=== PATIENT | male | born 1980 | race Two or more races ===

== ENCOUNTER 2019-07-12 16:41 | Inpatient (IN) | payer MEDICAID ==
[~2019-07-12] VITALS: Ht 182.9 cm; Wt 95.0 kg
[~2019-07-12 16:41] MED LIST: ALBU8HFA PO; IBUP-1986 PO; METF500T PO; [UNRECOGNIZED DRUG - CODE] PO
[2019-07-12] MEDS ORDERED: ipratropium/albuterol 3ml nebule NEB ONE (17:00)
[2019-07-12] MEDS ORDERED: methylPREDNISolone sod succ 125mg/2ml vial IV ONE (17:00)
[2019-07-12 17:33] LABS: BASOPHILS # (AUTO) 0.1 X10'3 (0-0.2); BASOPHILS % (AUTO) 0.6 % (0-1); EOSINOPHILS # (AUTO) 0.2 X10'3 (0-0.9); EOSINOPHILS % (AUTO) 2.6 % (0-6); HEMATOCRIT 38.6 % (42.0-52.0); HEMOGLOBIN 12.6 g/dl (14.0-17.9); LYMPHOCYTES # (AUTO) 1.6 X10'3 (1.1-4.8); MEAN CORPUSCULAR HGB CONC 32.7 g/dL (33.0-36.5); MEAN CORPUSCULAR VOLUME 76.3 FL (78-98); MEAN PLATELET VOLUME 7.5 FL (7.4-10.4); MONOCYTES # (AUTO) 0.5 X10'3 (0-0.9); MONOCYTES % (AUTO) 5.8 % (2-12); NEUTROPHILS # (AUTO) 6.6 X10'3 (1.8-7.7); PLATELET COUNT 435 X10'3 (140-440); RED BLOOD COUNT 5.06 X10'6 (4.70-6.10); RED CELL DISTRIBUTION WIDTH 14.7 % (11.5-14.5); WHITE BLOOD COUNT 9.1 X10'3 (4.5-11.0)
[2019-07-12 17:37] LABS: ALANINE AMINOTRANSFERASE 6 U/L (12-78); ALBUMIN 0.9 G/DL (3.4-5.0); ALBUMIN/GLOBULIN RATIO 0.2 (1.1-1.5); ALKALINE PHOSPHATASE 119 IU/L (46-116); ANION GAP 5 (8-16); ASPARTATE AMINO TRANSFERASE 12 U/L (10-37); BILIRUBIN,TOTAL 0.2 MG/DL (0.1-1.0); BLOOD UREA NITROGEN 12 MG/DL (7-18); BUN/CREATININE RATIO 12.8 (5.4-32.0); CALCIUM 8.4 MG/DL (8.5-10.1); CHLORIDE 105 MMOL/L (99-107); CREATININE 0.94 MG/DL (0.60-1.10); GLUCOSE 190 MG/DL (70-104); POTASSIUM 3.8 MMOL/L (3.5-5.1); SODIUM 140 MMOL/L (135-145); TOTAL CARBON DIOXIDE 30.3 MMOL/L (24-32); TOTAL PROTEIN 6.4 G/DL (6.4-8.2); eGFR 89 ML/MIN
[2019-07-12 17:40] LABS: PARTIAL THROMBOPLASTIN TIME 32 SECONDS (22-32)
[2019-07-12] MEDS ORDERED: morphine 2 MG/ML inj. syringe IV ONE (17:50)
[2019-07-12] MEDS ORDERED: nitroGLYCERIN 0.4mg/hour patch TD ONE (17:50)
[2019-07-12] MEDS ORDERED: aspirin 81mg tab.chew PO ONE ×2 (17:50→20:00)
[2019-07-12] MEDS ORDERED: furosemide 10 MG/1 ML 10ml inj IV ONE ×2 (17:55→19:00)
[2019-07-12] MEDS ORDERED: enoxaparin 100mg/ml syringe SUBCUT ONE (18:15)
[2019-07-12] MEDS ORDERED: INSU100V30 SQ (19:16)
[2019-07-12] MEDS ORDERED: magnesium 2GM in 50ml NS 50 ML IV PRN (19:35)
[2019-07-12] MEDS ORDERED: potassium Cl 20 mEq SR tablet PO PRN ×2 (19:35)
[2019-07-12] MEDS ORDERED: acetaminophen 325mg tablet PO PRN (19:35)
[2019-07-12] MEDS ORDERED: ondansetron/PF 4mg/2ml inj IV PRN (19:35)
[2019-07-12] MEDS ORDERED: magnesium 4gm in 100ml NS 100 ML IV PRN (19:35)
[2019-07-12] MEDS ORDERED: potassium CL 10mEq/100ml bag 100 ML IV PRN ×2 (19:35)
[2019-07-12] MEDS ORDERED: magnesium hydroxide 30ml (MOM) UD suspension PO PRN (19:35)
[2019-07-12] MEDS ORDERED: mag hydrox/Alum hydrox/simeth 30ml oral suspension PO PRN (19:35)
[2019-07-12] MEDS ORDERED: magnesium Cl slow-release 64mg tablet PO PRN (19:35)
[2019-07-12] MEDS ORDERED: dextrose ORAL solution 15 GM/59 ML bottle PO PRN ×2 (20:00)
[2019-07-12] MEDS ORDERED: MESSAGE TO PHARMACY PO ONE (20:00)
[2019-07-12] MEDS ORDERED: glucagon, human recombinant 1mg kit SUBCUT PRN (20:00)
[2019-07-12] MEDS: furosemide 40mg/4ml inj IV SCH (20:00)
[2019-07-12] MEDS ORDERED: nitroGLYCERIN 0.4mg SUBLingual tab SL PRN (20:00)
[2019-07-12] MEDS: K and/or MAG REPLACEMENT MC SCH (20:00)
[2019-07-12] MEDS ORDERED: dextrose 50%-water 50ml dispensing syringe IV PRN ×2 (20:00)
[2019-07-12 20:28] LABS: HEMOGLOBIN A1C 10.1 % (4.5-6.2)
[2019-07-12] MEDS: metoprolol tartrate 12.5mg (1/2 tablet) PO SCH (21:12)
[2019-07-12 21:25] VITALS: BP 139/88
--- NOTE | 2019-07-12 21:25 | NUR ---
pt arrived to the PCU unit from the ER via gurney, pt ambulated from the gurney to bed with stand by assist, pt complains of 6/10 lower extremity pain at the moment, pt does not seem to be in any respiratory distress, pt on RA, anasarca present, girlfriend at bedside with pt, will continue to monitor pt
[2019-07-12] MEDS: insulin glargine (Lantus) pen - multi-dose SQ SCH (22:38)
[2019-07-12 23:00] VITALS: BP 145/86
[2019-07-12] MEDS: HYDROcodone/acetaminophen 5mg/325mg tablet PO PRN (23:46)
[2019-07-13 03:00] VITALS: BP 143/80
[2019-07-13] MEDS: insulin Lispro (HumaLOG) vial - multi-dose SQ SCH ×4 (03:21→19:12)
--- NOTE | 2019-07-13 06:24 | NUR ---
Problems reprioritized. Patient report given, questions answered & plan of care reviewed with Luisa Mar and Hugo MAR.
--- NOTE | 2019-07-13 06:32 | NUR ---
Patient in room PCU 3024. I have received report from Veronica MACKAY and had the opportunity to ask questions and assume patient care, patient stable at transfer of care.
[2019-07-13 07:00] VITALS: BP 140/79
[2019-07-13 07:56] LABS: BASOPHILS % (AUTO) 0.1 % (0-1); EOSINOPHILS % (AUTO) 0 % (0-6); HEMATOCRIT 37.3 % (42.0-52.0); HEMOGLOBIN 12.2 g/dl (14.0-17.9); LYMPHOCYTES # (AUTO) 0.6 X10'3 (1.1-4.8); LYMPHOCYTES % (AUTO) 7.6 % (21-51); MEAN CORPUSCULAR HEMOGLOBIN 24.7 PG (27.0-31.0); MEAN CORPUSCULAR HGB CONC 32.6 g/dL (33.0-36.5); MEAN CORPUSCULAR VOLUME 75.8 FL (78-98); MEAN PLATELET VOLUME 8.2 FL (7.4-10.4); MONOCYTES # (AUTO) 0.1 X10'3 (0-0.9); NEUTROPHILS # (AUTO) 7.5 X10'3 (1.8-7.7); NEUTROPHILS % (AUTO) 91.3 % (42-75); PLATELET COUNT 453 X10'3 (140-440); RED BLOOD COUNT 4.93 X10'6 (4.70-6.10); RED CELL DISTRIBUTION WIDTH 14.3 % (11.5-14.5); WHITE BLOOD COUNT 8.2 X10'3 (4.5-11.0)
[2019-07-13] MEDS: K and/or MAG REPLACEMENT MC SCH ×2 (08:00→20:00)
[2019-07-13 08:20] LABS: ALBUMIN 0.7 G/DL (3.4-5.0); ALBUMIN/GLOBULIN RATIO 0.1 (1.1-1.5); ALKALINE PHOSPHATASE 114 IU/L (46-116); ANION GAP 4 (8-16); ASPARTATE AMINO TRANSFERASE 15 U/L (10-37); BILIRUBIN,TOTAL 0.2 MG/DL (0.1-1.0); BLOOD UREA NITROGEN 17 MG/DL (7-18); BUN/CREATININE RATIO 16.5 (5.4-32.0); CALCIUM 8.2 MG/DL (8.5-10.1); CHLORIDE 103 MMOL/L (99-107); CREATININE 1.03 MG/DL (0.60-1.10); GLUCOSE 373 MG/DL (70-104); POTASSIUM 3.8 MMOL/L (3.5-5.1); SODIUM 137 MMOL/L (135-145); TOTAL CARBON DIOXIDE 30.5 MMOL/L (24-32); eGFR 80 ML/MIN
[2019-07-13 08:25] LABS: MAGNESIUM 2.1 MG/DL (1.5-2.4); PHOSPHORUS 3.8 MG/DL (2.3-4.5)
[2019-07-13 08:27] LABS: ALANINE AMINOTRANSFERASE < 6 U/L (12-78)
[2019-07-13] MEDS: aspirin 81mg tab.chew PO SCH (09:21)
[2019-07-13] MEDS: metoprolol tartrate 12.5mg (1/2 tablet) PO SCH ×2 (09:22→19:08)
[2019-07-13] MEDS: atorvastatin 10mg tablet PO SCH (09:23)
[2019-07-13] MEDS: enoxaparin 40mg/0.4ml syringe SQ SCH (09:24)
[2019-07-13] MEDS: furosemide 40mg/4ml inj IV SCH ×2 (09:24→19:09)
[2019-07-13] MEDS ORDERED: FLU VACC QS2019-20 36MOS UP/PF 60 MCG/0.5 ML SYRINGE IMVAC ONE (10:00)
[2019-07-13 11:00] VITALS: BP 131/76
--- NOTE | 2019-07-13 12:13 | NUR ---
Patient in room PCU 3024. I have received report from THOMPSON Martin and had the opportunity to ask questions and assume patient care.
[2019-07-13 15:00] VITALS: BP 129/77
--- NOTE | 2019-07-13 16:16 | NUR ---
Pt with A1c 10.1 seen at bedside with SO present. Pt reports insulin dependent T2DM and states he takes long and short acting insulin per rx using a sliding scale for his short acting insulin. Pt states he checks his BG levels four times a day with resulting numbers generally 150-200 mg/dL however later reports it occasionally gets to around 250 mg/dL. Pt states his rx for test strips isn't enough for him. Pt provided with written and verbal DM education with referral to outpatient CDE course. Pt verbalized understanding and was able to provide teach back. RD encouraged pt to attend outpatient CDE course as per CM notes pt currently with no PCP. Pt expresses desire to obtain PCP; CM and SW following. RD contact information provided and pt encouraged to reach out if he has any questions regarding DM management or meal preferences. Pt agrees to double protein TID for satiety as pt reports still being hungry following 100% PO intake of meals, d/w dietary. Pt denies food allergies, difficulty chewing/swallowing, or constipation/diarrhea. Pt reports LBM 3/4. Will continue to follow. Addendum: 07/13/19 at [address] Amended: Links added.
[2019-07-13 18:00] VITALS: BP 124/73
--- NOTE | 2019-07-13 18:40 | NUR ---
Problems reprioritized. Patient report given, questions answered & plan of care reviewed with Anna RN, patient stable at transfer of care.
--- NOTE | 2019-07-13 18:47 | NUR ---
Problems reprioritized. Patient report given, questions answered & plan of care reviewed with THOMPSON Castillo. All patient needs met at this time.
[2019-07-13] MEDS: HYDROcodone/acetaminophen 5mg/325mg tablet PO PRN ×2 (19:09→23:18)
[2019-07-13] MEDS: insulin glargine (Lantus) pen - multi-dose SQ SCH (21:29)
[2019-07-13 22:00] VITALS: BP 136/73
[2019-07-14 02:00] VITALS: BP 125/74
[2019-07-14 02:55] LABS: URINE AMPHETAMINE SCREEN POSITIVE (Neg); URINE BARBITUATE SCREEN NEGATIVE (Neg); URINE BENZODIAZEPINES SCREEN NEGATIVE (Neg); URINE CANNABINOID SCREEN POSITIVE (Neg); URINE COCAINE SCREEN NEGATIVE (Neg); URINE METHADONE SCREEN NEGATIVE (Neg); URINE OPIATE SCREEN POSITIVE (Neg); URINE PHENCYCLIDINE SCREEN NEGATIVE (Neg)
[2019-07-14 02:59] LABS: CLARITY,URINE CLEAR (Clear); COLOR,URINE YELLOW (Yellow); GLUCOSE, URINE NEGATIVE (Neg); KETONES,URINE NEGATIVE (Neg); LEUKOCYTE ESTERASE ,URINE NEGATIVE (Neg); NITRITES, URINE NEGATIVE (Neg); OCCULT BLOOD,URINE SMALL (Neg); PH,URINE 7.5 (4.8-8.0); PROTEIN,URINE >=300 mg/dl (Neg); UROBILINOGEN,URINE 0.2 E.U/dL (0.2-1.0)
[2019-07-14 03:12] LABS: UA COLLECTION TYPE CLN CATCH MIDSTREAM
[2019-07-14 03:14] LABS: RBC,URINE 0-2 /HPF (0-2); WBC,URINE NONE SEEN /HPF (0-4)
[2019-07-14 03:15] LABS: BACTERIA,URINE NONE SEEN /HPF (Neg); MUCUS STRANDS FEW /LPF (Neg); SQUAMOUS EPITHELIAL CELL,UR NONE SEEN /LPF (FEW)
[2019-07-14 06:00] VITALS: BP 139/84
--- NOTE | 2019-07-14 06:23 | NUR ---
Problems reprioritized. Patient report given, questions answered & plan of care reviewed with THOMPSON Taveras.
[2019-07-14 07:02] LABS: BASOPHILS # (AUTO) 0.1 X10'3 (0-0.2); BASOPHILS % (AUTO) 0.6 % (0-1); EOSINOPHILS # (AUTO) 0.2 X10'3 (0-0.9); EOSINOPHILS % (AUTO) 2.2 % (0-6); HEMATOCRIT 34.9 % (42.0-52.0); HEMOGLOBIN 11.6 g/dl (14.0-17.9); LYMPHOCYTES # (AUTO) 3.1 X10'3 (1.1-4.8); LYMPHOCYTES % (AUTO) 32.8 % (21-51); MEAN CORPUSCULAR HEMOGLOBIN 25.4 PG (27.0-31.0); MEAN CORPUSCULAR HGB CONC 33.3 g/dL (33.0-36.5); MEAN CORPUSCULAR VOLUME 76.3 FL (78-98); MEAN PLATELET VOLUME 7.6 FL (7.4-10.4); MONOCYTES # (AUTO) 0.5 X10'3 (0-0.9); NEUTROPHILS # (AUTO) 5.6 X10'3 (1.8-7.7); NEUTROPHILS % (AUTO) 59.4 % (42-75); PLATELET COUNT 501 X10'3 (140-440); RED BLOOD COUNT 4.57 X10'6 (4.70-6.10); RED CELL DISTRIBUTION WIDTH 14.6 % (11.5-14.5); WHITE BLOOD COUNT 9.4 X10'3 (4.5-11.0)
[2019-07-14 07:21] LABS: ALANINE AMINOTRANSFERASE 8 U/L (12-78); ALBUMIN 0.9 G/DL (3.4-5.0); ALBUMIN/GLOBULIN RATIO 0.2 (1.1-1.5); ALKALINE PHOSPHATASE 100 IU/L (46-116); ANION GAP 3 (8-16); ASPARTATE AMINO TRANSFERASE 17 U/L (10-37); BILIRUBIN,TOTAL 0.1 MG/DL (0.1-1.0); BLOOD UREA NITROGEN 24 MG/DL (7-18); BUN/CREATININE RATIO 25.3 (5.4-32.0); CALCIUM 7.8 MG/DL (8.5-10.1); CHLORIDE 107 MMOL/L (99-107); CREATININE 0.95 MG/DL (0.60-1.10); GLUCOSE 149 MG/DL (70-104); MAGNESIUM 1.9 MG/DL (1.5-2.4); PHOSPHORUS 3.7 MG/DL (2.3-4.5); POTASSIUM 3.5 MMOL/L (3.5-5.1); SODIUM 141 MMOL/L (135-145); TOTAL CARBON DIOXIDE 30.6 MMOL/L (24-32); TOTAL PROTEIN 5.7 G/DL (6.4-8.2); eGFR 88 ML/MIN
[2019-07-14] MEDS: aspirin 81mg tab.chew PO SCH (07:49)
[2019-07-14] MEDS: atorvastatin 10mg tablet PO SCH (07:49)
[2019-07-14] MEDS: furosemide 40mg/4ml inj IV SCH ×2 (07:49→20:37)
[2019-07-14] MEDS: metoprolol tartrate 12.5mg (1/2 tablet) PO SCH ×2 (07:50→20:44)
[2019-07-14] MEDS: enoxaparin 40mg/0.4ml syringe SQ SCH (07:51)
[2019-07-14] MEDS: HYDROcodone/acetaminophen 5mg/325mg tablet PO PRN ×2 (07:52→20:46)
[2019-07-14] MEDS: K and/or MAG REPLACEMENT MC SCH ×2 (08:00→20:00)
[2019-07-14] MEDS: insulin Lispro (HumaLOG) vial - multi-dose SQ SCH (09:05)
[2019-07-14 11:00] VITALS: BP 138/83
[2019-07-14 11:46] LABS: CREATININE 0.96 MG/DL (0.60-1.10)
[2019-07-14] MEDS ORDERED: nitroGLYCERIN 0.4mg SUBLingual tab SL PRN (13:10)
[2019-07-14] MEDS ORDERED: regadenoson 0.4mg/5ml syringe IV PRN (13:10)
[2019-07-14] MEDS ORDERED: metoprolol tartrate 1mg/ml inj IV PRN (13:10)
[2019-07-14] MEDS ORDERED: aminophylline 250mg/10ml inj. IV PRN (13:10)
--- NOTE | 2019-07-14 13:23 | NUR ---
called down to nuclear med in regards to patient's scheduled stress test, stress test will be done 3 am, npo after midnight and no caffeine.
[2019-07-14 15:00] VITALS: BP 126/82
--- NOTE | 2019-07-14 18:32 | NUR ---
Problems reprioritized. Patient report given, questions answered & plan of care reviewed with Roxanna MACKAY.
[2019-07-14 19:00] VITALS: BP 156/93
[2019-07-14] MEDS: insulin glargine (Lantus) pen - multi-dose SQ SCH (20:44)
[2019-07-14 23:00] VITALS: BP 147/65
[2019-07-15] VITALS (9 sets, daily range): BP systolic 123–150; BP diastolic 75–96
--- NOTE | 2019-07-15 06:06 | NUR ---
Problems reprioritized. Patient report given, questions answered & plan of care reviewed with Darcy MACKAY.
[2019-07-15 06:44] LABS: BASOPHILS # (AUTO) 0.1 X10'3 (0-0.2); BASOPHILS % (AUTO) 0.7 % (0-1); EOSINOPHILS # (AUTO) 0.4 X10'3 (0-0.9); EOSINOPHILS % (AUTO) 4.3 % (0-6); HEMATOCRIT 35.3 % (42.0-52.0); HEMOGLOBIN 11.9 g/dl (14.0-17.9); LYMPHOCYTES # (AUTO) 2.8 X10'3 (1.1-4.8); MEAN CORPUSCULAR HEMOGLOBIN 25.8 PG (27.0-31.0); MEAN CORPUSCULAR HGB CONC 33.8 g/dL (33.0-36.5); MEAN CORPUSCULAR VOLUME 76.4 FL (78-98); MEAN PLATELET VOLUME 7.5 FL (7.4-10.4); MONOCYTES # (AUTO) 0.5 X10'3 (0-0.9); MONOCYTES % (AUTO) 5.4 % (2-12); NEUTROPHILS # (AUTO) 4.7 X10'3 (1.8-7.7); NEUTROPHILS % (AUTO) 56.6 % (42-75); PLATELET COUNT 535 X10'3 (140-440); RED BLOOD COUNT 4.62 X10'6 (4.70-6.10); RED CELL DISTRIBUTION WIDTH 14.5 % (11.5-14.5); WHITE BLOOD COUNT 8.4 X10'3 (4.5-11.0)
--- NOTE | 2019-07-15 06:58 | NUR ---
Patient in room PCU 3024. I have received report from Roxanna MACKAY and had the opportunity to ask questions and assume patient care.
[2019-07-15 07:06] LABS: ALANINE AMINOTRANSFERASE 10 U/L (12-78); ALBUMIN 0.9 G/DL (3.4-5.0); ALBUMIN/GLOBULIN RATIO 0.2 (1.1-1.5); ALKALINE PHOSPHATASE 104 IU/L (46-116); ANION GAP 3 (8-16); ASPARTATE AMINO TRANSFERASE 16 U/L (10-37); BILIRUBIN,TOTAL 0.1 MG/DL (0.1-1.0); BLOOD UREA NITROGEN 20 MG/DL (7-18); BUN/CREATININE RATIO 21.3 (5.4-32.0); CALCIUM 8.1 MG/DL (8.5-10.1); CHLORIDE 106 MMOL/L (99-107); CREATININE 0.94 MG/DL (0.60-1.10); GLUCOSE 155 MG/DL (70-104); MAGNESIUM 1.9 MG/DL (1.5-2.4); POTASSIUM 3.8 MMOL/L (3.5-5.1); SODIUM 142 MMOL/L (135-145); TOTAL CARBON DIOXIDE 32.8 MMOL/L (24-32); TOTAL PROTEIN 5.9 G/DL (6.4-8.2); eGFR 89 ML/MIN
--- NOTE | 2019-07-15 07:53 | NUR ---
PAGER ID: [phone] MESSAGE: [id number] Sarah Tse Pt. had some chocolate last night. Rigo from [facility] wants to know if you would still like to proceed with Stress test. Felisha [phone]
[2019-07-15] MEDS: metoprolol tartrate 12.5mg (1/2 tablet) PO SCH (08:00)
[2019-07-15] MEDS: enoxaparin 40mg/0.4ml syringe SQ SCH (08:54)
[2019-07-15] MEDS: atorvastatin 10mg tablet PO SCH (08:54)
[2019-07-15] MEDS: aspirin 81mg tab.chew PO SCH (08:55)
[2019-07-15] MEDS: furosemide 40mg/4ml inj IV SCH (08:55)
--- NOTE | 2019-07-15 12:28 | NUR ---
PAGER ID: [phone] MESSAGE: [id number] Alex Tse Lexiscan results in, Negative for infarct or Lexiscan induced ischemia. Normal LVEF, can patient eat now? thank marcin Aguilar replies and states pt can eat and once 24hr urine collection is completed patient can discharge.
[2019-07-15] MEDS ORDERED: LISI2.5T2 PO (12:33)
--- NOTE | 2019-07-15 13:25 | NUR ---
Called in new prescriptions to pharmacy of preference. Spoke with Martina, pharmacist. Confirmed that they have received faxed paperwork re: glucometer test strips and kwikpen needles.
[2019-07-15] MEDS: insulin Lispro (HumaLOG) vial - multi-dose SQ SCH (13:46)
[2019-07-15 14:08] LABS: UREA NITROGEN 24HR,URINE 22.3 GM/24HR (7-20)
[2019-07-17 11:10] LABS: A/G RATIO 0.4 (0.7-1.7); ALBUMIN 1.4 g/dL (2.9-4.4); GAMMA GLOBULIN 0.4 g/dL (0.4-1.8); GLOBULIN, TOTAL 3.5 g/dL (2.2-3.9); M-SPIKE Not Observed g/dL (Not Observed); PROTEIN, TOTAL, SERUM 4.9 g/dL (6.0-8.5)
[2019-07-18 10:46] LABS: ALBUMIN, UR 48.6 % (.); ALPHA-1-GLOBULIN,UR 17.9 % (.); ALPHA-2-GLOBULIN,UR 9.3 % (.); BETA GLOBULIN, UR 17.4 % (.); GAMMA GLOBULIN,UR 6.8 % (.); PROTEIN,TOTAL,URINE 292.4 mg/dL (Not Estab.)
== END 2019-07-15 14:13 | disposition home or self-care (01) | DRG 203 ==
LOC: ER 16:42 → ED HOLD 19:31 → UNDOADMIN 19:31 → ED HOLD 20:13 → PCU 3S 21:25
PROVIDERS: ADMIT Family Medicine; ATTEND Internal Medicine
PROC: 4A02XM4 Measurement of Cardiac Total Activity, External Approach (ICD-10-PCS; principal; 2019-07-15)
PROC: 3E033HZ Introduction of Radioactive Substance into Peripheral Vein, Percutaneous Approach (ICD-10-PCS; 2019-07-15)
DX: R07.9 Chest pain, unspecified (principal); E03.9 Hypothyroidism, unspecified; E10.9 Type 1 diabetes mellitus without complications; F12.90 Cannabis use, unspecified, uncomplicated; J45.909 Unspecified asthma, uncomplicated; Z79.4 Long term (current) use of insulin; Z87.891 Personal history of nicotine dependence; Z90.49 Acquired absence of other specified parts of digestive tract; R60.1 Generalized edema
CPT/HCPCS: 36415; 71045; 78452; 80053; 80305; 81001; 82043; 82575; 82948; 83036; 83735; 83880; 84100; 84155; 84156; 84165; 84166; 84439; 84443; 84480; 84484; 84560; 85025; 85610; 85730; 86335; 87081; 93005; 93017; 93306; 93970; 94640; 94760; 96372; 96374; 96375; 99285; A9500; G0378; J1650; J1815; J1940; J2270; J2785; J2930; Q2037

== ENCOUNTER 2020-02-09 07:53 | Inpatient (IN) | payer MEDICAID ==
[~2020-02-09] VITALS: Ht 182.9 cm; Wt 97.5 kg
[~2020-02-09 07:53] MED LIST changes: -ALBU8HFA PO; -IBUP-1986 PO; +INSU100V30 SQ; +LISI2.5T2 PO; -METF500T PO; -[UNRECOGNIZED DRUG - CODE] PO
[2020-02-09 10:04] LABS: BASOPHILS # (AUTO) 0.1 X10'3 (0-0.2); BASOPHILS % (AUTO) 0.8 % (0-1); EOSINOPHILS # (AUTO) 0.2 X10'3 (0-0.9); HEMATOCRIT 37.8 % (42.0-52.0); HEMOGLOBIN 12.3 g/dl (14.0-17.9); LYMPHOCYTES # (AUTO) 1.3 X10'3 (1.1-4.8); LYMPHOCYTES % (AUTO) 7.8 % (21-51); MEAN CORPUSCULAR HEMOGLOBIN 25.7 PG (27.0-31.0); MEAN CORPUSCULAR HGB CONC 32.5 g/dL (33.0-36.5); MEAN CORPUSCULAR VOLUME 79.3 FL (78-98); MONOCYTES # (AUTO) 1.4 X10'3 (0-0.9); NEUTROPHILS % (AUTO) 82.4 % (42-75); PLATELET COUNT 461 X10'3 (140-440); RED BLOOD COUNT 4.77 X10'6 (4.70-6.10); RED CELL DISTRIBUTION WIDTH 16.1 % (11.5-14.5)
[2020-02-09 10:17] LABS: ALANINE AMINOTRANSFERASE 9 U/L (12-78); ALBUMIN 0.7 G/DL (3.4-5.0); ALBUMIN/GLOBULIN RATIO 0.1 (1.1-1.5); ALKALINE PHOSPHATASE 118 IU/L (46-116); ANION GAP 7 (8-16); ASPARTATE AMINO TRANSFERASE 14 U/L (10-37); BILIRUBIN,TOTAL 0.2 MG/DL (0.1-1.0); BLOOD UREA NITROGEN 18 MG/DL (7-18); BUN/CREATININE RATIO 7.9 (5.4-32.0); CALCIUM 8.5 MG/DL (8.5-10.1); CHLORIDE 103 MMOL/L (99-107); CREATININE 2.28 MG/DL (0.60-1.10); GLUCOSE 242 MG/DL (70-104); LIPASE 192 U/L (73-393); POTASSIUM 3.2 MMOL/L (3.5-5.1); SODIUM 134 MMOL/L (135-145); TOTAL CARBON DIOXIDE 23.6 MMOL/L (24-32); TOTAL PROTEIN 6.3 G/DL (6.4-8.2); eGFR 32 ML/MIN
[2020-02-09 10:25] LABS: ETHANOL < 0.010 GM/DL (0.0-0.010)
[2020-02-09 10:35] LABS: CLARITY,URINE SLIGHTLY CLOUDY (Clear); COLOR,URINE YELLOW (Yellow); GLUCOSE, URINE >=1000 mg/dl (Neg); KETONES,URINE NEGATIVE (Neg); LEUKOCYTE ESTERASE ,URINE NEGATIVE (Neg); NITRITES, URINE NEGATIVE (Neg); OCCULT BLOOD,URINE MODERATE (Neg); PROTEIN,URINE >=300 mg/dl (Neg); UROBILINOGEN,URINE 0.2 E.U/dL (0.2-1.0)
[2020-02-09 10:36] LABS: UA COLLECTION TYPE CLN CATCH MIDSTREAM
[2020-02-09 10:41] LABS: MUCUS STRANDS FEW /LPF (Neg)
[2020-02-09 10:42] LABS: SQUAMOUS EPITHELIAL CELL,UR FEW /LPF (FEW)
[2020-02-09 10:47] LABS: BACTERIA,URINE FEW /HPF (Neg)
[2020-02-09 10:51] LABS: AMMONIA < 10 UMOL/L (11-32)
[2020-02-09 10:56] LABS: URINE AMPHETAMINE SCREEN NEGATIVE (Neg); URINE BARBITUATE SCREEN NEGATIVE (Neg); URINE BENZODIAZEPINES SCREEN NEGATIVE (Neg); URINE CANNABINOID SCREEN POSITIVE (Neg); URINE COCAINE SCREEN NEGATIVE (Neg); URINE METHADONE SCREEN NEGATIVE (Neg); URINE OPIATE SCREEN NEGATIVE (Neg); URINE PHENCYCLIDINE SCREEN NEGATIVE (Neg)
[2020-02-09 11:03] LABS: WBC,URINE 0-4 /HPF (0-4)
[2020-02-09 11:05] LABS: TRANSITIONAL EPI CELLS,URINE MODERATE /HPF
[2020-02-09] MEDS ORDERED: potassium Cl 20 mEq SR tablet PO STA (11:05)
[2020-02-09 11:14] LABS: LACTIC SEPSIS 0.3 MMOL/L (0.4-2.0)
[2020-02-09] MEDS ORDERED: magnesium Cl slow-release 64mg tablet PO PRN (12:05)
[2020-02-09] MEDS ORDERED: morphine 2 MG/ML inj. syringe IV PRN ×2 (12:05)
[2020-02-09] MEDS ORDERED: glucagon, human recombinant 1mg kit SUBCUT PRN (12:05)
[2020-02-09] MEDS ORDERED: HYDROcodone/acetaminophen 5mg/325mg tablet PO PRN (12:05)
[2020-02-09] MEDS ORDERED: acetaminophen 325mg tablet PO PRN (12:05)
[2020-02-09] MEDS ORDERED: potassium Cl 20 mEq SR tablet PO PRN (12:05)
[2020-02-09] MEDS ORDERED: dextrose 50%-water 50ml dispensing syringe IV PRN ×2 (12:05)
[2020-02-09] MEDS ORDERED: magnesium 2GM in 50ml NS 50 ML IV PRN (12:05)
[2020-02-09] MEDS ORDERED: MESSAGE TO PHARMACY PO ONE (12:05)
[2020-02-09] MEDS ORDERED: potassium CL 10mEq/100ml bag 100 ML IV PRN ×2 (12:05)
[2020-02-09] MEDS ORDERED: ondansetron/PF 4mg/2ml inj IV PRN (12:05)
[2020-02-09] MEDS ORDERED: dextrose ORAL solution 15 GM/59 ML bottle PO PRN ×2 (12:05)
[2020-02-09] MEDS ORDERED: magnesium 4gm in 100ml NS 100 ML IV PRN (12:05)
[2020-02-09] MEDS ORDERED: NO HOME MEDS (12:47)
[2020-02-09] MEDS: normal saline 1000ml 1,000 ML IV SCH ×2 (13:23→18:45)
[2020-02-09] MEDS: HYDROcodone/acetaminophen 10/325mg tab PO PRN ×2 (13:29→19:52)
--- NOTE | 2020-02-09 14:11 | NUR ---
Recieved report from Anneliese MACKAY in ER. Pt. to be admitted to room 8454J
--- NOTE | 2020-02-09 15:19 | NUR ---
Pt. in room. Oriented to room and call light/phone made available. Fluids per order started and VS taken. Tele monitor 54 placed on pt. Pt. c/o dry mouth. Oral swabs and Listerine provided. Pt. aware he is NPO.
[2020-02-09 15:30] VITALS: BP 141/95
--- NOTE | 2020-02-09 15:53 | NUR ---
PAGER ID: [phone] MESSAGE: Alen Mikael Tse [id number] very upset. He is NPO and wants a diet. Can I give him a diet? Leonila [phone]
[2020-02-09 15:54] VITALS: BP 118/80
--- NOTE | 2020-02-09 15:59 | NUR ---
Paged yisel nurse. Resource RN covering for this RN while on Lunch break for 30 min.
[2020-02-09 18:00] VITALS: BP 155/96
--- NOTE | 2020-02-09 18:15 | NUR ---
Patient in room PCU 3013. I have received report from Leonila MACKAY and had the opportunity to ask questions and assume patient care.
--- NOTE | 2020-02-09 18:15 | NUR ---
Gave report to Karla surgical attendant float.
--- NOTE | 2020-02-09 18:15 | NUR ---
Patient in room PCU 3013. I have received report from Leonila MACKAY and had the opportunity to ask questions and assume patient care.
[2020-02-09] MEDS: pantoprazole 40 MG vial IV SCH (19:34)
[2020-02-09] MEDS: metroNIDAZOLE-Flagyl 500mg/NS 100 ML IV SCH (19:35)
[2020-02-09] MEDS: heparin, porcine 5000 units/ml vial SQ SCH (19:35)
[2020-02-09] MEDS: K and/or MAG REPLACEMENT MC SCH (20:00)
[2020-02-09] MEDS: insulin glargine (Lantus) pen - multi-dose SQ SCH (21:00)
[2020-02-09] MEDS ORDERED: temazepam 15mg capsule PO PRN (21:00)
[2020-02-09] MEDS: ciprofloxacin lact 400MG/200ML 200 ML IV SCH (21:34)
[2020-02-09 22:00] VITALS: BP 152/89
[2020-02-10 02:00] VITALS: BP 141/89
[2020-02-10] MEDS: HYDROcodone/acetaminophen 10/325mg tab PO PRN ×4 (02:36→22:05)
[2020-02-10] MEDS: normal saline 1000ml 1,000 ML IV SCH ×3 (04:28→13:17)
[2020-02-10 05:53] LABS: BASOPHILS # (AUTO) 0.1 X10'3 (0-0.2); BASOPHILS % (AUTO) 0.6 % (0-1); EOSINOPHILS # (AUTO) 0.4 X10'3 (0-0.9); EOSINOPHILS % (AUTO) 3.3 % (0-6); HEMATOCRIT 33.8 % (42.0-52.0); LYMPHOCYTES # (AUTO) 1.4 X10'3 (1.1-4.8); LYMPHOCYTES % (AUTO) 11.1 % (21-51); MEAN CORPUSCULAR HEMOGLOBIN 25.7 PG (27.0-31.0); MEAN CORPUSCULAR HGB CONC 32.6 g/dL (33.0-36.5); MEAN CORPUSCULAR VOLUME 78.8 FL (78-98); MEAN PLATELET VOLUME 7.8 FL (7.4-10.4); MONOCYTES # (AUTO) 0.9 X10'3 (0-0.9); MONOCYTES % (AUTO) 6.8 % (2-12); NEUTROPHILS # (AUTO) 10.1 X10'3 (1.8-7.7); NEUTROPHILS % (AUTO) 78.2 % (42-75); PLATELET COUNT 398 X10'3 (140-440); RED BLOOD COUNT 4.29 X10'6 (4.70-6.10); RED CELL DISTRIBUTION WIDTH 15.7 % (11.5-14.5); WHITE BLOOD COUNT 12.9 X10'3 (4.5-11.0)
[2020-02-10 06:00] VITALS: BP 148/92
[2020-02-10 06:07] LABS: ALANINE AMINOTRANSFERASE 8 U/L (12-78); ALKALINE PHOSPHATASE 98 IU/L (46-116); ANION GAP 6 (8-16); ASPARTATE AMINO TRANSFERASE 14 U/L (10-37); BILIRUBIN,TOTAL 0.3 MG/DL (0.1-1.0); BLOOD UREA NITROGEN 20 MG/DL (7-18); BUN/CREATININE RATIO 8.3 (5.4-32.0); CALCIUM 8.3 MG/DL (8.5-10.1); CHLORIDE 107 MMOL/L (99-107); CREATININE 2.42 MG/DL (0.60-1.10); GLUCOSE 144 MG/DL (70-104); MAGNESIUM 1.9 MG/DL (1.5-2.4); POTASSIUM 3.7 MMOL/L (3.5-5.1); SODIUM 137 MMOL/L (135-145); TOTAL CARBON DIOXIDE 23.7 MMOL/L (24-32); TOTAL PROTEIN 5.4 G/DL (6.4-8.2); eGFR 30 ML/MIN
--- NOTE | 2020-02-10 06:23 | NUR ---
Problems reprioritized. Patient report given, questions answered & plan of care reviewed with Karyn.
[2020-02-10 06:30] LABS: ALBUMIN < 0.6 G/DL (3.4-5.0); ALBUMIN/GLOBULIN RATIO 0.1 (1.1-1.5)
--- NOTE | 2020-02-10 06:44 | NUR ---
Patient in room PCU 3013A. I have received report from THOMPSON YANES and had the opportunity to ask questions and assume patient care.
[2020-02-10] MEDS: pantoprazole 40 MG vial IV SCH ×2 (07:26→22:05)
[2020-02-10] MEDS: metroNIDAZOLE-Flagyl 500mg/NS 100 ML IV SCH ×2 (07:27→22:09)
[2020-02-10] MEDS: nicotine 14mg patch - 24hr TD SCH ×2 (07:27→15:40)
[2020-02-10] MEDS: heparin, porcine 5000 units/ml vial SQ SCH ×2 (07:27→22:23)
[2020-02-10] MEDS: K and/or MAG REPLACEMENT MC SCH ×2 (07:29→20:00)
[2020-02-10] MEDS: ciprofloxacin lact 400MG/200ML 200 ML IV SCH ×2 (09:03→23:58)
--- NOTE | 2020-02-10 10:23 | NUR ---
Pt with T2DM, current A1c is 8.3%. Pt presented with c/o 02/16 abdominal pain, currently with c/o 01/17 pain. Will defer DM education at this time until pt more stable. Per records pt with an A1c of 10.1% in July of this year and pt was seen by RD with patient's SO at bedside for written and verbal DM education 07/13/2019. Per RD note at that time, pt reports insulin dependent T2DM and expressed desire to obtain a PCP, though per H&P this admit pt with no PCP and continues with insulin rx. Will continue to follow. Addendum: 02/10/20 at [address] Amended: Links added.
[2020-02-10 11:00] VITALS: BP 147/94
[2020-02-10] MEDS ORDERED: nystatin 15 GM powder TP SCH (13:25)
[2020-02-10 15:00] VITALS: BP_SYST 161; BP_SYST 169; BP_DIAS 101; BP_DIAS 110
--- NOTE | 2020-02-10 15:24 | NUR ---
PATIENT HAS BEEN HAVING HIGH BLOOD PRESSURES, CURRENT 169/101. PAGED AWAITING CALL BACK
[2020-02-10 18:00] VITALS: BP 159/88
--- NOTE | 2020-02-10 19:45 | NUR ---
Patient in room U 3013. I have received report from Walter MACKAY and had the opportunity to ask questions and assume patient care. Addendum: 02/11/20 at 0015 by Eulalia Morrison RN Amended: Links added.
[2020-02-10] MEDS: insulin glargine (Lantus) pen - multi-dose SQ SCH (21:00)
[2020-02-10 22:00] VITALS: BP 140/82
[2020-02-10] MEDS: atenolol 25mg tablet PO SCH (22:19)
[2020-02-11] MEDS: normal saline 1000ml 1,000 ML IV SCH ×3 (00:18→20:18)
[2020-02-11 04:21] LABS: BASOPHILS # (AUTO) 0.2 X10'3 (0-0.2); BASOPHILS % (AUTO) 1.7 % (0-1); EOSINOPHILS # (AUTO) 0.4 X10'3 (0-0.9); EOSINOPHILS % (AUTO) 2.8 % (0-6); HEMATOCRIT 35.5 % (42.0-52.0); HEMOGLOBIN 11.4 g/dl (14.0-17.9); LYMPHOCYTES # (AUTO) 1.5 X10'3 (1.1-4.8); LYMPHOCYTES % (AUTO) 11.1 % (21-51); MEAN CORPUSCULAR HEMOGLOBIN 25.5 PG (27.0-31.0); MEAN CORPUSCULAR HGB CONC 32.1 g/dL (33.0-36.5); MEAN CORPUSCULAR VOLUME 79.4 FL (78-98); MEAN PLATELET VOLUME 8.2 FL (7.4-10.4); MONOCYTES # (AUTO) 0.9 X10'3 (0-0.9); MONOCYTES % (AUTO) 7.1 % (2-12); NEUTROPHILS # (AUTO) 10.1 X10'3 (1.8-7.7); NEUTROPHILS % (AUTO) 77.3 % (42-75); PLATELET COUNT 483 X10'3 (140-440); RED BLOOD COUNT 4.47 X10'6 (4.70-6.10); RED CELL DISTRIBUTION WIDTH 16.1 % (11.5-14.5); WHITE BLOOD COUNT 13.1 X10'3 (4.5-11.0)
[2020-02-11] MEDS: HYDROcodone/acetaminophen 10/325mg tab PO PRN ×3 (05:16→19:56)
[2020-02-11 05:29] LABS: ALANINE AMINOTRANSFERASE 6 U/L (12-78); ALKALINE PHOSPHATASE 96 IU/L (46-116); ANION GAP 9 (8-16); ASPARTATE AMINO TRANSFERASE 11 U/L (10-37); BILIRUBIN,TOTAL 0.2 MG/DL (0.1-1.0); BLOOD UREA NITROGEN 20 MG/DL (7-18); BUN/CREATININE RATIO 8.5 (5.4-32.0); CALCIUM 8.5 MG/DL (8.5-10.1); CHLORIDE 103 MMOL/L (99-107); CREATININE 2.34 MG/DL (0.60-1.10); GLUCOSE 160 MG/DL (70-104); MAGNESIUM 1.8 MG/DL (1.5-2.4); POTASSIUM 3.2 MMOL/L (3.5-5.1); SODIUM 134 MMOL/L (135-145); TOTAL PROTEIN 5.4 G/DL (6.4-8.2); eGFR 31 ML/MIN
[2020-02-11 05:33] LABS: ALBUMIN < 0.6 G/DL (3.4-5.0); ALBUMIN/GLOBULIN RATIO 0.1 (1.1-1.5)
--- NOTE | 2020-02-11 06:00 | NUR ---
Problems reprioritized. Patient report given, questions answered & plan of care reviewed with True MACKAY. Addendum: 02/11/20 at 0707 by Eulalia Morrison RN Amended: Links added.
[2020-02-11 07:15] VITALS: BP 137/92
[2020-02-11] MEDS ORDERED: methylnaltrexone br 12mg/0.6ml inj***SubQ only SQ SCH (08:00)
[2020-02-11] MEDS: nicotine 14mg patch - 24hr TD SCH ×2 (08:00)
[2020-02-11] MEDS: pantoprazole 40 MG vial IV SCH ×2 (08:03→19:46)
[2020-02-11] MEDS: heparin, porcine 5000 units/ml vial SQ SCH ×2 (08:04→19:45)
[2020-02-11] MEDS: K and/or MAG REPLACEMENT MC SCH ×2 (08:05→20:00)
[2020-02-11] MEDS: atenolol 25mg tablet PO SCH ×2 (08:05→19:55)
[2020-02-11] MEDS: potassium Cl 20 mEq SR tablet PO PRN ×3 (08:05→21:07)
[2020-02-11] MEDS: metroNIDAZOLE-Flagyl 500mg/NS 100 ML IV SCH ×2 (08:06→19:41)
[2020-02-11] MEDS: ciprofloxacin lact 400MG/200ML 200 ML IV SCH ×2 (09:48→21:08)
[2020-02-11 11:00] VITALS: BP 132/83
--- NOTE | 2020-02-11 12:28 | NUR ---
PAGER ID: [phone] MESSAGE: True [facility] [phone] Re: [phone] Jessica Tse patient stated you were going to advance his diet but I do not see the order. Would you like to advance his diet?
[2020-02-11 15:45] VITALS: BP 122/77
[2020-02-11 18:00] VITALS: BP 149/87
--- NOTE | 2020-02-11 18:00 | NUR ---
Patient in room PCU 3013. I have received report from True MACKAY and had the opportunity to ask questions and assume patient care.
--- NOTE | 2020-02-11 18:28 | NUR ---
Problems reprioritized. Patient report given, questions answered & plan of care reviewed with LUIS MACKAY.
[2020-02-11] MEDS: insulin glargine (Lantus) pen - multi-dose SQ SCH (21:00)
[2020-02-11] MEDS ORDERED: diatr meglu/diatrizoate 30ml oral sol.-(3 dose) bottle PO SCH (21:00)
[2020-02-11] MEDS: diatr meglu/diatrizoate 30ml oral sol.-(3 dose) bottle PO SCH (21:25)
[2020-02-11 22:17] VITALS: BP 124/72
[2020-02-12] MEDS: HYDROcodone/acetaminophen 10/325mg tab PO PRN ×4 (01:51→21:01)
[2020-02-12 02:00] VITALS: BP 144/92
[2020-02-12] MEDS: normal saline 1000ml 1,000 ML IV SCH ×2 (04:29→16:18)
[2020-02-12 05:25] LABS: BASOPHILS # (AUTO) 0.1 X10'3 (0-0.2); BASOPHILS % (AUTO) 0.5 % (0-1); EOSINOPHILS # (AUTO) 0.3 X10'3 (0-0.9); EOSINOPHILS % (AUTO) 2.8 % (0-6); LYMPHOCYTES # (AUTO) 1.2 X10'3 (1.1-4.8); LYMPHOCYTES % (AUTO) 11.2 % (21-51); MEAN CORPUSCULAR HEMOGLOBIN 25.5 PG (27.0-31.0); MEAN CORPUSCULAR HGB CONC 32.2 g/dL (33.0-36.5); MEAN CORPUSCULAR VOLUME 79.1 FL (78-98); MEAN PLATELET VOLUME 7.9 FL (7.4-10.4); MONOCYTES # (AUTO) 0.9 X10'3 (0-0.9); MONOCYTES % (AUTO) 8.5 % (2-12); NEUTROPHILS # (AUTO) 8.2 X10'3 (1.8-7.7); PLATELET COUNT 512 X10'3 (140-440); RED BLOOD COUNT 4.31 X10'6 (4.70-6.10); RED CELL DISTRIBUTION WIDTH 15.5 % (11.5-14.5); WHITE BLOOD COUNT 10.6 X10'3 (4.5-11.0)
[2020-02-12 06:01] LABS: ALANINE AMINOTRANSFERASE 6 U/L (12-78); ALKALINE PHOSPHATASE 96 IU/L (46-116); ANION GAP 9 (8-16); ASPARTATE AMINO TRANSFERASE 10 U/L (10-37); BILIRUBIN,TOTAL 0.2 MG/DL (0.1-1.0); BLOOD UREA NITROGEN 18 MG/DL (7-18); BUN/CREATININE RATIO 7.5 (5.4-32.0); CHLORIDE 102 MMOL/L (99-107); GLUCOSE 127 MG/DL (70-104); MAGNESIUM 1.8 MG/DL (1.5-2.4); POTASSIUM 3.2 MMOL/L (3.5-5.1); SODIUM 133 MMOL/L (135-145); TOTAL CARBON DIOXIDE 22.1 MMOL/L (24-32); TOTAL PROTEIN 5.4 G/DL (6.4-8.2); eGFR 30 ML/MIN
[2020-02-12 06:02] LABS: ALBUMIN < 0.6 G/DL (3.4-5.0); ALBUMIN/GLOBULIN RATIO 0.1 (1.1-1.5)
--- NOTE | 2020-02-12 06:36 | NUR ---
Problems reprioritized. Patient report given, questions answered & plan of care reviewed with Moira MACKAY.
--- NOTE | 2020-02-12 06:42 | NUR ---
Patient in room PCU 3013. I have received report from Radha MACKAY and had the opportunity to ask questions and assume patient care. Patient resting with eyes closed on right side.
[2020-02-12 06:59] VITALS: BP 139/84
[2020-02-12] MEDS: heparin, porcine 5000 units/ml vial SQ SCH ×2 (07:14→20:35)
[2020-02-12] MEDS: potassium Cl 20 mEq SR tablet PO PRN ×3 (07:27→21:01)
[2020-02-12] MEDS: diatr meglu/diatrizoate 30ml oral sol.-(3 dose) bottle PO SCH ×2 (07:27→11:13)
[2020-02-12] MEDS: atenolol 25mg tablet PO SCH ×2 (07:28→20:41)
[2020-02-12] MEDS: pantoprazole 40 MG vial IV SCH ×2 (07:28→20:35)
[2020-02-12] MEDS: ciprofloxacin lact 400MG/200ML 200 ML IV SCH ×2 (07:29→20:35)
[2020-02-12] MEDS: nicotine 14mg patch - 24hr TD SCH (07:38)
[2020-02-12] MEDS: K and/or MAG REPLACEMENT MC SCH ×3 (08:00→20:00)
[2020-02-12] MEDS: metroNIDAZOLE-Flagyl 500mg/NS 100 ML IV SCH ×2 (09:24→21:48)
[2020-02-12 12:00] VITALS: BP 106/74
[2020-02-12] MEDS ORDERED: magnesium Cl slow-release 64mg tablet PO PRN (13:00)
[2020-02-12] MEDS ORDERED: potassium CL 10mEq/100ml bag 100 ML IV PRN (13:00)
[2020-02-12] MEDS ORDERED: magnesium 4gm in 100ml NS 100 ML IV PRN (13:00)
[2020-02-12] MEDS ORDERED: potassium Cl 20 mEq SR tablet PO PRN (13:00)
--- NOTE | 2020-02-12 14:37 | NUR ---
DM consult, A1c is 8.3%. Per records pt with an A1c of 10.1% in July of this year and pt was seen by GARRET with patient's SO at bedside for written and verbal DM education 07/13/2019. Seen pt at bedside today and provided written DM education handout with brief review, pt had no questions. Addendum: 02/12/20 at [address] Amended: Links added.
[2020-02-12 15:00] VITALS: BP 96/66
--- NOTE | 2020-02-12 16:12 | NUR ---
PAGER ID: [phone] MESSAGE: MoiraAngelito [phone] Re: Dedrick [id number] please call patient would like to know if he can eat yet
--- NOTE | 2020-02-12 16:45 | NUR ---
PAGER ID: [phone] MESSAGE: Aretha [phone] Re: [id number] Dedrick please call re: diet orders.
[2020-02-12 18:00] VITALS: BP 143/82
--- NOTE | 2020-02-12 18:33 | NUR ---
Patient in room PCU 3013. I have received report from Moira MACKAY and had the opportunity to ask questions and assume patient care.
--- NOTE | 2020-02-12 18:38 | NUR ---
Problems reprioritized. Patient report given, questions answered & plan of care reviewed with Carine MACKAY.
[2020-02-12] MEDS: lactobacillus rhamnosus 10,000 MMU CELLS/CAPSULE PO SCH (20:35)
[2020-02-12] MEDS: insulin glargine (Lantus) pen - multi-dose SQ SCH (21:00)
[2020-02-12 22:00] VITALS: BP 135/80
[2020-02-13 02:00] VITALS: BP 138/78
[2020-02-13] MEDS: HYDROcodone/acetaminophen 10/325mg tab PO PRN ×5 (02:04→19:47)
[2020-02-13] MEDS: normal saline 1000ml 1,000 ML IV SCH ×4 (02:18→22:18)
--- NOTE | 2020-02-13 06:17 | NUR ---
Problems reprioritized. Patient report given, questions answered & plan of care reviewed with Roxanna MACKAY.
--- NOTE | 2020-02-13 06:29 | NUR ---
Problems reprioritized. Patient report given, questions answered & plan of care reviewed with THOMPSON Hawk.
[2020-02-13 06:33] LABS: BASOPHILS # (AUTO) 0.1 X10'3 (0-0.2); BASOPHILS % (AUTO) 0.9 % (0-1); EOSINOPHILS # (AUTO) 0.5 X10'3 (0-0.9); EOSINOPHILS % (AUTO) 4.4 % (0-6); HEMATOCRIT 32.2 % (42.0-52.0); HEMOGLOBIN 10.7 g/dl (14.0-17.9); LYMPHOCYTES # (AUTO) 1.3 X10'3 (1.1-4.8); LYMPHOCYTES % (AUTO) 12.2 % (21-51); MEAN CORPUSCULAR HEMOGLOBIN 26.5 PG (27.0-31.0); MEAN CORPUSCULAR HGB CONC 33.3 g/dL (33.0-36.5); MEAN CORPUSCULAR VOLUME 79.5 FL (78-98); MEAN PLATELET VOLUME 7.9 FL (7.4-10.4); MONOCYTES % (AUTO) 10.1 % (2-12); NEUTROPHILS # (AUTO) 7.5 X10'3 (1.8-7.7); NEUTROPHILS % (AUTO) 72.4 % (42-75); PLATELET COUNT 545 X10'3 (140-440); RED BLOOD COUNT 4.05 X10'6 (4.70-6.10); RED CELL DISTRIBUTION WIDTH 15.1 % (11.5-14.5); WHITE BLOOD COUNT 10.3 X10'3 (4.5-11.0)
[2020-02-13 06:59] LABS: ALANINE AMINOTRANSFERASE 7 U/L (12-78); ALKALINE PHOSPHATASE 89 IU/L (46-116); ANION GAP 10 (8-16); ASPARTATE AMINO TRANSFERASE 13 U/L (10-37); BILIRUBIN,TOTAL 0.1 MG/DL (0.1-1.0); BLOOD UREA NITROGEN 18 MG/DL (7-18); BUN/CREATININE RATIO 7.5 (5.4-32.0); CALCIUM 8.2 MG/DL (8.5-10.1); CHLORIDE 104 MMOL/L (99-107); CREATININE 2.41 MG/DL (0.60-1.10); GLUCOSE 125 MG/DL (70-104); POTASSIUM 3.8 MMOL/L (3.5-5.1); SODIUM 133 MMOL/L (135-145); TOTAL CARBON DIOXIDE 19.5 MMOL/L (24-32); TOTAL PROTEIN 5.5 G/DL (6.4-8.2); eGFR 30 ML/MIN
[2020-02-13 07:00] VITALS: BP 148/86
[2020-02-13 07:26] LABS: ALBUMIN < 0.6 G/DL (3.4-5.0); ALBUMIN/GLOBULIN RATIO 0.1 (1.1-1.5)
[2020-02-13] MEDS: pantoprazole 40 MG vial IV SCH ×2 (07:53→19:30)
[2020-02-13] MEDS: heparin, porcine 5000 units/ml vial SQ SCH ×2 (07:55→19:30)
[2020-02-13] MEDS: atenolol 25mg tablet PO SCH ×2 (07:56→19:31)
[2020-02-13] MEDS: metroNIDAZOLE-Flagyl 500mg/NS 100 ML IV SCH ×2 (07:56→21:12)
[2020-02-13] MEDS: lactobacillus rhamnosus 10,000 MMU CELLS/CAPSULE PO SCH ×2 (07:56→19:31)
[2020-02-13] MEDS: ciprofloxacin lact 400MG/200ML 200 ML IV SCH ×2 (08:00→19:29)
[2020-02-13] MEDS: nicotine 14mg patch - 24hr TD SCH (08:00)
[2020-02-13] MEDS: K and/or MAG REPLACEMENT MC SCH ×4 (08:00→20:00)
[2020-02-13 11:00] VITALS: BP 145/85
[2020-02-13 15:00] VITALS: BP 141/82
[2020-02-13 18:00] VITALS: BP 143/87
--- NOTE | 2020-02-13 18:34 | NUR ---
Problems reprioritized. Patient report given, questions answered & plan of care reviewed with Shima MACKAY.
--- NOTE | 2020-02-13 18:37 | NUR ---
Patient in room PCU 3010. I have received report from THOMPSON Mcknight and had the opportunity to ask questions and assume patient care
[2020-02-13] MEDS: insulin Lispro (HumaLOG) vial - multi-dose SQ SCH (19:26)
[2020-02-13] MEDS: insulin glargine (Lantus) pen - multi-dose SQ SCH (21:22)
[2020-02-13 22:00] VITALS: BP 140/74
--- NOTE | 2020-02-13 22:53 | NUR ---
Problems reprioritized. Patient report given, questions answered & plan of care reviewed with THOMPSON Henson.
--- NOTE | 2020-02-13 23:00 | NUR ---
Patient in room PCU 3013. I have received report from Shima MACKAY and had the opportunity to ask questions and assume patient care.
--- NOTE | 2020-02-13 23:56 | NUR ---
I agree with the charting and assessments done by Shima MACKAY.
[2020-02-14 02:00] VITALS: BP 123/56
[2020-02-14] MEDS: HYDROcodone/acetaminophen 10/325mg tab PO PRN ×3 (02:20→13:33)
[2020-02-14 06:00] VITALS: BP 139/83
--- NOTE | 2020-02-14 06:06 | NUR ---
Problems reprioritized. Patient report given, questions answered & plan of care reviewed with Karla MACKAY.
--- NOTE | 2020-02-14 06:10 | NUR ---
Patient in room PCU 3013. I have received report from THOMPSON Perez and had the opportunity to ask questions and assume patient care.
[2020-02-14 06:35] LABS: BASOPHILS # (AUTO) 0.1 X10'3 (0-0.2); EOSINOPHILS # (AUTO) 0.5 X10'3 (0-0.9); MEAN PLATELET VOLUME 7.9 FL (7.4-10.4); MONOCYTES # (AUTO) 0.9 X10'3 (0-0.9)
[2020-02-14 06:38] LABS: ALANINE AMINOTRANSFERASE 8 U/L (12-78); ALKALINE PHOSPHATASE 97 IU/L (46-116); ANION GAP 12 (8-16); ASPARTATE AMINO TRANSFERASE 12 U/L (10-37); BILIRUBIN,TOTAL 0.1 MG/DL (0.1-1.0); BLOOD UREA NITROGEN 16 MG/DL (7-18); BUN/CREATININE RATIO 7.1 (5.4-32.0); CALCIUM 8.3 MG/DL (8.5-10.1); CHLORIDE 102 MMOL/L (99-107); CREATININE 2.24 MG/DL (0.60-1.10); GLUCOSE 109 MG/DL (70-104); POTASSIUM 3.1 MMOL/L (3.5-5.1); SODIUM 134 MMOL/L (135-145); TOTAL CARBON DIOXIDE 20.3 MMOL/L (24-32); TOTAL PROTEIN 6.1 G/DL (6.4-8.2); eGFR 33 ML/MIN
[2020-02-14 06:39] LABS: EOSINOPHILS % (AUTO) 5.1 % (0-6); HEMATOCRIT 36.9 % (42.0-52.0); HEMOGLOBIN 11.9 g/dl (14.0-17.9); LYMPHOCYTES # (AUTO) 1.7 X10'3 (1.1-4.8); LYMPHOCYTES % (AUTO) 15.9 % (21-51); MEAN CORPUSCULAR HEMOGLOBIN 25.4 PG (27.0-31.0); MEAN CORPUSCULAR HGB CONC 32.1 g/dL (33.0-36.5); MONOCYTES % (AUTO) 8.5 % (2-12); NEUTROPHILS # (AUTO) 7.3 X10'3 (1.8-7.7); NEUTROPHILS % (AUTO) 69.5 % (42-75); PLATELET COUNT 644 X10'3 (140-440); RED BLOOD COUNT 4.67 X10'6 (4.70-6.10); RED CELL DISTRIBUTION WIDTH 15.9 % (11.5-14.5); WHITE BLOOD COUNT 10.5 X10'3 (4.5-11.0)
[2020-02-14 06:43] LABS: ALBUMIN < 0.6 G/DL (3.4-5.0)
[2020-02-14 06:46] LABS: ALBUMIN/GLOBULIN RATIO 0.1 (1.1-1.5)
[2020-02-14] MEDS: ciprofloxacin lact 400MG/200ML 200 ML IV SCH ×2 (07:15→19:34)
[2020-02-14] MEDS: pantoprazole 40 MG vial IV SCH (07:16)
[2020-02-14] MEDS: lactobacillus rhamnosus 10,000 MMU CELLS/CAPSULE PO SCH ×2 (07:17→19:34)
[2020-02-14] MEDS: atenolol 25mg tablet PO SCH ×2 (07:18→19:34)
[2020-02-14] MEDS: heparin, porcine 5000 units/ml vial SQ SCH ×2 (07:20→19:39)
[2020-02-14] MEDS: nicotine 14mg patch - 24hr TD SCH (08:00)
[2020-02-14] MEDS: normal saline 1000ml 1,000 ML IV SCH ×2 (08:18→21:24)
[2020-02-14] MEDS: K and/or MAG REPLACEMENT MC SCH ×4 (09:30→20:00)
[2020-02-14] MEDS: insulin Lispro (HumaLOG) vial - multi-dose SQ SCH ×2 (09:53→19:37)
--- NOTE | 2020-02-14 09:59 | NUR ---
PO intake 100% of carb controlled diet. Great appetite. Recommend: 1. continue carb controlled diet 2. weight per rx Addendum: 02/14/20 at [address] Amended: Links added.
--- NOTE | 2020-02-14 10:15 | NUR ---
Problems reprioritized. Patient report given, questions answered & plan of care reviewed with THOMPSON aHm.
[2020-02-14 11:00] VITALS: BP_SYST 108; BP_SYST 115; BP_DIAS 62; BP_DIAS 79
[2020-02-14] MEDS: potassium Cl 20 mEq SR tablet PO PRN ×2 (13:26→17:44)
[2020-02-14] MEDS: metroNIDAZOLE-Flagyl 500mg/NS 100 ML IV SCH ×2 (13:26→21:24)
--- NOTE | 2020-02-14 14:40 | NUR ---
Patient in room PCU 3013. I have received report from THOMPSON Fuchs and had the opportunity to ask questions and assume patient care. Pt resting comfortably.
[2020-02-14 15:00] VITALS: BP 125/74
[2020-02-14] MEDS: acetaminophen 325mg tablet PO PRN (17:46)
[2020-02-14 18:00] VITALS: BP 146/89
--- NOTE | 2020-02-14 18:18 | NUR ---
Problems reprioritized. Patient report given, questions answered & plan of care reviewed with THOMPSON Martin. Pt sitting up, eating dinner. All pt needs met at this time.
[2020-02-14 18:46] LABS: % IRON SATURATION 33 % (11-46); IRON 17 UG/DL (53-167); TOTAL IRON BINDING CAPACITY 51 UG/DL (259-388)
[2020-02-14] MEDS: insulin glargine (Lantus) pen - multi-dose SQ SCH (21:28)
[2020-02-15] MEDS: potassium Cl 20 mEq SR tablet PO PRN (00:54)
[2020-02-15 05:19] LABS: MAGNESIUM 1.9 MG/DL (1.5-2.4)
--- NOTE | 2020-02-15 06:14 | NUR ---
Patient in room PCU 3013. I have received report from THOMPSON Martin and had the opportunity to ask questions and assume patient care. Pt sleeping comfortably at change of shift.
--- NOTE | 2020-02-15 06:20 | NUR ---
Problems reprioritized. Patient report given, questions answered & plan of care reviewed with Luisa MACKAY.
[2020-02-15 07:00] VITALS: BP 154/95
[2020-02-15 07:01] LABS: ALANINE AMINOTRANSFERASE 9 U/L (12-78); ALBUMIN < 0.6 G/DL (3.4-5.0); ALBUMIN/GLOBULIN RATIO 0.1 (1.1-1.5); ALKALINE PHOSPHATASE 83 IU/L (46-116); ANION GAP 13 (8-16); ASPARTATE AMINO TRANSFERASE 10 U/L (10-37); BILIRUBIN,TOTAL 0.1 MG/DL (0.1-1.0); BLOOD UREA NITROGEN 16 MG/DL (7-18); BUN/CREATININE RATIO 7.4 (5.4-32.0); CALCIUM 8.3 MG/DL (8.5-10.1); CHLORIDE 107 MMOL/L (99-107); CREATININE 2.17 MG/DL (0.60-1.10); GLUCOSE 130 MG/DL (70-104); POTASSIUM 3.6 MMOL/L (3.5-5.1); SODIUM 135 MMOL/L (135-145); TOTAL CARBON DIOXIDE 15.5 MMOL/L (24-32); TOTAL PROTEIN 5.5 G/DL (6.4-8.2); eGFR 34 ML/MIN
[2020-02-15] MEDS ORDERED: pantoprazole 40mg Tablet.DR PO SCH (07:30)
[2020-02-15] MEDS: K and/or MAG REPLACEMENT MC SCH ×2 (08:00→18:51)
[2020-02-15] MEDS: nicotine 14mg patch - 24hr TD SCH (08:00)
[2020-02-15] MEDS: normal saline 1000ml 1,000 ML IV SCH ×2 (09:06→15:11)
[2020-02-15] MEDS: lactobacillus rhamnosus 10,000 MMU CELLS/CAPSULE PO SCH ×2 (09:09→19:34)
[2020-02-15] MEDS: metroNIDAZOLE-Flagyl 500mg/NS 100 ML IV SCH ×2 (09:09→20:56)
[2020-02-15] MEDS: ciprofloxacin lact 400MG/200ML 200 ML IV SCH ×2 (09:10→19:22)
[2020-02-15] MEDS: atenolol 25mg tablet PO SCH ×2 (09:11→19:34)
[2020-02-15] MEDS: heparin, porcine 5000 units/ml vial SQ SCH ×2 (09:12→19:35)
[2020-02-15] MEDS: insulin Lispro (HumaLOG) vial - multi-dose SQ SCH ×3 (09:20→19:46)
[2020-02-15 15:00] VITALS: BP 126/69
[2020-02-15 17:38] LABS: OCCULT BLOOD STOOL NEGATIVE (Neg)
--- NOTE | 2020-02-15 17:50 | NUR ---
Paged Dr Eaton regarding pt's pain PAGER ID: [phone] MESSAGE: Mikael Ham [id number] Pt complaining of abdominal pain, Tylenol is not working for him. Thanks Luisa Gonzalez [phone]
--- NOTE | 2020-02-15 17:57 | NUR ---
Dr Eaton called me back and said she understands the shift is about to change and I should inform the NOC nurse regarding the patient's pain and the NOC nurse can address this to the NOC doctor.
[2020-02-15 18:15] VITALS: BP 131/71
--- NOTE | 2020-02-15 18:29 | NUR ---
Patient in room PCU 3013. I have received report from Luisa Bustos RN and had the opportunity to ask questions and assume patient care.
--- NOTE | 2020-02-15 18:39 | NUR ---
Problems reprioritized. Patient report given, questions answered & plan of care reviewed with THOMPSON Bentley. Pt sitting up eating dinner. All pt needs met at this time.
[2020-02-15] MEDS: pantoprazole 40mg Tablet.DR PO SCH (19:35)
[2020-02-15] MEDS: acetaminophen 325mg tablet PO PRN (19:47)
--- NOTE | 2020-02-15 21:29 | NUR ---
Problems reprioritized. Patient report given, questions answered & plan of care reviewed with Shima Thomas RN.
[2020-02-15] MEDS: insulin glargine (Lantus) pen - multi-dose SQ SCH (21:34)
--- NOTE | 2020-02-15 21:36 | NUR ---
Paged Dr. Aguilar. Tylenol 650mg has been given to patient. Abdominal pain remains 01/17. Pt would like alternative for pain.
--- NOTE | 2020-02-15 22:00 | NUR ---
received report from THOMPSON Bentley
[2020-02-15] MEDS ORDERED: ketorolac tromethamine 15mg/ml inj. IM ONE (22:05)
[2020-02-16] MEDS: normal saline 1000ml 1,000 ML IV SCH ×3 (00:18→16:42)
[2020-02-16 02:00] VITALS: BP 147/90
[2020-02-16 05:51] LABS: ANION GAP 8 (8-16); BLOOD UREA NITROGEN 18 MG/DL (7-18); CALCIUM 8.4 MG/DL (8.5-10.1); CHLORIDE 109 MMOL/L (99-107); CREATININE 2.58 MG/DL (0.60-1.10); GLUCOSE 136 MG/DL (70-104); MAGNESIUM 1.8 MG/DL (1.5-2.4); POTASSIUM 3.5 MMOL/L (3.5-5.1); SODIUM 138 MMOL/L (135-145); TOTAL CARBON DIOXIDE 21.3 MMOL/L (24-32); eGFR 28 ML/MIN
[2020-02-16 06:00] VITALS: BP 153/77
[2020-02-16 06:10] LABS: ALBUMIN < 0.6 G/DL (3.4-5.0)
--- NOTE | 2020-02-16 06:29 | NUR ---
Problems reprioritized. Patient report given, questions answered & plan of care reviewed with THOMPSON Tucker.
[2020-02-16] MEDS: K and/or MAG REPLACEMENT MC SCH ×2 (06:47→19:18)
[2020-02-16] MEDS: metroNIDAZOLE-Flagyl 500mg/NS 100 ML IV SCH (07:46)
[2020-02-16] MEDS: lactobacillus rhamnosus 10,000 MMU CELLS/CAPSULE PO SCH ×2 (07:47→19:04)
[2020-02-16] MEDS: pantoprazole 40mg Tablet.DR PO SCH ×2 (07:47→19:04)
[2020-02-16] MEDS: atenolol 25mg tablet PO SCH ×2 (07:47→19:05)
[2020-02-16] MEDS: heparin, porcine 5000 units/ml vial SQ SCH ×2 (07:48→19:07)
[2020-02-16] MEDS: nicotine 14mg patch - 24hr TD SCH (08:00)
[2020-02-16] MEDS: ciprofloxacin lact 400MG/200ML 200 ML IV SCH (09:56)
[2020-02-16] MEDS: HYDROcodone/acetaminophen 5mg/325mg tablet PO PRN ×4 (10:05→23:25)
[2020-02-16 11:00] VITALS: BP 149/89
[2020-02-16] MEDS: metoclopramide 5 mg/ml inj IV SCH ×3 (12:12→21:19)
[2020-02-16] MEDS: insulin Lispro (HumaLOG) vial - multi-dose SQ SCH ×2 (13:24→19:11)
[2020-02-16 15:00] VITALS: BP 145/90
[2020-02-16] MEDS ORDERED: albumin (human) 25% 100ml IV 100 ML IV SCH (15:25)
[2020-02-16] MEDS: furosemide 20 MG/2 ML vial IV SCH ×2 (16:35→19:17)
--- NOTE | 2020-02-16 17:33 | NUR ---
PAGED US RE: ERIC CHRISTENSEN. KIDNEY US. [facility] [id number] CHRIS [phone]
[2020-02-16 18:00] VITALS: BP 147/83
[2020-02-16 18:03] LABS: CLARITY,URINE SLIGHTLY CLOUDY (Clear); COLOR,URINE YELLOW (Yellow); GLUCOSE, URINE 250 mg/dl (Neg); KETONES,URINE NEGATIVE (Neg); LEUKOCYTE ESTERASE ,URINE NEGATIVE (Neg); NITRITES, URINE NEGATIVE (Neg); OCCULT BLOOD,URINE MODERATE (Neg); PH,URINE 6.5 (4.8-8.0); PROTEIN,URINE >=300 mg/dl (Neg); UROBILINOGEN,URINE 0.2 E.U/dL (0.2-1.0)
[2020-02-16 18:23] LABS: TOTAL PROTEIN,URINE RANDOM 679.6 MG/DL
--- NOTE | 2020-02-16 18:39 | NUR ---
Problems reprioritized. Patient report given, questions answered & plan of care reviewed with aissatou holguin.
[2020-02-16 19:16] LABS: UA COLLECTION TYPE NON-SPECIFIED
[2020-02-16 19:17] LABS: BACTERIA,URINE NONE SEEN /HPF (Neg); SQUAMOUS EPITHELIAL CELL,UR FEW /LPF (FEW); WBC,URINE NONE SEEN /HPF (0-4)
[2020-02-16 19:18] LABS: UA EOSINOPHILS NO EOS /HPF
[2020-02-16] MEDS: insulin glargine (Lantus) pen - multi-dose SQ SCH (21:25)
[2020-02-16 22:17] VITALS: BP 125/75
[2020-02-17 02:00] VITALS: BP 147/83
[2020-02-17] MEDS: HYDROcodone/acetaminophen 5mg/325mg tablet PO PRN ×3 (03:34→12:17)
[2020-02-17] MEDS: normal saline 1000ml 1,000 ML IV SCH (03:36)
--- NOTE | 2020-02-17 06:34 | NUR ---
Reported off to Leonila MACKAY. Patient is awake and alert on room air. Call light and items of frequent use within reach.
[2020-02-17 07:11] VITALS: BP 136/84
[2020-02-17] MEDS: metoclopramide 5 mg/ml inj IV SCH ×2 (07:27→12:00)
[2020-02-17] MEDS: furosemide 20 MG/2 ML vial IV SCH (07:27)
[2020-02-17] MEDS: lactobacillus rhamnosus 10,000 MMU CELLS/CAPSULE PO SCH (07:28)
[2020-02-17] MEDS: pantoprazole 40mg Tablet.DR PO SCH (07:28)
[2020-02-17] MEDS: heparin, porcine 5000 units/ml vial SQ SCH (07:28)
[2020-02-17] MEDS: nicotine 14mg patch - 24hr TD SCH (07:29)
[2020-02-17] MEDS: K and/or MAG REPLACEMENT MC SCH (07:29)
[2020-02-17] MEDS: atenolol 25mg tablet PO SCH (07:29)
[2020-02-17 09:15] LABS: ANION GAP 8 (8-16); BLOOD UREA NITROGEN 19 MG/DL (7-18); BUN/CREATININE RATIO 8.1 (5.4-32.0); CALCIUM 8.1 MG/DL (8.5-10.1); CHLORIDE 106 MMOL/L (99-107); CREATININE 2.36 MG/DL (0.60-1.10); GLUCOSE 139 MG/DL (70-104); POTASSIUM 3.3 MMOL/L (3.5-5.1); SODIUM 136 MMOL/L (135-145); TOTAL CARBON DIOXIDE 21.7 MMOL/L (24-32); eGFR 31 ML/MIN
[2020-02-17 09:24] LABS: ALBUMIN < 0.6 G/DL (3.4-5.0)
[2020-02-17] MEDS: insulin Lispro (HumaLOG) vial - multi-dose SQ SCH (09:43)
[2020-02-17 11:00] VITALS: BP 148/79
[2020-02-17 11:33] LABS: RHEUM FACTOR QUAL REFLEX TITER NEGATIVE (Neg)
[2020-02-17] MEDS ORDERED: potassium Cl 20 mEq SR tablet PO STA (11:45)
[2020-02-17] MEDS ORDERED: LISI-604 PO (11:45)
[2020-02-17] MEDS ORDERED: FURO-150 PO (11:45)
[2020-02-17 12:05] LABS: HIV ANTIBODY 1&2 RAPID NON-REACTIVE (Neg)
--- NOTE | 2020-02-17 12:21 | NUR ---
Nutrition consult re: "low albumin". Pt continues with 75-100% PO intake on CHO controlled diet though more frequently with 100% PO intake meeting estimated nutrient needs. Pt roughly totaled 91 g protein consumption over the last three meals. Low albumin likely not r/t PO intake. Sunglass Clip Attacher has been consulted. Noted pt with active discharge orders. Will continue to follow. Addendum: 02/17/20 at [address] Amended: Links added.
[2020-02-17] MEDS ORDERED: HYDR-4383 PO (13:39)
--- NOTE | 2020-02-17 13:50 | NUR ---
Spoke to MD Valles regarding discharge Lasix order, current potassium lab, and possibility of discharging pt. on potassium prescription. states not at this time. Pt. does have renal issues as well.
--- NOTE | 2020-02-17 14:43 | NUR ---
PAGER ID: [phone] MESSAGE: Mikael Tse [id number] Pt. states he has no diabetic management at home. needs sliding scale insulin or oral hypoglycemic ordered before discharge. Pt. unsure what he takes at home. Leonila [phone]
--- NOTE | 2020-02-17 14:58 | NUR ---
Pt. states he has not had a PCP however he has been giving himself an insulin "one that starts with a L". Pt. seems to be very passive about his healthcare stating, "Well I thought you would find my doctor for me." Resources have been provided to pt. from , and a referral to [facility] has been made. Pt. stated, "Well, that's going to take a long time. " Extensive education given to pt. regarding why it is important for him to have a PCP with this critical lifelong disease. Written education on diabetes and H1AC test provided to pt. and reviewed with pt. Pt. unsure how much insulin he was taking at home. Discussed this via telephone with MD Valles. would like the pt. to take some initiative in his healthcare but will prescribe him 6 unit of lantus at night and refer him to his PCP. This was discussed with pt. and he is aware that he must f/u with a PCP within one week to further manage his hyperglycemia. Educated on the risks of not following through on this.
[2020-02-17] MEDS ORDERED: LANTUS SQ (15:15)
--- NOTE | 2020-02-17 15:22 | NUR ---
Contacted Lanette regarding new Lantus order. Pt. will need supplies to administer insulin. She is going to see if she can get these today. If not will need to contact MD Valles to see if we can administer Lantus today and the supplies would be ready by tomorrow.
--- NOTE | 2020-02-17 15:37 | NUR ---
Lanette with CM called back. States she ordered glucometer, strips syringes, etc. from pharmacy, but wasn't sure if pharmacy would have it approved and available by armin. Pt. also needs to be re-educated on how to use a syringe and give himself a dose. Spoke to [place] telephone. States it is OK to give this evenings dose of 6 units of lantus now, but to extensively remind pt. not to take another dose this evening.
[2020-02-17] MEDS ORDERED: insulin glargine (Lantus) pen - multi-dose SQ ONE (15:40)
--- NOTE | 2020-02-17 17:00 | NUR ---
DISCHARGE NOTE Pt. given extensive education on lantus administration and gave good verbal feedback. He states he "will finish up" the insulin pen he has at home already. Advised to follow doctor's orders and to check expiration date on pen before using. This primary RN was concerned that the pt. throws his needles in trash. Educated on the need to use a sharps container. Pt. verbalized several times that he is aware not to take a dose of insulin/lantus at home tonight r/t getting a dose here in the hospital. He is aware that the rest of his insulin supplies will be at the pharmacy waiting for him either tomorrow or Wednesday. He agrees to f/u at [facility] and with MD Pascal. The rest of the discharge paperwork was reviewed with pt with good feedback. Pt's IV DC'd, pressure bandage applied, no s/sx bleeding noted at site. Tele DC'd and returned. Pt. left with all of his belongings. Escorted downstairs by stff member to private ride to go home.
--- NOTE | 2020-02-17 17:00 | NUR ---
Pt. also advised on discharge to check his BG at home tonight and in the morning and to eat a late night snack. Pt. does state he has a glucometer at home.
== END 2020-02-17 16:55 | disposition home or self-care (01) | DRG 462 ==
LOC: ER 07:54 → ED HOLD 12:01 → PCU 3S 14:47
PROVIDERS: ADMIT Internal Medicine; ATTEND Internal Medicine
DX: N05.9 Unspecified nephritic syndrome with unspecified morphologic changes (principal); D64.9 Anemia, unspecified; K80.20 Calculus of gallbladder without cholecystitis without obstruction; E03.8 Other specified hypothyroidism; I12.9 Hypertensive chronic kidney disease with stage 1 through stage 4 chronic kidney disease, or unspecified chronic kidney disease; E10.22 Type 1 diabetes mellitus with diabetic chronic kidney disease; E87.6 Hypokalemia; N18.30 Chronic kidney disease, stage 3 unspecified; R60.1 Generalized edema; Z90.49 Acquired absence of other specified parts of digestive tract
CPT/HCPCS: 36415; 74176; 76775; 80048; 80053; 80305; 80320; 81001; 82140; 82272; 82570; 82948; 83036; 83540; 83550; 83605; 83690; 83735; 83880; 84156; 84300; 85025; 86038; 86160; 86430; 86703; 86803; 87040; 87081; 87207; 87340; 93005; 96374; 96375; 97116; 97161; 97530; 99285; C9113; G0378; J0744; J1644; J1815; J1885; J1940; J2212; J2270; J2405; J2765; J3490; J7030; Q9963

== ENCOUNTER 2020-12-07 18:44 | Inpatient (IN) | payer MEDICAID ==
[~2020-12-07] VITALS: Ht 185.4 cm; Wt 103.7 kg
[~2020-12-07 18:44] MED LIST changes: +FURO-150 PO; +HYDR-4383 PO; -INSU100V30 SQ; +LISI-790 PO; -LISI2.5T2 PO
[2020-12-07 20:54] LABS: RED CELL DISTRIBUTION WIDTH 18.8 % (11.5-14.5)
[2020-12-07 20:56] LABS: HEMATOCRIT 30.5 % (42.0-52.0); HEMOGLOBIN 9.5 g/dl (14.0-17.9); MEAN CORPUSCULAR HEMOGLOBIN 25.5 PG (27.0-31.0); MEAN CORPUSCULAR HGB CONC 31.1 g/dL (33.0-36.5); MEAN CORPUSCULAR VOLUME 81.8 FL (78-98); MEAN PLATELET VOLUME 7.9 FL (7.4-10.4); PLATELET COUNT 562 X10'3 (140-440); RED BLOOD COUNT 3.74 X10'6 (4.70-6.10)
[2020-12-07 21:11] LABS: ALANINE AMINOTRANSFERASE 8 U/L (12-78); ALKALINE PHOSPHATASE 65 IU/L (46-116); ANION GAP 11 (8-16); ASPARTATE AMINO TRANSFERASE 14 U/L (10-37); BILIRUBIN,TOTAL 0.1 MG/DL (0.1-1.0); BLOOD UREA NITROGEN 50 MG/DL (7-18); BUN/CREATININE RATIO 7.4 (5.4-32.0); CALCIUM 7.4 MG/DL (8.5-10.1); CHLORIDE 111 MMOL/L (99-107); CREATININE 6.74 MG/DL (0.60-1.10); GLUCOSE 171 MG/DL (70-104); MAGNESIUM 1.4 MG/DL (1.5-2.4); POTASSIUM 4.1 MMOL/L (3.5-5.1); SODIUM 140 MMOL/L (135-145); TOTAL CARBON DIOXIDE 17.8 MMOL/L (24-32); TOTAL PROTEIN 4.9 G/DL (6.4-8.2); eGFR 9 ML/MIN
[2020-12-07 21:12] LABS: ANISOCYTOSIS 2+; PLATELET ESTIMATE INCREASED; SMUDGE CELLS FEW; TOTAL CELLS COUNTED 100
[2020-12-07 21:28] LABS: ALBUMIN < 0.6 G/DL (3.4-5.0); ALBUMIN/GLOBULIN RATIO 0.1 (1.1-1.5)
[2020-12-07 21:32] LABS: CLARITY,URINE CLEAR (Clear); COLOR,URINE YELLOW (Yellow); GLUCOSE, URINE >=1000 mg/dl (Neg); KETONES,URINE 15 mg/dl (Neg); LEUKOCYTE ESTERASE ,URINE NEGATIVE (Neg); NITRITES, URINE NEGATIVE (Neg); OCCULT BLOOD,URINE LARGE (Neg); PROTEIN,URINE >=300 mg/dl (Neg); UROBILINOGEN,URINE 0.2 E.U/dL (0.2-1.0)
[2020-12-07 21:38] LABS: UA COLLECTION TYPE CLN CATCH MIDSTREAM
[2020-12-07 21:39] LABS: BACTERIA,URINE FEW /HPF (Neg); COARSE GRANULAR CAST 0-3 /LPF (NEGATIVE); SQUAMOUS EPITHELIAL CELL,UR FEW /LPF (FEW)
[2020-12-07 21:40] LABS: CELLULAR CAST 0-4 /LPF (NEGATIVE); HYALINE CASTS 0-3 /LPF (NEGATIVE)
[2020-12-07] MEDS ORDERED: acetaminophen 650mg rectal suppository RC PRN (21:50)
[2020-12-07] MEDS ORDERED: HYDROmorphone inj. 0.5 MG/0.5 ML DISP.SYRIN IV PRN (21:50)
[2020-12-07] MEDS ORDERED: acetaminophen 325mg tablet PO PRN ×2 (21:50)
[2020-12-07] MEDS ORDERED: furosemide inj 100 MG in normal saline 100ml IV soln 90 ML IV SCH (21:50)
[2020-12-07] MEDS ORDERED: magnesium hydroxide 30ml (MOM) UD suspension PO PRN (21:50)
[2020-12-07] MEDS ORDERED: morphine 2 MG/ML inj. syringe IV PRN (21:50)
[2020-12-07] MEDS ORDERED: mag hydrox/Alum hydrox/simeth 30ml oral suspension PO PRN (21:50)
[2020-12-07] MEDS ORDERED: diphenhydrAMINE 25mg capsule PO PRN (21:50)
[2020-12-07] MEDS ORDERED: bisacodyl 10mg suppository rectal RC PRN (21:50)
[2020-12-07] MEDS ORDERED: HYDROcodone/acetaminophen 5mg/325mg tablet PO PRN (21:50)
[2020-12-07 22:40] LABS: CREATINE KINASE 575 U/L (39-308); LIPASE 145 U/L (73-393); PHOSPHORUS 6.5 MG/DL (2.3-4.5); PREALBUMIN 13.2 MG/DL (19-36)
[2020-12-07 23:19] LABS: HEMOGLOBIN A1C 7.1 % (4.5-6.2)
[2020-12-07] MEDS: azithromycin/NS 500mg/250ml 250 ML IV SCH (23:40)
[2020-12-07] MEDS ORDERED: CefTRIAXone/D5W-Rocephin 1gm 50 ML IV SCH (23:40)
[2020-12-07] MEDS ORDERED: azithromycin 250mg tablet PO ONE (23:45)
[2020-12-07] MEDS ORDERED: CefTRIAXone 1000mg IM Kit (w/lidocaine diluent) IM ONE (23:45)
[2020-12-08] MEDS: morphine 2 MG/ML inj. syringe IV PRN ×2 (00:02→04:10)
[2020-12-08] MEDS: diphenhydrAMINE 50 mg/ml inj IV PRN (00:02)
[2020-12-08] MEDS: ondansetron/PF 4mg/2ml inj IV PRN (00:03)
[2020-12-08] MEDS: heparin, porcine 5000 units/ml vial SQ SCH ×2 (00:05→09:19)
[2020-12-08] MEDS: temazepam 15mg capsule PO PRN (00:19)
[2020-12-08] MEDS ORDERED: LIDOcaine 2% 10ml TOPICAL JELLY (Urojet) MM ONE (00:20)
[2020-12-08] MEDS: furosemide 1,000 MG in NS 250ml IV soln IV SCH ×2 (00:44→19:40)
[2020-12-08] MEDS ORDERED: METO5TAB98 PO (00:51)
[2020-12-08] MEDS ORDERED: FURO40TA4 PO (00:51)
--- NOTE | 2020-12-08 03:31 | NUR ---
doubled lasix gtt per protocol since patient urine output was only 100ml. gtt running at 60mg/hr per protocol. patient resting comfortably.
--- NOTE | 2020-12-08 03:38 | NUR ---
Pt O2 at 88% on room air while sleeping. 2L O2 administered via NC. O2 at 95%.
--- NOTE | 2020-12-08 04:35 | NUR ---
PATIENT IS SEVERE PAIN, OKAY BY MD TO USE IV DRUGS FIRST THEN PO.
[2020-12-08] MEDS: morphine 4 MG/ML inj SYRINge IV PRN (05:25)
[2020-12-08] MEDS ORDERED: PERFLUTREN PROTEIN-A MICROSPHR (Optison) 0.22 MG/ML 3ML VIAL IV ONE (08:00)
[2020-12-08] MEDS: nitroGLYCERIN 0.4mg/hour patch TD SCH (08:00)
[2020-12-08] MEDS: HYDROmorphone 1 mg/ml syringe IV PRN ×3 (09:08→22:10)
[2020-12-08] MEDS: docusate sod 100mg capsule PO SCH ×2 (09:18→19:09)
[2020-12-08] MEDS: pantoprazole 40mg Tablet.DR PO SCH (09:18)
[2020-12-08 09:51] LABS: BASOPHILS # (AUTO) 0.2 X10'3 (0-0.2); EOSINOPHILS # (AUTO) 1.2 X10'3 (0-0.9); HEMOGLOBIN 10.1 g/dl (14.0-17.9); NEUTROPHILS # (AUTO) 6.7 X10'3 (1.8-7.7); WHITE BLOOD COUNT 12.3 X10'3 (4.5-11.0)
[2020-12-08 09:54] LABS: EOSINOPHILS % (AUTO) 9.5 % (0-6); HEMATOCRIT 33.1 % (42.0-52.0); LYMPHOCYTES # (AUTO) 3.3 X10'3 (1.1-4.8); MEAN CORPUSCULAR HEMOGLOBIN 25.8 PG (27.0-31.0); MEAN CORPUSCULAR HGB CONC 30.5 g/dL (33.0-36.5); MEAN CORPUSCULAR VOLUME 84.8 FL (78-98); MEAN PLATELET VOLUME 7.8 FL (7.4-10.4); MONOCYTES # (AUTO) 0.9 X10'3 (0-0.9); NEUTROPHILS % (AUTO) 54.5 % (42-75); PLATELET COUNT 641 X10'3 (140-440); RED BLOOD COUNT 3.91 X10'6 (4.70-6.10); RED CELL DISTRIBUTION WIDTH 19.2 % (11.5-14.5)
[2020-12-08 10:09] LABS: ALANINE AMINOTRANSFERASE 8 U/L (12-78); ALKALINE PHOSPHATASE 61 IU/L (46-116); ANION GAP 13 (8-16); ASPARTATE AMINO TRANSFERASE 16 U/L (10-37); BILIRUBIN,TOTAL 0.1 MG/DL (0.1-1.0); BLOOD UREA NITROGEN 47 MG/DL (7-18); CALCIUM 7.5 MG/DL (8.5-10.1); CHLORIDE 111 MMOL/L (99-107); CREATININE 6.75 MG/DL (0.60-1.10); GLUCOSE 118 MG/DL (70-104); POTASSIUM 4.2 MMOL/L (3.5-5.1); SODIUM 142 MMOL/L (135-145); TOTAL CARBON DIOXIDE 18.4 MMOL/L (24-32); TOTAL PROTEIN 5.5 G/DL (6.4-8.2); eGFR 9 ML/MIN
[2020-12-08] MEDS: azithromycin/NS 500mg/250ml 250 ML IV SCH (10:17)
[2020-12-08 10:18] LABS: ANISOCYTOSIS 2+; HDL CHOLESTEROL 39 MG/DL (35-60); MICROCYTOSIS 1+; PLATELET ESTIMATE INCREASED; POIKILOCYTOSIS FEW; TARGET CELLS FEW; TRIGLYCERIDES 428 MG/DL (20-135); TROPONIN I < 0.04 NG/ML (0.0-0.05)
[2020-12-08 10:33] LABS: ALBUMIN < 0.6 G/DL (3.4-5.0); ALBUMIN/GLOBULIN RATIO 0.1 (1.1-1.5); CHOL/HDL RATIO 17.6 (0.00-4.99); CHOLESTEROL 688 MG/DL (0-200); LDL CHOLESTEROL 465 MG/DL (50-100)
--- NOTE | 2020-12-08 11:07 | NUR ---
Patient in room ED 12. I have received report from Aneta RN and had the opportunity to ask questions and assume patient care.
[2020-12-08] MEDS ORDERED: glucagon, human recombinant 1mg kit SUBCUT PRN (11:25)
[2020-12-08] MEDS ORDERED: dextrose 50%-water 50ml dispensing syringe IV PRN ×2 (11:25)
[2020-12-08] MEDS ORDERED: MESSAGE TO PHARMACY PO ONE (11:25)
[2020-12-08] MEDS ORDERED: dextrose ORAL solution 15 GM/59 ML bottle PO PRN ×2 (11:25)
[2020-12-08 12:45] VITALS: BP 151/98
[2020-12-08] MEDS: HYDROcodone/acetaminophen 10/325mg tab PO PRN ×2 (12:49→19:09)
[2020-12-08] MEDS: cephalexin 500mg capsule PO SCH ×2 (14:25→19:09)
[2020-12-08] MEDS ORDERED: albumin (human) 25% 100 ML IV solution IV ONE (14:45)
[2020-12-08] MEDS ORDERED: heparin 10,000 units/1 ML INJ IV PRN (14:50)
[2020-12-08] MEDS ORDERED: heparin 10,000 units/1 ML INJ IV ONE (14:50)
[2020-12-08] MEDS ORDERED: albumin (human) 25% 100 ML IV solution IV SCH ×2 (14:55→14:57)
[2020-12-08 15:00] VITALS: BP 140/71
--- NOTE | 2020-12-08 15:03 | NUR ---
paged Dr. Castro PAGER ID: [phone] MESSAGE: [facility] [phone] Mikael Tse. 24 hour urine order placed and started. please clarify your nursing misc order stating <4 HOUR URINE COLLECTION, FOR UREA, CRETININE, AND, PROTEIN.> Angela MACKAY [phone]
[2020-12-08 15:43] LABS: PARTIAL THROMBOPLASTIN TIME 34 SECONDS (22-32)
[2020-12-08] MEDS: heparin 25,000 UNIT/250ml bag 250 ML IV SCH (16:09)
[2020-12-08 18:00] VITALS: BP 147/72
--- NOTE | 2020-12-08 18:28 | NUR ---
Problems reprioritized. Patient report given, questions answered & plan of care reviewed with Malou RN at bedside.
--- NOTE | 2020-12-08 18:28 | NUR ---
Patient in room PCU 3010. I have received report from THOMPSON Miller and had the opportunity to ask questions and assume patient care.
[2020-12-08] MEDS: lactobacillus rhamnosus 10,000 MMU CELLS/CAPSULE PO SCH (19:09)
[2020-12-08] MEDS: insulin glargine (Lantus) pen - multi-dose SQ SCH (20:52)
[2020-12-08 22:00] VITALS: BP 151/84
[2020-12-08] MEDS: albumin (human) 25% 100 ML IV solution IV SCH (23:20)
--- NOTE | 2020-12-09 00:13 | NUR ---
MD garg notifed of PTT >139 MESSAGE: Re: tele 3010B Mikael Tse 40 M admit 12/08 ARF and anasarca fyi PTT >139 heparin gtt stopped per protocol for 2 hrs then will be restarted at 0200 and PTT will be rechecked. Thank you Malou RN ext [phone]
[2020-12-09] MEDS: HYDROcodone/acetaminophen 10/325mg tab PO PRN ×2 (00:57→05:36)
[2020-12-09] MEDS: cephalexin 500mg capsule PO SCH ×4 (01:00→20:45)
[2020-12-09 02:00] VITALS: BP 151/97
[2020-12-09] MEDS: heparin 25,000 UNIT/250ml bag 250 ML IV SCH ×2 (03:20→10:00)
[2020-12-09] MEDS: HYDROmorphone 1 mg/ml syringe IV PRN ×3 (04:29→20:45)
[2020-12-09 04:32] LABS: BASOPHILS # (AUTO) 0.1 X10'3 (0-0.2); BASOPHILS % (AUTO) 1.2 % (0-1); EOSINOPHILS # (AUTO) 0.9 X10'3 (0-0.9); EOSINOPHILS % (AUTO) 8.2 % (0-6); HEMATOCRIT 25.7 % (42.0-52.0); HEMOGLOBIN 8.2 g/dl (14.0-17.9); LYMPHOCYTES # (AUTO) 2.1 X10'3 (1.1-4.8); LYMPHOCYTES % (AUTO) 19.7 % (21-51); MEAN CORPUSCULAR HEMOGLOBIN 26.6 PG (27.0-31.0); MEAN CORPUSCULAR HGB CONC 31.8 g/dL (33.0-36.5); MEAN CORPUSCULAR VOLUME 83.7 FL (78-98); MEAN PLATELET VOLUME 7.8 FL (7.4-10.4); MONOCYTES # (AUTO) 0.9 X10'3 (0-0.9); MONOCYTES % (AUTO) 8.3 % (2-12); NEUTROPHILS # (AUTO) 6.8 X10'3 (1.8-7.7); NEUTROPHILS % (AUTO) 62.6 % (42-75); PLATELET COUNT 540 X10'3 (140-440); RED BLOOD COUNT 3.07 X10'6 (4.70-6.10); WHITE BLOOD COUNT 10.9 X10'3 (4.5-11.0)
[2020-12-09] MEDS: ondansetron 4mg rapidly disintigrating tab PO PRN (05:35)
[2020-12-09 05:48] LABS: ALBUMIN 1.4 G/DL (3.4-5.0); ALBUMIN/GLOBULIN RATIO 0.4 (1.1-1.5); ALKALINE PHOSPHATASE 41 IU/L (46-116); ANION GAP 12 (8-16); ASPARTATE AMINO TRANSFERASE 11 U/L (10-37); BILIRUBIN,TOTAL 0.1 MG/DL (0.1-1.0); BLOOD UREA NITROGEN 48 MG/DL (7-18); CALCIUM 7.2 MG/DL (8.5-10.1); CHLORIDE 111 MMOL/L (99-107); CREATININE 6.82 MG/DL (0.60-1.10); GLUCOSE 108 MG/DL (70-104); POTASSIUM 4.1 MMOL/L (3.5-5.1); SODIUM 142 MMOL/L (135-145); TOTAL CARBON DIOXIDE 18.6 MMOL/L (24-32); TOTAL PROTEIN 4.9 G/DL (6.4-8.2); eGFR 9 ML/MIN
[2020-12-09 05:53] LABS: ALANINE AMINOTRANSFERASE < 6 U/L (12-78)
[2020-12-09 06:00] VITALS: BP 176/91
--- NOTE | 2020-12-09 06:20 | NUR ---
Problems reprioritized. Patient report given, questions answered & plan of care reviewed with THOMPSON Ervin.
[2020-12-09] MEDS: docusate sod 100mg capsule PO SCH ×2 (08:00→20:45)
[2020-12-09] MEDS: levoTHYROXINE 75mcg tablet PO SCH (09:33)
[2020-12-09] MEDS: lactobacillus rhamnosus 10,000 MMU CELLS/CAPSULE PO SCH ×2 (09:33→20:44)
[2020-12-09] MEDS: pantoprazole 40mg Tablet.DR PO SCH (09:33)
[2020-12-09] MEDS: nitroGLYCERIN 0.4mg/hour patch TD SCH (09:34)
[2020-12-09] MEDS: albumin (human) 25% 100 ML IV solution IV SCH ×2 (09:35→15:15)
[2020-12-09] MEDS: azithromycin/NS 500mg/250ml 250 ML IV SCH (09:38)
[2020-12-09] MEDS: morphine 4 MG/ML inj SYRINge IV PRN (09:56)
[2020-12-09 11:00] VITALS: BP 142/86
--- NOTE | 2020-12-09 11:43 | NUR ---
Diabetes Consult: Pt admitted w/ shannon and currently on 1500ml fluid restriction. Pt states that he has received information about managing diabetes in the past, current AIC 7.1. Provided pt w/ verbal and written diabetes education w/ RD contact info attached, pt receptive of information. Will continue to monitor. Addendum: 12/09/20 at [address] Amended: Links added.
[2020-12-09] MEDS: ondansetron/PF 4mg/2ml inj IV PRN ×2 (11:50→23:01)
[2020-12-09 15:00] VITALS: BP 155/81
[2020-12-09 17:18] LABS: UREA NITROGEN 24HR,URINE 6.9 GM/24HR (7-20)
[2020-12-09 18:00] VITALS: BP 156/98
--- NOTE | 2020-12-09 18:20 | NUR ---
REPORT RECIEVED. I HAVE ASSUMED CARE OF THE PATIENT.
--- NOTE | 2020-12-09 20:10 | NUR ---
DVT PTT CRITICAL RESULT 137. HEP GTT BEING HELD PER PROTOCOL.
[2020-12-09] MEDS: lisinopril 10 MG tablet PO SCH (20:44)
[2020-12-09] MEDS: insulin glargine (Lantus) pen - multi-dose SQ SCH (21:00)
[2020-12-09 22:00] VITALS: BP 162/87
[2020-12-10] MEDS: diphenhydrAMINE 50 mg/ml inj IV PRN (00:21)
[2020-12-10] MEDS: albumin (human) 25% 100 ML IV solution IV SCH ×3 (00:25→16:30)
[2020-12-10] MEDS: cephalexin 500mg capsule PO SCH ×2 (02:00→09:06)
[2020-12-10 03:00] VITALS: BP 148/91
[2020-12-10 06:00] VITALS: BP 163/92
--- NOTE | 2020-12-10 06:05 | NUR ---
Patient in room PCU 3010. I have received report from THOMPSON Lieberman and had the opportunity to ask questions and assume patient care.
[2020-12-10 06:07] LABS: BASOPHILS # (AUTO) 0.1 X10'3 (0-0.2); BASOPHILS % (AUTO) 0.8 % (0-1); EOSINOPHILS # (AUTO) 0.3 X10'3 (0-0.9); EOSINOPHILS % (AUTO) 2.5 % (0-6); HEMATOCRIT 23.6 % (42.0-52.0); HEMOGLOBIN 7.5 g/dl (14.0-17.9); LYMPHOCYTES # (AUTO) 1.1 X10'3 (1.1-4.8); LYMPHOCYTES % (AUTO) 10.1 % (21-51); MEAN CORPUSCULAR HEMOGLOBIN 26.4 PG (27.0-31.0); MEAN CORPUSCULAR HGB CONC 31.8 g/dL (33.0-36.5); MEAN CORPUSCULAR VOLUME 82.9 FL (78-98); MEAN PLATELET VOLUME 7.9 FL (7.4-10.4); MONOCYTES # (AUTO) 0.7 X10'3 (0-0.9); NEUTROPHILS # (AUTO) 9.1 X10'3 (1.8-7.7); NEUTROPHILS % (AUTO) 80.6 % (42-75); PLATELET COUNT 499 X10'3 (140-440); RED BLOOD COUNT 2.84 X10'6 (4.70-6.10); RED CELL DISTRIBUTION WIDTH 18.6 % (11.5-14.5); WHITE BLOOD COUNT 11.3 X10'3 (4.5-11.0)
[2020-12-10 06:26] LABS: ALANINE AMINOTRANSFERASE 7 U/L (12-78); ALBUMIN 1.6 G/DL (3.4-5.0); ALBUMIN/GLOBULIN RATIO 0.5 (1.1-1.5); ALKALINE PHOSPHATASE 41 IU/L (46-116); ANION GAP 15 (8-16); ASPARTATE AMINO TRANSFERASE 10 U/L (10-37); BILIRUBIN,TOTAL 0.3 MG/DL (0.1-1.0); BLOOD UREA NITROGEN 47 MG/DL (7-18); BUN/CREATININE RATIO 6.8 (5.4-32.0); CALCIUM 7.5 MG/DL (8.5-10.1); CHLORIDE 111 MMOL/L (99-107); CREATININE 6.92 MG/DL (0.60-1.10); GLUCOSE 131 MG/DL (70-104); POTASSIUM 3.8 MMOL/L (3.5-5.1); SODIUM 143 MMOL/L (135-145); TOTAL CARBON DIOXIDE 17.5 MMOL/L (24-32); TOTAL PROTEIN 4.9 G/DL (6.4-8.2); eGFR 9 ML/MIN
[2020-12-10] MEDS: levoTHYROXINE 75mcg tablet PO SCH (07:00)
[2020-12-10] MEDS: nitroGLYCERIN 0.4mg/hour patch TD SCH (08:00)
[2020-12-10 08:07] LABS: ANISOCYTOSIS 2+; PLATELET ESTIMATE INCREASED
[2020-12-10 08:09] LABS: HYPOCHROMASIA 1+
[2020-12-10] MEDS: azithromycin/NS 500mg/250ml 250 ML IV SCH (09:04)
[2020-12-10] MEDS: pantoprazole 40mg Tablet.DR PO SCH (09:05)
[2020-12-10] MEDS: docusate sod 100mg capsule PO SCH ×2 (09:06→19:09)
[2020-12-10] MEDS: lisinopril 10 MG tablet PO SCH ×2 (09:06→19:09)
[2020-12-10] MEDS: lactobacillus rhamnosus 10,000 MMU CELLS/CAPSULE PO SCH ×2 (09:06→19:09)
[2020-12-10] MEDS: heparin 25,000 UNIT/250ml bag 250 ML IV SCH ×2 (09:10→16:50)
[2020-12-10] MEDS ORDERED: losartan 50mg tablet PO SCH (09:50)
[2020-12-10 11:00] VITALS: BP 107/69
[2020-12-10] MEDS: furosemide 1,000 MG in NS 250ml IV soln IV SCH (12:03)
[2020-12-10 15:00] VITALS: BP 137/79
[2020-12-10 18:00] VITALS: BP 186/98
--- NOTE | 2020-12-10 18:00 | NUR ---
Patient in room PCU 3010. I have received report from Aziza MACKAY and had the opportunity to ask questions and assume patient care.
--- NOTE | 2020-12-10 18:05 | NUR ---
Problems reprioritized. Patient report given, questions answered & plan of care reviewed with THOMPSON Miller.
--- NOTE | 2020-12-10 18:55 | NUR ---
Passed on to caustic cresylate shift superintendent RN that Dilaudid and compazine injections did not show as administered on the patient's EMAR, despite being scanned, verified and given to patient. Administration of medications was verified with rights of medication administration at 1100.
[2020-12-10] MEDS: HYDROcodone/acetaminophen 10/325mg tab PO PRN (19:07)
[2020-12-10] MEDS: insulin glargine (Lantus) pen - multi-dose SQ SCH (21:00)
[2020-12-10] MEDS: proCHLORperazine 10 MG/2 ml inj IV PRN (21:52)
[2020-12-10] MEDS: HYDROmorphone 1 mg/ml syringe IV PRN (21:53)
[2020-12-10 22:00] VITALS: BP 143/79
[2020-12-11] VITALS (7 sets, daily range): BP systolic 144–215; BP diastolic 83–106
[2020-12-11] MEDS: proCHLORperazine 10 MG/2 ml inj IV PRN ×3 (03:36→17:44)
[2020-12-11] MEDS: HYDROmorphone 1 mg/ml syringe IV PRN ×3 (03:37→17:43)
[2020-12-11 03:45] LABS: ALBUMIN/GLOBULIN RATIO 0.6 (1.1-1.5); ALKALINE PHOSPHATASE 42 IU/L (46-116); ANION GAP 14 (8-16); ASPARTATE AMINO TRANSFERASE 6 U/L (10-37); BILIRUBIN,TOTAL 0.3 MG/DL (0.1-1.0); BLOOD UREA NITROGEN 44 MG/DL (7-18); BUN/CREATININE RATIO 6.3 (5.4-32.0); CALCIUM 7.4 MG/DL (8.5-10.1); CHLORIDE 112 MMOL/L (99-107); CREATININE 6.93 MG/DL (0.60-1.10); GLUCOSE 127 MG/DL (70-104); POTASSIUM 3.6 MMOL/L (3.5-5.1); SODIUM 144 MMOL/L (135-145); TOTAL CARBON DIOXIDE 18.2 MMOL/L (24-32); TOTAL PROTEIN 5.2 G/DL (6.4-8.2); eGFR 9 ML/MIN
[2020-12-11 03:47] LABS: ALANINE AMINOTRANSFERASE < 6 U/L (12-78)
[2020-12-11 03:52] LABS: BASOPHILS # (AUTO) 0.1 X10'3 (0-0.2); EOSINOPHILS # (AUTO) 0.5 X10'3 (0-0.9); LYMPHOCYTES # (AUTO) 1.9 X10'3 (1.1-4.8); LYMPHOCYTES % (AUTO) 16.9 % (21-51); MEAN CORPUSCULAR HEMOGLOBIN 26.6 PG (27.0-31.0); MEAN CORPUSCULAR HGB CONC 32.5 g/dL (33.0-36.5); MEAN CORPUSCULAR VOLUME 81.8 FL (78-98); MEAN PLATELET VOLUME 7.8 FL (7.4-10.4); MONOCYTES % (AUTO) 9.2 % (2-12); NEUTROPHILS # (AUTO) 7.8 X10'3 (1.8-7.7); NEUTROPHILS % (AUTO) 68.9 % (42-75); PLATELET COUNT 451 X10'3 (140-440); RED BLOOD COUNT 2.63 X10'6 (4.70-6.10); RED CELL DISTRIBUTION WIDTH 18.5 % (11.5-14.5); WHITE BLOOD COUNT 11.3 X10'3 (4.5-11.0)
[2020-12-11 04:09] LABS: HEMATOCRIT 21.5 % (42.0-52.0)
--- NOTE | 2020-12-11 04:13 | NUR ---
PAGER ID: [phone] MESSAGE: [phone] Mikael Tse: Critical Hemoglobin 7.0 and Hematocrit 21.5. Would you like to order anything? Angela MACKAY [phone]
[2020-12-11] MEDS: heparin 25,000 UNIT/250ml bag 250 ML IV SCH (05:20)
--- NOTE | 2020-12-11 06:06 | NUR ---
Problems reprioritized. Patient report given, questions answered & plan of care reviewed with Aziza MACKAY.
--- NOTE | 2020-12-11 06:10 | NUR ---
Patient in room PCU 3010. I have received report from THOMPSON Miller and had the opportunity to ask questions and assume patient care.
[2020-12-11] MEDS: nitroGLYCERIN 0.4mg/hour patch TD SCH (08:00)
[2020-12-11] MEDS: lactobacillus rhamnosus 10,000 MMU CELLS/CAPSULE PO SCH ×2 (09:08→19:31)
[2020-12-11] MEDS: docusate sod 100mg capsule PO SCH ×2 (09:08→19:31)
[2020-12-11] MEDS: albumin (human) 25% 100 ML IV solution IV SCH ×2 (09:08)
[2020-12-11] MEDS: lisinopril 10 MG tablet PO SCH (09:09)
[2020-12-11] MEDS: pantoprazole 40mg Tablet.DR PO SCH (09:11)
[2020-12-11] MEDS: levoTHYROXINE 75mcg tablet PO SCH (09:11)
[2020-12-11 09:57] LABS: HEMATOCRIT 26.9 % (42.0-52.0); HEMOGLOBIN 8.3 g/dl (14.0-17.9); MEAN CORPUSCULAR HEMOGLOBIN 25.9 PG (27.0-31.0); MEAN CORPUSCULAR HGB CONC 31.1 g/dL (33.0-36.5); MEAN CORPUSCULAR VOLUME 83.5 FL (78-98); PLATELET COUNT 515 X10'3 (140-440); RED BLOOD COUNT 3.22 X10'6 (4.70-6.10); RED CELL DISTRIBUTION WIDTH 18.8 % (11.5-14.5); WHITE BLOOD COUNT 11.4 X10'3 (4.5-11.0)
--- NOTE | 2020-12-11 10:09 | NUR ---
Paged Dr. Chairez PAGER ID: [phone] MESSAGE: ITZ Tse 3010A; BP 179/112 while sitting at bedside, treated for pain, received AM meds. Aziza MACKAY [phone]
[2020-12-11] MEDS: HYDROcodone/acetaminophen 10/325mg tab PO PRN (12:42)
[2020-12-11] MEDS: amLODIPine 5mg tablet PO SCH (12:43)
--- NOTE | 2020-12-11 15:30 | NUR ---
Paged Dr. Rodriguez PAGER ID: [phone] MESSAGE: ITZ Tse 3010A; BP 215/104 after amlodipine. Aziza MACKAY [phone]
[2020-12-11] MEDS ORDERED: hydrALAZINE 20mg/ml inj. IV PRN (16:35)
[2020-12-11] MEDS: metoprolol tartrate 25mg tablet PO SCH (17:51)
--- NOTE | 2020-12-11 18:30 | NUR ---
Problems reprioritized. Patient report given, questions answered & plan of care reviewed with THOMPSON Chowdary.
[2020-12-11] MEDS: furosemide 1,000 MG in NS 250ml IV soln IV SCH (18:33)
[2020-12-11] MEDS: lisinopril 20mg tablet PO SCH (19:34)
[2020-12-11] MEDS: insulin glargine (Lantus) pen - multi-dose SQ SCH (21:00)
[2020-12-12] MEDS: HYDROmorphone 1 mg/ml syringe IV PRN ×2 (00:48→07:44)
[2020-12-12] MEDS: proCHLORperazine 10 MG/2 ml inj IV PRN ×2 (00:51→07:43)
[2020-12-12 02:00] VITALS: BP 148/80
[2020-12-12 06:00] VITALS: BP 180/100
--- NOTE | 2020-12-12 06:42 | NUR ---
Problems reprioritized. Patient report given, questions answered & plan of care reviewed with THOMPSON Hawk.
--- NOTE | 2020-12-12 06:43 | NUR ---
Patient in room PCU 3010. I have received report from THOMPSON Chowdary and had the opportunity to ask questions and assume patient care.
[2020-12-12 07:11] LABS: BASOPHILS # (AUTO) 0.1 X10'3 (0-0.2); BASOPHILS % (AUTO) 1.2 % (0-1); EOSINOPHILS # (AUTO) 0.8 X10'3 (0-0.9); EOSINOPHILS % (AUTO) 6.3 % (0-6); HEMATOCRIT 27.8 % (42.0-52.0); HEMOGLOBIN 8.8 g/dl (14.0-17.9); LYMPHOCYTES % (AUTO) 16.3 % (21-51); MEAN CORPUSCULAR HEMOGLOBIN 25.9 PG (27.0-31.0); MEAN CORPUSCULAR HGB CONC 31.6 g/dL (33.0-36.5); MEAN CORPUSCULAR VOLUME 81.9 FL (78-98); MEAN PLATELET VOLUME 8.1 FL (7.4-10.4); MONOCYTES % (AUTO) 8.5 % (2-12); NEUTROPHILS # (AUTO) 8.3 X10'3 (1.8-7.7); NEUTROPHILS % (AUTO) 67.7 % (42-75); PLATELET COUNT 592 X10'3 (140-440); RED CELL DISTRIBUTION WIDTH 18.8 % (11.5-14.5); WHITE BLOOD COUNT 12.3 X10'3 (4.5-11.0)
[2020-12-12 07:19] LABS: ALANINE AMINOTRANSFERASE 6 U/L (12-78); ALBUMIN 1.1 G/DL (3.4-5.0); ALBUMIN/GLOBULIN RATIO 0.3 (1.1-1.5); ALKALINE PHOSPHATASE 59 IU/L (46-116); ANION GAP 13 (8-16); ASPARTATE AMINO TRANSFERASE 7 U/L (10-37); BILIRUBIN,TOTAL 0.2 MG/DL (0.1-1.0); BLOOD UREA NITROGEN 46 MG/DL (7-18); BUN/CREATININE RATIO 6.7 (5.4-32.0); CALCIUM 7.8 MG/DL (8.5-10.1); CHLORIDE 113 MMOL/L (99-107); CREATININE 6.87 MG/DL (0.60-1.10); GLUCOSE 138 MG/DL (70-104); POTASSIUM 3.4 MMOL/L (3.5-5.1); SODIUM 143 MMOL/L (135-145); TOTAL CARBON DIOXIDE 17.1 MMOL/L (24-32); TOTAL PROTEIN 4.9 G/DL (6.4-8.2); eGFR 9 ML/MIN
[2020-12-12] MEDS: pantoprazole 40mg Tablet.DR PO SCH (07:47)
[2020-12-12] MEDS: metoprolol tartrate 25mg tablet PO SCH ×2 (07:48→20:57)
[2020-12-12] MEDS: amLODIPine 5mg tablet PO SCH (07:48)
[2020-12-12] MEDS: levoTHYROXINE 75mcg tablet PO SCH (07:48)
[2020-12-12] MEDS: atorvastatin 20mg tablet PO SCH (07:49)
[2020-12-12] MEDS: lisinopril 20mg tablet PO SCH ×2 (07:49→20:58)
[2020-12-12] MEDS: lactobacillus rhamnosus 10,000 MMU CELLS/CAPSULE PO SCH ×2 (07:49→20:56)
[2020-12-12] MEDS: docusate sod 100mg capsule PO SCH ×2 (07:51→20:00)
[2020-12-12] MEDS: nitroGLYCERIN 0.4mg/hour patch TD SCH (07:52)
[2020-12-12] MEDS ORDERED: losartan 50mg tablet PO SCH (08:10)
[2020-12-12] MEDS: metolazone 2.5mg tablet PO SCH ×3 (10:23→20:58)
[2020-12-12] MEDS: apixaban 2.5mg tablet PO SCH ×2 (10:23→20:57)
[2020-12-12] MEDS: diltiazem CD 180mg cap (once-daily) PO SCH ×2 (10:23→20:58)
[2020-12-12 11:00] VITALS: BP 163/93
--- NOTE | 2020-12-12 12:01 | NUR ---
Pt refused 1200 Blood sugar check.
--- NOTE | 2020-12-12 12:06 | NUR ---
Initial, nutrition consult: Pt admitted w/ anasarca and ESRD per EMR. Pt w/ severe proteinuria per nephrology note, pt may start HD to remove extra fluid. Pt eating mostly 50-100% of meals meeting needs. Pt did not want to participate in interview, provided pt w/ written education about heart healthy nutrition w/ RD contact info, pt declined verbal education. Discussed w/ RN about placing pt on Heart healthy diet if MD agreeable. LBM 12/08 receiving routine colace. Will continue to monitor for increased energy and protein needs if starting dialysis. Rec: 1. Continue Renal diet as tolerated, recommend adding Heart Healthy diet 2. Bowel care per rx 3. Weekly scaled wts. Wts per rx if pt starts HD Addendum: 12/12/20 at [address] Amended: Links added.
[2020-12-12] MEDS: HYDROcodone/acetaminophen 10/325mg tab PO PRN ×3 (13:17→21:36)
--- NOTE | 2020-12-12 14:03 | NUR ---
Prior conversation with pt - he verbally agreed to Renal scan after lunch and refused this AM. Education re: scan - he verbalized understanding. Pt is now refusing the scan again d/t pain. Everytime I enter the room the patient is sleeping and mumbles his words unless I wake him up.
[2020-12-12 15:00] VITALS: BP 135/80
[2020-12-12] MEDS ORDERED: potassium Cl 40MEQ/1/2NS 520ml 520 ML IV PRN (15:55)
[2020-12-12] MEDS ORDERED: magnesium 2GM in 50ml NS 50 ML IV PRN (15:55)
[2020-12-12] MEDS ORDERED: magnesium 4gm in 100ml NS 100 ML IV PRN (15:55)
[2020-12-12] MEDS ORDERED: potassium Cl 20 mEq SR tablet PO PRN (15:55)
[2020-12-12] MEDS ORDERED: magnesium Cl slow-release 64mg tablet PO PRN (15:55)
[2020-12-12 16:21] LABS: ANISOCYTOSIS 2+; HYPOCHROMASIA 1+; PLATELET ESTIMATE INCREASED; POLYCHROMASIA 1+; ROULEAUX 1+; TARGET CELLS FEW
[2020-12-12 18:00] VITALS: BP 124/72
--- NOTE | 2020-12-12 18:30 | NUR ---
Patient in room PCU 3010. I have received report from Carine MACKAY and had the opportunity to ask questions and assume patient care.
--- NOTE | 2020-12-12 18:32 | NUR ---
Problems reprioritized. Patient report given, questions answered & plan of care reviewed with THOMPSON Vigil.
[2020-12-12] MEDS: K and/or MAG REPLACEMENT MC SCH (20:00)
[2020-12-12] MEDS: bumetanide 1mg tablet PO SCH (20:56)
[2020-12-12] MEDS: insulin glargine (Lantus) pen - multi-dose SQ SCH (21:00)
[2020-12-12] MEDS ORDERED: potassium chloride 10mEq ER tablet PO ONE (21:15)
[2020-12-12 22:00] VITALS: BP 143/80
[2020-12-13] MEDS ORDERED: potassium chloride 10mEq ER tablet PO ONE (01:50)
[2020-12-13] MEDS: HYDROcodone/acetaminophen 10/325mg tab PO PRN ×3 (01:55→20:04)
[2020-12-13 02:00] VITALS: BP 126/77
[2020-12-13 05:50] LABS: BASOPHILS # (AUTO) 0.1 X10'3 (0-0.2); BASOPHILS % (AUTO) 1.2 % (0-1); MEAN CORPUSCULAR HEMOGLOBIN 26.4 PG (27.0-31.0)
[2020-12-13 05:53] LABS: EOSINOPHILS # (AUTO) 0.9 X10'3 (0-0.9); EOSINOPHILS % (AUTO) 7.9 % (0-6); HEMATOCRIT 27.8 % (42.0-52.0); HEMOGLOBIN 8.9 g/dl (14.0-17.9); LYMPHOCYTES % (AUTO) 16.4 % (21-51); MEAN CORPUSCULAR HGB CONC 32.2 g/dL (33.0-36.5); MEAN CORPUSCULAR VOLUME 82.1 FL (78-98); MEAN PLATELET VOLUME 7.9 FL (7.4-10.4); MONOCYTES % (AUTO) 8.7 % (2-12); NEUTROPHILS # (AUTO) 7.9 X10'3 (1.8-7.7); NEUTROPHILS % (AUTO) 65.8 % (42-75); PLATELET COUNT 625 X10'3 (140-440); RED BLOOD COUNT 3.39 X10'6 (4.70-6.10); RED CELL DISTRIBUTION WIDTH 18.5 % (11.5-14.5); WHITE BLOOD COUNT 11.9 X10'3 (4.5-11.0)
[2020-12-13 06:00] VITALS: BP 144/82
--- NOTE | 2020-12-13 06:00 | NUR ---
Patient in room PCU 3010. I have received report from THOMPSON Vigil and had the opportunity to ask questions and assume patient care.
[2020-12-13 06:08] LABS: MAGNESIUM 1.8 MG/DL (1.5-2.4); POTASSIUM 3.5 MMOL/L (3.5-5.1)
--- NOTE | 2020-12-13 06:32 | NUR ---
Problems reprioritized. Patient report given, questions answered & plan of care reviewed with Shanthi MACKAY and Lisa MACKAY.
[2020-12-13 07:14] LABS: ANISOCYTOSIS 2+; MICROCYTOSIS 1+; PLATELET ESTIMATE INCREASED; TOTAL CELLS COUNTED 100
[2020-12-13 07:15] LABS: ROULEAUX 1+
[2020-12-13] MEDS: K and/or MAG REPLACEMENT MC SCH ×2 (08:00→20:00)
[2020-12-13 08:14] LABS: ALBUMIN 0.8 G/DL (3.4-5.0); ALBUMIN/GLOBULIN RATIO 0.2 (1.1-1.5); ALKALINE PHOSPHATASE 60 IU/L (46-116); ANION GAP 14 (8-16); ASPARTATE AMINO TRANSFERASE 8 U/L (10-37); BILIRUBIN,TOTAL 0.2 MG/DL (0.1-1.0); BLOOD UREA NITROGEN 47 MG/DL (7-18); BUN/CREATININE RATIO 6.5 (5.4-32.0); CALCIUM 7.7 MG/DL (8.5-10.1); CHLORIDE 113 MMOL/L (99-107); CREATININE 7.22 MG/DL (0.60-1.10); GLUCOSE 140 MG/DL (70-104); SODIUM 143 MMOL/L (135-145); TOTAL CARBON DIOXIDE 15.6 MMOL/L (24-32); TOTAL PROTEIN 4.9 G/DL (6.4-8.2); eGFR 8 ML/MIN
[2020-12-13 08:33] LABS: ALANINE AMINOTRANSFERASE < 6 U/L (12-78)
[2020-12-13] MEDS: bumetanide 1mg tablet PO SCH ×2 (08:55→20:04)
[2020-12-13] MEDS: lisinopril 20mg tablet PO SCH ×2 (09:00→20:05)
[2020-12-13] MEDS: levoTHYROXINE 75mcg tablet PO SCH (09:01)
[2020-12-13] MEDS: docusate sod 100mg capsule PO SCH ×2 (09:01→20:24)
[2020-12-13] MEDS: metolazone 2.5mg tablet PO SCH ×3 (09:01→20:24)
[2020-12-13] MEDS: atorvastatin 20mg tablet PO SCH (09:02)
[2020-12-13] MEDS: diltiazem CD 180mg cap (once-daily) PO SCH ×2 (09:02→20:04)
[2020-12-13] MEDS: apixaban 2.5mg tablet PO SCH (09:02)
[2020-12-13] MEDS: pantoprazole 40mg Tablet.DR PO SCH (09:02)
[2020-12-13] MEDS: metoprolol tartrate 25mg tablet PO SCH ×2 (09:03→20:05)
[2020-12-13] MEDS: nitroGLYCERIN 0.4mg/hour patch TD SCH (09:03)
[2020-12-13] MEDS: lactobacillus rhamnosus 10,000 MMU CELLS/CAPSULE PO SCH ×2 (09:03→20:03)
[2020-12-13] MEDS: albumin (human) 25% 100 ML IV solution IV SCH ×3 (09:04→20:26)
[2020-12-13 11:00] VITALS: BP 144/82
[2020-12-13 15:00] VITALS: BP 143/79
[2020-12-13 18:00] VITALS: BP 168/79
--- NOTE | 2020-12-13 18:40 | NUR ---
Patient in room U 3008. I have received report from Lisa MACKAY and had the opportunity to ask questions and assume patient care. Addendum: 12/13/20 at 2047 by Eulalia Morrison RN Amended: Links added.
--- NOTE | 2020-12-13 18:59 | NUR ---
Problems reprioritized. Patient report given Eulalia,RN questions answered & plan of care reviewed with .
[2020-12-13] MEDS: apixaban 5mg tablet PO SCH (20:24)
[2020-12-13] MEDS: insulin glargine (Lantus) pen - multi-dose SQ SCH (21:00)
--- NOTE | 2020-12-13 21:35 | NUR ---
Pt. laying in bed c/o pain generalized; charge nurse gave pt some pain meds. Pt. with generalized edema noted. Pt. able to move upper extremities freely but limitation noted with lower extremities due to extensive edema. Rt great toe with a drg CDI at this time. No hypoglycemic events at this time. Call light within reach. Addendum: 12/14/20 at 0721 by Eulalia Morrison RN Amended: Links added.
[2020-12-13 22:00] VITALS: BP 156/84
[2020-12-14] MEDS: HYDROcodone/acetaminophen 10/325mg tab PO PRN ×5 (01:01→22:17)
[2020-12-14 02:00] VITALS: BP 151/72
--- NOTE | 2020-12-14 06:00 | NUR ---
Problems reprioritized. Patient report given, questions answered & plan of care reviewed with Clari MACKAY. Addendum: 12/14/20 at 0625 by Eulalia Morrison RN Amended: Links added.
--- NOTE | 2020-12-14 06:30 | NUR ---
Patient in room PCU 3010. I have received report from Eulalia MACKAY and had the opportunity to ask questions and assume patient care.
[2020-12-14 07:20] VITALS: BP 138/79
[2020-12-14] MEDS: metoprolol tartrate 25mg tablet PO SCH ×2 (07:30→20:25)
[2020-12-14] MEDS: lactobacillus rhamnosus 10,000 MMU CELLS/CAPSULE PO SCH ×2 (07:31→20:22)
[2020-12-14] MEDS: atorvastatin 20mg tablet PO SCH (07:31)
[2020-12-14] MEDS: docusate sod 100mg capsule PO SCH ×2 (07:31→20:22)
[2020-12-14] MEDS: metolazone 2.5mg tablet PO SCH ×3 (07:31→22:29)
[2020-12-14] MEDS: pantoprazole 40mg Tablet.DR PO SCH (07:31)
[2020-12-14] MEDS: diltiazem CD 180mg cap (once-daily) PO SCH ×2 (07:32→20:22)
[2020-12-14] MEDS: levoTHYROXINE 75mcg tablet PO SCH (07:32)
[2020-12-14] MEDS: lisinopril 20mg tablet PO SCH ×2 (07:32→20:25)
[2020-12-14] MEDS: apixaban 5mg tablet PO SCH ×2 (07:32→20:24)
[2020-12-14] MEDS: bumetanide 1mg tablet PO SCH ×2 (07:33→20:24)
[2020-12-14] MEDS: nitroGLYCERIN 0.4mg/hour patch TD SCH (07:34)
[2020-12-14] MEDS: albumin (human) 25% 100 ML IV solution IV SCH ×3 (07:35→22:20)
[2020-12-14] MEDS: ondansetron 4mg rapidly disintigrating tab PO PRN ×2 (07:41→14:28)
[2020-12-14] MEDS: K and/or MAG REPLACEMENT MC SCH ×2 (08:00→20:22)
[2020-12-14 08:21] LABS: BASOPHILS # (AUTO) 0.1 X10'3 (0-0.2); EOSINOPHILS # (AUTO) 0.8 X10'3 (0-0.9); EOSINOPHILS % (AUTO) 6.5 % (0-6); HEMATOCRIT 25.3 % (42.0-52.0); HEMOGLOBIN 8.1 g/dl (14.0-17.9); LYMPHOCYTES # (AUTO) 1.5 X10'3 (1.1-4.8); LYMPHOCYTES % (AUTO) 12.7 % (21-51); MEAN CORPUSCULAR HEMOGLOBIN 25.9 PG (27.0-31.0); MEAN PLATELET VOLUME 8.1 FL (7.4-10.4); MONOCYTES # (AUTO) 1.1 X10'3 (0-0.9); MONOCYTES % (AUTO) 9.1 % (2-12); NEUTROPHILS # (AUTO) 8.3 X10'3 (1.8-7.7); NEUTROPHILS % (AUTO) 70.7 % (42-75); PLATELET COUNT 594 X10'3 (140-440); RED BLOOD COUNT 3.12 X10'6 (4.70-6.10); RED CELL DISTRIBUTION WIDTH 18.6 % (11.5-14.5); WHITE BLOOD COUNT 11.8 X10'3 (4.5-11.0)
[2020-12-14 08:29] LABS: ALANINE AMINOTRANSFERASE 6 U/L (12-78); ALBUMIN 1.2 G/DL (3.4-5.0); ALBUMIN/GLOBULIN RATIO 0.3 (1.1-1.5); ALKALINE PHOSPHATASE 54 IU/L (46-116); ANION GAP 13 (8-16); ASPARTATE AMINO TRANSFERASE 8 U/L (10-37); BILIRUBIN,TOTAL 0.2 MG/DL (0.1-1.0); BLOOD UREA NITROGEN 51 MG/DL (7-18); BUN/CREATININE RATIO 6.7 (5.4-32.0); CALCIUM 7.6 MG/DL (8.5-10.1); CHLORIDE 113 MMOL/L (99-107); CREATININE 7.62 MG/DL (0.60-1.10); GLUCOSE 151 MG/DL (70-104); MAGNESIUM 1.8 MG/DL (1.5-2.4); POTASSIUM 3.4 MMOL/L (3.5-5.1); SODIUM 144 MMOL/L (135-145); TOTAL CARBON DIOXIDE 17.6 MMOL/L (24-32); eGFR 8 ML/MIN
[2020-12-14 09:32] LABS: ANISOCYTOSIS 2+; MICROCYTOSIS 1+; PLATELET ESTIMATE INCREASED; POIKILOCYTOSIS FEW
[2020-12-14] MEDS: potassium Cl 20 mEq SR tablet PO PRN ×3 (09:55→20:22)
[2020-12-14 11:00] VITALS: BP 128/82
[2020-12-14] MEDS: losartan 50mg tablet PO SCH ×2 (13:28→20:23)
[2020-12-14 14:26] VITALS: BP 140/74
[2020-12-14] MEDS: magnesium hydroxide 30ml (MOM) UD suspension PO PRN (16:15)
[2020-12-14 18:00] VITALS: BP 158/84
--- NOTE | 2020-12-14 18:19 | NUR ---
Problems reprioritized. Patient report given, questions answered & plan of care reviewed with Karley MACKAY.
--- NOTE | 2020-12-14 18:20 | NUR ---
Patient in room PCU 3010. I have received report from Clari MACKAY and had the opportunity to ask questions and assume patient care.
[2020-12-14 22:00] VITALS: BP 139/82
[2020-12-14] MEDS: insulin glargine (Lantus) pen - multi-dose SQ SCH (22:11)
[2020-12-15 02:45] VITALS: BP 144/76
[2020-12-15] MEDS: HYDROcodone/acetaminophen 10/325mg tab PO PRN ×4 (03:06→21:58)
--- NOTE | 2020-12-15 06:15 | NUR ---
Problems reprioritized. Patient report given, questions answered & plan of care reviewed with Mindi MACKAY.
[2020-12-15] MEDS: ondansetron 4mg rapidly disintigrating tab PO PRN (06:37)
[2020-12-15 07:00] VITALS: BP 146/83
[2020-12-15] MEDS: K and/or MAG REPLACEMENT MC SCH ×2 (08:00→20:00)
[2020-12-15 08:20] LABS: BASOPHILS # (AUTO) 0.1 X10'3 (0-0.2); BASOPHILS % (AUTO) 0.7 % (0-1); EOSINOPHILS # (AUTO) 0.6 X10'3 (0-0.9); EOSINOPHILS % (AUTO) 4.2 % (0-6); HEMATOCRIT 27.2 % (42.0-52.0); HEMOGLOBIN 8.5 g/dl (14.0-17.9); LYMPHOCYTES # (AUTO) 1.2 X10'3 (1.1-4.8); MEAN CORPUSCULAR HEMOGLOBIN 25.8 PG (27.0-31.0); MEAN CORPUSCULAR HGB CONC 31.2 g/dL (33.0-36.5); MEAN CORPUSCULAR VOLUME 82.5 FL (78-98); MEAN PLATELET VOLUME 8.3 FL (7.4-10.4); MONOCYTES # (AUTO) 1.1 X10'3 (0-0.9); MONOCYTES % (AUTO) 8.4 % (2-12); NEUTROPHILS # (AUTO) 10.2 X10'3 (1.8-7.7); NEUTROPHILS % (AUTO) 77.7 % (42-75); PLATELET COUNT 657 X10'3 (140-440); WHITE BLOOD COUNT 13.2 X10'3 (4.5-11.0)
[2020-12-15 08:22] LABS: ALANINE AMINOTRANSFERASE 8 U/L (12-78); ALBUMIN 1.7 G/DL (3.4-5.0); ALBUMIN/GLOBULIN RATIO 0.4 (1.1-1.5); ALKALINE PHOSPHATASE 59 IU/L (46-116); ANION GAP 14 (8-16); ASPARTATE AMINO TRANSFERASE 12 U/L (10-37); BILIRUBIN,TOTAL 0.2 MG/DL (0.1-1.0); BLOOD UREA NITROGEN 49 MG/DL (7-18); BUN/CREATININE RATIO 6.5 (5.4-32.0); CALCIUM 7.9 MG/DL (8.5-10.1); CHLORIDE 111 MMOL/L (99-107); CREATININE 7.59 MG/DL (0.60-1.10); GLUCOSE 161 MG/DL (70-104); POTASSIUM 3.7 MMOL/L (3.5-5.1); SODIUM 143 MMOL/L (135-145); TOTAL CARBON DIOXIDE 18.5 MMOL/L (24-32); TOTAL PROTEIN 5.6 G/DL (6.4-8.2); eGFR 8 ML/MIN
[2020-12-15] MEDS: pantoprazole 40mg Tablet.DR PO SCH (08:36)
[2020-12-15] MEDS: levoTHYROXINE 75mcg tablet PO SCH (08:36)
[2020-12-15] MEDS: albumin (human) 25% 100 ML IV solution IV SCH ×3 (08:37→21:28)
[2020-12-15] MEDS: diltiazem CD 180mg cap (once-daily) PO SCH ×2 (08:38→21:03)
[2020-12-15] MEDS: docusate sod 100mg capsule PO SCH ×2 (08:38→21:02)
[2020-12-15] MEDS: bumetanide 1mg tablet PO SCH ×2 (08:38→21:07)
[2020-12-15] MEDS: lactobacillus rhamnosus 10,000 MMU CELLS/CAPSULE PO SCH ×2 (08:39→21:02)
[2020-12-15] MEDS: atorvastatin 20mg tablet PO SCH (08:39)
[2020-12-15] MEDS: losartan 50mg tablet PO SCH ×2 (08:39→21:03)
[2020-12-15] MEDS: apixaban 5mg tablet PO SCH ×2 (08:39→21:04)
[2020-12-15] MEDS: metoprolol tartrate 25mg tablet PO SCH ×2 (08:40→21:04)
[2020-12-15] MEDS: lisinopril 20mg tablet PO SCH ×2 (08:40→21:03)
[2020-12-15] MEDS: metolazone 2.5mg tablet PO SCH ×3 (08:40→21:04)
[2020-12-15] MEDS: nitroGLYCERIN 0.4mg/hour patch TD SCH (08:41)
[2020-12-15 09:39] LABS: ANISOCYTOSIS 2+; HYPOCHROMASIA 1+; PLATELET ESTIMATE INCREASED
[2020-12-15] MEDS: proCHLORperazine 10 MG/2 ml inj IV PRN (10:56)
[2020-12-15 11:00] VITALS: BP 185/90
[2020-12-15] MEDS ORDERED: hydrALAZINE 20mg/ml inj. IV PRN (11:15)
[2020-12-15 15:00] VITALS: BP 166/80
--- NOTE | 2020-12-15 18:43 | NUR ---
Problems reprioritized. Patient report given, questions answered & plan of care reviewed with Pat RN.
[2020-12-15 19:30] VITALS: BP 156/78
--- NOTE | 2020-12-15 19:30 | NUR ---
pt states he deals with this chronic pain at home without pain meds Addendum: 12/16/20 at 0116 by Roberta Gan RN Amended: Links added.
--- NOTE | 2020-12-15 19:30 | NUR ---
pt reports his swelling is decreasing since admit Addendum: 12/16/20 at 0116 by Roberta Gan RN Amended: Links added.
[2020-12-15] MEDS: insulin glargine (Lantus) pen - multi-dose SQ SCH (21:00)
[2020-12-15] MEDS: temazepam 15mg capsule PO PRN (21:57)
[2020-12-15 23:30] VITALS: BP 114/72
[2020-12-16] MEDS: temazepam 15mg capsule PO PRN (00:55)
[2020-12-16] MEDS: ondansetron 4mg rapidly disintigrating tab PO PRN (02:53)
[2020-12-16] MEDS: HYDROcodone/acetaminophen 10/325mg tab PO PRN ×4 (02:53→19:20)
[2020-12-16 03:00] VITALS: BP 136/74
--- NOTE | 2020-12-16 06:00 | NUR ---
Patient in room PCU 3010. I have received report from TERRI RN and had the opportunity to ask questions and assume patient care.
[2020-12-16 07:36] LABS: BASOPHILS # (AUTO) 0.1 X10'3 (0-0.2); EOSINOPHILS # (AUTO) 0.7 X10'3 (0-0.9); LYMPHOCYTES # (AUTO) 1.7 X10'3 (1.1-4.8); PLATELET COUNT 604 X10'3 (140-440)
[2020-12-16 07:38] LABS: BASOPHILS % (AUTO) 1.4 % (0-1); HEMATOCRIT 25.8 % (42.0-52.0); LYMPHOCYTES % (AUTO) 17.1 % (21-51); MEAN CORPUSCULAR HEMOGLOBIN 26.1 PG (27.0-31.0); MEAN CORPUSCULAR HGB CONC 31.1 g/dL (33.0-36.5); MEAN CORPUSCULAR VOLUME 83.8 FL (78-98); MEAN PLATELET VOLUME 7.8 FL (7.4-10.4); MONOCYTES % (AUTO) 9.9 % (2-12); NEUTROPHILS # (AUTO) 6.5 X10'3 (1.8-7.7); NEUTROPHILS % (AUTO) 64.6 % (42-75); RED BLOOD COUNT 3.08 X10'6 (4.70-6.10); RED CELL DISTRIBUTION WIDTH 19.1 % (11.5-14.5)
[2020-12-16 07:55] LABS: ALANINE AMINOTRANSFERASE 8 U/L (12-78); ALBUMIN 1.8 G/DL (3.4-5.0); ALBUMIN/GLOBULIN RATIO 0.5 (1.1-1.5); ALKALINE PHOSPHATASE 57 IU/L (46-116); ANION GAP 12 (8-16); ASPARTATE AMINO TRANSFERASE 8 U/L (10-37); BILIRUBIN,TOTAL 0.2 MG/DL (0.1-1.0); BLOOD UREA NITROGEN 49 MG/DL (7-18); BUN/CREATININE RATIO 6.5 (5.4-32.0); CALCIUM 7.9 MG/DL (8.5-10.1); CHLORIDE 111 MMOL/L (99-107); CREATININE 7.55 MG/DL (0.60-1.10); GLUCOSE 117 MG/DL (70-104); POTASSIUM 3.7 MMOL/L (3.5-5.1); SODIUM 142 MMOL/L (135-145); TOTAL PROTEIN 5.4 G/DL (6.4-8.2); eGFR 8 ML/MIN
[2020-12-16 08:00] VITALS: BP 144/80
[2020-12-16] MEDS: K and/or MAG REPLACEMENT MC SCH ×2 (08:00→20:00)
[2020-12-16 08:32] LABS: ANISOCYTOSIS 2+; PLATELET ESTIMATE INCREASED
[2020-12-16 08:33] LABS: MICROCYTOSIS 1+
[2020-12-16] MEDS ORDERED: normal saline 1000ml 100 ML IV PRN (08:35)
[2020-12-16] MEDS ORDERED: celeCOXIB 100mg capsule PO SCH (08:35)
[2020-12-16] MEDS ORDERED: heparin 1,000 units/ml 10ml inj HE ONE (08:40)
[2020-12-16] MEDS: lisinopril 20mg tablet PO SCH ×2 (08:43→19:18)
[2020-12-16] MEDS: bumetanide 1mg tablet PO SCH ×2 (08:44→19:17)
[2020-12-16] MEDS: metoprolol tartrate 25mg tablet PO SCH ×2 (08:44→21:47)
[2020-12-16] MEDS: diltiazem CD 180mg cap (once-daily) PO SCH ×2 (08:44→19:17)
[2020-12-16] MEDS: lactobacillus rhamnosus 10,000 MMU CELLS/CAPSULE PO SCH ×2 (08:44→19:18)
[2020-12-16] MEDS: metolazone 2.5mg tablet PO SCH ×3 (08:44→21:26)
[2020-12-16] MEDS: levoTHYROXINE 75mcg tablet PO SCH (08:44)
[2020-12-16] MEDS: atorvastatin 20mg tablet PO SCH (08:44)
[2020-12-16] MEDS: nitroGLYCERIN 0.4mg/hour patch TD SCH (08:44)
[2020-12-16] MEDS: pantoprazole 40mg Tablet.DR PO SCH (08:45)
[2020-12-16] MEDS: docusate sod 100mg capsule PO SCH ×2 (08:45→19:18)
[2020-12-16] MEDS: losartan 50mg tablet PO SCH ×2 (08:45→19:19)
[2020-12-16] MEDS: albumin (human) 25% 100 ML IV solution IV SCH ×3 (08:47→21:31)
[2020-12-16] MEDS: celeCOXIB 100mg capsule PO SCH ×2 (08:47→19:20)
[2020-12-16 12:35] VITALS: BP 141/79
[2020-12-16] MEDS: ondansetron/PF 4mg/2ml inj IV PRN (13:49)
[2020-12-16 16:00] VITALS: BP 142/58
[2020-12-16 18:00] VITALS: BP 182/85
--- NOTE | 2020-12-16 18:30 | NUR ---
Patient in room PCU 3010. I have received report from JOSEPH RN and had the opportunity to ask questions and assume patient care.
[2020-12-16] MEDS: insulin glargine (Lantus) pen - multi-dose SQ SCH (21:00)
[2020-12-16 22:00] VITALS: BP 158/82
[2020-12-17] VITALS (20 sets, daily range): BP systolic 111–176; BP diastolic 60–102
--- NOTE | 2020-12-17 06:10 | NUR ---
Patient in room PCU 3010. I have received report from Kaley Roche RN and had the opportunity to ask questions and assume patient care.
--- NOTE | 2020-12-17 06:17 | NUR ---
Problems reprioritized. Patient report given, questions answered & plan of care reviewed with LORI MACKAY.
--- NOTE | 2020-12-17 06:43 | NUR ---
Patient in room PCU 3010. I have received report from Kaley Roche RN and had the opportunity to ask questions and assume patient care. Patient resting in bed c/o mild nausea in no acute distress.
[2020-12-17] MEDS: diltiazem CD 180mg cap (once-daily) PO SCH ×2 (06:55→19:56)
[2020-12-17 07:16] LABS: HEMOGLOBIN 8.1 g/dl (14.0-17.9); MEAN PLATELET VOLUME 7.8 FL (7.4-10.4)
[2020-12-17 07:17] LABS: BASOPHILS # (AUTO) 0.2 X10'3 (0-0.2); BASOPHILS % (AUTO) 1.6 % (0-1); EOSINOPHILS # (AUTO) 0.8 X10'3 (0-0.9); EOSINOPHILS % (AUTO) 7.8 % (0-6); HEMATOCRIT 25.3 % (42.0-52.0); LYMPHOCYTES # (AUTO) 1.4 X10'3 (1.1-4.8); LYMPHOCYTES % (AUTO) 13.7 % (21-51); MEAN CORPUSCULAR HGB CONC 31.9 g/dL (33.0-36.5); MEAN CORPUSCULAR VOLUME 81.7 FL (78-98); MONOCYTES % (AUTO) 10.4 % (2-12); NEUTROPHILS # (AUTO) 6.6 X10'3 (1.8-7.7); NEUTROPHILS % (AUTO) 66.5 % (42-75); PLATELET COUNT 652 X10'3 (140-440); RED CELL DISTRIBUTION WIDTH 18.9 % (11.5-14.5); WHITE BLOOD COUNT 9.9 X10'3 (4.5-11.0)
[2020-12-17 07:30] LABS: ALANINE AMINOTRANSFERASE 11 U/L (12-78); ALBUMIN 1.7 G/DL (3.4-5.0); ALBUMIN/GLOBULIN RATIO 0.5 (1.1-1.5); ALKALINE PHOSPHATASE 62 IU/L (46-116); ANION GAP 14 (8-16); ASPARTATE AMINO TRANSFERASE 12 U/L (10-37); BILIRUBIN,TOTAL 0.2 MG/DL (0.1-1.0); BLOOD UREA NITROGEN 50 MG/DL (7-18); BUN/CREATININE RATIO 6.4 (5.4-32.0); CALCIUM 7.9 MG/DL (8.5-10.1); CHLORIDE 112 MMOL/L (99-107); CREATININE 7.81 MG/DL (0.60-1.10); GLUCOSE 124 MG/DL (70-104); POTASSIUM 3.8 MMOL/L (3.5-5.1); SODIUM 144 MMOL/L (135-145); TOTAL CARBON DIOXIDE 17.7 MMOL/L (24-32); TOTAL PROTEIN 5.4 G/DL (6.4-8.2); eGFR 8 ML/MIN
[2020-12-17 07:54] LABS: ANISOCYTOSIS 2+; PLATELET ESTIMATE INCREASED
[2020-12-17 07:55] LABS: MICROCYTOSIS 1+
[2020-12-17 07:56] LABS: LARGE PLATELETS FEW; POLYCHROMASIA FEW
[2020-12-17] MEDS: albumin (human) 25% 100 ML IV solution IV SCH ×3 (07:58→20:30)
[2020-12-17] MEDS: metolazone 2.5mg tablet PO SCH ×3 (07:59→20:19)
[2020-12-17] MEDS: atorvastatin 20mg tablet PO SCH (07:59)
[2020-12-17] MEDS: K and/or MAG REPLACEMENT MC SCH ×2 (08:00→19:56)
[2020-12-17] MEDS: lisinopril 20mg tablet PO SCH ×2 (08:02→19:55)
[2020-12-17] MEDS: levoTHYROXINE 75mcg tablet PO SCH (08:03)
[2020-12-17] MEDS: nitroGLYCERIN 0.4mg/hour patch TD SCH (08:03)
[2020-12-17] MEDS: bumetanide 1mg tablet PO SCH ×2 (08:04→19:56)
[2020-12-17] MEDS: lactobacillus rhamnosus 10,000 MMU CELLS/CAPSULE PO SCH ×2 (08:06→19:55)
[2020-12-17] MEDS: metoprolol tartrate 25mg tablet PO SCH ×2 (08:07→19:56)
[2020-12-17] MEDS: losartan 50mg tablet PO SCH ×2 (08:08→19:56)
[2020-12-17] MEDS: pantoprazole 40mg Tablet.DR PO SCH (08:09)
[2020-12-17] MEDS: docusate sod 100mg capsule PO SCH ×2 (08:09→19:56)
[2020-12-17] MEDS: ondansetron/PF 4mg/2ml inj IV PRN (08:19)
[2020-12-17] MEDS: celeCOXIB 100mg capsule PO SCH ×2 (08:27→19:56)
[2020-12-17] MEDS: HYDROcodone/acetaminophen 10/325mg tab PO PRN ×3 (08:27→22:17)
[2020-12-17] MEDS ORDERED: normal saline 1000ml 100 ML IV PRN (09:00)
[2020-12-17] MEDS ORDERED: heparin 1,000 units/ml 10ml inj HE ONE ×2 (09:00)
[2020-12-17] MEDS ORDERED: LIDOcaine 1%/PF 5ML 10 MG/ML VIAL ONE (09:07)
[2020-12-17] MEDS ORDERED: heparin 1,000unit/ml 10ml vial 10 ML ONE (09:07)
[2020-12-17] MEDS ORDERED: fentaNYL/PF 50MCG/1 ML 2ML syringe ONE (09:08)
[2020-12-17] MEDS ORDERED: midazolam 1 mg/ML 2ml injection ONE (09:08)
[2020-12-17] MEDS ORDERED: ondansetron/PF 4mg/2ml inj ONE (09:28)
--- NOTE | 2020-12-17 11:47 | NUR ---
At bedside Dr. Jhaveri gave me orders to put patient on a dialysis diet , and to get spot UA creatinine and protein today.
[2020-12-17 12:52] LABS: CLARITY,URINE CLOUDY (Clear); COLOR,URINE YELLOW (Yellow); GLUCOSE, URINE >=1000 mg/dl (Neg); KETONES,URINE 15 mg/dl (Neg); LEUKOCYTE ESTERASE ,URINE NEGATIVE (Neg); NITRITES, URINE NEGATIVE (Neg); OCCULT BLOOD,URINE MODERATE (Neg); PROTEIN,URINE >=300 mg/dl (Neg); UROBILINOGEN,URINE 0.2 E.U/dL (0.2-1.0)
[2020-12-17 13:00] LABS: UA COLLECTION TYPE FOLEY CATH
[2020-12-17 13:06] LABS: CELLULAR CAST >30 /LPF (NEGATIVE)
[2020-12-17 13:07] LABS: SQUAMOUS EPITHELIAL CELL,UR NONE SEEN /LPF (FEW)
[2020-12-17 13:11] LABS: BACTERIA,URINE NONE SEEN /HPF (Neg); WBC,URINE 0-4 /HPF (0-4)
[2020-12-17 14:09] LABS: UA EOSINOPHILS MOD EOS /HPF
--- NOTE | 2020-12-17 14:23 | NUR ---
Reassessment: Pt s/p TDC for HD advanced to renal diet per MD. RD d/w RN regarding carb controlled diet addition given DM hx if MD agreeable. Pt PO mostly 75-100% prior carb controlled/heart healthy meals w/ occasional 50% at dinners. Given PO hx and additional protein needs on HD double meats added WL; dietary notified. LBM 12/15. Will continue to monitor for PO trends and protein needs on HD. Rec: 1. Continue Renal diet as tolerated, recommend adding carb controlled diet w/ DM hx; consider heart healthy diet given elevated lipid panel on admit 2. double meats WL for satiety 3. Bowel care per rx 4. wts w/ HD Addendum: 12/17/20 at [address] Amended: Links added.
--- NOTE | 2020-12-17 18:25 | NUR ---
Patient in room PCU 3010. I have received report from THOMPSON Boss and THOMPSON Obregon and had the opportunity to ask questions and assume patient care.
--- NOTE | 2020-12-17 19:19 | NUR ---
Problems reprioritized. Patient report given, questions answered & plan of care reviewed with Leigh MACKAY.
--- NOTE | 2020-12-17 20:08 | NUR ---
PAGER ID: [phone] MESSAGE: [phone] THOMPSON Abraham for Mikael Tse in 3010A. Patient's Oliver DCed earlier. Not able to pee since then. Bladder scan showed 490 cc in bladder. Order for Oliver? Thanks
[2020-12-17] MEDS: insulin glargine (Lantus) pen - multi-dose SQ SCH (20:41)
[2020-12-18 02:00] VITALS: BP 193/87
[2020-12-18 02:30] VITALS: BP 157/88
[2020-12-18 06:00] VITALS: BP 178/85
--- NOTE | 2020-12-18 06:26 | NUR ---
Problems reprioritized. Patient report given, questions answered & plan of care reviewed with THOMPSON Bates.
[2020-12-18 06:33] LABS: BASOPHILS # (AUTO) 0.1 X10'3 (0-0.2); BASOPHILS % (AUTO) 1.1 % (0-1); EOSINOPHILS # (AUTO) 0.1 X10'3 (0-0.9); EOSINOPHILS % (AUTO) 0.8 % (0-6); HEMATOCRIT 23.9 % (42.0-52.0); HEMOGLOBIN 7.6 g/dl (14.0-17.9); LYMPHOCYTES # (AUTO) 0.4 X10'3 (1.1-4.8); LYMPHOCYTES % (AUTO) 4.8 % (21-51); MEAN CORPUSCULAR HEMOGLOBIN 25.9 PG (27.0-31.0); MEAN CORPUSCULAR HGB CONC 31.8 g/dL (33.0-36.5); MEAN CORPUSCULAR VOLUME 81.4 FL (78-98); MEAN PLATELET VOLUME 7.7 FL (7.4-10.4); MONOCYTES # (AUTO) 0.7 X10'3 (0-0.9); MONOCYTES % (AUTO) 7.6 % (2-12); NEUTROPHILS # (AUTO) 7.5 X10'3 (1.8-7.7); NEUTROPHILS % (AUTO) 85.7 % (42-75); PLATELET COUNT 535 X10'3 (140-440); RED BLOOD COUNT 2.93 X10'6 (4.70-6.10); RED CELL DISTRIBUTION WIDTH 18.6 % (11.5-14.5); WHITE BLOOD COUNT 8.8 X10'3 (4.5-11.0)
[2020-12-18 06:52] LABS: ALANINE AMINOTRANSFERASE 9 U/L (12-78); ALBUMIN/GLOBULIN RATIO 0.6 (1.1-1.5); ALKALINE PHOSPHATASE 71 IU/L (46-116); ANION GAP 9 (8-16); ASPARTATE AMINO TRANSFERASE 11 U/L (10-37); BILIRUBIN,TOTAL 0.3 MG/DL (0.1-1.0); BLOOD UREA NITROGEN 32 MG/DL (7-18); BUN/CREATININE RATIO 5.4 (5.4-32.0); CALCIUM 7.7 MG/DL (8.5-10.1); CHLORIDE 109 MMOL/L (99-107); CREATININE 5.88 MG/DL (0.60-1.10); GLUCOSE 164 MG/DL (70-104); POTASSIUM 3.4 MMOL/L (3.5-5.1); SODIUM 141 MMOL/L (135-145); TOTAL CARBON DIOXIDE 22.8 MMOL/L (24-32); TOTAL PROTEIN 5.5 G/DL (6.4-8.2); eGFR 11 ML/MIN
[2020-12-18] MEDS: pantoprazole 40mg Tablet.DR PO SCH (07:38)
[2020-12-18] MEDS: levoTHYROXINE 75mcg tablet PO SCH (07:38)
[2020-12-18] MEDS: HYDROcodone/acetaminophen 10/325mg tab PO PRN ×3 (07:39→21:53)
[2020-12-18 07:41] LABS: ANISOCYTOSIS 2+; PLATELET ESTIMATE INCREASED
[2020-12-18] MEDS: K and/or MAG REPLACEMENT MC SCH ×2 (08:00→20:00)
[2020-12-18] MEDS ORDERED: heparin 1,000 units/ml 10ml inj HE ONE ×2 (08:40)
[2020-12-18] MEDS ORDERED: normal saline 1000ml 100 ML IV PRN (08:40)
[2020-12-18] MEDS: docusate sod 100mg capsule PO SCH ×2 (08:51→21:47)
[2020-12-18] MEDS: albumin (human) 25% 100 ML IV solution IV SCH (08:51)
[2020-12-18] MEDS: metoprolol tartrate 25mg tablet PO SCH ×2 (08:52→21:50)
[2020-12-18] MEDS: celeCOXIB 100mg capsule PO SCH ×2 (08:52→21:47)
[2020-12-18] MEDS: lactobacillus rhamnosus 10,000 MMU CELLS/CAPSULE PO SCH ×2 (08:52→21:49)
[2020-12-18] MEDS: bumetanide 1mg tablet PO SCH ×2 (08:53→21:46)
[2020-12-18] MEDS: losartan 50mg tablet PO SCH ×2 (08:53→21:48)
[2020-12-18] MEDS: diltiazem CD 180mg cap (once-daily) PO SCH ×2 (08:53→21:46)
[2020-12-18] MEDS: nitroGLYCERIN 0.4mg/hour patch TD SCH (08:54)
[2020-12-18] MEDS: lisinopril 20mg tablet PO SCH ×2 (08:55→21:51)
[2020-12-18] MEDS: atorvastatin 20mg tablet PO SCH (08:55)
[2020-12-18] MEDS ORDERED: albumin (human) 25% 100ml IV 100 ML IV ONE (10:00)
[2020-12-18 11:00] VITALS: BP 157/87
[2020-12-18] MEDS: metolazone 2.5mg tablet PO SCH ×3 (13:00→21:52)
[2020-12-18 15:00] VITALS: BP 159/80
[2020-12-18] MEDS: albumin (human) 25% 100ml IV 200 ML IV SCH ×2 (15:04→21:52)
[2020-12-18 19:15] VITALS: BP 126/70
[2020-12-18] MEDS: insulin glargine (Lantus) pen - multi-dose SQ SCH (21:00)
[2020-12-18] MEDS: apixaban 5mg tablet PO SCH (21:49)
[2020-12-18] MEDS: proCHLORperazine 10 MG/2 ml inj IV PRN (21:52)
[2020-12-19] VITALS (8 sets, daily range): BP systolic 123–156; BP diastolic 67–88
[2020-12-19] MEDS: HYDROcodone/acetaminophen 10/325mg tab PO PRN ×4 (04:14→21:29)
--- NOTE | 2020-12-19 06:27 | NUR ---
Problems reprioritized. Patient report given, questions answered & plan of care reviewed with Alan MACKAY.
[2020-12-19 06:35] LABS: BASOPHILS # (AUTO) 0.1 X10'3 (0-0.2); BASOPHILS % (AUTO) 1.3 % (0-1); EOSINOPHILS # (AUTO) 0.1 X10'3 (0-0.9); EOSINOPHILS % (AUTO) 1.1 % (0-6); HEMATOCRIT 22.9 % (42.0-52.0); HEMOGLOBIN 7.4 g/dl (14.0-17.9); LYMPHOCYTES # (AUTO) 0.8 X10'3 (1.1-4.8); LYMPHOCYTES % (AUTO) 12.4 % (21-51); MEAN CORPUSCULAR HEMOGLOBIN 26.1 PG (27.0-31.0); MEAN CORPUSCULAR HGB CONC 32.3 g/dL (33.0-36.5); MEAN CORPUSCULAR VOLUME 80.8 FL (78-98); MEAN PLATELET VOLUME 7.5 FL (7.4-10.4); MONOCYTES # (AUTO) 0.7 X10'3 (0-0.9); MONOCYTES % (AUTO) 10.6 % (2-12); NEUTROPHILS # (AUTO) 4.8 X10'3 (1.8-7.7); NEUTROPHILS % (AUTO) 74.6 % (42-75); PLATELET COUNT 469 X10'3 (140-440); RED BLOOD COUNT 2.84 X10'6 (4.70-6.10); RED CELL DISTRIBUTION WIDTH 18.7 % (11.5-14.5); WHITE BLOOD COUNT 6.5 X10'3 (4.5-11.0)
[2020-12-19 06:54] LABS: ALANINE AMINOTRANSFERASE 13 U/L (12-78); ALBUMIN 1.8 G/DL (3.4-5.0); ALBUMIN/GLOBULIN RATIO 0.5 (1.1-1.5); ALKALINE PHOSPHATASE 79 IU/L (46-116); ANION GAP 10 (8-16); ASPARTATE AMINO TRANSFERASE 18 U/L (10-37); BILIRUBIN,TOTAL 0.3 MG/DL (0.1-1.0); BLOOD UREA NITROGEN 24 MG/DL (7-18); BUN/CREATININE RATIO 4.7 (5.4-32.0); CALCIUM 7.4 MG/DL (8.5-10.1); CHLORIDE 107 MMOL/L (99-107); CREATININE 5.13 MG/DL (0.60-1.10); GLUCOSE 127 MG/DL (70-104); POTASSIUM 3.3 MMOL/L (3.5-5.1); SODIUM 142 MMOL/L (135-145); TOTAL CARBON DIOXIDE 25.2 MMOL/L (24-32); TOTAL PROTEIN 5.3 G/DL (6.4-8.2); eGFR 13 ML/MIN
[2020-12-19] MEDS: levoTHYROXINE 75mcg tablet PO SCH (07:00)
[2020-12-19] MEDS: pantoprazole 40mg Tablet.DR PO SCH (07:30)
[2020-12-19] MEDS ORDERED: heparin 1,000 units/ml 10ml inj IV ONE (07:40)
[2020-12-19] MEDS ORDERED: heparin 1,000unit/ml 10ml vial 10 ML IV ONE (07:40)
[2020-12-19] MEDS ORDERED: EPOETIN ALFA-EPBX 20,000 UNIT/ML 1 ML MDV IV ONE (07:40)
[2020-12-19] MEDS ORDERED: heparin 1,000 units/ml 10ml inj HE ONE ×2 (07:45)
[2020-12-19] MEDS: docusate sod 100mg capsule PO SCH ×2 (08:00→20:24)
[2020-12-19] MEDS: celeCOXIB 100mg capsule PO SCH (08:00)
[2020-12-19] MEDS: metolazone 2.5mg tablet PO SCH ×3 (08:00→20:35)
[2020-12-19] MEDS: lactobacillus rhamnosus 10,000 MMU CELLS/CAPSULE PO SCH ×2 (08:00→20:24)
[2020-12-19] MEDS: apixaban 5mg tablet PO SCH (08:00)
[2020-12-19] MEDS: metoprolol tartrate 25mg tablet PO SCH ×2 (08:00→20:25)
[2020-12-19] MEDS: diltiazem CD 180mg cap (once-daily) PO SCH ×2 (08:00→20:24)
[2020-12-19] MEDS: bumetanide 1mg tablet PO SCH ×2 (08:00→20:24)
[2020-12-19] MEDS: losartan 50mg tablet PO SCH ×2 (08:00→20:25)
[2020-12-19] MEDS: lisinopril 20mg tablet PO SCH ×2 (08:00→20:25)
[2020-12-19] MEDS: atorvastatin 20mg tablet PO SCH (08:00)
[2020-12-19] MEDS ORDERED: magnesium 4gm in 100ml NS 100 ML IV PRN (08:15)
[2020-12-19] MEDS ORDERED: potassium Cl 20 mEq SR tablet PO PRN ×2 (08:15)
[2020-12-19] MEDS ORDERED: magnesium Cl slow-release 64mg tablet PO PRN (08:15)
[2020-12-19] MEDS ORDERED: potassium Cl 40MEQ/1/2NS 520ml 520 ML IV PRN (08:15)
--- NOTE | 2020-12-19 09:30 | NUR ---
HD nurse advised hold bp lowering meds
--- NOTE | 2020-12-19 10:30 | NUR ---
REFUSE TO WORK [facility]. EDU PROVIDED, CLARIFIED HIS STATEMENTS OF " YEAH YEAH I KNOW ABOUT BLOOD CLOTTING AND STUFF" AND COVERED RISKS OF ACITIVITY INCLUDING PNEUMNIA, DVT, , AND SEVER LOSS OF STRENGTH AND ACTIVITY WELL SKIN INTEGRITY. PT SAYS " I JUST DON'T FEEL WELL. ILL DO IT TOMORROW. " ON CHALLENGING THIS, HE AGREED THAT IF HE FEELS THE SAME WAY TOMORROW HE WILL TAKE OUR ADVICE AND GET OOB AND WORK WITH PHYSICAL THERAPY
[2020-12-19] MEDS: albumin (human) 25% 100ml IV 200 ML IV SCH ×3 (10:35→20:24)
[2020-12-19 11:12] LABS: HBSAG SCREEN Negative (Negative)
--- NOTE | 2020-12-19 13:16 | NUR ---
8870- message to PICC Nurse lucretia severino assist with line placement.
[2020-12-19] MEDS: nitroGLYCERIN 0.4mg/hour patch TD SCH (17:17)
[2020-12-19] MEDS: K and/or MAG REPLACEMENT MC SCH (20:00)
[2020-12-19] MEDS: methylPREDNISolone sod succ 125mg/2ml vial IV SCH (20:24)
[2020-12-19] MEDS: insulin glargine (Lantus) pen - multi-dose SQ SCH (22:06)
[2020-12-20] MEDS: heparin, porcine 5000 units/ml vial SQ SCH ×3 (00:48→23:34)
[2020-12-20 02:00] VITALS: BP 150/86
[2020-12-20] MEDS: HYDROcodone/acetaminophen 10/325mg tab PO PRN ×4 (02:32→22:45)
[2020-12-20 06:00] VITALS: BP 164/80
--- NOTE | 2020-12-20 06:12 | NUR ---
Problems reprioritized. Patient report given, questions answered & plan of care reviewed with THOMPSON Phillips.
[2020-12-20 06:54] LABS: BASOPHILS % (AUTO) 0.4 % (0-1); EOSINOPHILS % (AUTO) 0 % (0-6); HEMATOCRIT 25.8 % (42.0-52.0); HEMOGLOBIN 8.2 g/dl (14.0-17.9); LYMPHOCYTES # (AUTO) 0.8 X10'3 (1.1-4.8); LYMPHOCYTES % (AUTO) 10.3 % (21-51); MEAN CORPUSCULAR HEMOGLOBIN 25.6 PG (27.0-31.0); MEAN CORPUSCULAR HGB CONC 31.7 g/dL (33.0-36.5); MEAN PLATELET VOLUME 7.7 FL (7.4-10.4); MONOCYTES # (AUTO) 0.2 X10'3 (0-0.9); MONOCYTES % (AUTO) 2.8 % (2-12); NEUTROPHILS # (AUTO) 6.8 X10'3 (1.8-7.7); NEUTROPHILS % (AUTO) 86.5 % (42-75); PLATELET COUNT 456 X10'3 (140-440); RED BLOOD COUNT 3.19 X10'6 (4.70-6.10); RED CELL DISTRIBUTION WIDTH 17.8 % (11.5-14.5); WHITE BLOOD COUNT 7.9 X10'3 (4.5-11.0)
[2020-12-20 07:03] LABS: ALANINE AMINOTRANSFERASE 16 U/L (12-78); ALBUMIN 1.7 G/DL (3.4-5.0); ALBUMIN/GLOBULIN RATIO 0.4 (1.1-1.5); ALKALINE PHOSPHATASE 121 IU/L (46-116); ANION GAP 5 (8-16); ASPARTATE AMINO TRANSFERASE 22 U/L (10-37); BILIRUBIN,TOTAL 0.2 MG/DL (0.1-1.0); BLOOD UREA NITROGEN 22 MG/DL (7-18); CALCIUM 7.5 MG/DL (8.5-10.1); CHLORIDE 105 MMOL/L (99-107); CREATININE 4.42 MG/DL (0.60-1.10); GLUCOSE 202 MG/DL (70-104); POTASSIUM 3.9 MMOL/L (3.5-5.1); SODIUM 137 MMOL/L (135-145); TOTAL CARBON DIOXIDE 26.7 MMOL/L (24-32); TOTAL PROTEIN 5.5 G/DL (6.4-8.2); eGFR 15 ML/MIN
[2020-12-20] MEDS: metoprolol tartrate 25mg tablet PO SCH ×2 (08:00→20:22)
[2020-12-20] MEDS: diltiazem CD 180mg cap (once-daily) PO SCH ×2 (08:00→20:22)
[2020-12-20] MEDS: losartan 50mg tablet PO SCH ×2 (08:00→20:22)
[2020-12-20] MEDS: lisinopril 20mg tablet PO SCH ×2 (08:00→20:22)
[2020-12-20] MEDS ORDERED: MISCELLANEOUS ORAL SOLID PO SCH (08:00)
[2020-12-20] MEDS: albumin (human) 25% 100ml IV 200 ML IV SCH ×3 (08:33→21:11)
[2020-12-20] MEDS: methylPREDNISolone sod succ 125mg/2ml vial IV SCH ×2 (08:36→20:18)
[2020-12-20] MEDS: lactobacillus rhamnosus 10,000 MMU CELLS/CAPSULE PO SCH ×2 (08:44→20:22)
[2020-12-20] MEDS: levoTHYROXINE 75mcg tablet PO SCH (08:44)
[2020-12-20] MEDS: bumetanide 1mg tablet PO SCH ×2 (08:44→20:19)
[2020-12-20] MEDS: docusate sod 100mg capsule PO SCH ×2 (08:44→20:22)
[2020-12-20] MEDS: metolazone 2.5mg tablet PO SCH ×3 (08:44→20:23)
[2020-12-20] MEDS ORDERED: heparin 1,000 units/ml 10ml inj IV ONE (09:00)
[2020-12-20] MEDS ORDERED: heparin 1,000unit/ml 10ml vial 10 ML IV ONE (09:00)
[2020-12-20] MEDS ORDERED: heparin 1,000 units/ml 10ml inj HE ONE ×2 (09:05)
[2020-12-20] MEDS: insulin Lispro (HumaLOG) vial - multi-dose SQ SCH ×4 (10:09→21:21)
[2020-12-20 11:00] VITALS: BP 162/91
--- NOTE | 2020-12-20 12:00 | NUR ---
0830- two calls to on HD engineering consultant nurse to determine time of HD .BP meds held for HD per Gabi MACKAY
--- NOTE | 2020-12-20 13:56 | NUR ---
HD RN advised wait until HD complete to hang 1300 albumin since sbp 140-160 on HD.
[2020-12-20 15:00] VITALS: BP 157/77
[2020-12-20] MEDS: nitroGLYCERIN 0.4mg/hour patch TD SCH (16:23)
--- NOTE | 2020-12-20 17:45 | NUR ---
tx pain and set up for meal. PT shared update for amb plan tomorrow using walker. spouse at bedside
[2020-12-20 18:00] VITALS: BP 156/77
[2020-12-20] MEDS: K and/or MAG REPLACEMENT MC SCH (20:00)
[2020-12-20] MEDS: ROSUVASTATIN CALCIUM 5 MG TABLET PO SCH (20:30)
[2020-12-20] MEDS: insulin glargine (Lantus) pen - multi-dose SQ SCH (21:20)
[2020-12-20 22:00] VITALS: BP 140/76
[2020-12-21 02:00] VITALS: BP 147/78
--- NOTE | 2020-12-21 06:08 | NUR ---
Problems reprioritized. Patient report given, questions answered & plan of care reviewed with THOMPSON Hickman.
[2020-12-21 06:48] LABS: BASOPHILS % (AUTO) 0.1 % (0-1); EOSINOPHILS % (AUTO) 0 % (0-6); HEMOGLOBIN 7.7 g/dl (14.0-17.9); LYMPHOCYTES % (AUTO) 8.6 % (21-51); MEAN CORPUSCULAR HEMOGLOBIN 25.6 PG (27.0-31.0); MEAN CORPUSCULAR VOLUME 82.5 FL (78-98); MEAN PLATELET VOLUME 7.8 FL (7.4-10.4); MONOCYTES # (AUTO) 0.6 X10'3 (0-0.9); MONOCYTES % (AUTO) 5.1 % (2-12); NEUTROPHILS # (AUTO) 9.9 X10'3 (1.8-7.7); NEUTROPHILS % (AUTO) 86.2 % (42-75); PLATELET COUNT 496 X10'3 (140-440); RED BLOOD COUNT 3.02 X10'6 (4.70-6.10); WHITE BLOOD COUNT 11.4 X10'3 (4.5-11.0)
[2020-12-21 07:00] VITALS: BP 161/94
[2020-12-21 07:20] LABS: ALANINE AMINOTRANSFERASE 14 U/L (12-78); ALBUMIN/GLOBULIN RATIO 0.6 (1.1-1.5); ALKALINE PHOSPHATASE 105 IU/L (46-116); ANION GAP 7 (8-16); ASPARTATE AMINO TRANSFERASE 13 U/L (10-37); BILIRUBIN,TOTAL 0.2 MG/DL (0.1-1.0); BLOOD UREA NITROGEN 32 MG/DL (7-18); BUN/CREATININE RATIO 7.7 (5.4-32.0); CALCIUM 7.6 MG/DL (8.5-10.1); CHLORIDE 104 MMOL/L (99-107); CREATININE 4.15 MG/DL (0.60-1.10); GLUCOSE 280 MG/DL (70-104); SODIUM 138 MMOL/L (135-145); TOTAL CARBON DIOXIDE 26.8 MMOL/L (24-32); TOTAL PROTEIN 5.5 G/DL (6.4-8.2); eGFR 16 ML/MIN
[2020-12-21] MEDS: levoTHYROXINE 100mcg tablet PO SCH (07:35)
[2020-12-21] MEDS: K and/or MAG REPLACEMENT MC SCH ×2 (08:00→20:00)
[2020-12-21] MEDS: lactobacillus rhamnosus 10,000 MMU CELLS/CAPSULE PO SCH ×2 (08:29→21:36)
[2020-12-21] MEDS: bumetanide 1mg tablet PO SCH ×2 (08:30→21:35)
[2020-12-21] MEDS: diltiazem CD 180mg cap (once-daily) PO SCH ×2 (08:32→21:35)
[2020-12-21] MEDS: cholecalciferol (vitamin D3) 1,000 unit (25mcg) tablet PO SCH (08:32)
[2020-12-21] MEDS: losartan 50mg tablet PO SCH ×2 (08:32→21:37)
[2020-12-21] MEDS: docusate sod 100mg capsule PO SCH ×2 (08:32→21:39)
[2020-12-21] MEDS: metoprolol tartrate 25mg tablet PO SCH ×2 (08:33→21:38)
[2020-12-21] MEDS: metolazone 2.5mg tablet PO SCH ×3 (08:33→21:36)
[2020-12-21] MEDS: lisinopril 20mg tablet PO SCH ×2 (08:33→21:39)
[2020-12-21] MEDS: methylPREDNISolone sod succ 125mg/2ml vial IV SCH (08:34)
[2020-12-21] MEDS: heparin, porcine 5000 units/ml vial SQ SCH ×2 (08:34→17:09)
[2020-12-21] MEDS: albumin (human) 25% 100ml IV 200 ML IV SCH ×3 (08:35→21:44)
[2020-12-21] MEDS: insulin Lispro (HumaLOG) vial - multi-dose SQ SCH ×3 (08:49→23:41)
[2020-12-21] MEDS: HYDROcodone/acetaminophen 10/325mg tab PO PRN ×3 (08:51→17:55)
[2020-12-21] MEDS ORDERED: heparin 1,000unit/ml 10ml vial 10 ML IV ONE (09:15)
[2020-12-21] MEDS ORDERED: heparin 1,000 units/ml 10ml inj HE ONE ×2 (09:20)
[2020-12-21 11:00] VITALS: BP 156/86
[2020-12-21 15:00] VITALS: BP 145/76
[2020-12-21] MEDS ORDERED: EPOETIN ALFA-EPBX 20,000 UNIT/ML 1 ML MDV SQ ONE (15:00)
--- NOTE | 2020-12-21 15:45 | NUR ---
paged pharmacy for epoetin "May i please have Epoetin dose -Thanks, -Marylou #[id number]"
[2020-12-21 18:00] VITALS: BP 162/93
--- NOTE | 2020-12-21 18:00 | NUR ---
Patient in room PCU 3010. I have received report from Marylou MACKAY and had the opportunity to ask questions and assume patient care. Addendum: 12/21/20 at 1850 by Eulalia Morrison RN Amended: Links added.
--- NOTE | 2020-12-21 18:44 | NUR ---
Problems reprioritized. Patient report given, questions answered & plan of care reviewed with Eulalia MACKAY.
[2020-12-21] MEDS: ROSUVASTATIN CALCIUM 5 MG TABLET PO SCH (21:00)
[2020-12-21 22:00] VITALS: BP 178/89
[2020-12-21] MEDS: insulin glargine (Lantus) pen - multi-dose SQ SCH (23:50)
[2020-12-22] MEDS: HYDROcodone/acetaminophen 10/325mg tab PO PRN ×4 (01:24→21:08)
[2020-12-22] MEDS: heparin, porcine 5000 units/ml vial SQ SCH ×4 (01:25→23:13)
[2020-12-22] MEDS: nitroGLYCERIN 0.4mg/hour patch TD SCH ×2 (01:37→22:37)
[2020-12-22 02:00] VITALS: BP 168/80
--- NOTE | 2020-12-22 05:00 | NUR ---
Pt. slept well with no hypoglycemic events. C/o pain x 1 medicated as ordered; effective. provided florentin care. Pt. is nuric this shift. Pt. is requesting for a bed bath or a shower. Request shared with day shift nurse Roxanna MACKAY. Addendum: 12/22/20 at 0744 by Eulalia Morrison RN Amended: Links added.
--- NOTE | 2020-12-22 06:58 | NUR ---
Patient in room PCU 3010. I have received report from Roxanna MACKAY and had the opportunity to ask questions and assume patient care.
[2020-12-22 06:59] VITALS: BP 149/74
[2020-12-22] MEDS: lactobacillus rhamnosus 10,000 MMU CELLS/CAPSULE PO SCH ×2 (07:24→21:09)
[2020-12-22] MEDS: cholecalciferol (vitamin D3) 1,000 unit (25mcg) tablet PO SCH (07:24)
[2020-12-22] MEDS: docusate sod 100mg capsule PO SCH ×2 (07:24→20:20)
[2020-12-22] MEDS: metoprolol tartrate 25mg tablet PO SCH ×2 (07:25→20:20)
[2020-12-22] MEDS: levoTHYROXINE 100mcg tablet PO SCH (07:25)
[2020-12-22] MEDS: diltiazem CD 180mg cap (once-daily) PO SCH ×2 (07:25→20:19)
[2020-12-22] MEDS: predniSONE 20 mg tablet PO SCH (07:25)
[2020-12-22] MEDS: bumetanide 1mg tablet PO SCH ×2 (07:26→20:18)
[2020-12-22] MEDS: albumin (human) 25% 100ml IV 200 ML IV SCH ×2 (07:27→20:17)
[2020-12-22] MEDS: losartan 50mg tablet PO SCH ×2 (07:28→20:18)
[2020-12-22] MEDS: metolazone 2.5mg tablet PO SCH ×3 (08:00→21:08)
[2020-12-22] MEDS: K and/or MAG REPLACEMENT MC SCH ×2 (08:00→20:00)
[2020-12-22] MEDS: lisinopril 20mg tablet PO SCH ×2 (08:00→20:21)
[2020-12-22] MEDS: insulin Lispro (HumaLOG) vial - multi-dose SQ SCH ×3 (09:16→21:30)
[2020-12-22 09:21] LABS: BASOPHILS % (AUTO) 0.2 % (0-1); EOSINOPHILS % (AUTO) 0 % (0-6); HEMATOCRIT 25.8 % (42.0-52.0); HEMOGLOBIN 7.9 g/dl (14.0-17.9); LYMPHOCYTES # (AUTO) 1.7 X10'3 (1.1-4.8); LYMPHOCYTES % (AUTO) 10.7 % (21-51); MEAN CORPUSCULAR HEMOGLOBIN 25.2 PG (27.0-31.0); MEAN CORPUSCULAR HGB CONC 30.5 g/dL (33.0-36.5); MEAN CORPUSCULAR VOLUME 82.6 FL (78-98); MONOCYTES # (AUTO) 1.6 X10'3 (0-0.9); MONOCYTES % (AUTO) 10.6 % (2-12); NEUTROPHILS # (AUTO) 12.1 X10'3 (1.8-7.7); NEUTROPHILS % (AUTO) 78.5 % (42-75); PLATELET COUNT 581 X10'3 (140-440); RED BLOOD COUNT 3.12 X10'6 (4.70-6.10); RED CELL DISTRIBUTION WIDTH 18.2 % (11.5-14.5); WHITE BLOOD COUNT 15.4 X10'3 (4.5-11.0)
[2020-12-22 09:28] LABS: ALANINE AMINOTRANSFERASE 14 U/L (12-78); ALBUMIN 2.3 G/DL (3.4-5.0); ALBUMIN/GLOBULIN RATIO 0.7 (1.1-1.5); ALKALINE PHOSPHATASE 93 IU/L (46-116); ASPARTATE AMINO TRANSFERASE 11 U/L (10-37); BILIRUBIN,TOTAL 0.1 MG/DL (0.1-1.0); BLOOD UREA NITROGEN 32 MG/DL (7-18); BUN/CREATININE RATIO 8.9 (5.4-32.0); CALCIUM 7.7 MG/DL (8.5-10.1); CHLORIDE 104 MMOL/L (99-107); GLUCOSE 304 MG/DL (70-104); POTASSIUM 3.2 MMOL/L (3.5-5.1); TOTAL CARBON DIOXIDE 27.1 MMOL/L (24-32); TOTAL PROTEIN 5.8 G/DL (6.4-8.2); eGFR 19 ML/MIN
[2020-12-22 09:29] LABS: ANION GAP 9 (8-16); SODIUM 140 MMOL/L (135-145)
[2020-12-22] MEDS ORDERED: potassium Cl 20 mEq SR tablet PO STA ×3 (09:51→15:50)
--- NOTE | 2020-12-22 10:21 | NUR ---
Per Dr. Zazueta only replacing 20meq of potassium and then re-checking labs. Lab re-draw ordered.
[2020-12-22 11:29] VITALS: BP 147/84
--- NOTE | 2020-12-22 13:06 | NUR ---
Patient has received 600mls of fluid for my shift today and has already drank it all, educated on importance of fluid restriction. Will give 150 to reach his limit for this shift.
--- NOTE | 2020-12-22 13:40 | NUR ---
Nitro patch reassessment is on the JUL for 1336, documented that patient has a nitro patch on his right shoulder. He does not have a nitro patch on either shoulders and stated that he didn't think the nurse last night put one on.
--- NOTE | 2020-12-22 15:05 | NUR ---
PAGER ID: [phone] MESSAGE: [phone] Tse, potassium is still 3.3, do you want me to give another 20? shaheen [phone]
[2020-12-22 16:11] VITALS: BP 149/79
--- NOTE | 2020-12-22 17:14 | NUR ---
Per Dr. Zazueta he wanted one more dose of 20meq of potassium and to recheck tomorrow.
[2020-12-22 18:00] VITALS: BP 169/86
--- NOTE | 2020-12-22 18:00 | NUR ---
Patient in room PCU 3010. I have received report from Glendy MACKAY and had the opportunity to ask questions and assume patient care.
--- NOTE | 2020-12-22 18:42 | NUR ---
Problems reprioritized. Patient report given, questions answered & plan of care reviewed with Nalini MACKAY.
[2020-12-22] MEDS: magnesium hydroxide 30ml (MOM) UD suspension PO PRN (21:07)
[2020-12-22] MEDS: ROSUVASTATIN CALCIUM 5 MG TABLET PO SCH (21:09)
[2020-12-22] MEDS: insulin glargine (Lantus) pen - multi-dose SQ SCH (21:29)
[2020-12-22 22:00] VITALS: BP 156/72
--- NOTE | 2020-12-22 22:30 | NUR ---
Nitro patch found Located on the right shoulder/chest area above the TDC. New Nitro patch placed on right chest by TDC. Will pass on to day shift.
[2020-12-22] MEDS: temazepam 15mg capsule PO PRN (23:12)
--- NOTE | 2020-12-23 | NUR ---
Patient in room PCU 3010. I have received report from Denia MACKAY and had the opportunity to ask questions and assume patient care. Addendum: 12/24/20 at 0459 by Angela Ahuja RN floyd green, Sherrie 12/23/20
[2020-12-23] MEDS: HYDROcodone/acetaminophen 10/325mg tab PO PRN ×5 (01:58→20:37)
[2020-12-23 02:00] VITALS: BP 175/101
--- NOTE | 2020-12-23 06:16 | NUR ---
Patient in room PCU 3010. I have received report from THOMPSON Gayle and had the opportunity to ask questions and assume patient care.
--- NOTE | 2020-12-23 06:28 | NUR ---
Problems reprioritized. Patient report given, questions answered & plan of care reviewed with Aiyana MACKAY.
[2020-12-23 07:00] VITALS: BP 138/79
[2020-12-23 07:27] LABS: BASOPHILS % (AUTO) 0 % (0-1); EOSINOPHILS % (AUTO) 0.1 % (0-6); HEMATOCRIT 25.3 % (42.0-52.0); HEMOGLOBIN 7.7 g/dl (14.0-17.9); LYMPHOCYTES # (AUTO) 2.3 X10'3 (1.1-4.8); MEAN CORPUSCULAR HGB CONC 30.6 g/dL (33.0-36.5); MEAN CORPUSCULAR VOLUME 81.6 FL (78-98); MEAN PLATELET VOLUME 7.9 FL (7.4-10.4); MONOCYTES # (AUTO) 1.8 X10'3 (0-0.9); MONOCYTES % (AUTO) 10.7 % (2-12); NEUTROPHILS # (AUTO) 12.4 X10'3 (1.8-7.7); NEUTROPHILS % (AUTO) 75.2 % (42-75); PLATELET COUNT 572 X10'3 (140-440); RED BLOOD COUNT 3.09 X10'6 (4.70-6.10); RED CELL DISTRIBUTION WIDTH 17.9 % (11.5-14.5); WHITE BLOOD COUNT 16.5 X10'3 (4.5-11.0)
[2020-12-23] MEDS: predniSONE 20 mg tablet PO SCH (07:38)
[2020-12-23] MEDS: diltiazem CD 180mg cap (once-daily) PO SCH ×2 (07:38→20:35)
[2020-12-23] MEDS: lactobacillus rhamnosus 10,000 MMU CELLS/CAPSULE PO SCH ×2 (07:39→20:35)
[2020-12-23] MEDS: docusate sod 100mg capsule PO SCH ×2 (07:39→20:00)
[2020-12-23] MEDS: losartan 50mg tablet PO SCH ×2 (07:39→20:36)
[2020-12-23] MEDS: levoTHYROXINE 100mcg tablet PO SCH (07:40)
[2020-12-23] MEDS: metoprolol tartrate 25mg tablet PO SCH ×2 (07:40→20:36)
[2020-12-23] MEDS: cholecalciferol (vitamin D3) 1,000 unit (25mcg) tablet PO SCH (07:40)
[2020-12-23] MEDS: bumetanide 1mg tablet PO SCH ×2 (07:41→20:36)
[2020-12-23] MEDS: metolazone 2.5mg tablet PO SCH ×3 (07:42→20:35)
[2020-12-23] MEDS: lisinopril 20mg tablet PO SCH ×2 (07:42→20:35)
[2020-12-23 07:44] LABS: ALANINE AMINOTRANSFERASE 8 U/L (12-78); ALBUMIN 2.1 G/DL (3.4-5.0); ALBUMIN/GLOBULIN RATIO 0.7 (1.1-1.5); ALKALINE PHOSPHATASE 82 IU/L (46-116); ANION GAP 9 (8-16); ASPARTATE AMINO TRANSFERASE 10 U/L (10-37); BILIRUBIN,TOTAL 0.2 MG/DL (0.1-1.0); BLOOD UREA NITROGEN 44 MG/DL (7-18); BUN/CREATININE RATIO 9.2 (5.4-32.0); CALCIUM 7.4 MG/DL (8.5-10.1); CHLORIDE 106 MMOL/L (99-107); CREATININE 4.76 MG/DL (0.60-1.10); GLUCOSE 216 MG/DL (70-104); SODIUM 140 MMOL/L (135-145); TOTAL CARBON DIOXIDE 25.2 MMOL/L (24-32); TOTAL PROTEIN 5.1 G/DL (6.4-8.2); eGFR 14 ML/MIN
[2020-12-23] MEDS: heparin, porcine 5000 units/ml vial SQ SCH ×3 (07:45→23:05)
[2020-12-23] MEDS: K and/or MAG REPLACEMENT MC SCH ×2 (08:00→20:00)
--- NOTE | 2020-12-23 08:05 | NUR ---
Paged Dr. Zazueta regarding critical result of K 3.0 PAGER ID: [phone] MESSAGE: [phone]. Mikael Tse. Critical result of K 3.0. Thank you. Denia MACKAY x [phone] Addendum: 12/23/20 at 1129 by Denia Agarwal RN Dr. Zazueta called back right after sending the critical page and let me know that the patient's potassium would be fixed with dialysis that he would be getting today.
[2020-12-23] MEDS: insulin Lispro (HumaLOG) vial - multi-dose SQ SCH ×4 (09:21→21:44)
[2020-12-23 09:43] LABS: TOTAL CELLS COUNTED 100
[2020-12-23 09:44] LABS: ANISOCYTOSIS 1+; LARGE PLATELETS FEW; PLATELET ESTIMATE INCREASED
[2020-12-23] MEDS ORDERED: heparin 1,000unit/ml 10ml vial 10 ML IV ONE (10:05)
[2020-12-23] MEDS ORDERED: heparin 1,000 units/ml 10ml inj HE ONE ×2 (10:05)
[2020-12-23] MEDS ORDERED: EPOETIN ALFA-EPBX 20,000 UNIT/ML 1 ML MDV IV ONE (10:10)
[2020-12-23 11:00] VITALS: BP 156/81
[2020-12-23] MEDS: albumin (human) 25% 100ml IV 200 ML IV SCH ×2 (11:11→20:29)
--- NOTE | 2020-12-23 14:03 | NUR ---
Reassessment: Pt continues to consume 100% of meals on CCHO Renal diet w/ double meats WL which meets 91% of est energy needs and 85% of est protein needs. Last dialysis 12/20 w/ 4.5L out, pt to receive dialysis again today. No N/V/D reported, LBM 12/19. Will continue to monitor for PO trends and protein needs on HD. Rec: 1. Continue CCHO/Renal diet as tolerated; consider heart healthy diet given elevated lipid panel on admit 2. double meats WL for satiety 3. Bowel care per rx 4. wts w/ HD Addendum: 12/23/20 at [address] Amended: Links added.
[2020-12-23 15:00] VITALS: BP 146/79
--- NOTE | 2020-12-23 16:47 | NUR ---
Dialysis got off 4.5L today.
--- NOTE | 2020-12-23 17:28 | NUR ---
Afternoon blood sugar was covered instead of both the blood sugar and carbs. Patient wasn't having lunch during dialysis, so just his blood sugar was covered.
[2020-12-23 18:00] VITALS: BP 157/85
--- NOTE | 2020-12-23 18:00 | NUR ---
Patient in room PCU 3010. I have received report from Denia MACKAY and had the opportunity to ask questions and assume patient care.
--- NOTE | 2020-12-23 18:15 | NUR ---
Problems reprioritized. Patient report given, questions answered & plan of care reviewed with THOMPSON Miller. Patient stable at transfer of care.
[2020-12-23] MEDS: nitroGLYCERIN 0.4mg/hour patch TD SCH (20:35)
[2020-12-23] MEDS: ROSUVASTATIN CALCIUM 5 MG TABLET PO SCH (20:36)
[2020-12-23] MEDS: insulin glargine (Lantus) pen - multi-dose SQ SCH (21:42)
[2020-12-23 22:00] VITALS: BP 157/78
[2020-12-23] MEDS: temazepam 15mg capsule PO PRN (23:05)
[2020-12-24] MEDS: HYDROcodone/acetaminophen 10/325mg tab PO PRN ×5 (00:51→22:48)
[2020-12-24 06:00] VITALS: BP 160/89
--- NOTE | 2020-12-24 06:45 | NUR ---
Patient in room PCU 3010. I have received report from oscar holguin and had the opportunity to ask questions and assume patient care.
--- NOTE | 2020-12-24 06:48 | NUR ---
Problems reprioritized. Patient report given, questions answered & plan of care reviewed with Jana MACKAY.
[2020-12-24 07:47] LABS: BASOPHILS # (AUTO) 0.1 X10'3 (0-0.2); BASOPHILS % (AUTO) 0.3 % (0-1); EOSINOPHILS % (AUTO) 0.3 % (0-6); HEMATOCRIT 28.2 % (42.0-52.0); HEMOGLOBIN 8.7 g/dl (14.0-17.9); LYMPHOCYTES # (AUTO) 1.8 X10'3 (1.1-4.8); LYMPHOCYTES % (AUTO) 10.5 % (21-51); MEAN CORPUSCULAR HEMOGLOBIN 25.4 PG (27.0-31.0); MEAN CORPUSCULAR HGB CONC 30.8 g/dL (33.0-36.5); MEAN CORPUSCULAR VOLUME 82.4 FL (78-98); MEAN PLATELET VOLUME 8.3 FL (7.4-10.4); MONOCYTES # (AUTO) 1.2 X10'3 (0-0.9); MONOCYTES % (AUTO) 7.1 % (2-12); NEUTROPHILS # (AUTO) 13.9 X10'3 (1.8-7.7); NEUTROPHILS % (AUTO) 81.8 % (42-75); PLATELET COUNT 607 X10'3 (140-440); RED BLOOD COUNT 3.42 X10'6 (4.70-6.10); RED CELL DISTRIBUTION WIDTH 18.4 % (11.5-14.5); WHITE BLOOD COUNT 16.9 X10'3 (4.5-11.0)
[2020-12-24] MEDS ORDERED: albumin (human) 25% 100ml IV 100 ML IV PRN (08:00)
[2020-12-24] MEDS ORDERED: heparin 1,000 units/ml 10ml inj HE ONE ×2 (08:00)
[2020-12-24] MEDS ORDERED: heparin 1,000unit/ml 10ml vial 10 ML IV ONE (08:00)
[2020-12-24] MEDS ORDERED: EPOETIN ALFA-EPBX 20,000 UNIT/ML 1 ML MDV IV ONE (08:00)
[2020-12-24] MEDS ORDERED: heparin 1,000 units/ml 10ml inj IV ONE (08:00)
[2020-12-24 08:03] LABS: ALANINE AMINOTRANSFERASE 13 U/L (12-78); ALBUMIN 1.9 G/DL (3.4-5.0); ALBUMIN/GLOBULIN RATIO 0.6 (1.1-1.5); ALKALINE PHOSPHATASE 84 IU/L (46-116); ANION GAP 8 (8-16); ASPARTATE AMINO TRANSFERASE 11 U/L (10-37); BILIRUBIN,TOTAL 0.2 MG/DL (0.1-1.0); BLOOD UREA NITROGEN 31 MG/DL (7-18); BUN/CREATININE RATIO 8.1 (5.4-32.0); CALCIUM 7.3 MG/DL (8.5-10.1); CHLORIDE 105 MMOL/L (99-107); CREATININE 3.82 MG/DL (0.60-1.10); GLUCOSE 181 MG/DL (70-104); SODIUM 140 MMOL/L (135-145); TOTAL CARBON DIOXIDE 26.7 MMOL/L (24-32); TOTAL PROTEIN 5.1 G/DL (6.4-8.2); eGFR 18 ML/MIN
[2020-12-24] MEDS: diltiazem CD 180mg cap (once-daily) PO SCH ×2 (08:12→22:53)
[2020-12-24] MEDS: losartan 50mg tablet PO SCH ×2 (08:12→22:52)
[2020-12-24] MEDS: levoTHYROXINE 100mcg tablet PO SCH (08:13)
[2020-12-24] MEDS: bumetanide 1mg tablet PO SCH ×2 (08:13→22:52)
[2020-12-24] MEDS: predniSONE 20 mg tablet PO SCH (08:14)
[2020-12-24] MEDS: cholecalciferol (vitamin D3) 1,000 unit (25mcg) tablet PO SCH (08:14)
[2020-12-24] MEDS: lisinopril 20mg tablet PO SCH ×2 (08:14→22:50)
[2020-12-24] MEDS: metolazone 2.5mg tablet PO SCH ×3 (08:14→22:53)
[2020-12-24] MEDS: lactobacillus rhamnosus 10,000 MMU CELLS/CAPSULE PO SCH ×2 (08:14→22:48)
[2020-12-24] MEDS: docusate sodium 100mg/10ml UD cup PO SCH ×2 (08:15→22:53)
[2020-12-24] MEDS: metoprolol tartrate 25mg tablet PO SCH ×2 (08:15→22:49)
[2020-12-24] MEDS: heparin, porcine 5000 units/ml vial SQ SCH ×2 (08:15→16:25)
[2020-12-24] MEDS: insulin Lispro (HumaLOG) vial - multi-dose SQ SCH ×4 (08:18→23:56)
[2020-12-24] MEDS: albumin (human) 25% 100ml IV 200 ML IV SCH ×2 (08:27→20:00)
[2020-12-24 08:37] LABS: TOTAL CELLS COUNTED 100
[2020-12-24 08:38] LABS: ANISOCYTOSIS 2+; HYPOCHROMASIA 1+; PLATELET ESTIMATE INCREASED
[2020-12-24 08:39] LABS: LARGE PLATELETS FEW; POLYCHROMASIA FEW; SCHISTOCYTES FEW
[2020-12-24] MEDS ORDERED: magnesium Cl slow-release 64mg tablet PO PRN (08:45)
[2020-12-24] MEDS ORDERED: potassium Cl 20 mEq SR tablet PO PRN ×2 (08:45)
[2020-12-24] MEDS ORDERED: magnesium 4gm in 100ml NS 100 ML IV PRN (08:45)
[2020-12-24] MEDS ORDERED: potassium Cl 40MEQ/1/2NS 520ml 520 ML IV PRN (08:45)
[2020-12-24] MEDS: K and/or MAG REPLACEMENT MC SCH ×3 (09:20→20:00)
[2020-12-24 09:30] LABS: MAGNESIUM 1.9 MG/DL (1.5-2.4)
[2020-12-24 11:00] VITALS: BP 167/84
[2020-12-24 13:15] LABS: HEP B CORE AB, TOT Negative (Negative)
[2020-12-24 13:15] LABS: IMMUNOGLOBULIN A, QN, SERUM 191 mg/dL (90-386); IMMUNOGLOBULIN G, QN, SERUM 189 mg/dL (603-1613); IMMUNOGLOBULIN M, QN, SERUM 104 mg/dL (20-172)
[2020-12-24 15:00] VITALS: BP 168/80
[2020-12-24 19:00] VITALS: BP 168/80
[2020-12-24] MEDS: insulin glargine (Lantus) pen - multi-dose SQ SCH (21:00)
[2020-12-24] MEDS: nitroGLYCERIN 0.4mg/hour patch TD SCH (21:00)
[2020-12-24] MEDS: ROSUVASTATIN CALCIUM 5 MG TABLET PO SCH (21:00)
[2020-12-25 01:00] VITALS: BP 167/90
[2020-12-25 06:00] VITALS: BP 163/87
--- NOTE | 2020-12-25 06:12 | NUR ---
Patient in room PCU 3010. I have received report from THOMPSON Maldonado and had the opportunity to ask questions and assume patient care.
[2020-12-25] MEDS: levoTHYROXINE 100mcg tablet PO SCH (07:16)
[2020-12-25] MEDS: HYDROcodone/acetaminophen 10/325mg tab PO PRN ×2 (07:16→14:53)
[2020-12-25 07:40] LABS: EOSINOPHILS % (AUTO) 0.2 % (0-6); MEAN PLATELET VOLUME 7.9 FL (7.4-10.4); MONOCYTES # (AUTO) 1.1 X10'3 (0-0.9); WHITE BLOOD COUNT 19.3 X10'3 (4.5-11.0)
[2020-12-25 07:43] LABS: BASOPHILS % (AUTO) 0.1 % (0-1); HEMATOCRIT 30.2 % (42.0-52.0); HEMOGLOBIN 9.2 g/dl (14.0-17.9); LYMPHOCYTES # (AUTO) 1.7 X10'3 (1.1-4.8); LYMPHOCYTES % (AUTO) 8.7 % (21-51); MEAN CORPUSCULAR HEMOGLOBIN 25.2 PG (27.0-31.0); MEAN CORPUSCULAR HGB CONC 30.5 g/dL (33.0-36.5); MEAN CORPUSCULAR VOLUME 82.5 FL (78-98); MONOCYTES % (AUTO) 5.8 % (2-12); NEUTROPHILS # (AUTO) 16.5 X10'3 (1.8-7.7); NEUTROPHILS % (AUTO) 85.2 % (42-75); PLATELET COUNT 621 X10'3 (140-440); RED BLOOD COUNT 3.66 X10'6 (4.70-6.10); RED CELL DISTRIBUTION WIDTH 18.2 % (11.5-14.5)
[2020-12-25] MEDS: K and/or MAG REPLACEMENT MC SCH ×4 (08:00→20:00)
[2020-12-25 08:13] LABS: ALANINE AMINOTRANSFERASE 17 U/L (12-78); ALBUMIN 2.2 G/DL (3.4-5.0); ALBUMIN/GLOBULIN RATIO 0.7 (1.1-1.5); ALKALINE PHOSPHATASE 86 IU/L (46-116); ANION GAP 11 (8-16); ASPARTATE AMINO TRANSFERASE 10 U/L (10-37); BILIRUBIN,TOTAL 0.3 MG/DL (0.1-1.0); BLOOD UREA NITROGEN 30 MG/DL (7-18); BUN/CREATININE RATIO 7.4 (5.4-32.0); CALCIUM 7.6 MG/DL (8.5-10.1); CHLORIDE 106 MMOL/L (99-107); CREATININE 4.07 MG/DL (0.60-1.10); GLUCOSE 144 MG/DL (70-104); MAGNESIUM 1.8 MG/DL (1.5-2.4); POTASSIUM 3.3 MMOL/L (3.5-5.1); SODIUM 142 MMOL/L (135-145); TOTAL CARBON DIOXIDE 24.7 MMOL/L (24-32); TOTAL PROTEIN 5.3 G/DL (6.4-8.2); eGFR 16 ML/MIN
[2020-12-25] MEDS: metolazone 2.5mg tablet PO SCH ×3 (08:40→21:08)
[2020-12-25] MEDS: bumetanide 1mg tablet PO SCH ×2 (08:41→19:27)
[2020-12-25] MEDS: lisinopril 20mg tablet PO SCH ×2 (08:44→19:27)
[2020-12-25] MEDS: heparin, porcine 5000 units/ml vial SQ SCH ×3 (08:44→17:44)
[2020-12-25] MEDS: losartan 50mg tablet PO SCH ×2 (08:45→19:27)
[2020-12-25] MEDS: docusate sodium 100mg/10ml UD cup PO SCH ×2 (08:45→19:27)
[2020-12-25] MEDS: lactobacillus rhamnosus 10,000 MMU CELLS/CAPSULE PO SCH ×2 (08:45→19:27)
[2020-12-25] MEDS: cholecalciferol (vitamin D3) 1,000 unit (25mcg) tablet PO SCH (08:45)
[2020-12-25] MEDS: predniSONE 20 mg tablet PO SCH (08:46)
[2020-12-25] MEDS: metoprolol tartrate 25mg tablet PO SCH ×2 (08:47→19:28)
[2020-12-25] MEDS: insulin Lispro (HumaLOG) vial - multi-dose SQ SCH ×3 (08:50→19:33)
[2020-12-25] MEDS: diltiazem CD 180mg cap (once-daily) PO SCH ×2 (08:53→19:27)
[2020-12-25] MEDS: albumin (human) 25% 100ml IV 200 ML IV SCH ×2 (08:54→19:26)
[2020-12-25] MEDS: hydrALAZINE 25 MG tablet PO SCH ×2 (09:10→17:43)
[2020-12-25 09:12] LABS: NUCLEATED RED BLOOD CELLS 4 /100WBC (0-0); PLATELET ESTIMATE INCREASED; TOTAL CELLS COUNTED 100
[2020-12-25 09:13] LABS: ANISOCYTOSIS 2+; POLYCHROMASIA 1+
[2020-12-25 09:14] LABS: LARGE PLATELETS FEW; SCHISTOCYTES FEW
[2020-12-25] MEDS ORDERED: heparin 1,000unit/ml 10ml vial 10 ML IV ONE (09:55)
[2020-12-25] MEDS ORDERED: heparin 1,000 units/ml 10ml inj HE ONE ×2 (09:55)
[2020-12-25] MEDS ORDERED: albumin (human) 25% 100ml IV 100 ML IV PRN (09:55)
[2020-12-25 11:00] VITALS: BP 165/88
[2020-12-25 15:00] VITALS: BP 165/83
[2020-12-25 18:00] VITALS: BP 151/74
--- NOTE | 2020-12-25 18:23 | NUR ---
Patient in room PCU 3010. I have received report from THOMPSON Bates and had the opportunity to ask questions and assume patient care.
[2020-12-25] MEDS: nitroGLYCERIN 0.4mg/hour patch TD SCH (21:00)
[2020-12-25] MEDS: ROSUVASTATIN CALCIUM 5 MG TABLET PO SCH (21:08)
[2020-12-25] MEDS: diatr meglu/diatrizoate 30ml oral sol.-(3 dose) bottle PO SCH (21:09)
[2020-12-25] MEDS: insulin glargine (Lantus) pen - multi-dose SQ SCH (21:26)
[2020-12-25 22:00] VITALS: BP 131/65
[2020-12-26] MEDS: hydrALAZINE 25 MG tablet PO SCH ×3 (00:56→15:26)
[2020-12-26] MEDS: heparin, porcine 5000 units/ml vial SQ SCH ×3 (00:56→15:23)
[2020-12-26 06:00] VITALS: BP 159/85
--- NOTE | 2020-12-26 06:21 | NUR ---
Problems reprioritized. Patient report given, questions answered & plan of care reviewed with THOMPSON Bates.
[2020-12-26 07:27] LABS: BASOPHILS % (AUTO) 0.1 % (0-1); EOSINOPHILS # (AUTO) 0.1 X10'3 (0-0.9); EOSINOPHILS % (AUTO) 0.6 % (0-6); HEMOGLOBIN 8.4 g/dl (14.0-17.9); LYMPHOCYTES # (AUTO) 1.4 X10'3 (1.1-4.8); LYMPHOCYTES % (AUTO) 10.6 % (21-51); MEAN CORPUSCULAR HEMOGLOBIN 25.7 PG (27.0-31.0); MEAN CORPUSCULAR HGB CONC 31.1 g/dL (33.0-36.5); MEAN CORPUSCULAR VOLUME 82.6 FL (78-98); MEAN PLATELET VOLUME 7.7 FL (7.4-10.4); MONOCYTES # (AUTO) 1.3 X10'3 (0-0.9); MONOCYTES % (AUTO) 9.6 % (2-12); NEUTROPHILS # (AUTO) 10.4 X10'3 (1.8-7.7); NEUTROPHILS % (AUTO) 79.1 % (42-75); PLATELET COUNT 530 X10'3 (140-440); RED BLOOD COUNT 3.27 X10'6 (4.70-6.10); RED CELL DISTRIBUTION WIDTH 18.8 % (11.5-14.5); WHITE BLOOD COUNT 13.2 X10'3 (4.5-11.0)
[2020-12-26] MEDS: diatr meglu/diatrizoate 30ml oral sol.-(3 dose) bottle PO SCH ×2 (07:39→10:07)
[2020-12-26] MEDS: albumin (human) 25% 100ml IV 200 ML IV SCH ×2 (07:41→19:43)
[2020-12-26] MEDS: lactobacillus rhamnosus 10,000 MMU CELLS/CAPSULE PO SCH ×2 (07:42→19:44)
[2020-12-26] MEDS: metolazone 2.5mg tablet PO SCH ×3 (07:42→21:28)
[2020-12-26] MEDS: bumetanide 1mg tablet PO SCH ×2 (07:42→19:45)
[2020-12-26] MEDS: diltiazem CD 180mg cap (once-daily) PO SCH ×2 (07:42→19:44)
[2020-12-26 07:44] LABS: ALANINE AMINOTRANSFERASE 14 U/L (12-78); ALBUMIN/GLOBULIN RATIO 0.7 (1.1-1.5); ALKALINE PHOSPHATASE 74 IU/L (46-116); ANION GAP 11 (8-16); ASPARTATE AMINO TRANSFERASE 11 U/L (10-37); BILIRUBIN,TOTAL 0.2 MG/DL (0.1-1.0); BLOOD UREA NITROGEN 31 MG/DL (7-18); BUN/CREATININE RATIO 6.7 (5.4-32.0); CALCIUM 7.3 MG/DL (8.5-10.1); CHLORIDE 107 MMOL/L (99-107); CREATININE 4.65 MG/DL (0.60-1.10); GLUCOSE 167 MG/DL (70-104); POTASSIUM 3.7 MMOL/L (3.5-5.1); SODIUM 143 MMOL/L (135-145); TOTAL CARBON DIOXIDE 25.3 MMOL/L (24-32); TOTAL PROTEIN 4.9 G/DL (6.4-8.2); eGFR 14 ML/MIN
[2020-12-26] MEDS: losartan 50mg tablet PO SCH ×2 (07:44→19:44)
[2020-12-26] MEDS: predniSONE 20 mg tablet PO SCH (07:45)
[2020-12-26] MEDS: cholecalciferol (vitamin D3) 1,000 unit (25mcg) tablet PO SCH (07:45)
[2020-12-26] MEDS: levoTHYROXINE 100mcg tablet PO SCH (07:46)
[2020-12-26] MEDS: docusate sodium 100mg/10ml UD cup PO SCH ×2 (07:46→19:43)
[2020-12-26] MEDS: metoprolol tartrate 25mg tablet PO SCH ×2 (07:46→19:45)
[2020-12-26] MEDS: lisinopril 20mg tablet PO SCH ×2 (07:46→19:43)
[2020-12-26] MEDS: HYDROcodone/acetaminophen 10/325mg tab PO PRN ×3 (07:47→19:46)
[2020-12-26] MEDS ORDERED: EPOETIN ALFA-EPBX 20,000 UNIT/ML 1 ML MDV IV ONE (07:50)
[2020-12-26] MEDS ORDERED: albumin (human) 25% 100ml IV 100 ML IV PRN (07:50)
[2020-12-26] MEDS ORDERED: heparin 1,000 units/ml 10ml inj HE ONE ×2 (07:55)
[2020-12-26] MEDS: K and/or MAG REPLACEMENT MC SCH ×4 (08:00→19:29)
[2020-12-26] MEDS: insulin Lispro (HumaLOG) vial - multi-dose SQ SCH ×3 (09:13→18:50)
[2020-12-26 10:20] LABS: ANISOCYTOSIS 2+; PLATELET ESTIMATE INCREASED
[2020-12-26 10:22] LABS: POLYCHROMASIA FEW
[2020-12-26 11:00] VITALS: BP 165/92
[2020-12-26 15:00] VITALS: BP 140/78
[2020-12-26 18:00] VITALS: BP 138/81
--- NOTE | 2020-12-26 18:58 | NUR ---
Patient in room PCU 3010. I have received report from Jana MACKAY and had the opportunity to ask questions and assume patient care.
--- NOTE | 2020-12-26 19:08 | NUR ---
Patient in room PCU 3010. I have received report from ESTRELLITA MACKAY and had the opportunity to ask questions and assume patient care.
[2020-12-26] MEDS: nitroGLYCERIN 0.4mg/hour patch TD SCH (21:00)
[2020-12-26] MEDS: ROSUVASTATIN CALCIUM 5 MG TABLET PO SCH (21:29)
[2020-12-26] MEDS: insulin glargine (Lantus) pen - multi-dose SQ SCH (21:33)
[2020-12-26 22:00] VITALS: BP 161/76
[2020-12-27] MEDS: hydrALAZINE 25 MG tablet PO SCH ×3 (00:03→16:48)
[2020-12-27] MEDS: heparin, porcine 5000 units/ml vial SQ SCH ×3 (00:04→16:51)
[2020-12-27] MEDS: HYDROcodone/acetaminophen 10/325mg tab PO PRN ×6 (00:05→21:53)
[2020-12-27 02:00] VITALS: BP 159/87
[2020-12-27 06:00] VITALS: BP 159/79
--- NOTE | 2020-12-27 06:21 | NUR ---
Problems reprioritized. Patient report given, questions answered & plan of care reviewed with Tessa MACKAY.
--- NOTE | 2020-12-27 06:36 | NUR ---
Patient in room PCU 3010. I have received report from THOMPSON Emanuel and han DU RN and had the opportunity to ask questions and assume patient care.
[2020-12-27] MEDS: docusate sodium 100mg/10ml UD cup PO SCH ×2 (07:29→19:44)
[2020-12-27] MEDS: bumetanide 1mg tablet PO SCH ×2 (07:29→19:42)
[2020-12-27] MEDS: lactobacillus rhamnosus 10,000 MMU CELLS/CAPSULE PO SCH ×2 (07:29→19:42)
[2020-12-27] MEDS: metolazone 2.5mg tablet PO SCH ×3 (07:29→19:44)
[2020-12-27] MEDS: diltiazem CD 180mg cap (once-daily) PO SCH ×2 (07:30→19:42)
[2020-12-27] MEDS: predniSONE 20 mg tablet PO SCH (07:30)
[2020-12-27] MEDS: losartan 50mg tablet PO SCH ×2 (07:30→19:43)
[2020-12-27] MEDS: metoprolol tartrate 25mg tablet PO SCH ×2 (07:30→19:47)
[2020-12-27] MEDS: lisinopril 20mg tablet PO SCH ×2 (07:30→19:46)
[2020-12-27] MEDS: levoTHYROXINE 100mcg tablet PO SCH (07:31)
[2020-12-27] MEDS: cholecalciferol (vitamin D3) 1,000 unit (25mcg) tablet PO SCH (07:31)
[2020-12-27] MEDS: albumin (human) 25% 100ml IV 200 ML IV SCH ×2 (07:33→19:48)
[2020-12-27 07:46] LABS: BASOPHILS % (AUTO) 0.1 % (0-1); EOSINOPHILS # (AUTO) 0.1 X10'3 (0-0.9); EOSINOPHILS % (AUTO) 0.8 % (0-6); HEMATOCRIT 27.8 % (42.0-52.0); HEMOGLOBIN 8.7 g/dl (14.0-17.9); LYMPHOCYTES # (AUTO) 2.7 X10'3 (1.1-4.8); LYMPHOCYTES % (AUTO) 18.8 % (21-51); MEAN CORPUSCULAR HEMOGLOBIN 25.2 PG (27.0-31.0); MEAN CORPUSCULAR HGB CONC 31.1 g/dL (33.0-36.5); MEAN CORPUSCULAR VOLUME 80.9 FL (78-98); MEAN PLATELET VOLUME 7.9 FL (7.4-10.4); MONOCYTES # (AUTO) 1.9 X10'3 (0-0.9); MONOCYTES % (AUTO) 12.9 % (2-12); NEUTROPHILS # (AUTO) 9.8 X10'3 (1.8-7.7); NEUTROPHILS % (AUTO) 67.4 % (42-75); PLATELET COUNT 523 X10'3 (140-440); RED BLOOD COUNT 3.44 X10'6 (4.70-6.10); RED CELL DISTRIBUTION WIDTH 18.8 % (11.5-14.5); WHITE BLOOD COUNT 14.6 X10'3 (4.5-11.0)
[2020-12-27] MEDS: K and/or MAG REPLACEMENT MC SCH ×4 (08:00→20:31)
[2020-12-27 08:17] LABS: ALANINE AMINOTRANSFERASE 15 U/L (12-78); ALBUMIN 2.3 G/DL (3.4-5.0); ALBUMIN/GLOBULIN RATIO 0.8 (1.1-1.5); ALKALINE PHOSPHATASE 72 IU/L (46-116); ANION GAP 12 (8-16); ASPARTATE AMINO TRANSFERASE 10 U/L (10-37); BILIRUBIN,TOTAL 0.3 MG/DL (0.1-1.0); BLOOD UREA NITROGEN 35 MG/DL (7-18); BUN/CREATININE RATIO 7.4 (5.4-32.0); CALCIUM 7.4 MG/DL (8.5-10.1); CHLORIDE 104 MMOL/L (99-107); CREATININE 4.75 MG/DL (0.60-1.10); GLUCOSE 146 MG/DL (70-104); POTASSIUM 3.8 MMOL/L (3.5-5.1); SODIUM 141 MMOL/L (135-145); TOTAL CARBON DIOXIDE 25.1 MMOL/L (24-32); TOTAL PROTEIN 5.2 G/DL (6.4-8.2); eGFR 14 ML/MIN
[2020-12-27] MEDS: insulin Lispro (HumaLOG) vial - multi-dose SQ SCH ×3 (09:01→20:18)
[2020-12-27 09:02] LABS: ANISOCYTOSIS 2+; HYPOCHROMASIA 1+; NUCLEATED RED BLOOD CELLS 1 /100WBC (0-0); PLATELET ESTIMATE INCREASED; POLYCHROMASIA 1+; TOTAL CELLS COUNTED 100
[2020-12-27] MEDS ORDERED: heparin 1,000 units/ml 10ml inj HE ONE ×2 (10:05)
[2020-12-27] MEDS ORDERED: albumin (human) 25% 100ml IV 100 ML IV PRN (10:05)
[2020-12-27] MEDS ORDERED: heparin 1,000unit/ml 10ml vial 10 ML IV ONE (10:05)
[2020-12-27 11:00] VITALS: BP 159/82
[2020-12-27 15:00] VITALS: BP 141/71
--- NOTE | 2020-12-27 18:11 | NUR ---
Patient in room PCU 3010. I have received report from Tessa MACKAY and had the opportunity to ask questions and assume patient care.
--- NOTE | 2020-12-27 18:22 | NUR ---
Problems reprioritized. Patient report given, questions answered & plan of care reviewed with THOMPSON Alcantar.
[2020-12-27 19:36] VITALS: BP 125/71
[2020-12-27] MEDS: ROSUVASTATIN CALCIUM 5 MG TABLET PO SCH (19:47)
[2020-12-27] MEDS: insulin glargine (Lantus) pen - multi-dose SQ SCH (20:43)
[2020-12-27] MEDS: nitroGLYCERIN 0.4mg/hour patch TD SCH (21:00)
[2020-12-27 22:00] VITALS: BP 146/94
[2020-12-28] MEDS: hydrALAZINE 25 MG tablet PO SCH ×3 (00:25→16:35)
[2020-12-28] MEDS: heparin, porcine 5000 units/ml vial SQ SCH ×3 (00:26→16:37)
--- NOTE | 2020-12-28 01:01 | NUR ---
Patient in room PCU 3010. I have received report from KARENA MACKAY and had the opportunity to ask questions and assume patient care.
[2020-12-28 02:00] VITALS: BP 147/68
[2020-12-28] MEDS: HYDROcodone/acetaminophen 10/325mg tab PO PRN ×4 (03:09→18:44)
[2020-12-28 06:00] VITALS: BP 155/87
--- NOTE | 2020-12-28 06:54 | NUR ---
Problems reprioritized. Patient report given, questions answered & plan of care reviewed with KAREN MACKAY.
[2020-12-28 07:21] LABS: POTASSIUM 3.7 MMOL/L (3.5-5.1)
[2020-12-28] MEDS: K and/or MAG REPLACEMENT MC SCH ×4 (08:00→18:56)
[2020-12-28] MEDS: docusate sodium 100mg/10ml UD cup PO SCH (08:00)
[2020-12-28] MEDS: lactobacillus rhamnosus 10,000 MMU CELLS/CAPSULE PO SCH ×2 (08:09→18:45)
[2020-12-28] MEDS: levoTHYROXINE 100mcg tablet PO SCH (08:09)
[2020-12-28] MEDS: bumetanide 1mg tablet PO SCH ×2 (08:10→18:49)
[2020-12-28] MEDS: losartan 50mg tablet PO SCH ×2 (08:10→18:51)
[2020-12-28] MEDS: lisinopril 20mg tablet PO SCH ×2 (08:10→18:50)
[2020-12-28] MEDS: predniSONE 20 mg tablet PO SCH (08:11)
[2020-12-28] MEDS: metoprolol tartrate 25mg tablet PO SCH ×2 (08:12→18:49)
[2020-12-28] MEDS: diltiazem CD 180mg cap (once-daily) PO SCH ×2 (08:12→18:55)
[2020-12-28] MEDS: cholecalciferol (vitamin D3) 1,000 unit (25mcg) tablet PO SCH (08:12)
[2020-12-28] MEDS: albumin (human) 25% 100ml IV 200 ML IV SCH (08:20)
[2020-12-28] MEDS ORDERED: albumin (human) 25% 100ml IV 100 ML IV PRN (09:05)
[2020-12-28] MEDS ORDERED: EPOETIN ALFA-EPBX 20,000 UNIT/ML 1 ML MDV IV ONE (09:05)
[2020-12-28] MEDS ORDERED: heparin 1,000 units/ml 10ml inj HE ONE ×2 (09:10)
[2020-12-28] MEDS: insulin Lispro (HumaLOG) vial - multi-dose SQ SCH ×3 (09:24→19:08)
[2020-12-28] MEDS: metolazone 2.5mg tablet PO SCH ×3 (10:20→21:31)
[2020-12-28 11:00] VITALS: BP 158/84
[2020-12-28 11:09] LABS: HEMOGLOBIN 7.8 g/dl (14.0-17.9); MEAN CORPUSCULAR HEMOGLOBIN 25.3 PG (27.0-31.0); MEAN CORPUSCULAR HGB CONC 31.2 g/dL (33.0-36.5); MEAN CORPUSCULAR VOLUME 81.1 FL (78-98); MEAN PLATELET VOLUME 7.6 FL (7.4-10.4); PLATELET COUNT 518 X10'3 (140-440); RED BLOOD COUNT 3.08 X10'6 (4.70-6.10); RED CELL DISTRIBUTION WIDTH 18.5 % (11.5-14.5); WHITE BLOOD COUNT 12.2 X10'3 (4.5-11.0)
[2020-12-28 15:00] VITALS: BP 137/69
[2020-12-28 18:00] VITALS: BP 136/61
--- NOTE | 2020-12-28 18:21 | NUR ---
Problems reprioritized. Patient report given, questions answered & plan of care reviewed with Katharine MACKAY.
--- NOTE | 2020-12-28 18:27 | NUR ---
Patient in room PCU 3010. I have received report from KAREN MACKAY and had the opportunity to ask questions and assume patient care.
[2020-12-28] MEDS: nitroGLYCERIN 0.4mg/hour patch TD SCH (21:00)
[2020-12-28] MEDS: docusate sod 100mg capsule PO SCH (21:31)
[2020-12-28] MEDS: ROSUVASTATIN CALCIUM 5 MG TABLET PO SCH (21:32)
[2020-12-28] MEDS: insulin glargine (Lantus) pen - multi-dose SQ SCH (21:49)
[2020-12-28 22:00] VITALS: BP 139/65
[2020-12-29] MEDS: hydrALAZINE 25 MG tablet PO SCH ×4 (00:27→23:41)
[2020-12-29] MEDS: heparin, porcine 5000 units/ml vial SQ SCH ×4 (00:27→23:44)
--- NOTE | 2020-12-29 01:31 | NUR ---
AGREE WITH PREVIOUS ASSESSMENT BY THOMPSON THURSTON
[2020-12-29 03:00] VITALS: BP 139/70
--- NOTE | 2020-12-29 06:24 | NUR ---
Patient in room PCU 3010. I have received report from THOMPSON Pinto and had the opportunity to ask questions and assume patient care.
[2020-12-29 07:00] VITALS: BP 134/85
[2020-12-29] MEDS: K and/or MAG REPLACEMENT MC SCH ×4 (08:00→20:00)
[2020-12-29] MEDS: HYDROcodone/acetaminophen 10/325mg tab PO PRN ×3 (08:11→21:21)
[2020-12-29] MEDS: metolazone 2.5mg tablet PO SCH ×3 (09:02→21:17)
[2020-12-29] MEDS: bumetanide 1mg tablet PO SCH ×2 (09:02→21:19)
[2020-12-29] MEDS: cholecalciferol (vitamin D3) 1,000 unit (25mcg) tablet PO SCH (09:04)
[2020-12-29] MEDS: docusate sod 100mg capsule PO SCH ×2 (09:04→21:19)
[2020-12-29] MEDS: lisinopril 20mg tablet PO SCH ×2 (09:05→20:00)
[2020-12-29] MEDS: losartan 50mg tablet PO SCH ×2 (09:05→21:18)
[2020-12-29] MEDS: metoprolol tartrate 25mg tablet PO SCH ×2 (09:05→21:22)
[2020-12-29] MEDS: lactobacillus rhamnosus 10,000 MMU CELLS/CAPSULE PO SCH ×2 (09:06→21:19)
[2020-12-29] MEDS: predniSONE 20 mg tablet PO SCH (09:06)
[2020-12-29] MEDS: diltiazem CD 180mg cap (once-daily) PO SCH ×2 (09:06→21:20)
[2020-12-29] MEDS: albumin (human) 25% 100ml IV 200 ML IV SCH (09:08)
[2020-12-29] MEDS: levoTHYROXINE 100mcg tablet PO SCH (09:15)
[2020-12-29] MEDS: insulin Lispro (HumaLOG) vial - multi-dose SQ SCH ×3 (10:29→21:15)
--- NOTE | 2020-12-29 10:29 | NUR ---
Reassessment: Pt continues to consume 100% of meals on CCHO Renal diet w/ double meats WL which meets 91% of est energy needs and 85% of est protein needs. Last dialysis 12/28. No N/V/D reported, LBM 12/26. Edema noted to be improving. Will continue to monitor for PO trends and protein needs on HD. Rec: 1. Continue CCHO/Renal diet as tolerated; consider heart healthy diet given elevated lipid panel on admit 2. double meats WL for satiety 3. Bowel care per rx 4. wts w/ HD Addendum: 12/29/20 at [address] Amended: Links added.
[2020-12-29 11:00] VITALS: BP 145/89
[2020-12-29 15:00] VITALS: BP 142/86
--- NOTE | 2020-12-29 17:55 | NUR ---
[place] Medication Administration: For this medication-pass time frame, all medication were reviewed, dispensed, administered and documented per hospital policy by THOMPSON Vallejo.
--- NOTE | 2020-12-29 17:55 | NUR ---
[place] documentation: I have reviewed and agree with all interventions, assessments performed and documented by THOMPSON Vallejo.
--- NOTE | 2020-12-29 18:17 | NUR ---
Problems reprioritized. Patient report given, questions answered & plan of care reviewed with THOMPSON Maldonado. All pt needs met at this time.
[2020-12-29 19:00] VITALS: BP 161/84
[2020-12-29] MEDS: ROSUVASTATIN CALCIUM 5 MG TABLET PO SCH (21:00)
[2020-12-29] MEDS: nitroGLYCERIN 0.4mg/hour patch TD SCH (21:00)
[2020-12-29] MEDS: insulin glargine (Lantus) pen - multi-dose SQ SCH (21:00)
[2020-12-29 23:00] VITALS: BP 162/92
[2020-12-30 03:00] VITALS: BP 175/85
--- NOTE | 2020-12-30 06:08 | NUR ---
Patient in room PCU 3010. I have received report from Erica MACKAY and had the opportunity to ask questions and assume patient care. Patient sleeping in bed in no acute distress.
[2020-12-30 07:00] VITALS: BP 150/81
[2020-12-30 07:38] LABS: ALANINE AMINOTRANSFERASE 17 U/L (12-78); ALBUMIN 2.2 G/DL (3.4-5.0); ALBUMIN/GLOBULIN RATIO 0.7 (1.1-1.5); ALKALINE PHOSPHATASE 82 IU/L (46-116); ANION GAP 14 (8-16); ASPARTATE AMINO TRANSFERASE 9 U/L (10-37); BILIRUBIN,TOTAL 0.3 MG/DL (0.1-1.0); BLOOD UREA NITROGEN 82 MG/DL (7-18); BUN/CREATININE RATIO 11.6 (5.4-32.0); CHLORIDE 104 MMOL/L (99-107); CREATININE 7.08 MG/DL (0.60-1.10); GLUCOSE 168 MG/DL (70-104); POTASSIUM 4.2 MMOL/L (3.5-5.1); SODIUM 141 MMOL/L (135-145); TOTAL CARBON DIOXIDE 22.7 MMOL/L (24-32); TOTAL PROTEIN 5.5 G/DL (6.4-8.2); eGFR 9 ML/MIN
[2020-12-30 07:39] LABS: EOSINOPHILS # (AUTO) 0.1 X10'3 (0-0.9); EOSINOPHILS % (AUTO) 0.3 % (0-6); HEMOGLOBIN 10.5 g/dl (14.0-17.9); MEAN CORPUSCULAR HEMOGLOBIN 25.2 PG (27.0-31.0); MEAN PLATELET VOLUME 8.3 FL (7.4-10.4); MONOCYTES # (AUTO) 1.9 X10'3 (0-0.9)
[2020-12-30 07:40] LABS: BASOPHILS # (AUTO) 0.2 X10'3 (0-0.2); BASOPHILS % (AUTO) 1.2 % (0-1); HEMATOCRIT 34.4 % (42.0-52.0); LYMPHOCYTES # (AUTO) 2.2 X10'3 (1.1-4.8); LYMPHOCYTES % (AUTO) 12.9 % (21-51); MEAN CORPUSCULAR HGB CONC 30.6 g/dL (33.0-36.5); MEAN CORPUSCULAR VOLUME 82.3 FL (78-98); MONOCYTES % (AUTO) 11.1 % (2-12); NEUTROPHILS % (AUTO) 74.5 % (42-75); PLATELET COUNT 650 X10'3 (140-440); RED BLOOD COUNT 4.19 X10'6 (4.70-6.10); RED CELL DISTRIBUTION WIDTH 19.3 % (11.5-14.5); WHITE BLOOD COUNT 17.4 X10'3 (4.5-11.0)
[2020-12-30] MEDS: levoTHYROXINE 100mcg tablet PO SCH (07:52)
[2020-12-30] MEDS: albumin (human) 25% 100ml IV 200 ML IV SCH (07:53)
[2020-12-30] MEDS: hydrALAZINE 25 MG tablet PO SCH ×2 (07:54→16:40)
[2020-12-30] MEDS: bumetanide 1mg tablet PO SCH (07:54)
[2020-12-30] MEDS: docusate sod 100mg capsule PO SCH (07:54)
[2020-12-30] MEDS: losartan 50mg tablet PO SCH (07:54)
[2020-12-30] MEDS: diltiazem CD 180mg cap (once-daily) PO SCH (07:54)
[2020-12-30] MEDS: predniSONE 20 mg tablet PO SCH (07:55)
[2020-12-30] MEDS: cholecalciferol (vitamin D3) 1,000 unit (25mcg) tablet PO SCH (07:55)
[2020-12-30] MEDS: metolazone 2.5mg tablet PO SCH ×2 (07:55→12:30)
[2020-12-30] MEDS: lactobacillus rhamnosus 10,000 MMU CELLS/CAPSULE PO SCH (07:55)
[2020-12-30] MEDS: metoprolol tartrate 25mg tablet PO SCH (07:55)
[2020-12-30] MEDS: heparin, porcine 5000 units/ml vial SQ SCH ×2 (07:56→16:40)
[2020-12-30] MEDS: lisinopril 20mg tablet PO SCH (07:56)
[2020-12-30] MEDS: HYDROcodone/acetaminophen 10/325mg tab PO PRN ×3 (07:57→16:40)
[2020-12-30] MEDS: K and/or MAG REPLACEMENT MC SCH ×2 (08:00)
[2020-12-30] MEDS: insulin Lispro (HumaLOG) vial - multi-dose SQ SCH (08:04)
[2020-12-30] MEDS ORDERED: heparin 1,000unit/ml 10ml vial 10 ML IV ONE (10:20)
[2020-12-30] MEDS ORDERED: EPOETIN ALFA-EPBX 20,000 UNIT/ML 1 ML MDV IV ONE (10:20)
[2020-12-30] MEDS ORDERED: albumin (Human) 5% 250ml 250 ML IV PRN (10:20)
[2020-12-30] MEDS ORDERED: heparin 1,000 units/ml 10ml inj IV ONE (10:20)
[2020-12-30] MEDS ORDERED: heparin 1,000 units/ml 10ml inj HE ONE ×2 (10:25)
[2020-12-30 11:00] VITALS: BP 151/73
[2020-12-30] MEDS ORDERED: PRED20TA PO (14:45)
[2020-12-30] MEDS ORDERED: ROSU5TAB PO (14:45)
[2020-12-30] MEDS ORDERED: LOP25T PO (14:45)
[2020-12-30] MEDS ORDERED: LEVO100T9 PO (14:45)
[2020-12-30] MEDS ORDERED: HYDR-4069 PO (14:45)
[2020-12-30] MEDS ORDERED: DILT180C66 PO (14:45)
[2020-12-30] MEDS ORDERED: BUME1TAB8 PO (14:45)
[2020-12-30] MEDS ORDERED: LISI20TA28 PO (14:45)
[2020-12-30] MEDS ORDERED: ZAR2.5T PO (14:45)
[2020-12-30] MEDS ORDERED: GLIP5TAB26 PO (14:45)
[2020-12-30 15:00] VITALS: BP 186/90
[2020-12-30 16:40] VITALS: BP_SYST 182
--- NOTE | 2020-12-30 16:59 | NUR ---
huber lui called into [facility] in [facility]
--- NOTE | 2020-12-30 18:14 | NUR ---
Patient is being dc to home and is here to pick him up. PIV was removed with cannula intact. Belonging were sent with patient . DC instructions and warning s/s were reviewed with patient and he verbalized understanding. DC instructions were sent with patient. RX were called into [facility]. Patient alert, oriented and appropriate at time of DC
== END 2020-12-30 18:10 | disposition home or self-care (01) | DRG 469 ==
LOC: ER 18:44 → ED HOLD 21:48 → PCU 3S 12-08 11:40
PROVIDERS: ADMIT Family Medicine; ATTEND Family Medicine
PROC: CT131ZZ Planar Nuclear Medicine Imaging of Kidneys, Ureters and Bladder using Technetium 99m (Tc-99m) (ICD-10-PCS; 2020-12-13)
PROC: 0JH63XZ Insertion of Tunneled Vascular Access Device into Chest Subcutaneous Tissue and Fascia, Percutaneous Approach (ICD-10-PCS; principal; 2020-12-17)
PROC: 02HV33Z Insertion of Infusion Device into Superior Vena Cava, Percutaneous Approach (ICD-10-PCS; 2020-12-17)
PROC: B548ZZA Ultrasonography of Superior Vena Cava, Guidance (ICD-10-PCS; 2020-12-17)
PROC: B5181ZA Fluoroscopy of Superior Vena Cava using Low Osmolar Contrast, Guidance (ICD-10-PCS; 2020-12-17)
PROC: 5A1D70Z Performance of Urinary Filtration, Intermittent, Less than 6 Hours Per Day (ICD-10-PCS; 2020-12-17)
PROC: 5A1D70Z Performance of Urinary Filtration, Intermittent, Less than 6 Hours Per Day (ICD-10-PCS; 2020-12-18)
PROC: 5A1D70Z Performance of Urinary Filtration, Intermittent, Less than 6 Hours Per Day (ICD-10-PCS; 2020-12-19)
PROC: 5A1D70Z Performance of Urinary Filtration, Intermittent, Less than 6 Hours Per Day (ICD-10-PCS; 2020-12-20)
PROC: 5A1D70Z Performance of Urinary Filtration, Intermittent, Less than 6 Hours Per Day (ICD-10-PCS; 2020-12-21)
PROC: 5A1D70Z Performance of Urinary Filtration, Intermittent, Less than 6 Hours Per Day (ICD-10-PCS; 2020-12-23)
PROC: 5A1D70Z Performance of Urinary Filtration, Intermittent, Less than 6 Hours Per Day (ICD-10-PCS; 2020-12-24)
PROC: 5A1D70Z Performance of Urinary Filtration, Intermittent, Less than 6 Hours Per Day (ICD-10-PCS; 2020-12-25)
PROC: 5A1D70Z Performance of Urinary Filtration, Intermittent, Less than 6 Hours Per Day (ICD-10-PCS; 2020-12-26)
PROC: 5A1D70Z Performance of Urinary Filtration, Intermittent, Less than 6 Hours Per Day (ICD-10-PCS; 2020-12-27)
PROC: 5A1D70Z Performance of Urinary Filtration, Intermittent, Less than 6 Hours Per Day (ICD-10-PCS; 2020-12-28)
PROC: 5A1D70Z Performance of Urinary Filtration, Intermittent, Less than 6 Hours Per Day (ICD-10-PCS; 2020-12-30)
DX: N17.9 Acute kidney failure, unspecified (principal); I50.23 Acute on chronic systolic (congestive) heart failure; E87.2 Acidosis; J18.9 Pneumonia, unspecified organism; D63.8 Anemia in other chronic diseases classified elsewhere; E88.09 Other disorders of plasma-protein metabolism, not elsewhere classified; N04.9 Nephrotic syndrome with unspecified morphologic changes; R34 Anuria and oliguria; E11.22 Type 2 diabetes mellitus with diabetic chronic kidney disease; N18.6 End stage renal disease; L03.115 Cellulitis of right lower limb; I13.2 Hypertensive heart and chronic kidney disease with heart failure and with stage 5 chronic kidney disease, or end stage renal disease; E03.9 Hypothyroidism, unspecified; E04.1 Nontoxic single thyroid nodule; E11.65 Type 2 diabetes mellitus with hyperglycemia; E87.6 Hypokalemia; E78.5 Hyperlipidemia, unspecified; F12.90 Cannabis use, unspecified, uncomplicated; J45.909 Unspecified asthma, uncomplicated; J98.11 Atelectasis; K76.0 Fatty (change of) liver, not elsewhere classified; Z79.84 Long term (current) use of oral hypoglycemic drugs; Z79.899 Other long term (current) drug therapy; Z90.49 Acquired absence of other specified parts of digestive tract; Z99.2 Dependence on renal dialysis
CPT/HCPCS: 36415; 36558; 71045; 71250; 74018; 74176; 76770; 76937; 77001; 78707; 80053; 80061; 81001; 82550; 82570; 82784; 82948; 83036; 83690; 83735; 83880; 83935; 84100; 84132; 84133; 84134; 84156; 84300; 84439; 84443; 84484; 84560; 85007; 85008; 85025; 85027; 85730; 86334; 86335; 86704; 86706; 87081; 87088; 87207; 87340; 93005; 93306; 97110; 97112; 97116; 97161; 97530; 99152; 99153; 99285; A9270; A9562; C1750; C1769; C1894; G0257; G0378; J0360; J0456; J0696; J0780; J1170; J1200; J1644; J1815; J1940; J2150; J2250; J2270; J2405; J2930; J3010; J7512; J8597; P9047; Q4081; Q9963

== ENCOUNTER 2022-02-26 17:52 | Inpatient (IN) | payer MEDICARE, MEDICAID ==
[~2022-02-26] VITALS: Ht 182.9 cm; Wt 100.9 kg
[~2022-02-26 17:52] MED LIST changes: +APIX5TAB3 PO; +APIX5TAB5 PO; +DILT-36 PO; -FURO-150 PO; -HYDR-4383 PO; +HYDR100T27 PO; +LEVO100T9 PO; -LISI-790 PO; +LISI20TA28 PO; +LISI40TA13 PO; +LOSA25TA96 PO; +METO100T14 PO; +METO5TAB98 PO; +ROSU10TA28 PO; +ROSU5TAB PO; +SEVE800T7 PO; +SEVE800T8 PO; +SODI10PO PO
[2022-02-26] MEDS ORDERED: furosemide 40mg/4ml inj IV ONE (18:00)
[2022-02-26] MEDS ORDERED: LORazepam 2 mg/ml vial IV ONE (18:00)
--- NOTE | 2022-02-26 18:06 | NUR ---
RT AT BEDSIDE.
[2022-02-26] MEDS ORDERED: CefTRIAXone 2gm/D5W 50ml BAG 50 ML IV ONE (18:15)
[2022-02-26] MEDS ORDERED: methylPREDNISolone sod succ 125mg/2ml vial IV ONE (18:15)
[2022-02-26] MEDS ORDERED: ipratropium/albuterol 3ml nebule NEB ONE (18:15)
[2022-02-26] MEDS ORDERED: azithromycin/NS 500mg/250ml 250 ML IV ONE (18:15)
--- NOTE | 2022-02-26 18:15 | NUR ---
NOTIFIED AND CLARIFIED WITH LEXUS SUAZO REGARDING THE LASIX ORDER , LAB IS NOT DRAWN YET ,PT IS DIALYSIS PT NAD DOES NOT PRODUCE URINE ,IS OKAY TO ADMIN LASIX ? PER LEXUS SUAZO OKAY TO GIVE LASIX.WILL FOLLOW THE ORDERS.
--- NOTE | 2022-02-26 18:32 | NUR ---
ABG critical results reported to Jovanni Thomas PA at bedside Po2 not reading on results, PA aware. PT sp02 >93% on NRB mask at this time, reported off to RT Andrew.
[2022-02-26 18:52] LABS: BASOPHILS # (AUTO) 0.1 X10'3 (0-0.2); BASOPHILS % (AUTO) 0.8 % (0-1); EOSINOPHILS # (AUTO) 0.1 X10'3 (0-0.9); EOSINOPHILS % (AUTO) 1.4 % (0-6); HEMATOCRIT 24.8 % (42.0-52.0); HEMOGLOBIN 8.1 g/dl (14.0-17.9); LYMPHOCYTES # (AUTO) 0.9 X10'3 (1.1-4.8); LYMPHOCYTES % (AUTO) 8.8 % (21-51); MEAN CORPUSCULAR HEMOGLOBIN 29.1 PG (27.0-31.0); MEAN CORPUSCULAR HGB CONC 32.9 g/dL (33.0-36.5); MEAN CORPUSCULAR VOLUME 88.5 FL (78-98); MEAN PLATELET VOLUME 7.7 FL (7.4-10.4); MONOCYTES # (AUTO) 0.7 X10'3 (0-0.9); MONOCYTES % (AUTO) 6.8 % (2-12); NEUTROPHILS # (AUTO) 8.5 X10'3 (1.8-7.7); NEUTROPHILS % (AUTO) 82.2 % (42-75); PLATELET COUNT 413 X10'3 (140-440); RED CELL DISTRIBUTION WIDTH 15.2 % (11.5-14.5); WHITE BLOOD COUNT 10.3 X10'3 (4.5-11.0)
[2022-02-26 19:17] LABS: ALANINE AMINOTRANSFERASE 19 U/L (12-78); ALBUMIN 2.7 G/DL (3.4-5.0); ALBUMIN/GLOBULIN RATIO 0.5 (1.1-1.5); ALKALINE PHOSPHATASE 121 IU/L (46-116); ANION GAP 11 (8-16); ASPARTATE AMINO TRANSFERASE 16 U/L (10-37); BILIRUBIN,TOTAL 0.6 MG/DL (0.1-1.0); BLOOD UREA NITROGEN 13 MG/DL (7-18); BUN/CREATININE RATIO 2.6 (5.4-32.0); CALCIUM 9.5 MG/DL (8.5-10.1); CHLORIDE 96 MMOL/L (99-107); CREATININE 4.92 MG/DL (0.60-1.10); GLUCOSE 165 MG/DL (70-104); POTASSIUM 3.5 MMOL/L (3.5-5.1); SODIUM 138 MMOL/L (135-145); TOTAL CARBON DIOXIDE 30.6 MMOL/L (24-32); TOTAL PROTEIN 8.1 G/DL (6.4-8.2); eGFR 13 ML/MIN
--- NOTE | 2022-02-26 19:30 | NUR ---
PATIENT WAVING FOR HELP FROM ROOM ON RIGHT SIDE, RESPIRATIONS DEEP, PATIENT PALE WITH SPO2 88% ON NASAL CANULA, SPO2 DROPPED TO 81% AND NON REBREATHER WAS PLACED, PATIENT EYES ROLLING TO BACK OF HEAD, MD CALLED TO BEDSIDE. PATIENT HOB RAISED TO 90 DEGREES ON 15L, SPO2 UP TO 98% ON 15L NON REBREATHER, DR HARRIS AND LEXUS PIPER AT BEDSIDE.
--- NOTE | 2022-02-26 19:40 | NUR ---
RT AT BEDSIDE TO ASSESS PATIENT.
[2022-02-26] MEDS ORDERED: iohexol 350MG/ML 100ml bottle IV ONE (19:48)
[2022-02-26 19:51] LABS: ABG BASE EXCESS 9.1 mmol/L (-2.0-2.0); ABG HCO3 30.8 mmol/L (22.0-26.0); ABG OXYGEN SATURATION 97.7 % (94-97); ABG PCO2 (T) 31.2 mmHg (35.0-48.0); ABG PO2 (T) 99.3 mmHg (75.0-100.0); ALLEN'S TEST POSITIVE; FCOHb 0.3 % (0.0-3.9); FMetHb 0.3 % (0.0-1.5); FO2Hb 97.1 % (94-97); TOTAL HEMOGLOBIN 9.4 G/dl (14.0-17.9)
[2022-02-26] MEDS ORDERED: temazepam 15mg capsule PO PRN (21:00)
[2022-02-26] MEDS ORDERED: potassium CL 10mEq/100ml bag 100 ML IV PRN (21:55)
[2022-02-26] MEDS ORDERED: dextrose 50%-water 50ml dispensing syringe IV PRN ×2 (21:55)
[2022-02-26] MEDS ORDERED: acetaminophen 325mg tablet PO PRN (21:55)
[2022-02-26] MEDS ORDERED: POTASSIUM BICARB 20meq eff tab 20 MEQ TABLET.EFF PO PRN ×2 (21:55)
[2022-02-26] MEDS ORDERED: glucagon, human recombinant 1mg kit SUBCUT PRN (21:55)
[2022-02-26] MEDS ORDERED: DEXTROSE 15 GM of carb/4 tabs (each vial/BOTTLE has 4 tablets) PO PRN ×2 (21:55)
[2022-02-26] MEDS ORDERED: magnesium Cl slow-release 64mg tablet PO PRN (21:55)
[2022-02-26] MEDS ORDERED: MESSAGE TO PHARMACY PO ONE (21:55)
[2022-02-26] MEDS ORDERED: magnesium 4gm in 100ml NS 100 ML IV PRN (21:55)
[2022-02-26] MEDS ORDERED: magnesium 2GM in 50ml NS 50 ML IV PRN (21:55)
[2022-02-26] MEDS: ondansetron/PF 4mg/2ml inj IV PRN (22:43)
[2022-02-27] MEDS ORDERED: heparin, porcine 5000 units/ml vial SQ SCH
[2022-02-27] MEDS ORDERED: MACI10TA2 PO (01:03)
[2022-02-27] MEDS ORDERED: MIDO10TA PO (01:03)
[2022-02-27] MEDS ORDERED: LANTUS SQ (01:03)
[2022-02-27] MEDS ORDERED: GABA-530 PO (01:03)
[2022-02-27] MEDS ORDERED: FERR210T PO (01:03)
[2022-02-27] MEDS ORDERED: NOVLG SQ (01:03)
[2022-02-27] MEDS ORDERED: SILD20TA2 PO ×3 (01:03)
[2022-02-27] MEDS ORDERED: gabapentin 300mg capsule PO ONE (01:05)
[2022-02-27] MEDS ORDERED: SODIUM ZIRCONIUM CYCLOSILICATE 10 GM POWD.PACK PO PRN (01:20)
[2022-02-27] MEDS: albuterol 2.5 MG/3 ML nebule NEB SCH ×9 (02:01→23:08)
[2022-02-27] MEDS: furosemide 20 MG/2 ML vial IV SCH ×2 (07:25→21:10)
[2022-02-27] MEDS: lisinopril 20mg tablet PO SCH ×2 (07:26→21:19)
[2022-02-27] MEDS: midodrine 5mg tablet PO SCH ×3 (07:26→21:16)
[2022-02-27] MEDS: azithromycin/NS 500mg/250ml 250 ML IV SCH (07:27)
[2022-02-27] MEDS: metoprolol tartrate 50mg tablet PO SCH ×2 (07:27→21:18)
[2022-02-27] MEDS: apixaban 5mg tablet PO SCH ×2 (07:27→21:19)
[2022-02-27] MEDS: CefTRIAXone 2gm/D5W 50ml BAG 50 ML IV SCH (07:27)
[2022-02-27] MEDS: K and/or MAG REPLACEMENT MC SCH (07:34)
[2022-02-27] MEDS: FERRIC CITRATE 210 MG PO SCH ×2 (08:00→12:33)
[2022-02-27] MEDS: sevelamer carbonate 800mg tablet PO SCH ×2 (08:00→12:32)
[2022-02-27] MEDS: sildenafil citrate 20mg tablet PO SCH ×2 (08:00→12:31)
[2022-02-27 08:30] LABS: BASOPHILS % (AUTO) 0.3 % (0-1); EOSINOPHILS % (AUTO) 0 % (0-6); HEMATOCRIT 27.1 % (42.0-52.0); HEMOGLOBIN 9.1 g/dl (14.0-17.9); LYMPHOCYTES # (AUTO) 0.5 X10'3 (1.1-4.8); MEAN CORPUSCULAR HEMOGLOBIN 29.5 PG (27.0-31.0); MEAN CORPUSCULAR HGB CONC 33.5 g/dL (33.0-36.5); MEAN PLATELET VOLUME 7.4 FL (7.4-10.4); MONOCYTES # (AUTO) 0.1 X10'3 (0-0.9); NEUTROPHILS # (AUTO) 9.9 X10'3 (1.8-7.7); NEUTROPHILS % (AUTO) 93.7 % (42-75); PLATELET COUNT 465 X10'3 (140-440); RED BLOOD COUNT 3.08 X10'6 (4.70-6.10); RED CELL DISTRIBUTION WIDTH 15.6 % (11.5-14.5); WHITE BLOOD COUNT 10.6 X10'3 (4.5-11.0)
[2022-02-27 08:49] LABS: ALANINE AMINOTRANSFERASE 17 U/L (12-78); ALBUMIN 2.9 G/DL (3.4-5.0); ALBUMIN/GLOBULIN RATIO 0.5 (1.1-1.5); ALKALINE PHOSPHATASE 135 IU/L (46-116); ANION GAP 14 (8-16); ASPARTATE AMINO TRANSFERASE 13 U/L (10-37); BILIRUBIN,TOTAL 0.4 MG/DL (0.1-1.0); BLOOD UREA NITROGEN 23 MG/DL (7-18); BUN/CREATININE RATIO 3.4 (5.4-32.0); CALCIUM 9.7 MG/DL (8.5-10.1); CHLORIDE 91 MMOL/L (99-107); CREATININE 6.73 MG/DL (0.60-1.10); GLUCOSE 383 MG/DL (70-104); POTASSIUM 4.5 MMOL/L (3.5-5.1); SODIUM 133 MMOL/L (135-145); TOTAL CARBON DIOXIDE 28.3 MMOL/L (24-32); TOTAL PROTEIN 8.8 G/DL (6.4-8.2); eGFR 9 ML/MIN
[2022-02-27] MEDS: insulin Lispro (HumaLOG) vial - multi-dose SQ SCH ×3 (09:59→20:55)
[2022-02-27] MEDS: HYDROcodone/acetaminophen 10/325mg tab PO PRN (12:32)
[2022-02-27] MEDS: ondansetron/PF 4mg/2ml inj IV PRN ×2 (15:35→21:14)
[2022-02-27] MEDS ORDERED: metoclopramide 5 mg/ml inj IV PRN (19:00)
[2022-02-27] MEDS: gabapentin 100mg capsule PO SCH (21:16)
[2022-02-27] MEDS: atorvastatin 20mg tablet PO SCH (21:17)
[2022-02-28] MEDS: albuterol 2.5 MG/3 ML nebule NEB SCH ×6 (03:13→23:32)
[2022-02-28] MEDS: ondansetron/PF 4mg/2ml inj IV PRN (04:20)
[2022-02-28 06:00] VITALS: BP 119/76
[2022-02-28 07:34] LABS: BASOPHILS # (AUTO) 0.1 X10'3 (0-0.2); BASOPHILS % (AUTO) 0.4 % (0-1); EOSINOPHILS % (AUTO) 0.4 % (0-6); HEMATOCRIT 24.4 % (42.0-52.0); HEMOGLOBIN 7.7 g/dl (14.0-17.9); LYMPHOCYTES # (AUTO) 1.3 X10'3 (1.1-4.8); LYMPHOCYTES % (AUTO) 10.7 % (21-51); MEAN CORPUSCULAR HGB CONC 31.5 g/dL (33.0-36.5); MEAN PLATELET VOLUME 7.9 FL (7.4-10.4); MONOCYTES # (AUTO) 0.7 X10'3 (0-0.9); MONOCYTES % (AUTO) 5.8 % (2-12); NEUTROPHILS # (AUTO) 10.1 X10'3 (1.8-7.7); NEUTROPHILS % (AUTO) 82.7 % (42-75); PLATELET COUNT 560 X10'3 (140-440); RED BLOOD COUNT 2.74 X10'6 (4.70-6.10); RED CELL DISTRIBUTION WIDTH 15.7 % (11.5-14.5); WHITE BLOOD COUNT 12.2 X10'3 (4.5-11.0)
[2022-02-28 07:46] LABS: ALANINE AMINOTRANSFERASE 19 U/L (12-78); ALBUMIN/GLOBULIN RATIO 0.6 (1.1-1.5); ALKALINE PHOSPHATASE 130 IU/L (46-116); ANION GAP 12 (8-16); ASPARTATE AMINO TRANSFERASE 15 U/L (10-37); BILIRUBIN,TOTAL 0.3 MG/DL (0.1-1.0); BLOOD UREA NITROGEN 44 MG/DL (7-18); BUN/CREATININE RATIO 5.1 (5.4-32.0); CALCIUM 9.5 MG/DL (8.5-10.1); CHLORIDE 92 MMOL/L (99-107); CREATININE 8.63 MG/DL (0.60-1.10); GLUCOSE 198 MG/DL (70-104); POTASSIUM 4.6 MMOL/L (3.5-5.1); SODIUM 135 MMOL/L (135-145); TOTAL CARBON DIOXIDE 30.6 MMOL/L (24-32); TOTAL PROTEIN 8.2 G/DL (6.4-8.2); eGFR 7 ML/MIN
[2022-02-28] MEDS: FERRIC CITRATE 210 MG PO SCH ×3 (08:00→21:00)
[2022-02-28] MEDS: K and/or MAG REPLACEMENT MC SCH ×2 (08:00→20:00)
[2022-02-28] MEDS ORDERED: EPOETIN ALFA-EPBX 20,000 UNIT/ML 1 ML MDV IV ONE (08:20)
[2022-02-28] MEDS ORDERED: albumin (human) 25% 100ml IV 100 ML IV PRN (08:20)
[2022-02-28] MEDS ORDERED: heparin 1,000 units/ml 10ml inj HE ONE ×2 (08:25)
[2022-02-28] MEDS: CefTRIAXone 2gm/D5W 50ml BAG 50 ML IV SCH (08:26)
[2022-02-28] MEDS: furosemide 20 MG/2 ML vial IV SCH ×2 (08:27→20:00)
[2022-02-28] MEDS: metoprolol tartrate 50mg tablet PO SCH ×2 (08:28→20:20)
[2022-02-28] MEDS: apixaban 5mg tablet PO SCH ×2 (08:28→20:15)
[2022-02-28] MEDS: midodrine 5mg tablet PO SCH ×3 (08:28→21:00)
[2022-02-28] MEDS: lisinopril 20mg tablet PO SCH ×2 (08:28→20:19)
[2022-02-28] MEDS: azithromycin/NS 500mg/250ml 250 ML IV SCH (08:28)
[2022-02-28] MEDS: sevelamer carbonate 800mg tablet PO SCH ×3 (08:38→21:00)
[2022-02-28] MEDS: sildenafil citrate 20mg tablet PO SCH ×3 (08:40→20:15)
[2022-02-28] MEDS ORDERED: heparin 1,000 units/ml 10ml inj IV ONE (09:35)
[2022-02-28] MEDS ORDERED: heparin 1,000unit/ml 10ml vial 10 ML IV ONE (09:35)
[2022-02-28] MEDS: insulin Lispro (HumaLOG) vial - multi-dose SQ SCH ×2 (09:55→20:13)
[2022-02-28 14:45] LABS: BASOPHILS # (AUTO) 0.1 X10'3 (0-0.2); BASOPHILS % (AUTO) 0.7 % (0-1); EOSINOPHILS # (AUTO) 0.2 X10'3 (0-0.9); EOSINOPHILS % (AUTO) 1.5 % (0-6); HEMATOCRIT 26.3 % (42.0-52.0); HEMOGLOBIN 8.7 g/dl (14.0-17.9); LYMPHOCYTES # (AUTO) 1.4 X10'3 (1.1-4.8); MEAN CORPUSCULAR HEMOGLOBIN 29.1 PG (27.0-31.0); MEAN CORPUSCULAR HGB CONC 33.2 g/dL (33.0-36.5); MEAN CORPUSCULAR VOLUME 87.8 FL (78-98); MEAN PLATELET VOLUME 7.4 FL (7.4-10.4); MONOCYTES # (AUTO) 0.8 X10'3 (0-0.9); MONOCYTES % (AUTO) 6.4 % (2-12); NEUTROPHILS # (AUTO) 9.4 X10'3 (1.8-7.7); NEUTROPHILS % (AUTO) 79.4 % (42-75); PLATELET COUNT 556 X10'3 (140-440); RED CELL DISTRIBUTION WIDTH 15.6 % (11.5-14.5); WHITE BLOOD COUNT 11.8 X10'3 (4.5-11.0)
[2022-02-28 18:00] VITALS: BP 115/70
--- NOTE | 2022-02-28 18:30 | NUR ---
Patient in room PCU 3023B. I have received report from Loren MACKAY and had the opportunity to ask questions and assume patient care.
[2022-02-28] MEDS: HYDROcodone/acetaminophen 10/325mg tab PO PRN (20:14)
[2022-02-28] MEDS: gabapentin 100mg capsule PO SCH (20:15)
[2022-02-28] MEDS: atorvastatin 20mg tablet PO SCH (20:15)
[2022-02-28] MEDS: insulin glargine (Lantus) pen - multi-dose SQ SCH (20:21)
--- NOTE | 2022-02-28 21:00 | NUR ---
Pt refused 2100 BG test. Risks vsv benifits explained. Pt states understanding. Will continue to monitor.
[2022-02-28 22:00] VITALS: BP 119/64
[2022-03-01 02:00] VITALS: BP 120/60
--- NOTE | 2022-03-01 04:48 | NUR ---
Pt declined having PIV placed. Risks vs benefits explained. Pt states understanding.
[2022-03-01 06:00] VITALS: BP 155/73
[2022-03-01 06:34] LABS: BASOPHILS # (AUTO) 0.1 X10'3 (0-0.2); BASOPHILS % (AUTO) 0.8 % (0-1); EOSINOPHILS # (AUTO) 0.3 X10'3 (0-0.9); EOSINOPHILS % (AUTO) 3.3 % (0-6); HEMATOCRIT 29.9 % (42.0-52.0); LYMPHOCYTES # (AUTO) 1.6 X10'3 (1.1-4.8); LYMPHOCYTES % (AUTO) 16.1 % (21-51); MEAN CORPUSCULAR HEMOGLOBIN 29.5 PG (27.0-31.0); MEAN CORPUSCULAR HGB CONC 33.3 g/dL (33.0-36.5); MEAN CORPUSCULAR VOLUME 88.5 FL (78-98); MEAN PLATELET VOLUME 7.5 FL (7.4-10.4); MONOCYTES # (AUTO) 0.7 X10'3 (0-0.9); MONOCYTES % (AUTO) 6.5 % (2-12); NEUTROPHILS # (AUTO) 7.5 X10'3 (1.8-7.7); NEUTROPHILS % (AUTO) 73.3 % (42-75); PLATELET COUNT 600 X10'3 (140-440); RED BLOOD COUNT 3.38 X10'6 (4.70-6.10); RED CELL DISTRIBUTION WIDTH 15.7 % (11.5-14.5); WHITE BLOOD COUNT 10.2 X10'3 (4.5-11.0)
--- NOTE | 2022-03-01 06:39 | NUR ---
Problems reprioritized. Patient report given, questions answered & plan of care reviewed with Suzy MACKAY.
[2022-03-01 07:12] LABS: ALANINE AMINOTRANSFERASE 19 U/L (12-78); ALBUMIN/GLOBULIN RATIO 0.6 (1.1-1.5); ALKALINE PHOSPHATASE 147 IU/L (46-116); ANION GAP 10 (8-16); ASPARTATE AMINO TRANSFERASE 15 U/L (10-37); BILIRUBIN,TOTAL 0.3 MG/DL (0.1-1.0); BLOOD UREA NITROGEN 31 MG/DL (7-18); CALCIUM 9.5 MG/DL (8.5-10.1); CHLORIDE 97 MMOL/L (99-107); CREATININE 6.22 MG/DL (0.60-1.10); GLUCOSE 140 MG/DL (70-104); POTASSIUM 4.8 MMOL/L (3.5-5.1); SODIUM 136 MMOL/L (135-145); TOTAL CARBON DIOXIDE 29.1 MMOL/L (24-32); TOTAL PROTEIN 8.4 G/DL (6.4-8.2); eGFR 10 ML/MIN
[2022-03-01 07:20] LABS: PLATELET ESTIMATE INCREASED; TOTAL CELLS COUNTED 100
[2022-03-01] MEDS: albuterol 2.5 MG/3 ML nebule NEB SCH ×5 (07:52→23:14)
[2022-03-01] MEDS: K and/or MAG REPLACEMENT MC SCH ×2 (08:00→19:35)
[2022-03-01] MEDS: furosemide 20 MG/2 ML vial IV SCH ×2 (08:00→19:34)
[2022-03-01] MEDS: FERRIC CITRATE 210 MG PO SCH ×3 (08:00→21:00)
--- NOTE | 2022-03-01 08:14 | NUR ---
PAGER ID: [phone] MESSAGE: [phone] Dedrick refusing noc & am to start piv [phone] Suzy
[2022-03-01] MEDS: apixaban 5mg tablet PO SCH ×2 (10:14→19:49)
[2022-03-01] MEDS: midodrine 5mg tablet PO SCH ×3 (10:15→22:30)
[2022-03-01] MEDS: metoprolol tartrate 50mg tablet PO SCH ×2 (10:15→19:49)
[2022-03-01] MEDS: sevelamer carbonate 800mg tablet PO SCH ×3 (10:15→21:00)
[2022-03-01] MEDS: sildenafil citrate 20mg tablet PO SCH ×3 (10:16→22:32)
[2022-03-01] MEDS: lisinopril 20mg tablet PO SCH ×2 (10:16→19:49)
[2022-03-01] MEDS: insulin Lispro (HumaLOG) vial - multi-dose SQ SCH ×3 (10:28→19:44)
[2022-03-01 11:50] VITALS: BP 122/64
[2022-03-01] MEDS: HYDROcodone/acetaminophen 10/325mg tab PO PRN (12:41)
--- NOTE | 2022-03-01 12:50 | NUR ---
ER nurse at bedside, patient continues to refuse anyone to start PIV unless they have US or veinfinder. Notify Dr Valles
--- NOTE | 2022-03-01 13:06 | NUR ---
PAGER ID: [phone] MESSAGE: [phone] Dedrick continues to refuse to allow anyone to start PIV. Unable to administer abx. Suzy [phone]
[2022-03-01 14:49] VITALS: BP 116/61
[2022-03-01] MEDS ORDERED: levoFLOXACIN 250mg tablet PO ONE (15:30)
[2022-03-01 18:00] VITALS: BP 134/69
--- NOTE | 2022-03-01 18:34 | NUR ---
Report to Travis MACKAY
[2022-03-01] MEDS ORDERED: gabapentin 300mg capsule PO SCH (21:00)
--- NOTE | 2022-03-01 21:00 | NUR ---
Pt requested gabapentin increased to 300mg-Dr Zazueta ok'd and gave new order. Dr Zazueta aware that pt refuses IV and is not getting the IV Lasix-said ok to not give as probably is not going to do much for pt anyways.
[2022-03-01] MEDS: atorvastatin 20mg tablet PO SCH (22:29)
[2022-03-01] MEDS: insulin glargine (Lantus) pen - multi-dose SQ SCH (22:49)
[2022-03-01] MEDS: ondansetron 4mg rapidly disintigrating tab PO PRN (23:23)
[2022-03-02] MEDS: albuterol 2.5 MG/3 ML nebule NEB SCH ×6 (04:00→23:54)
[2022-03-02 06:37] LABS: BASOPHILS # (AUTO) 0.1 X10'3 (0-0.2); BASOPHILS % (AUTO) 0.6 % (0-1); EOSINOPHILS # (AUTO) 0.4 X10'3 (0-0.9); EOSINOPHILS % (AUTO) 3.4 % (0-6); HEMATOCRIT 27.7 % (42.0-52.0); HEMOGLOBIN 9.2 g/dl (14.0-17.9); LYMPHOCYTES # (AUTO) 1.6 X10'3 (1.1-4.8); LYMPHOCYTES % (AUTO) 13.7 % (21-51); MEAN CORPUSCULAR HEMOGLOBIN 29.2 PG (27.0-31.0); MEAN CORPUSCULAR HGB CONC 33.3 g/dL (33.0-36.5); MEAN CORPUSCULAR VOLUME 87.5 FL (78-98); MEAN PLATELET VOLUME 7.3 FL (7.4-10.4); MONOCYTES # (AUTO) 0.9 X10'3 (0-0.9); MONOCYTES % (AUTO) 7.7 % (2-12); NEUTROPHILS # (AUTO) 8.5 X10'3 (1.8-7.7); NEUTROPHILS % (AUTO) 74.6 % (42-75); PLATELET COUNT 598 X10'3 (140-440); RED BLOOD COUNT 3.17 X10'6 (4.70-6.10); WHITE BLOOD COUNT 11.4 X10'3 (4.5-11.0)
[2022-03-02 07:00] VITALS: BP 127/67
[2022-03-02 07:09] LABS: ALANINE AMINOTRANSFERASE 19 U/L (12-78); ALBUMIN 2.6 G/DL (3.4-5.0); ALBUMIN/GLOBULIN RATIO 0.5 (1.1-1.5); ALKALINE PHOSPHATASE 131 IU/L (46-116); ANION GAP 12 (8-16); ASPARTATE AMINO TRANSFERASE 15 U/L (10-37); BILIRUBIN,TOTAL 0.3 MG/DL (0.1-1.0); BLOOD UREA NITROGEN 50 MG/DL (7-18); BUN/CREATININE RATIO 5.8 (5.4-32.0); CHLORIDE 95 MMOL/L (99-107); CREATININE 8.62 MG/DL (0.60-1.10); GLUCOSE 121 MG/DL (70-104); POTASSIUM 5.1 MMOL/L (3.5-5.1); SODIUM 133 MMOL/L (135-145); TOTAL CARBON DIOXIDE 25.6 MMOL/L (24-32); TOTAL PROTEIN 7.4 G/DL (6.4-8.2); eGFR 7 ML/MIN
[2022-03-02] MEDS: FERRIC CITRATE 210 MG PO SCH ×3 (08:00→21:00)
[2022-03-02] MEDS: furosemide 20 MG/2 ML vial IV SCH ×2 (08:00→08:58)
[2022-03-02] MEDS: K and/or MAG REPLACEMENT MC SCH ×2 (08:00→20:00)
[2022-03-02] MEDS: metoprolol tartrate 50mg tablet PO SCH ×2 (08:58→19:42)
[2022-03-02] MEDS: apixaban 5mg tablet PO SCH ×2 (08:58→19:41)
[2022-03-02] MEDS: lisinopril 20mg tablet PO SCH ×2 (08:59→19:42)
[2022-03-02] MEDS: midodrine 5mg tablet PO SCH ×3 (08:59→20:54)
[2022-03-02] MEDS: sildenafil citrate 20mg tablet PO SCH ×3 (08:59→20:54)
[2022-03-02] MEDS: sevelamer carbonate 800mg tablet PO SCH ×3 (08:59→20:53)
[2022-03-02] MEDS: HYDROcodone/acetaminophen 10/325mg tab PO PRN ×2 (09:00→16:36)
[2022-03-02] MEDS: insulin Lispro (HumaLOG) vial - multi-dose SQ SCH ×2 (09:03→13:57)
--- NOTE | 2022-03-02 09:17 | NUR ---
page to picc rn [id number] Dedrick . Needs PIV won't let anyone but PICC RN try with US . nothing on the left immature fistula present. hand or AC only kidney patient. [email or web address]
[2022-03-02 11:00] VITALS: BP 104/50
[2022-03-02] MEDS: furosemide 20MG tablet PO SCH (13:58)
[2022-03-02] MEDS: levoFLOXACIN 250mg tablet PO SCH (13:58)
[2022-03-02 15:00] VITALS: BP 108/60
[2022-03-02 18:00] VITALS: BP 143/74
--- NOTE | 2022-03-02 18:28 | NUR ---
Problems reprioritized. Patient report given, questions answered & plan of care reviewed with Dave VU.
--- NOTE | 2022-03-02 18:30 | NUR ---
Patient in room PCU 3023. I have received report from lt and had the opportunity to ask questions and assume patient care.
[2022-03-02] MEDS: insulin glargine (Lantus) pen - multi-dose SQ SCH (20:52)
[2022-03-02] MEDS: gabapentin 100mg capsule PO SCH (20:53)
[2022-03-02] MEDS: atorvastatin 20mg tablet PO SCH (20:53)
[2022-03-02] MEDS: ondansetron 4mg rapidly disintigrating tab PO PRN (21:34)
[2022-03-03 02:00] VITALS: BP 134/70
[2022-03-03] MEDS: albuterol 2.5 MG/3 ML nebule NEB SCH ×6 (03:09→23:40)
--- NOTE | 2022-03-03 06:06 | NUR ---
Problems reprioritized. Patient report given, questions answered & plan of care reviewed with
--- NOTE | 2022-03-03 06:34 | NUR ---
Patient in room PCU 3023. I have received report from Dave Sarmiento and had the opportunity to ask questions and assume patient care.
[2022-03-03 07:13] VITALS: BP 122/69
[2022-03-03 07:24] LABS: ALANINE AMINOTRANSFERASE 16 U/L (12-78); ALBUMIN 2.4 G/DL (3.4-5.0); ALBUMIN/GLOBULIN RATIO 0.5 (1.1-1.5); ALKALINE PHOSPHATASE 116 IU/L (46-116); ANION GAP 12 (8-16); ASPARTATE AMINO TRANSFERASE 11 U/L (10-37); BILIRUBIN,TOTAL 0.3 MG/DL (0.1-1.0); BLOOD UREA NITROGEN 70 MG/DL (7-18); BUN/CREATININE RATIO 6.6 (5.4-32.0); CALCIUM 9.2 MG/DL (8.5-10.1); CHLORIDE 94 MMOL/L (99-107); CREATININE 10.63 MG/DL (0.60-1.10); GLUCOSE 114 MG/DL (70-104); POTASSIUM 5.2 MMOL/L (3.5-5.1); SODIUM 134 MMOL/L (135-145); TOTAL CARBON DIOXIDE 27.7 MMOL/L (24-32); TOTAL PROTEIN 6.8 G/DL (6.4-8.2); eGFR 5 ML/MIN
[2022-03-03 07:29] LABS: BASOPHILS # (AUTO) 0.1 X10'3 (0-0.2); EOSINOPHILS # (AUTO) 0.3 X10'3 (0-0.9); EOSINOPHILS % (AUTO) 3.2 % (0-6); HEMATOCRIT 25.3 % (42.0-52.0); HEMOGLOBIN 8.3 g/dl (14.0-17.9); LYMPHOCYTES # (AUTO) 1.6 X10'3 (1.1-4.8); LYMPHOCYTES % (AUTO) 16.7 % (21-51); MEAN CORPUSCULAR HEMOGLOBIN 29.3 PG (27.0-31.0); MEAN CORPUSCULAR HGB CONC 32.7 g/dL (33.0-36.5); MEAN CORPUSCULAR VOLUME 89.4 FL (78-98); MEAN PLATELET VOLUME 7.9 FL (7.4-10.4); MONOCYTES # (AUTO) 0.9 X10'3 (0-0.9); MONOCYTES % (AUTO) 9.4 % (2-12); NEUTROPHILS # (AUTO) 6.6 X10'3 (1.8-7.7); NEUTROPHILS % (AUTO) 69.7 % (42-75); PLATELET COUNT 507 X10'3 (140-440); RED BLOOD COUNT 2.83 X10'6 (4.70-6.10); RED CELL DISTRIBUTION WIDTH 15.7 % (11.5-14.5); WHITE BLOOD COUNT 9.4 X10'3 (4.5-11.0)
--- NOTE | 2022-03-03 07:41 | NUR ---
Initial: Pt admitted w/ acute on chronic respiratory failure-secondary to acute exacerbation of chronic diastolic heart failure as well as severe pulmonary hypertension per EMR. Currently on Carb control diet w/ avg intake 50% of meals not meeting needs. Pt can benefit from Nepro BID to assist w/ meeting needs. Pt on HD, last treatment 02/28 w/ 4L out per documentation. LBM 02/26. Will continue to monitor. Recs: 1. Continue Carb control diet; liberalize to Regular if PO remains low 2. Nepro BIDBD; pending MD verification 3. Routine bowel care 4. Routine Phos check if MD agreeable as pt on HD 5. Scaled wts w/ HD Addendum: 03/03/22 at [address] Amended: Links added.
[2022-03-03] MEDS: K and/or MAG REPLACEMENT MC SCH ×2 (07:44→20:00)
[2022-03-03] MEDS ORDERED: albumin (human) 25% 100ml IV 100 ML IV PRN (08:00)
[2022-03-03] MEDS ORDERED: heparin 1,000unit/ml 10ml vial 10 ML IV ONE (08:00)
[2022-03-03] MEDS ORDERED: heparin 1,000 units/ml 10ml inj HE ONE ×2 (08:00)
[2022-03-03] MEDS: FERRIC CITRATE 210 MG PO SCH ×3 (08:00→20:42)
[2022-03-03] MEDS: sevelamer carbonate 800mg tablet PO SCH ×3 (08:00→20:22)
[2022-03-03] MEDS ORDERED: heparin 1,000 units/ml 10ml inj IV ONE (08:00)
[2022-03-03] MEDS ORDERED: EPOETIN ALFA-EPBX 20,000 UNIT/ML 1 ML MDV IV ONE (08:00)
[2022-03-03] MEDS: insulin Lispro (HumaLOG) vial - multi-dose SQ SCH ×2 (09:42→13:14)
[2022-03-03] MEDS: furosemide 20MG tablet PO SCH (09:52)
[2022-03-03] MEDS: metoprolol tartrate 50mg tablet PO SCH ×2 (09:52→20:06)
[2022-03-03] MEDS: apixaban 5mg tablet PO SCH ×2 (09:52→20:05)
[2022-03-03] MEDS: midodrine 5mg tablet PO SCH ×3 (09:53→20:22)
[2022-03-03] MEDS: lisinopril 20mg tablet PO SCH ×2 (09:53→20:05)
[2022-03-03] MEDS: sildenafil citrate 20mg tablet PO SCH ×3 (09:53→20:23)
[2022-03-03 10:00] VITALS: BP 119/69
[2022-03-03] MEDS ORDERED: ALBU2.5V7 NEB (10:04)
[2022-03-03] MEDS ORDERED: LEVO250T74 PO (10:04)
[2022-03-03 18:00] VITALS: BP 121/65
--- NOTE | 2022-03-03 18:01 | NUR ---
Pt having dialysis prior to being given the levaquin. Spoke with pharmacist, asiya to give levaquin after dialysis (expected stop time 18:30) but prior to 20:00. Next dose due at 11:00 03/04.
--- NOTE | 2022-03-03 18:12 | NUR ---
Problems reprioritized. Patient report given, questions answered & plan of care reviewed with Dave Reno
--- NOTE | 2022-03-03 18:30 | NUR ---
Patient in room PCU 3023. I have received report from foreign and had the opportunity to ask questions and assume patient care.
[2022-03-03] MEDS: levoFLOXACIN 250mg tablet PO SCH (20:04)
[2022-03-03] MEDS: gabapentin 100mg capsule PO SCH (20:22)
[2022-03-03] MEDS: atorvastatin 20mg tablet PO SCH (20:23)
[2022-03-03] MEDS: insulin glargine (Lantus) pen - multi-dose SQ SCH (20:34)
[2022-03-04] MEDS: albuterol 2.5 MG/3 ML nebule NEB SCH ×5 (03:30→20:00)
--- NOTE | 2022-03-04 06:25 | NUR ---
Problems reprioritized. Patient report given, questions answered & plan of care reviewed with
[2022-03-04] MEDS: K and/or MAG REPLACEMENT MC SCH ×2 (08:00→20:00)
[2022-03-04] MEDS: FERRIC CITRATE 210 MG PO SCH ×3 (08:00→21:00)
[2022-03-04 08:23] VITALS: BP 129/77
[2022-03-04] MEDS: apixaban 5mg tablet PO SCH ×2 (08:25→20:56)
[2022-03-04] MEDS: sevelamer carbonate 800mg tablet PO SCH ×3 (08:25→17:47)
[2022-03-04] MEDS: sildenafil citrate 20mg tablet PO SCH ×3 (08:26→20:56)
[2022-03-04] MEDS: midodrine 5mg tablet PO SCH ×3 (08:26→20:57)
[2022-03-04] MEDS: furosemide 20MG tablet PO SCH (08:26)
[2022-03-04] MEDS: lisinopril 20mg tablet PO SCH ×2 (08:27→20:57)
[2022-03-04] MEDS: metoprolol tartrate 50mg tablet PO SCH ×2 (08:28→20:57)
[2022-03-04] MEDS: insulin Lispro (HumaLOG) vial - multi-dose SQ SCH ×2 (08:36→14:24)
[2022-03-04 12:01] VITALS: BP 110/70
[2022-03-04] MEDS: levoFLOXACIN 250mg tablet PO SCH (12:09)
--- NOTE | 2022-03-04 12:22 | NUR ---
O2 Sat at rest on room air:__80_% If below 89%: Recovery O2 Sat at rest on __5_LPM:___%:_94__% via mask (mask/nasal cannula, etc..) Sitting up on 5 L via mask, O2 sat 91% Ambulating 5 steps on 5 L NC O2 sat down to 71% increased O2 to 8L NC, O2 sat increased to 88% No further documentation is necessary. If O2 Sat did not drop below 89% on room air,ambulate patient on room air. O2 Sat while ambulating on room air:___% Recovery O2 Sat while ambulating on ___5LPM:__71_% No further documentation is necessary. If patient does not drop below 89% while ambulating, he/she does not qualify for home O2.
--- NOTE | 2022-03-04 12:43 | NUR ---
PAGER ID: [phone] Dr Aguilar MESSAGE: [id number], Tse, O2 qualifier test in notes, pt requires more O2 than his baseline of 5 L. Kristel HANNA [phone]
--- NOTE | 2022-03-04 13:48 | NUR ---
PER DR. GUTIERREZ DO NOT DISCHARGE PATIENT DR MCCARTHY WILL BE CONSULTING
--- NOTE | 2022-03-04 14:20 | NUR ---
1300 dose of Renvela missed, will administer evening dose with dinner.
[2022-03-04 14:24] LABS: BASOPHILS # (AUTO) 0.1 X10'3 (0-0.2); BASOPHILS % (AUTO) 0.8 % (0-1); EOSINOPHILS # (AUTO) 0.2 X10'3 (0-0.9); EOSINOPHILS % (AUTO) 1.7 % (0-6); HEMATOCRIT 28.8 % (42.0-52.0); HEMOGLOBIN 9.3 g/dl (14.0-17.9); LYMPHOCYTES # (AUTO) 1.4 X10'3 (1.1-4.8); LYMPHOCYTES % (AUTO) 11.9 % (21-51); MEAN CORPUSCULAR HEMOGLOBIN 28.8 PG (27.0-31.0); MEAN CORPUSCULAR HGB CONC 32.3 g/dL (33.0-36.5); MEAN CORPUSCULAR VOLUME 89.1 FL (78-98); MEAN PLATELET VOLUME 7.1 FL (7.4-10.4); MONOCYTES # (AUTO) 0.9 X10'3 (0-0.9); MONOCYTES % (AUTO) 7.5 % (2-12); NEUTROPHILS # (AUTO) 9.2 X10'3 (1.8-7.7); NEUTROPHILS % (AUTO) 78.1 % (42-75); PLATELET COUNT 697 X10'3 (140-440); RED BLOOD COUNT 3.24 X10'6 (4.70-6.10); RED CELL DISTRIBUTION WIDTH 15.7 % (11.5-14.5); WHITE BLOOD COUNT 11.8 X10'3 (4.5-11.0)
[2022-03-04 14:34] LABS: ALBUMIN 2.8 G/DL (3.4-5.0); ANION GAP 8 (8-16); BLOOD UREA NITROGEN 43 MG/DL (7-18); BUN/CREATININE RATIO 5.5 (5.4-32.0); CALCIUM 9.3 MG/DL (8.5-10.1); CHLORIDE 96 MMOL/L (99-107); CREATININE 7.79 MG/DL (0.60-1.10); GLUCOSE 181 MG/DL (70-104); SODIUM 135 MMOL/L (135-145); TOTAL CARBON DIOXIDE 31.1 MMOL/L (24-32); eGFR 8 ML/MIN
[2022-03-04 14:47] LABS: PLATELET ESTIMATE INCREASED; TOTAL CELLS COUNTED 100
[2022-03-04 15:00] LABS: POLYCHROMASIA FEW
[2022-03-04 16:23] VITALS: BP 115/72
[2022-03-04] MEDS: HYDROcodone/acetaminophen 10/325mg tab PO PRN (17:48)
[2022-03-04 18:00] VITALS: BP 151/67
--- NOTE | 2022-03-04 18:30 | NUR ---
Patient in room PCU 3023. I have received report from cleo and had the opportunity to ask questions and assume patient care.
--- NOTE | 2022-03-04 20:30 | NUR ---
Agree with physical assessment done by Dave Zavala Lvn.
[2022-03-04] MEDS: atorvastatin 20mg tablet PO SCH (20:57)
[2022-03-04] MEDS: gabapentin 100mg capsule PO SCH (20:58)
[2022-03-04] MEDS: ondansetron 4mg rapidly disintigrating tab PO PRN (21:02)
[2022-03-04] MEDS: insulin glargine (Lantus) pen - multi-dose SQ SCH (21:08)
--- NOTE | 2022-03-05 00:40 | NUR ---
during med pass pt mentioned he had thrown up and wanted a zofran for nausea, zofran given, just now at 1235 pt stated he was hungry and feeling low, i verified with pt if he knows when he is low and why the sandwich, he stated just because his stomach was hungry from earlier, i then reasked if he knew when he was low or high he said yes, sandwich given
[2022-03-05 02:00] VITALS: BP 130/66
[2022-03-05 03:00] VITALS: BP 117/65
[2022-03-05 06:00] VITALS: BP 114/68
--- NOTE | 2022-03-05 06:28 | NUR ---
Problems reprioritized. Patient report given, questions answered & plan of care reviewed with
[2022-03-05] MEDS: K and/or MAG REPLACEMENT MC SCH ×2 (08:00→20:00)
[2022-03-05] MEDS: albuterol 2.5 MG/3 ML nebule NEB SCH ×4 (08:00→23:51)
[2022-03-05] MEDS: FERRIC CITRATE 210 MG PO SCH ×3 (08:00→21:00)
[2022-03-05] MEDS: sevelamer carbonate 800mg tablet PO SCH ×3 (08:00→21:00)
[2022-03-05] MEDS: insulin Lispro (HumaLOG) vial - multi-dose SQ SCH ×2 (09:10→19:52)
[2022-03-05] MEDS: furosemide 20MG tablet PO SCH (09:15)
[2022-03-05] MEDS: apixaban 5mg tablet PO SCH ×2 (09:15→19:55)
[2022-03-05] MEDS: HYDROcodone/acetaminophen 10/325mg tab PO PRN ×2 (09:15→16:10)
[2022-03-05] MEDS: metoprolol tartrate 50mg tablet PO SCH ×2 (09:16→19:56)
[2022-03-05] MEDS: midodrine 5mg tablet PO SCH ×3 (09:16→21:00)
[2022-03-05] MEDS: sildenafil citrate 20mg tablet PO SCH ×3 (09:17→22:24)
[2022-03-05] MEDS: lisinopril 20mg tablet PO SCH ×2 (09:17→19:57)
[2022-03-05] MEDS ORDERED: albumin (human) 25% 100ml IV 100 ML IV PRN (09:45)
[2022-03-05] MEDS ORDERED: heparin 1,000unit/ml 10ml vial 10 ML IV ONE (09:45)
[2022-03-05] MEDS ORDERED: EPOETIN ALFA-EPBX 20,000 UNIT/ML 1 ML MDV IV ONE (09:45)
[2022-03-05] MEDS ORDERED: heparin 1,000 units/ml 10ml inj HE ONE ×2 (09:50)
--- NOTE | 2022-03-05 11:13 | NUR ---
Breakfast dose of Renvela missed, did not arrive to give to pt with meal. Will administer lunch dose
[2022-03-05 11:25] VITALS: BP 121/76
--- NOTE | 2022-03-05 13:35 | NUR ---
Labs ordered will be drawn after HD is complete.
--- NOTE | 2022-03-05 15:38 | NUR ---
Multiple attempts to notify pt is refusing all Nebulizer treatments, MARIEL indicated, BS clear, no response from MD. Addendum: 03/05/22 at 1553 by Rosalia Irving RT Amended: Links added.
[2022-03-05 15:42] LABS: RHEUM FACTOR QUAL REFLEX TITER NEGATIVE (Neg)
[2022-03-05 16:02] VITALS: BP 93/51
--- NOTE | 2022-03-05 17:50 | NUR ---
Pt ate lunch late due to HD. Did not cover lunch glucose, pre dinner glucose is 267, but I do not recommend increasing level at this time, will continue to monitor
[2022-03-05 18:00] VITALS: BP 125/53
--- NOTE | 2022-03-05 18:20 | NUR ---
Patient in room PCU 3023. I have received report from Kristel MACKAY and had the opportunity to ask questions and assume patient care.
[2022-03-05] MEDS: ondansetron 4mg rapidly disintigrating tab PO PRN (20:04)
[2022-03-05] MEDS: insulin glargine (Lantus) pen - multi-dose SQ SCH (21:00)
[2022-03-05] MEDS: atorvastatin 20mg tablet PO SCH (22:28)
[2022-03-05] MEDS: gabapentin 100mg capsule PO SCH (22:28)
[2022-03-06] MEDS: albuterol 2.5 MG/3 ML nebule NEB SCH ×3 (03:22→12:00)
--- NOTE | 2022-03-06 04:20 | NUR ---
Agree with Kira HEALTH SERVICE COORDINATOR assessment except where I documented my findings.
[2022-03-06 06:00] VITALS: BP 122/71
--- NOTE | 2022-03-06 06:25 | NUR ---
Problems reprioritized. Patient report given, questions answered & plan of care reviewed with Kristel MACKAY.
[2022-03-06] MEDS: furosemide 20MG tablet PO SCH (07:33)
[2022-03-06] MEDS: sildenafil citrate 20mg tablet PO SCH ×3 (07:33→21:47)
[2022-03-06] MEDS: sevelamer carbonate 800mg tablet PO SCH ×3 (07:33→18:26)
[2022-03-06] MEDS: lisinopril 20mg tablet PO SCH ×2 (07:34→19:55)
[2022-03-06] MEDS: apixaban 5mg tablet PO SCH ×2 (07:34→19:54)
[2022-03-06] MEDS: metoprolol tartrate 50mg tablet PO SCH ×2 (07:35→19:53)
[2022-03-06] MEDS: midodrine 5mg tablet PO SCH ×3 (07:36→21:47)
[2022-03-06] MEDS: HYDROcodone/acetaminophen 10/325mg tab PO PRN (07:42)
[2022-03-06] MEDS: FERRIC CITRATE 210 MG PO SCH ×3 (08:00→21:00)
[2022-03-06] MEDS: K and/or MAG REPLACEMENT MC SCH ×2 (08:00→20:00)
[2022-03-06] MEDS: insulin Lispro (HumaLOG) vial - multi-dose SQ SCH ×2 (08:53→13:39)
[2022-03-06 11:19] LABS: ANTINUCLEAR ANTIBODIES Negative (Negative)
[2022-03-06 12:02] VITALS: BP 101/65
--- NOTE | 2022-03-06 14:55 | NUR ---
lunch dose of za held, pt had already eaten lunch when this RN was able to get med to bedside. Will administer dinner dose .
[2022-03-06 15:47] VITALS: BP 108/65
--- NOTE | 2022-03-06 16:44 | NUR ---
PAGER ID: [phone] Sent to Dr Aguilar MESSAGE: [id number], Tse, complains of heart burn, can he have a PRN to help ? TY Kristel [phone]
--- NOTE | 2022-03-06 17:38 | NUR ---
PAGER ID: [phone] Dr Aguilar MESSAGE: [id number] , Tse, noted protonix order, can he have order for 1st dose now, thank you? Kirstel [phone] Addendum: 03/06/22 at 1743 by Kristel Minor RN Received order for now dose of protonix. Will administer to patient as soon as verified by pharmacy.
[2022-03-06] MEDS: pantoprazole 40mg Tablet.DR PO SCH (17:59)
[2022-03-06 18:00] VITALS: BP 127/73
--- NOTE | 2022-03-06 18:30 | NUR ---
Patient in room PCU 3023. I have received report from Kristel MACKAY and had the opportunity to ask questions and assume patient care.
[2022-03-06] MEDS: atorvastatin 20mg tablet PO SCH (21:47)
[2022-03-06] MEDS: gabapentin 100mg capsule PO SCH (21:47)
[2022-03-06 22:00] VITALS: BP 133/88
[2022-03-06] MEDS: insulin glargine (Lantus) pen - multi-dose SQ SCH (22:22)
--- NOTE | 2022-03-06 23:00 | NUR ---
Pt declined to have me touch his feet to palpate the DP or PT pulses due to pain. Addendum: 03/07/22 at 0715 by Elizabeth Morales RN Amended: Links added.
--- NOTE | 2022-03-06 23:30 | NUR ---
Agree with Kira FASHION BUYER assessment except where I documented my findings.
[2022-03-07 06:00] VITALS: BP 132/76
--- NOTE | 2022-03-07 07:10 | NUR ---
Problems reprioritized. Patient report given, questions answered & plan of care reviewed with Khushboo MACKAY and Bobo Mckinley RN.
[2022-03-07] MEDS ORDERED: pantoprazole 40mg Tablet.DR PO SCH (07:30)
[2022-03-07] MEDS ORDERED: albumin (human) 25% 100ml IV 100 ML IV PRN (08:00)
[2022-03-07] MEDS ORDERED: EPOETIN ALFA-EPBX 20,000 UNIT/ML 1 ML MDV IV ONE (08:00)
[2022-03-07] MEDS: K and/or MAG REPLACEMENT MC SCH ×2 (08:00→20:00)
[2022-03-07] MEDS: FERRIC CITRATE 210 MG PO SCH ×3 (08:00→21:00)
[2022-03-07] MEDS: midodrine 5mg tablet PO SCH ×3 (08:21→21:42)
[2022-03-07] MEDS: sevelamer carbonate 800mg tablet PO SCH ×3 (08:21→21:41)
[2022-03-07] MEDS: HYDROcodone/acetaminophen 10/325mg tab PO PRN (08:23)
[2022-03-07] MEDS: apixaban 5mg tablet PO SCH ×2 (08:24→21:40)
[2022-03-07] MEDS: furosemide 20MG tablet PO SCH (08:24)
[2022-03-07] MEDS: pantoprazole 40mg Tablet.DR PO SCH (08:24)
[2022-03-07] MEDS: sildenafil citrate 20mg tablet PO SCH ×3 (08:25→21:42)
[2022-03-07] MEDS: metoprolol tartrate 50mg tablet PO SCH ×2 (08:26→21:40)
[2022-03-07] MEDS: lisinopril 20mg tablet PO SCH ×2 (08:26→21:41)
--- NOTE | 2022-03-07 08:37 | NUR ---
PT STRONGLY REQUESTED TO TAKE ALL MORNING MEDICATION WITH KNOWLEDGE OF SCHEDULED DIALYSIS.
[2022-03-07 09:41] LABS: ALBUMIN 3.2 G/DL (3.4-5.0); ANION GAP 13 (8-16); BLOOD UREA NITROGEN 54 MG/DL (7-18); BUN/CREATININE RATIO 5.3 (5.4-32.0); CALCIUM 10.4 MG/DL (8.5-10.1); CHLORIDE 94 MMOL/L (99-107); CREATININE 10.23 MG/DL (0.60-1.10); GLUCOSE 176 MG/DL (70-104); SODIUM 132 MMOL/L (135-145); TOTAL CARBON DIOXIDE 25.2 MMOL/L (24-32); eGFR 6 ML/MIN
[2022-03-07 09:43] LABS: POTASSIUM 6.1 MMOL/L (3.5-5.1)
[2022-03-07 09:44] LABS: BASOPHILS # (AUTO) 0.1 X10'3 (0-0.2); BASOPHILS % (AUTO) 0.7 % (0-1); EOSINOPHILS # (AUTO) 0.2 X10'3 (0-0.9); EOSINOPHILS % (AUTO) 1.8 % (0-6); HEMATOCRIT 29.9 % (42.0-52.0); HEMOGLOBIN 10.3 g/dl (14.0-17.9); LYMPHOCYTES # (AUTO) 1.8 X10'3 (1.1-4.8); LYMPHOCYTES % (AUTO) 15.7 % (21-51); MEAN CORPUSCULAR HEMOGLOBIN 29.9 PG (27.0-31.0); MEAN CORPUSCULAR HGB CONC 34.3 g/dL (33.0-36.5); MEAN CORPUSCULAR VOLUME 87.2 FL (78-98); MEAN PLATELET VOLUME 6.9 FL (7.4-10.4); NEUTROPHILS # (AUTO) 8.1 X10'3 (1.8-7.7); NEUTROPHILS % (AUTO) 72.8 % (42-75); PLATELET COUNT 621 X10'3 (140-440); RED BLOOD COUNT 3.43 X10'6 (4.70-6.10); RED CELL DISTRIBUTION WIDTH 16.3 % (11.5-14.5); WHITE BLOOD COUNT 11.1 X10'3 (4.5-11.0)
[2022-03-07] MEDS ORDERED: heparin 1,000 units/ml 10ml inj HE ONE ×2 (10:00)
[2022-03-07] MEDS: ondansetron/PF 4mg/2ml inj IV PRN (11:37)
[2022-03-07 13:30] VITALS: BP 98/64
--- NOTE | 2022-03-07 14:49 | NUR ---
F/u 03/07: Pt PO much improved past 4 days ~78% avg carb controlled meals partially meeting estimated needs. Nepro ONS pending physician verification in EMR; GARRET paged MD regarding ONS verification if agreeable to assist meeting needs. Noted occasional nausea w/ N/V today received zofran pending US of gallbladder to rule out cholecystitis/gallstones per EMR. LBM 03/05. Will monitor for further nutrition intervention needs. Recs: 1. Continue Carb control diet 2. Nepro BIDBD; pending MD verification 3. Routine bowel care 4. Routine Phos check if MD agreeable as pt on HD; Phos binder w/ meals on HD 5. Scaled wts w/ HD Addendum: 03/07/22 at [address] Amended: Links added.
[2022-03-07 18:00] VITALS: BP 110/63
--- NOTE | 2022-03-07 18:00 | NUR ---
Patient in room PCU 3023. I have received report from Khushboo MACKAY and had the opportunity to ask questions and assume patient care.
--- NOTE | 2022-03-07 18:27 | NUR ---
Problems reprioritized. Patient report given, questions answered & plan of care reviewed with ZEYAD RN.
[2022-03-07] MEDS: insulin glargine (Lantus) pen - multi-dose SQ SCH (21:00)
[2022-03-07] MEDS: gabapentin 100mg capsule PO SCH (21:41)
[2022-03-07] MEDS: atorvastatin 20mg tablet PO SCH (21:42)
[2022-03-07 22:00] VITALS: BP 110/63
--- NOTE | 2022-03-08 04:03 | NUR ---
PT REFUSED TO GET VITAL SIGNS CHECKED
--- NOTE | 2022-03-08 06:18 | NUR ---
Problems reprioritized. Patient report given, questions answered & plan of care reviewed with Chase MACKAY.
[2022-03-08 06:39] LABS: BASOPHILS # (AUTO) 0.1 X10'3 (0-0.2); LYMPHOCYTES # (AUTO) 1.6 X10'3 (1.1-4.8); RED CELL DISTRIBUTION WIDTH 16.4 % (11.5-14.5); WHITE BLOOD COUNT 8.9 X10'3 (4.5-11.0)
[2022-03-08 06:41] LABS: BASOPHILS % (AUTO) 0.8 % (0-1); EOSINOPHILS # (AUTO) 0.1 X10'3 (0-0.9); EOSINOPHILS % (AUTO) 1.6 % (0-6); HEMATOCRIT 30.1 % (42.0-52.0); HEMOGLOBIN 10.2 g/dl (14.0-17.9); LYMPHOCYTES % (AUTO) 17.5 % (21-51); MEAN CORPUSCULAR HEMOGLOBIN 29.3 PG (27.0-31.0); MEAN CORPUSCULAR HGB CONC 33.8 g/dL (33.0-36.5); MEAN CORPUSCULAR VOLUME 86.8 FL (78-98); MEAN PLATELET VOLUME 6.8 FL (7.4-10.4); MONOCYTES % (AUTO) 10.8 % (2-12); NEUTROPHILS # (AUTO) 6.2 X10'3 (1.8-7.7); NEUTROPHILS % (AUTO) 69.3 % (42-75); PLATELET COUNT 611 X10'3 (140-440); RED BLOOD COUNT 3.47 X10'6 (4.70-6.10)
[2022-03-08 07:22] VITALS: BP 106/66
[2022-03-08 07:25] LABS: ALBUMIN 2.9 G/DL (3.4-5.0); ANION GAP 11 (8-16); BLOOD UREA NITROGEN 34 MG/DL (7-18); BUN/CREATININE RATIO 4.4 (5.4-32.0); CALCIUM 9.5 MG/DL (8.5-10.1); CHLORIDE 96 MMOL/L (99-107); CREATININE 7.79 MG/DL (0.60-1.10); GLUCOSE 121 MG/DL (70-104); POTASSIUM 5.2 MMOL/L (3.5-5.1); SODIUM 134 MMOL/L (135-145); TOTAL CARBON DIOXIDE 26.6 MMOL/L (24-32); eGFR 8 ML/MIN
[2022-03-08] MEDS: furosemide 20MG tablet PO SCH (07:26)
[2022-03-08] MEDS: pantoprazole 40mg Tablet.DR PO SCH (07:26)
[2022-03-08] MEDS: apixaban 5mg tablet PO SCH ×2 (07:26→20:47)
[2022-03-08] MEDS: midodrine 5mg tablet PO SCH ×3 (07:26→20:46)
[2022-03-08] MEDS: sildenafil citrate 20mg tablet PO SCH ×3 (07:27→20:46)
[2022-03-08] MEDS: metoprolol tartrate 50mg tablet PO SCH ×2 (07:27→20:47)
[2022-03-08] MEDS: lisinopril 20mg tablet PO SCH ×2 (07:28→20:46)
[2022-03-08] MEDS: FERRIC CITRATE 210 MG PO SCH ×3 (07:29→20:40)
[2022-03-08] MEDS: K and/or MAG REPLACEMENT MC SCH ×2 (08:00→20:00)
[2022-03-08] MEDS: HYDROcodone/acetaminophen 10/325mg tab PO PRN ×2 (08:32→19:09)
[2022-03-08] MEDS: sevelamer carbonate 800mg tablet PO SCH ×3 (08:33→20:47)
--- NOTE | 2022-03-08 09:25 | NUR ---
Patient in room PCU 3023. I have received report from RASHI MACKAY and had the opportunity to ask questions and assume patient care.
--- NOTE | 2022-03-08 09:25 | NUR ---
PER PT, HE STATES HE WANTS TO ONLY TAKE 3 UNITS OF INSULIN DUE TO HIS BS BEING LOWER AND STATING HE CAN BE SENSITIVE AT TIMES. I WILL BE GIVING PT ONLY 3 UNITS OF INSULIN TO COVER FOR BREAKFAST AND BS OF 135.
[2022-03-08] MEDS: insulin Lispro (HumaLOG) vial - multi-dose SQ SCH ×3 (09:37→19:06)
[2022-03-08 10:00] VITALS: BP 113/54
--- NOTE | 2022-03-08 12:40 | NUR ---
CALLED PHARMACY ABOUT PT 1300 MED
[2022-03-08 14:00] VITALS: BP 106/87
[2022-03-08 18:00] VITALS: BP 128/68
--- NOTE | 2022-03-08 19:34 | NUR ---
Problems reprioritized. Patient report given, questions answered & plan of care reviewed with heather holguin.
[2022-03-08] MEDS: gabapentin 100mg capsule PO SCH (20:46)
[2022-03-08] MEDS: atorvastatin 20mg tablet PO SCH (20:46)
[2022-03-08] MEDS: insulin glargine (Lantus) pen - multi-dose SQ SCH (20:54)
[2022-03-08 22:00] VITALS: BP 113/69
[2022-03-09 02:00] VITALS: BP 126/77
[2022-03-09 06:00] VITALS: BP 123/77
[2022-03-09] MEDS: FERRIC CITRATE 210 MG PO SCH ×3 (08:00→20:45)
[2022-03-09] MEDS: K and/or MAG REPLACEMENT MC SCH ×2 (08:00→20:00)
[2022-03-09] MEDS: midodrine 5mg tablet PO SCH ×3 (08:19→20:51)
[2022-03-09] MEDS: apixaban 5mg tablet PO SCH ×2 (08:20→20:52)
[2022-03-09] MEDS: metoprolol tartrate 50mg tablet PO SCH ×2 (08:21→20:52)
[2022-03-09] MEDS: furosemide 20MG tablet PO SCH (08:22)
[2022-03-09] MEDS: pantoprazole 40mg Tablet.DR PO SCH (08:22)
[2022-03-09] MEDS: HYDROcodone/acetaminophen 10/325mg tab PO PRN ×2 (08:24→17:50)
[2022-03-09] MEDS: sevelamer carbonate 800mg tablet PO SCH ×3 (08:24→20:55)
[2022-03-09] MEDS: sildenafil citrate 20mg tablet PO SCH ×3 (08:29→20:52)
[2022-03-09] MEDS: lisinopril 20mg tablet PO SCH ×2 (08:49→20:51)
[2022-03-09 11:00] VITALS: BP 104/63
[2022-03-09] MEDS: insulin Lispro (HumaLOG) vial - multi-dose SQ SCH ×2 (13:37→18:59)
[2022-03-09 14:57] LABS: ATYPICAL PANCA <1:20 titer (Neg:<1:20); CYTOPLASMIC (C-ANCA) <1:20 titer (Neg:<1:20); PERINUCLEAR (P-ANCA) <1:20 titer (Neg:<1:20)
[2022-03-09 14:57] LABS: ANTINUCLEAR ANTIBODIES Negative (Negative)
[2022-03-09 15:00] VITALS: BP 117/75
[2022-03-09 18:00] VITALS: BP 109/64
[2022-03-09] MEDS: gabapentin 100mg capsule PO SCH (20:51)
[2022-03-09] MEDS: atorvastatin 20mg tablet PO SCH (20:51)
[2022-03-09] MEDS: insulin glargine (Lantus) pen - multi-dose SQ SCH (21:01)
[2022-03-09 22:00] VITALS: BP 138/71
[2022-03-10 02:00] VITALS: BP 135/66
[2022-03-10 06:00] VITALS: BP 147/74
[2022-03-10 06:39] LABS: BASOPHILS # (AUTO) 0.1 X10'3 (0-0.2); BASOPHILS % (AUTO) 0.5 % (0-1); EOSINOPHILS # (AUTO) 0.1 X10'3 (0-0.9); EOSINOPHILS % (AUTO) 1.2 % (0-6); HEMATOCRIT 31.3 % (42.0-52.0); HEMOGLOBIN 10.3 g/dl (14.0-17.9); LYMPHOCYTES # (AUTO) 1.8 X10'3 (1.1-4.8); LYMPHOCYTES % (AUTO) 15.6 % (21-51); MEAN CORPUSCULAR HEMOGLOBIN 29.1 PG (27.0-31.0); MEAN CORPUSCULAR HGB CONC 32.9 g/dL (33.0-36.5); MEAN CORPUSCULAR VOLUME 88.5 FL (78-98); MEAN PLATELET VOLUME 6.8 FL (7.4-10.4); MONOCYTES % (AUTO) 8.3 % (2-12); NEUTROPHILS # (AUTO) 8.7 X10'3 (1.8-7.7); NEUTROPHILS % (AUTO) 74.4 % (42-75); PLATELET COUNT 520 X10'3 (140-440); RED BLOOD COUNT 3.53 X10'6 (4.70-6.10); RED CELL DISTRIBUTION WIDTH 17.2 % (11.5-14.5); WHITE BLOOD COUNT 11.7 X10'3 (4.5-11.0)
[2022-03-10 06:52] LABS: ALBUMIN 3.2 G/DL (3.4-5.0); ANION GAP 11 (8-16); BLOOD UREA NITROGEN 67 MG/DL (7-18); BUN/CREATININE RATIO 4.9 (5.4-32.0); CHLORIDE 94 MMOL/L (99-107); CREATININE 13.63 MG/DL (0.60-1.10); GLUCOSE 102 MG/DL (70-104); POTASSIUM 5.6 MMOL/L (3.5-5.1); SODIUM 133 MMOL/L (135-145); TOTAL CARBON DIOXIDE 28.2 MMOL/L (24-32); eGFR 4 ML/MIN
[2022-03-10] MEDS: pantoprazole 40mg Tablet.DR PO SCH (08:00)
[2022-03-10] MEDS: FERRIC CITRATE 210 MG PO SCH ×3 (08:00→21:00)
[2022-03-10] MEDS: sevelamer carbonate 800mg tablet PO SCH ×3 (08:00→21:00)
[2022-03-10] MEDS: K and/or MAG REPLACEMENT MC SCH ×2 (08:00→20:00)
[2022-03-10] MEDS: apixaban 5mg tablet PO SCH ×2 (08:01→19:33)
[2022-03-10] MEDS: furosemide 20MG tablet PO SCH (08:01)
[2022-03-10] MEDS: midodrine 5mg tablet PO SCH ×3 (08:01→20:50)
[2022-03-10] MEDS: metoprolol tartrate 50mg tablet PO SCH ×2 (08:01→19:34)
[2022-03-10] MEDS: sildenafil citrate 20mg tablet PO SCH ×3 (08:01→21:00)
[2022-03-10] MEDS: lisinopril 20mg tablet PO SCH ×2 (08:02→19:33)
[2022-03-10] MEDS: HYDROcodone/acetaminophen 10/325mg tab PO PRN ×2 (08:03→14:13)
[2022-03-10] MEDS: insulin Lispro (HumaLOG) vial - multi-dose SQ SCH ×2 (09:06→19:39)
--- NOTE | 2022-03-10 10:00 | NUR ---
pt own medication pt advised that he is not bringing in the "home" medications: ferric citrate & macitentan. Advised Dr Hoang
[2022-03-10 11:00] VITALS: BP 114/75
[2022-03-10] MEDS ORDERED: EPOETIN ALFA-EPBX 20,000 UNIT/ML 1 ML MDV IV ONE (11:40)
[2022-03-10] MEDS ORDERED: heparin 1,000unit/ml 10ml vial 10 ML IV ONE (11:40)
[2022-03-10] MEDS ORDERED: heparin 1,000 units/ml 10ml inj IV ONE (11:40)
[2022-03-10] MEDS ORDERED: heparin 1,000 units/ml 10ml inj HE ONE ×2 (11:45)
[2022-03-10] MEDS: ondansetron/PF 4mg/2ml inj IV PRN (12:27)
--- NOTE | 2022-03-10 12:38 | NUR ---
Per HD nurse, hold revatio d/t HD in progress
--- NOTE | 2022-03-10 14:30 | NUR ---
Pt is still eating since he started late. He wanted to make sure he ate when his norco was available to administer.
[2022-03-10 15:00] VITALS: BP 127/71
--- NOTE | 2022-03-10 17:53 | NUR ---
Medical interventions rev'd. Pt has been pleasant throughout shift. He is able to make his needs known. Pt C/O of bilateral leg/ankle/feet pain which has been relieved with norco administration x 2. HD performed at bedside, 4L off - pt tolerated well. New order rec'd for 1L fluid restriction per 24 hours. Pt continues to be anuric. Call light within reach. Will continue to monitor until report given to NOC shift and NOC shift assumes care.
[2022-03-10 18:00] VITALS: BP 101/60
--- NOTE | 2022-03-10 18:11 | NUR ---
Patient in room PCU 3023. I have received report from Carine and had the opportunity to ask questions and assume patient care. Pt resting and in no acute distress at handoff.
[2022-03-10] MEDS: gabapentin 100mg capsule PO SCH (20:50)
[2022-03-10] MEDS: atorvastatin 20mg tablet PO SCH (20:50)
[2022-03-10] MEDS: insulin glargine (Lantus) pen - multi-dose SQ SCH (20:58)
[2022-03-10 22:00] VITALS: BP 121/60
[2022-03-11 02:00] VITALS: BP 103/65
--- NOTE | 2022-03-11 06:48 | NUR ---
Problems reprioritized. Patient report given, questions answered & plan of care reviewed with Alex. Pt resting in bed at time of handoff.
[2022-03-11 07:00] VITALS: BP 88/54
[2022-03-11] MEDS: apixaban 5mg tablet PO SCH (07:43)
[2022-03-11] MEDS: midodrine 5mg tablet PO SCH ×3 (07:43→20:08)
[2022-03-11] MEDS: pantoprazole 40mg Tablet.DR PO SCH (07:43)
[2022-03-11] MEDS: furosemide 20MG tablet PO SCH (07:43)
[2022-03-11] MEDS: sildenafil citrate 20mg tablet PO SCH ×3 (07:43→20:08)
[2022-03-11] MEDS: K and/or MAG REPLACEMENT MC SCH ×2 (07:44→20:00)
[2022-03-11] MEDS: metoprolol tartrate 50mg tablet PO SCH ×2 (07:44→20:07)
[2022-03-11] MEDS: sevelamer carbonate 800mg tablet PO SCH ×3 (07:45→20:11)
[2022-03-11] MEDS: FERRIC CITRATE 210 MG PO SCH ×3 (07:45→20:06)
[2022-03-11] MEDS: lisinopril 20mg tablet PO SCH ×2 (07:45→20:07)
[2022-03-11 10:44] VITALS: BP 89/54
[2022-03-11] MEDS: insulin Lispro (HumaLOG) vial - multi-dose SQ SCH ×2 (11:29→18:59)
[2022-03-11 15:37] VITALS: BP 100/57
[2022-03-11 18:00] VITALS: BP 115/71
--- NOTE | 2022-03-11 18:20 | NUR ---
received report from brandon MACKAY
[2022-03-11] MEDS: gabapentin 100mg capsule PO SCH (20:08)
[2022-03-11] MEDS: atorvastatin 20mg tablet PO SCH (20:08)
[2022-03-11] MEDS: insulin glargine (Lantus) pen - multi-dose SQ SCH (21:11)
[2022-03-11 22:00] VITALS: BP 90/48
[2022-03-11] MEDS: HYDROcodone/acetaminophen 10/325mg tab PO PRN (23:15)
[2022-03-12] VITALS (16 sets, daily range): BP systolic 91–140; BP diastolic 20–90
[2022-03-12 06:12] LABS: BASOPHILS # (AUTO) 0.1 X10'3 (0-0.2); BASOPHILS % (AUTO) 1.1 % (0-1); EOSINOPHILS # (AUTO) 0.1 X10'3 (0-0.9); EOSINOPHILS % (AUTO) 0.7 % (0-6); HEMATOCRIT 29.4 % (42.0-52.0); HEMOGLOBIN 9.8 g/dl (14.0-17.9); LYMPHOCYTES # (AUTO) 2.1 X10'3 (1.1-4.8); LYMPHOCYTES % (AUTO) 19.3 % (21-51); MEAN CORPUSCULAR HEMOGLOBIN 29.5 PG (27.0-31.0); MEAN CORPUSCULAR HGB CONC 33.2 g/dL (33.0-36.5); MEAN CORPUSCULAR VOLUME 88.8 FL (78-98); MEAN PLATELET VOLUME 7.3 FL (7.4-10.4); MONOCYTES # (AUTO) 1.1 X10'3 (0-0.9); NEUTROPHILS # (AUTO) 7.5 X10'3 (1.8-7.7); NEUTROPHILS % (AUTO) 68.9 % (42-75); PLATELET COUNT 436 X10'3 (140-440); RED BLOOD COUNT 3.32 X10'6 (4.70-6.10); WHITE BLOOD COUNT 10.8 X10'3 (4.5-11.0)
--- NOTE | 2022-03-12 06:13 | NUR ---
gave report to Alex MACKAY
[2022-03-12 06:29] LABS: ALBUMIN 2.9 G/DL (3.4-5.0); ANION GAP 11 (8-16); BLOOD UREA NITROGEN 68 MG/DL (7-18); BUN/CREATININE RATIO 5.5 (5.4-32.0); CALCIUM 9.9 MG/DL (8.5-10.1); CHLORIDE 96 MMOL/L (99-107); CREATININE 12.43 MG/DL (0.60-1.10); GLUCOSE 109 MG/DL (70-104); MAGNESIUM 2.2 MG/DL (1.5-2.4); PHOSPHORUS 6.4 MG/DL (2.3-4.5); SODIUM 135 MMOL/L (135-145); TOTAL CARBON DIOXIDE 27.7 MMOL/L (24-32); eGFR 4 ML/MIN
--- NOTE | 2022-03-12 06:30 | NUR ---
Patient in room PCU 3023. I have received report from Anny MACKAY and had the opportunity to ask questions and assume patient care.
[2022-03-12 06:31] LABS: POTASSIUM 5.8 MMOL/L (3.5-5.1)
[2022-03-12] MEDS: sevelamer carbonate 800mg tablet PO SCH ×3 (08:00→21:00)
[2022-03-12] MEDS: midodrine 5mg tablet PO SCH ×3 (08:00→20:59)
[2022-03-12] MEDS ORDERED: EPOETIN ALFA-EPBX 20,000 UNIT/ML 1 ML MDV IV ONE (08:00)
[2022-03-12] MEDS: lisinopril 20mg tablet PO SCH ×2 (08:00→20:58)
[2022-03-12] MEDS: sildenafil citrate 20mg tablet PO SCH ×3 (08:00→21:00)
[2022-03-12] MEDS: metoprolol tartrate 50mg tablet PO SCH ×2 (08:00→20:57)
[2022-03-12] MEDS ORDERED: albumin (human) 25% 100ml IV 100 ML IV PRN (08:00)
[2022-03-12] MEDS: FERRIC CITRATE 210 MG PO SCH ×3 (08:00→21:00)
[2022-03-12] MEDS: K and/or MAG REPLACEMENT MC SCH ×2 (08:00→20:00)
--- NOTE | 2022-03-12 08:04 | NUR ---
Reassessment: Pt continues on Renal diet, 1L fluid restriction has also been added. Pt w/ similar PO intake, avg 75% of meals partially meeting needs. ONS remains unverified though pt can still benefit from them. Continues on HD, last treatment 03/10 w/ 4L out per documentation. LBM 03/10. Will continue to monitor. Recs: 1. Continue Carb control diet w/ 1L fluid restriction per MD 2. Nepro BIDBD; pending MD verification 3. Routine bowel care 4. Routine Phos check if MD agreeable as pt on HD; Phos binder w/ meals on HD 5. Scaled wts w/ HD Addendum: 03/12/22 at [address] Amended: Links added.
[2022-03-12] MEDS ORDERED: heparin 1,000 units/ml 10ml inj HE ONE ×2 (09:46)
--- NOTE | 2022-03-12 10:49 | NUR ---
Called IR and requested a time for lung Biopsy. IR states they will let me know when they have a time.
[2022-03-12] MEDS ORDERED: fentaNYL/PF 50MCG/1 ML 2ML syringe ONE (12:27)
[2022-03-12] MEDS ORDERED: LIDOcaine 1% (10mg/ml) 2ml vial ONE (12:27)
[2022-03-12] MEDS ORDERED: midazolam 1 mg/ML 2ml injection ONE (12:27)
[2022-03-12] MEDS: furosemide 20MG tablet PO SCH (14:26)
[2022-03-12] MEDS: HYDROcodone/acetaminophen 10/325mg tab PO PRN ×2 (14:26→20:51)
[2022-03-12] MEDS: pantoprazole 40mg Tablet.DR PO SCH (14:26)
--- NOTE | 2022-03-12 18:25 | NUR ---
Problems reprioritized. Patient report given Kira VU, questions answered & plan of care reviewed with .
--- NOTE | 2022-03-12 18:34 | NUR ---
Patient in room PCU 3023. I have received report from Alex MACKAY and had the opportunity to ask questions and assume patient care.
[2022-03-12] MEDS: gabapentin 100mg capsule PO SCH (20:52)
[2022-03-12] MEDS: atorvastatin 20mg tablet PO SCH (20:52)
[2022-03-12] MEDS: apixaban 5mg tablet PO SCH (20:59)
[2022-03-12] MEDS: insulin glargine (Lantus) pen - multi-dose SQ SCH (21:44)
[2022-03-13] MEDS: HYDROcodone/acetaminophen 10/325mg tab PO PRN ×3 (03:36→19:10)
[2022-03-13 06:00] VITALS: BP 108/69
--- NOTE | 2022-03-13 06:01 | NUR ---
Agree with RADIO DESPATCHER physical assessment of [facility] except I was unable to hear his bowel sounds and he resisted for me to place the stethoscope on his body only on his clothes. He also refused to let me touch his feet or legs to palpate the pulses due to pain.
--- NOTE | 2022-03-13 06:08 | NUR ---
Problems reprioritized. Patient report given, questions answered & plan of care reviewed with Erika MACKAY.
--- NOTE | 2022-03-13 06:29 | NUR ---
Patient in room PCU 3023. I have received report from Kira and had the opportunity to ask questions and assume patient care.
[2022-03-13 06:35] LABS: BASOPHILS # (AUTO) 0.1 X10'3 (0-0.2); BASOPHILS % (AUTO) 0.7 % (0-1); EOSINOPHILS # (AUTO) 0.1 X10'3 (0-0.9); EOSINOPHILS % (AUTO) 0.5 % (0-6); HEMOGLOBIN 11.1 g/dl (14.0-17.9); LYMPHOCYTES # (AUTO) 1.5 X10'3 (1.1-4.8); LYMPHOCYTES % (AUTO) 11.9 % (21-51); MEAN CORPUSCULAR HEMOGLOBIN 28.7 PG (27.0-31.0); MEAN CORPUSCULAR HGB CONC 32.6 g/dL (33.0-36.5); MEAN CORPUSCULAR VOLUME 87.9 FL (78-98); MEAN PLATELET VOLUME 7.5 FL (7.4-10.4); MONOCYTES # (AUTO) 0.9 X10'3 (0-0.9); MONOCYTES % (AUTO) 7.6 % (2-12); NEUTROPHILS # (AUTO) 9.9 X10'3 (1.8-7.7); NEUTROPHILS % (AUTO) 79.3 % (42-75); PLATELET COUNT 455 X10'3 (140-440); RED BLOOD COUNT 3.86 X10'6 (4.70-6.10); RED CELL DISTRIBUTION WIDTH 16.7 % (11.5-14.5); WHITE BLOOD COUNT 12.4 X10'3 (4.5-11.0)
[2022-03-13 06:38] LABS: ALBUMIN 3.4 G/DL (3.4-5.0); ANION GAP 8 (8-16); BLOOD UREA NITROGEN 43 MG/DL (7-18); BUN/CREATININE RATIO 4.9 (5.4-32.0); CALCIUM 10.1 MG/DL (8.5-10.1); CHLORIDE 94 MMOL/L (99-107); CREATININE 8.79 MG/DL (0.60-1.10); GLUCOSE 175 MG/DL (70-104); MAGNESIUM 2.3 MG/DL (1.5-2.4); PHOSPHORUS 4.6 MG/DL (2.3-4.5); POTASSIUM 5.3 MMOL/L (3.5-5.1); SODIUM 133 MMOL/L (135-145); TOTAL CARBON DIOXIDE 31.3 MMOL/L (24-32); eGFR 7 ML/MIN
[2022-03-13] MEDS: K and/or MAG REPLACEMENT MC SCH ×2 (07:36→20:00)
[2022-03-13] MEDS: pantoprazole 40mg Tablet.DR PO SCH (07:55)
[2022-03-13] MEDS: apixaban 5mg tablet PO SCH ×2 (07:55→19:11)
[2022-03-13] MEDS: furosemide 20MG tablet PO SCH (07:55)
[2022-03-13] MEDS: metoprolol tartrate 50mg tablet PO SCH ×2 (07:55→20:00)
[2022-03-13] MEDS: FERRIC CITRATE 210 MG PO SCH ×3 (07:56→21:00)
[2022-03-13] MEDS: sildenafil citrate 20mg tablet PO SCH ×3 (07:57→19:11)
[2022-03-13] MEDS: midodrine 5mg tablet PO SCH ×3 (07:57→19:15)
[2022-03-13] MEDS: sevelamer carbonate 800mg tablet PO SCH ×2 (07:57→13:00)
[2022-03-13] MEDS: lisinopril 20mg tablet PO SCH ×2 (07:58→20:00)
[2022-03-13] MEDS: insulin Lispro (HumaLOG) vial - multi-dose SQ SCH ×2 (08:29→13:32)
[2022-03-13 11:10] VITALS: BP 110/66
[2022-03-13] MEDS: ondansetron/PF 4mg/2ml inj IV PRN (12:09)
--- NOTE | 2022-03-13 14:16 | NUR ---
Problems reprioritized. Patient report given, questions answered & plan of care reviewed with Khushboo.
[2022-03-13 18:00] VITALS: BP 101/50
--- NOTE | 2022-03-13 18:39 | NUR ---
Problems reprioritized. Patient report given, questions answered & plan of care reviewed with gerardo holguin.
[2022-03-13 19:07] VITALS: BP 90/49
[2022-03-13] MEDS: atorvastatin 20mg tablet PO SCH (19:10)
[2022-03-13] MEDS: gabapentin 100mg capsule PO SCH (19:11)
[2022-03-13] MEDS: insulin glargine (Lantus) pen - multi-dose SQ SCH (21:35)
[2022-03-13 22:00] VITALS: BP 97/57
[2022-03-14 02:00] VITALS: BP 94/51
[2022-03-14 06:30] VITALS: BP 130/67
--- NOTE | 2022-03-14 06:39 | NUR ---
Patient in room PCU 3023. I have received report from Anny and had the opportunity to ask questions and assume patient care.
[2022-03-14 06:53] LABS: BASOPHILS # (AUTO) 0.1 X10'3 (0-0.2); BASOPHILS % (AUTO) 1.2 % (0-1); EOSINOPHILS # (AUTO) 0.1 X10'3 (0-0.9); EOSINOPHILS % (AUTO) 1.1 % (0-6); HEMATOCRIT 30.5 % (42.0-52.0); HEMOGLOBIN 10.2 g/dl (14.0-17.9); LYMPHOCYTES % (AUTO) 18.7 % (21-51); MEAN CORPUSCULAR HEMOGLOBIN 29.2 PG (27.0-31.0); MEAN CORPUSCULAR HGB CONC 33.3 g/dL (33.0-36.5); MEAN CORPUSCULAR VOLUME 87.7 FL (78-98); MEAN PLATELET VOLUME 7.5 FL (7.4-10.4); MONOCYTES # (AUTO) 0.8 X10'3 (0-0.9); MONOCYTES % (AUTO) 8.2 % (2-12); NEUTROPHILS # (AUTO) 7.4 X10'3 (1.8-7.7); NEUTROPHILS % (AUTO) 70.8 % (42-75); PLATELET COUNT 442 X10'3 (140-440); RED BLOOD COUNT 3.48 X10'6 (4.70-6.10); RED CELL DISTRIBUTION WIDTH 16.5 % (11.5-14.5); WHITE BLOOD COUNT 10.4 X10'3 (4.5-11.0)
[2022-03-14 06:58] LABS: ALBUMIN 3.2 G/DL (3.4-5.0); ANION GAP 12 (8-16); BLOOD UREA NITROGEN 55 MG/DL (7-18); CALCIUM 10.2 MG/DL (8.5-10.1); CHLORIDE 93 MMOL/L (99-107); CREATININE 11.07 MG/DL (0.60-1.10); GLUCOSE 108 MG/DL (70-104); MAGNESIUM 2.1 MG/DL (1.5-2.4); PHOSPHORUS 6.3 MG/DL (2.3-4.5); POTASSIUM 5.5 MMOL/L (3.5-5.1); SODIUM 133 MMOL/L (135-145); TOTAL CARBON DIOXIDE 28.5 MMOL/L (24-32); eGFR 5 ML/MIN
[2022-03-14] MEDS: K and/or MAG REPLACEMENT MC SCH ×2 (07:45→20:00)
[2022-03-14] MEDS: FERRIC CITRATE 210 MG PO SCH ×3 (07:45→21:00)
[2022-03-14] MEDS: pantoprazole 40mg Tablet.DR PO SCH (07:52)
[2022-03-14] MEDS: apixaban 5mg tablet PO SCH ×2 (07:52→19:59)
[2022-03-14] MEDS: metoprolol tartrate 50mg tablet PO SCH ×2 (07:54→21:24)
[2022-03-14] MEDS: midodrine 5mg tablet PO SCH ×3 (07:55→21:27)
[2022-03-14] MEDS: sevelamer carbonate 800mg tablet PO SCH ×3 (07:56→17:36)
[2022-03-14] MEDS: sildenafil citrate 20mg tablet PO SCH ×3 (07:56→21:26)
[2022-03-14] MEDS: lisinopril 20mg tablet PO SCH ×2 (07:56→20:00)
[2022-03-14] MEDS: furosemide 20MG tablet PO SCH (07:57)
[2022-03-14] MEDS ORDERED: EPOETIN ALFA-EPBX 20,000 UNIT/ML 1 ML MDV IV ONE (08:00)
[2022-03-14] MEDS ORDERED: albumin (human) 25% 100ml IV 100 ML IV PRN (08:00)
[2022-03-14] MEDS: insulin Lispro (HumaLOG) vial - multi-dose SQ SCH ×3 (08:39→19:55)
[2022-03-14] MEDS: HYDROcodone/acetaminophen 10/325mg tab PO PRN ×2 (08:41→17:36)
--- NOTE | 2022-03-14 08:43 | NUR ---
Student Medication Administration: For this medication-pass time frame, all medication were reviewed, dispensed, administered and documented per hospital policy by student. Insulin administration performed/given by student, transmitter engineer in charge provided co-signature and insulin was calculated/dosage reviewed by primary RN.
[2022-03-14 10:05] VITALS: BP 102/59
--- NOTE | 2022-03-14 10:36 | NUR ---
Student documentation: I have reviewed and agree with all interventions, assessments performed and documented by student.
[2022-03-14] MEDS ORDERED: heparin 1,000 units/ml 10ml inj IV ONE (11:15)
[2022-03-14] MEDS ORDERED: heparin 1,000unit/ml 10ml vial 10 ML IV ONE (11:15)
[2022-03-14] MEDS ORDERED: heparin 1,000 units/ml 10ml inj HE ONE ×2 (11:20)
[2022-03-14 14:26] VITALS: BP 90/50
--- NOTE | 2022-03-14 14:26 | NUR ---
Low BP due to dialysis. BP 90/50
[2022-03-14 18:00] VITALS: BP 88/47
--- NOTE | 2022-03-14 18:08 | NUR ---
Problems reprioritized. Patient report given, questions answered & plan of care reviewed with Kira.
--- NOTE | 2022-03-14 18:20 | NUR ---
Patient in room PCU 3023. I have received report from Erika MACKAY and had the opportunity to ask questions and assume patient care.
[2022-03-14] MEDS: ondansetron/PF 4mg/2ml inj IV PRN (19:56)
--- NOTE | 2022-03-14 20:54 | NUR ---
Page Sent PAGER ID: [phone] MESSAGE: [id number] - Mikael Tse: Pt BP is 88/63 and HR is 90. Should we still give pt 40mg of Lisinopril and 100 mg of Lopressor? Thank you Kira VU ext [phone]
[2022-03-14] MEDS: gabapentin 100mg capsule PO SCH (21:26)
[2022-03-14] MEDS: atorvastatin 20mg tablet PO SCH (21:27)
[2022-03-14] MEDS: insulin glargine (Lantus) pen - multi-dose SQ SCH (21:35)
[2022-03-14 22:00] VITALS: BP 102/33
[2022-03-15] MEDS: HYDROcodone/acetaminophen 10/325mg tab PO PRN ×3 (00:36→17:29)
--- NOTE | 2022-03-15 01:14 | NUR ---
Student documentation: I have reviewed and agree with all interventions, assessments performed and documented by Elder Bernal except where I documented my findings.
--- NOTE | 2022-03-15 01:18 | NUR ---
Student Medication Administration: For this medication-pass time frame, all medication were reviewed, dispensed, administered and documented per hospital policy by Elder Bernal.
[2022-03-15 06:00] VITALS: BP 117/71
--- NOTE | 2022-03-15 06:42 | NUR ---
Problems reprioritized. Patient report given, questions answered & plan of care reviewed with Suzy MACKAY.
[2022-03-15] MEDS: apixaban 5mg tablet PO SCH ×2 (07:55→20:23)
[2022-03-15] MEDS: furosemide 20MG tablet PO SCH (07:55)
[2022-03-15] MEDS: midodrine 5mg tablet PO SCH ×3 (07:55→20:23)
[2022-03-15] MEDS: pantoprazole 40mg Tablet.DR PO SCH (07:55)
[2022-03-15] MEDS: sildenafil citrate 20mg tablet PO SCH ×3 (07:56→20:25)
[2022-03-15] MEDS: sevelamer carbonate 800mg tablet PO SCH ×3 (07:56→17:13)
[2022-03-15] MEDS: metoprolol tartrate 50mg tablet PO SCH ×2 (07:57→20:00)
[2022-03-15] MEDS: lisinopril 20mg tablet PO SCH ×2 (07:57→20:00)
[2022-03-15] MEDS: K and/or MAG REPLACEMENT MC SCH ×2 (08:00→20:00)
[2022-03-15] MEDS: ferrous sulfate 325mg tablet PO SCH (08:44)
[2022-03-15] MEDS: insulin Lispro (HumaLOG) vial - multi-dose SQ SCH ×3 (08:48→18:55)
[2022-03-15 10:30] VITALS: BP 103/49
--- NOTE | 2022-03-15 11:20 | NUR ---
PAGER ID: [phone] MESSAGE: [id number] NOZA reordered. tech this am was rough. He requested someone else to draw. Just letting you know. Suzy [phone]
[2022-03-15 11:42] LABS: BASOPHILS # (AUTO) 0.1 X10'3 (0-0.2); BASOPHILS % (AUTO) 1.1 % (0-1); EOSINOPHILS # (AUTO) 0.2 X10'3 (0-0.9); EOSINOPHILS % (AUTO) 2.3 % (0-6); HEMATOCRIT 30.7 % (42.0-52.0); HEMOGLOBIN 10.1 g/dl (14.0-17.9); LYMPHOCYTES # (AUTO) 1.9 X10'3 (1.1-4.8); LYMPHOCYTES % (AUTO) 18.4 % (21-51); MEAN CORPUSCULAR HEMOGLOBIN 28.9 PG (27.0-31.0); MEAN CORPUSCULAR HGB CONC 32.9 g/dL (33.0-36.5); MEAN PLATELET VOLUME 7.6 FL (7.4-10.4); MONOCYTES # (AUTO) 1.1 X10'3 (0-0.9); MONOCYTES % (AUTO) 10.1 % (2-12); NEUTROPHILS # (AUTO) 7.1 X10'3 (1.8-7.7); NEUTROPHILS % (AUTO) 68.1 % (42-75); PLATELET COUNT 419 X10'3 (140-440); RED BLOOD COUNT 3.48 X10'6 (4.70-6.10); RED CELL DISTRIBUTION WIDTH 16.9 % (11.5-14.5); WHITE BLOOD COUNT 10.4 X10'3 (4.5-11.0)
[2022-03-15 11:46] LABS: ALBUMIN 3.2 G/DL (3.4-5.0); ANION GAP 7 (8-16); BLOOD UREA NITROGEN 39 MG/DL (7-18); BUN/CREATININE RATIO 4.4 (5.4-32.0); CHLORIDE 95 MMOL/L (99-107); CREATININE 8.94 MG/DL (0.60-1.10); GLUCOSE 136 MG/DL (70-104); MAGNESIUM 2.2 MG/DL (1.5-2.4); PHOSPHORUS 4.8 MG/DL (2.3-4.5); POTASSIUM 4.9 MMOL/L (3.5-5.1); SODIUM 131 MMOL/L (135-145); eGFR 7 ML/MIN
--- NOTE | 2022-03-15 15:10 | NUR ---
Dr Barrett notified patient insists she is going home today even if its AMA . Explained to patient Dr will not be dc her and not writing rx for antibiotics. She states she doesnt care, she will just get it from her Dr. Patient got herself dressed and packed belongings.
[2022-03-15 15:20] VITALS: BP 85/46
--- NOTE | 2022-03-15 17:20 | NUR ---
Report to Danette MACKAY
[2022-03-15 18:00] VITALS: BP 98/45
[2022-03-15] MEDS: atorvastatin 20mg tablet PO SCH (20:25)
[2022-03-15] MEDS: gabapentin 100mg capsule PO SCH (20:25)
[2022-03-15] MEDS: ondansetron/PF 4mg/2ml inj IV PRN (21:43)
[2022-03-15] MEDS: insulin glargine (Lantus) pen - multi-dose SQ SCH (21:47)
[2022-03-16 02:00] VITALS: BP 107/53
--- NOTE | 2022-03-16 06:18 | NUR ---
Problems reprioritized. Patient report given, questions answered & plan of care reviewed with THOMPSON Johnson.
[2022-03-16 07:00] VITALS: BP 90/50
[2022-03-16 07:34] LABS: BASOPHILS # (AUTO) 0.1 X10'3 (0-0.2); BASOPHILS % (AUTO) 1.2 % (0-1); EOSINOPHILS # (AUTO) 0.2 X10'3 (0-0.9); EOSINOPHILS % (AUTO) 2.4 % (0-6); HEMATOCRIT 31.8 % (42.0-52.0); HEMOGLOBIN 10.3 g/dl (14.0-17.9); MEAN CORPUSCULAR HEMOGLOBIN 28.3 PG (27.0-31.0); MEAN CORPUSCULAR HGB CONC 32.3 g/dL (33.0-36.5); MEAN CORPUSCULAR VOLUME 87.5 FL (78-98); MEAN PLATELET VOLUME 7.7 FL (7.4-10.4); MONOCYTES # (AUTO) 0.9 X10'3 (0-0.9); MONOCYTES % (AUTO) 8.7 % (2-12); NEUTROPHILS # (AUTO) 6.5 X10'3 (1.8-7.7); NEUTROPHILS % (AUTO) 66.7 % (42-75); PLATELET COUNT 456 X10'3 (140-440); RED BLOOD COUNT 3.64 X10'6 (4.70-6.10); RED CELL DISTRIBUTION WIDTH 17.4 % (11.5-14.5); WHITE BLOOD COUNT 9.8 X10'3 (4.5-11.0)
[2022-03-16] MEDS: HYDROcodone/acetaminophen 10/325mg tab PO PRN (07:38)
[2022-03-16] MEDS: midodrine 5mg tablet PO SCH ×3 (07:40→20:32)
[2022-03-16] MEDS: sildenafil citrate 20mg tablet PO SCH ×3 (07:40→20:34)
[2022-03-16] MEDS: sevelamer carbonate 800mg tablet PO SCH ×3 (07:40→17:10)
[2022-03-16] MEDS: ferrous sulfate 325mg tablet PO SCH (07:41)
[2022-03-16] MEDS: metoprolol tartrate 50mg tablet PO SCH ×2 (07:41→20:35)
[2022-03-16] MEDS: apixaban 5mg tablet PO SCH ×2 (07:41→20:33)
[2022-03-16] MEDS: furosemide 20MG tablet PO SCH (07:41)
[2022-03-16] MEDS: pantoprazole 40mg Tablet.DR PO SCH (07:41)
[2022-03-16] MEDS: lisinopril 20mg tablet PO SCH ×2 (07:42→20:33)
[2022-03-16] MEDS: K and/or MAG REPLACEMENT MC SCH ×2 (08:00→19:07)
[2022-03-16 08:06] LABS: ALBUMIN 3.3 G/DL (3.4-5.0); ANION GAP 12 (8-16); BLOOD UREA NITROGEN 52 MG/DL (7-18); BUN/CREATININE RATIO 4.7 (5.4-32.0); CALCIUM 10.5 MG/DL (8.5-10.1); CHLORIDE 93 MMOL/L (99-107); CREATININE 11.11 MG/DL (0.60-1.10); GLUCOSE 96 MG/DL (70-104); MAGNESIUM 2.2 MG/DL (1.5-2.4); POTASSIUM 5.4 MMOL/L (3.5-5.1); SODIUM 132 MMOL/L (135-145); eGFR 5 ML/MIN
[2022-03-16 11:00] VITALS: BP 94/48
[2022-03-16 15:00] VITALS: BP 103/51
[2022-03-16] MEDS: insulin Lispro (HumaLOG) vial - multi-dose SQ SCH (17:50)
[2022-03-16 18:00] VITALS: BP 114/68
[2022-03-16] MEDS: gabapentin 100mg capsule PO SCH (20:31)
[2022-03-16] MEDS: atorvastatin 20mg tablet PO SCH (20:31)
[2022-03-16 21:00] VITALS: BP 123/70
[2022-03-16] MEDS: insulin glargine (Lantus) pen - multi-dose SQ SCH (21:32)
[2022-03-17 02:00] VITALS: BP 121/64
[2022-03-17 06:57] LABS: BASOPHILS # (AUTO) 0.1 X10'3 (0-0.2); BASOPHILS % (AUTO) 1.1 % (0-1); EOSINOPHILS # (AUTO) 0.3 X10'3 (0-0.9); EOSINOPHILS % (AUTO) 2.5 % (0-6); HEMATOCRIT 32.7 % (42.0-52.0); HEMOGLOBIN 10.6 g/dl (14.0-17.9); LYMPHOCYTES # (AUTO) 1.5 X10'3 (1.1-4.8); LYMPHOCYTES % (AUTO) 14.2 % (21-51); MEAN CORPUSCULAR HEMOGLOBIN 28.6 PG (27.0-31.0); MEAN CORPUSCULAR HGB CONC 32.4 g/dL (33.0-36.5); MEAN CORPUSCULAR VOLUME 88.1 FL (78-98); MEAN PLATELET VOLUME 7.9 FL (7.4-10.4); MONOCYTES # (AUTO) 0.8 X10'3 (0-0.9); MONOCYTES % (AUTO) 7.3 % (2-12); NEUTROPHILS # (AUTO) 7.9 X10'3 (1.8-7.7); NEUTROPHILS % (AUTO) 74.9 % (42-75); PLATELET COUNT 471 X10'3 (140-440); RED BLOOD COUNT 3.71 X10'6 (4.70-6.10); WHITE BLOOD COUNT 10.5 X10'3 (4.5-11.0)
[2022-03-17 07:00] VITALS: BP 130/83
[2022-03-17 07:31] LABS: ALBUMIN 3.3 G/DL (3.4-5.0); ANION GAP 13 (8-16); BLOOD UREA NITROGEN 70 MG/DL (7-18); BUN/CREATININE RATIO 5.1 (5.4-32.0); CALCIUM 10.3 MG/DL (8.5-10.1); CHLORIDE 92 MMOL/L (99-107); CREATININE 13.64 MG/DL (0.60-1.10); GLUCOSE 158 MG/DL (70-104); MAGNESIUM 2.3 MG/DL (1.5-2.4); PHOSPHORUS 6.1 MG/DL (2.3-4.5); SODIUM 132 MMOL/L (135-145); TOTAL CARBON DIOXIDE 27.5 MMOL/L (24-32); eGFR 4 ML/MIN
[2022-03-17] MEDS: pantoprazole 40mg Tablet.DR PO SCH (07:48)
[2022-03-17] MEDS: midodrine 5mg tablet PO SCH ×4 (07:48→22:20)
[2022-03-17] MEDS: sevelamer carbonate 800mg tablet PO SCH ×3 (07:52→17:36)
[2022-03-17] MEDS: HYDROcodone/acetaminophen 10/325mg tab PO PRN ×2 (07:53→17:39)
[2022-03-17] MEDS: lisinopril 20mg tablet PO SCH ×2 (07:53→22:18)
[2022-03-17] MEDS: furosemide 20MG tablet PO SCH (07:54)
[2022-03-17] MEDS: sildenafil citrate 20mg tablet PO SCH ×3 (07:54→22:18)
[2022-03-17] MEDS: ferrous sulfate 325mg tablet PO SCH (07:54)
[2022-03-17] MEDS: metoprolol tartrate 50mg tablet PO SCH ×2 (07:55→22:17)
[2022-03-17] MEDS ORDERED: heparin 1,000 units/ml 10ml inj HE ONE ×2 (08:00→11:55)
[2022-03-17] MEDS: K and/or MAG REPLACEMENT MC SCH ×2 (08:00→19:09)
[2022-03-17] MEDS ORDERED: EPOETIN ALFA-EPBX 20,000 UNIT/ML 1 ML MDV IV ONE (08:00)
[2022-03-17] MEDS ORDERED: heparin 1,000 units/ml 10ml inj IV ONE (08:00)
--- NOTE | 2022-03-17 08:41 | NUR ---
Reassessment: Pt continues on Renal diet, no longer on fluid restriction. Pt w/ similar PO intake, avg 80% of meals partially meeting needs. ONS remains unverified though pt can still benefit from them. Continues on HD, last treatment 03/14 w/ 2L out per documentation. LBM 03/14. Will continue to monitor. Recs: 1. Continue Renal diet as tolerated 2. Nepro BIDBD; pending MD verification 3. Routine bowel care 4. Routine Phos check if MD agreeable as pt on HD; Phos binder w/ meals on HD 5. Scaled wts w/ HD Addendum: 03/17/22 at [address] Amended: Links added.
[2022-03-17] MEDS: apixaban 5mg tablet PO SCH ×2 (08:44→22:19)
[2022-03-17 10:55] VITALS: BP 145/75
[2022-03-17] MEDS ORDERED: heparin 1,000unit/ml 10ml vial 10 ML IV ONE (11:50)
[2022-03-17] MEDS: calcium acetate 667mg (PhosLO) capsule PO SCH ×2 (13:01→17:36)
[2022-03-17] MEDS: insulin Lispro (HumaLOG) vial - multi-dose SQ SCH ×2 (14:06→18:56)
[2022-03-17 15:00] VITALS: BP 110/64
[2022-03-17] MEDS: calcium carbonate 500mg chew tablet PO SCH (17:36)
[2022-03-17 18:00] VITALS: BP 97/61
[2022-03-17 22:00] VITALS: BP 112/60
[2022-03-17] MEDS: ondansetron/PF 4mg/2ml inj IV PRN (22:00)
[2022-03-17] MEDS: atorvastatin 20mg tablet PO SCH (22:19)
[2022-03-17] MEDS: insulin glargine (Lantus) pen - multi-dose SQ SCH (22:26)
[2022-03-18 02:00] VITALS: BP 125/61
[2022-03-18] MEDS ORDERED: calcium carbonate 500mg chew tablet PO PRN (02:20)
[2022-03-18 06:00] VITALS: BP 108/65
[2022-03-18 06:58] LABS: BASOPHILS # (AUTO) 0.1 X10'3 (0-0.2); BASOPHILS % (AUTO) 1.2 % (0-1); EOSINOPHILS # (AUTO) 0.2 X10'3 (0-0.9); EOSINOPHILS % (AUTO) 2.2 % (0-6); HEMATOCRIT 33.3 % (42.0-52.0); HEMOGLOBIN 11.1 g/dl (14.0-17.9); LYMPHOCYTES # (AUTO) 1.3 X10'3 (1.1-4.8); LYMPHOCYTES % (AUTO) 12.7 % (21-51); MEAN CORPUSCULAR HEMOGLOBIN 29.1 PG (27.0-31.0); MEAN CORPUSCULAR HGB CONC 33.2 g/dL (33.0-36.5); MEAN CORPUSCULAR VOLUME 87.5 FL (78-98); MEAN PLATELET VOLUME 7.8 FL (7.4-10.4); MONOCYTES # (AUTO) 0.7 X10'3 (0-0.9); MONOCYTES % (AUTO) 6.7 % (2-12); NEUTROPHILS # (AUTO) 7.9 X10'3 (1.8-7.7); NEUTROPHILS % (AUTO) 77.2 % (42-75); PLATELET COUNT 503 X10'3 (140-440); RED BLOOD COUNT 3.81 X10'6 (4.70-6.10); RED CELL DISTRIBUTION WIDTH 16.8 % (11.5-14.5); WHITE BLOOD COUNT 10.3 X10'3 (4.5-11.0)
[2022-03-18 07:07] LABS: ALBUMIN 3.2 G/DL (3.4-5.0); ANION GAP 8 (8-16); BLOOD UREA NITROGEN 36 MG/DL (7-18); BUN/CREATININE RATIO 3.9 (5.4-32.0); CALCIUM 10.5 MG/DL (8.5-10.1); CHLORIDE 95 MMOL/L (99-107); CREATININE 9.25 MG/DL (0.60-1.10); GLUCOSE 157 MG/DL (70-104); MAGNESIUM 2.2 MG/DL (1.5-2.4); PHOSPHORUS 4.5 MG/DL (2.3-4.5); POTASSIUM 5.6 MMOL/L (3.5-5.1); SODIUM 133 MMOL/L (135-145); TOTAL CARBON DIOXIDE 30.5 MMOL/L (24-32); eGFR 6 ML/MIN
[2022-03-18] MEDS: NUT.TX.IMP.RENAL FXN,LAC-REDUC (Nepro) 237 ML VANILLA PO SCH (07:30)
[2022-03-18] MEDS: pantoprazole 40mg Tablet.DR PO SCH (07:30)
[2022-03-18] MEDS: K and/or MAG REPLACEMENT MC SCH ×2 (08:00→20:00)
[2022-03-18] MEDS: metoprolol tartrate 50mg tablet PO SCH ×2 (08:14→21:01)
[2022-03-18] MEDS: calcium acetate 667mg (PhosLO) capsule PO SCH ×2 (08:15→13:00)
[2022-03-18] MEDS: calcium carbonate 500mg chew tablet PO SCH ×3 (08:15→18:11)
[2022-03-18] MEDS: apixaban 5mg tablet PO SCH ×2 (08:15→21:01)
[2022-03-18] MEDS: lisinopril 20mg tablet PO SCH ×2 (08:16→21:02)
[2022-03-18] MEDS: furosemide 20MG tablet PO SCH (08:17)
[2022-03-18] MEDS: ferrous sulfate 325mg tablet PO SCH (08:17)
[2022-03-18] MEDS: HYDROcodone/acetaminophen 10/325mg tab PO PRN ×2 (09:31→18:10)
[2022-03-18 10:00] VITALS: BP 125/61
[2022-03-18] MEDS: sildenafil citrate 20mg tablet PO SCH ×2 (12:30→23:41)
[2022-03-18] MEDS: sevelamer carbonate 800mg tablet PO SCH (14:55)
[2022-03-18 18:00] VITALS: BP 133/73
[2022-03-18] MEDS: insulin Lispro (HumaLOG) vial - multi-dose SQ SCH (19:51)
[2022-03-18] MEDS: gabapentin 100mg capsule PO SCH (20:59)
[2022-03-18] MEDS: atorvastatin 20mg tablet PO SCH (20:59)
[2022-03-18] MEDS: midodrine 5mg tablet PO SCH (21:00)
[2022-03-18 22:00] VITALS: BP 121/69
[2022-03-18] MEDS: insulin glargine (Lantus) pen - multi-dose SQ SCH (22:42)
[2022-03-19 02:00] VITALS: BP 111/70
[2022-03-19 06:00] VITALS: BP 116/84
--- NOTE | 2022-03-19 06:48 | NUR ---
Patient in room PCU 3023. I have received report from Elizabeth MACKAY and had the opportunity to ask questions and assume patient care.
[2022-03-19] MEDS: K and/or MAG REPLACEMENT MC SCH ×2 (08:00→20:00)
[2022-03-19] MEDS: sildenafil citrate 20mg tablet PO SCH ×4 (09:10→20:16)
[2022-03-19] MEDS: sevelamer carbonate 800mg tablet PO SCH ×2 (09:12→09:13)
[2022-03-19] MEDS: calcium acetate 667mg (PhosLO) capsule PO SCH (09:13)
--- NOTE | 2022-03-19 09:14 | NUR ---
On eMAR it appeared that some medication were not given yesterday 03/18/22. Please see eMAR regarding non-dmined meds for the date 03/18/22.
[2022-03-19] MEDS: apixaban 5mg tablet PO SCH ×2 (09:20→20:15)
[2022-03-19] MEDS: ferrous sulfate 325mg tablet PO SCH (09:21)
[2022-03-19] MEDS: furosemide 20MG tablet PO SCH (09:21)
[2022-03-19] MEDS: midodrine 5mg tablet PO SCH ×3 (09:22→20:15)
[2022-03-19] MEDS: pantoprazole 40mg Tablet.DR PO SCH (09:22)
[2022-03-19] MEDS: lisinopril 20mg tablet PO SCH ×2 (09:22→20:15)
[2022-03-19] MEDS: metoprolol tartrate 50mg tablet PO SCH ×2 (09:22→20:15)
[2022-03-19] MEDS: calcium carbonate 500mg chew tablet PO SCH ×3 (09:23→18:07)
--- NOTE | 2022-03-19 09:29 | NUR ---
Pt. 323B did not cover morning blood glucose due to pt. blood sugar being 73, therefore pt. not canidate for insulin at time. Will check blood sugar around noon.
[2022-03-19 10:00] VITALS: BP 137/79
[2022-03-19] MEDS ORDERED: heparin 1,000unit/ml 10ml vial 10 ML IV ONE (10:50)
[2022-03-19] MEDS ORDERED: heparin 1,000 units/ml 10ml inj HE ONE ×2 (10:50)
--- NOTE | 2022-03-19 11:46 | NUR ---
PAGER ID: [phone] MESSAGE: [phone] Latia Lowry. [id number] [facility] [employer] management would like an order for a Covid-19 swab. Please and thank you!
[2022-03-19 12:29] LABS: BASOPHILS # (AUTO) 0.1 X10'3 (0-0.2); BASOPHILS % (AUTO) 1.2 % (0-1); EOSINOPHILS # (AUTO) 0.3 X10'3 (0-0.9); EOSINOPHILS % (AUTO) 2.6 % (0-6); HEMATOCRIT 31.2 % (42.0-52.0); HEMOGLOBIN 10.1 g/dl (14.0-17.9); LYMPHOCYTES # (AUTO) 1.3 X10'3 (1.1-4.8); LYMPHOCYTES % (AUTO) 12.8 % (21-51); MEAN CORPUSCULAR HEMOGLOBIN 28.1 PG (27.0-31.0); MEAN CORPUSCULAR HGB CONC 32.4 g/dL (33.0-36.5); MEAN CORPUSCULAR VOLUME 86.7 FL (78-98); MEAN PLATELET VOLUME 7.7 FL (7.4-10.4); MONOCYTES # (AUTO) 0.7 X10'3 (0-0.9); MONOCYTES % (AUTO) 6.7 % (2-12); NEUTROPHILS # (AUTO) 7.7 X10'3 (1.8-7.7); NEUTROPHILS % (AUTO) 76.7 % (42-75); PLATELET COUNT 489 X10'3 (140-440); RED CELL DISTRIBUTION WIDTH 16.7 % (11.5-14.5)
[2022-03-19 12:34] LABS: ALBUMIN 3.1 G/DL (3.4-5.0); ANION GAP 8 (8-16); BLOOD UREA NITROGEN 54 MG/DL (7-18); BUN/CREATININE RATIO 4.5 (5.4-32.0); CALCIUM 10.2 MG/DL (8.5-10.1); CHLORIDE 93 MMOL/L (99-107); CREATININE 11.92 MG/DL (0.60-1.10); GLUCOSE 160 MG/DL (70-104); POTASSIUM 5.6 MMOL/L (3.5-5.1); SODIUM 130 MMOL/L (135-145); TOTAL CARBON DIOXIDE 28.6 MMOL/L (24-32); eGFR 5 ML/MIN
[2022-03-19] MEDS: ondansetron/PF 4mg/2ml inj IV PRN (12:37)
[2022-03-19 15:00] VITALS: BP_SYST 104; BP_SYST 120; BP_DIAS 73; BP_DIAS 78
--- NOTE | 2022-03-19 17:52 | NUR ---
Pt. did not recieve lunch tray due to dialysis.
[2022-03-19 18:00] VITALS: BP 115/83
--- NOTE | 2022-03-19 18:15 | NUR ---
Problems reprioritized. Patient report given, questions answered & plan of care reviewed with Elizabeth MACKAY..
[2022-03-19] MEDS: HYDROcodone/acetaminophen 10/325mg tab PO PRN (18:59)
[2022-03-19] MEDS: atorvastatin 20mg tablet PO SCH (20:16)
[2022-03-19] MEDS: insulin glargine (Lantus) pen - multi-dose SQ SCH (21:30)
[2022-03-19 22:00] VITALS: BP 93/54
[2022-03-20] MEDS: ondansetron/PF 4mg/2ml inj IV PRN (00:38)
[2022-03-20 02:00] VITALS: BP 98/51
[2022-03-20 07:00] VITALS: BP 88/40
--- NOTE | 2022-03-20 07:12 | NUR ---
Patient in room PCU 3023. I have received report from Elizabeth MACKAY and had the opportunity to ask questions and assume patient care. Patient resting in bed with eyes closed no s/s of distress noted at this time. Call light is in reach and bed is in lowest position.
[2022-03-20] MEDS: NUT.TX.IMP.RENAL FXN,LAC-REDUC (Nepro) 237 ML VANILLA PO SCH (07:30)
[2022-03-20] MEDS: furosemide 20MG tablet PO SCH (07:49)
[2022-03-20] MEDS: sevelamer carbonate 800mg tablet PO SCH ×4 (07:49→17:54)
[2022-03-20] MEDS: midodrine 5mg tablet PO SCH ×3 (07:50→21:33)
[2022-03-20] MEDS: calcium acetate 667mg (PhosLO) capsule PO SCH ×4 (07:50→17:54)
[2022-03-20] MEDS: pantoprazole 40mg Tablet.DR PO SCH (07:50)
[2022-03-20] MEDS: ferrous sulfate 325mg tablet PO SCH (07:50)
[2022-03-20] MEDS: apixaban 5mg tablet PO SCH ×2 (07:50→21:14)
[2022-03-20] MEDS: sildenafil citrate 20mg tablet PO SCH ×3 (07:50→21:33)
[2022-03-20] MEDS: calcium carbonate 500mg chew tablet PO SCH ×3 (07:50→17:54)
[2022-03-20] MEDS: HYDROcodone/acetaminophen 10/325mg tab PO PRN ×2 (07:58→17:54)
[2022-03-20] MEDS: metoprolol tartrate 50mg tablet PO SCH ×2 (08:00→20:00)
[2022-03-20] MEDS: K and/or MAG REPLACEMENT MC SCH ×2 (08:00→20:00)
[2022-03-20] MEDS: lisinopril 20mg tablet PO SCH ×2 (08:00→20:00)
[2022-03-20 12:32] VITALS: BP 69/37
--- NOTE | 2022-03-20 12:38 | NUR ---
PAGER ID: [phone] MESSAGE: [id number] Mikael Tse Pts BP 69/37. BP this morning was 88/40. Pt asymptomatic. Thank you Sariah VU.
[2022-03-20] MEDS: normal saline 500ml IV soln 500 ML IV SCH ×2 (12:54→13:20)
[2022-03-20] MEDS: insulin Lispro (HumaLOG) vial - multi-dose SQ SCH ×2 (13:21→19:49)
--- NOTE | 2022-03-20 14:23 | NUR ---
PAGER ID: [phone] MESSAGE: [id number] Mikael Tse Pts BP 74/42 after bolus and scheduled midodrine. Thank you Sariah VU
--- NOTE | 2022-03-20 14:26 | NUR ---
MD called and ordered Dopamine protocol.
[2022-03-20] MEDS ORDERED: DOPamine 400mg/D5W 250ml 250 ML IV SCH (14:46)
--- NOTE | 2022-03-20 14:47 | NUR ---
PICC nurse paged for new IV.
--- NOTE | 2022-03-20 14:50 | NUR ---
[facility] nurse requested nurse ask MD Jhaveri about where is acceptable to place PIV. Left message for to call back. [facility] nurse placed new PIV 20 G in RW. Addendum: 03/20/22 at 1742 by JAIDA VASQUEZ LVN 1600 called and talked to More MACKAY new orders in.
--- NOTE | 2022-03-20 15:51 | NUR ---
PAGER ID: [phone] MESSAGE: [id number] Mikael Tse IV went bad. New one placed. BP L calf 129/85, SYDNI 88/57, R calf 108/61. We haven't started Dopamine yet. Thank you Sariah VU.
[2022-03-20 17:15] VITALS: BP 99/54
[2022-03-20 18:00] VITALS: BP 86/37
--- NOTE | 2022-03-20 18:38 | NUR ---
Problems reprioritized. Patient report given to Donavon MACKAY, questions answered & plan of care reviewed with .
[2022-03-20] MEDS: atorvastatin 20mg tablet PO SCH (21:33)
[2022-03-20] MEDS: gabapentin 100mg capsule PO SCH (21:33)
[2022-03-20] MEDS: insulin glargine (Lantus) pen - multi-dose SQ SCH (21:41)
[2022-03-20 22:00] VITALS: BP 116/71
[2022-03-21 02:00] VITALS: BP 107/68
[2022-03-21 06:00] VITALS: BP 103/52
--- NOTE | 2022-03-21 06:28 | NUR ---
Patient in room PCU 3023. I have received report from Donavon and had the opportunity to ask questions and assume patient care.
--- NOTE | 2022-03-21 06:41 | NUR ---
Patient in room PCU 3023. I have received report from Donavon MACKAY and had the opportunity to ask questions and assume patient care.
[2022-03-21] MEDS: NUT.TX.IMP.RENAL FXN,LAC-REDUC (Nepro) 237 ML VANILLA PO SCH (07:30)
[2022-03-21] MEDS: ferrous sulfate 325mg tablet PO SCH (07:58)
[2022-03-21] MEDS: apixaban 5mg tablet PO SCH (07:58)
[2022-03-21] MEDS: pantoprazole 40mg Tablet.DR PO SCH (07:58)
[2022-03-21] MEDS: metoprolol tartrate 50mg tablet PO SCH (07:59)
[2022-03-21] MEDS: calcium acetate 667mg (PhosLO) capsule PO SCH ×2 (07:59→12:42)
[2022-03-21] MEDS: furosemide 20MG tablet PO SCH (07:59)
[2022-03-21 08:00] VITALS: BP 120/68
[2022-03-21] MEDS ORDERED: heparin 1,000 units/ml 10ml inj HE ONE ×2 (08:00)
[2022-03-21] MEDS ORDERED: heparin 1,000 units/ml 10ml inj IV ONE (08:00)
[2022-03-21] MEDS: sevelamer carbonate 800mg tablet PO SCH ×2 (08:00→12:41)
[2022-03-21] MEDS: K and/or MAG REPLACEMENT MC SCH (08:00)
[2022-03-21] MEDS: midodrine 5mg tablet PO SCH ×2 (08:00→12:42)
[2022-03-21] MEDS: lisinopril 20mg tablet PO SCH (08:00)
[2022-03-21] MEDS: sildenafil citrate 20mg tablet PO SCH ×2 (08:00→12:41)
[2022-03-21] MEDS: calcium carbonate 500mg chew tablet PO SCH ×2 (08:01→12:41)
[2022-03-21] MEDS: HYDROcodone/acetaminophen 10/325mg tab PO PRN (08:01)
[2022-03-21] MEDS ORDERED: heparin 1,000unit/ml 10ml vial 10 ML IV ONE (08:10)
[2022-03-21] MEDS: insulin Lispro (HumaLOG) vial - multi-dose SQ SCH ×2 (09:01→13:01)
[2022-03-21 16:34] VITALS: BP 116/66
[2022-03-21] MEDS: ondansetron/PF 4mg/2ml inj IV PRN (16:45)
--- NOTE | 2022-03-21 17:23 | NUR ---
Received message that [facility] would be arriving shortly to transport [place] to the airport via ambulance then for a flight to [facility]. Faxed DC orders to [facility] . Called transfer center , provided update. Provided number for [facility] . Assisted with getting pt ready for transport. Pt did leave with a right wrist PIV, upper right chest TDC. Pt was given zofran prior to DC. Pt is also on 9 L venturi mask. Pt is alert and oriented x 4 and happy to be able to transfer. All of pt's belongings were placed in pt care bag and sent with pt. Pt was transported by [facility] and E[facility] personnel. Pt left at 17:00. Called report to [facility], spoke with Reynaldo and provided her with pt's updated diagnosis/treatment/ current status.
== END 2022-03-21 17:20 | disposition short-term general hospital (02) | DRG 871 ==
LOC: ER 17:52 → ED HOLD 21:56 → MERGE 21:56 → PCU 3S 02-27 22:52
PROVIDERS: ADMIT Internal Medicine; ATTEND Internal Medicine
PROC: B32T1ZZ Computerized Tomography (CT Scan) of Left Pulmonary Artery using Low Osmolar Contrast (ICD-10-PCS; 2022-02-26)
PROC: B3201ZZ Computerized Tomography (CT Scan) of Thoracic Aorta using Low Osmolar Contrast (ICD-10-PCS; 2022-02-26)
PROC: B32S1ZZ Computerized Tomography (CT Scan) of Right Pulmonary Artery using Low Osmolar Contrast (ICD-10-PCS; 2022-02-26)
PROC: 5A1D70Z Performance of Urinary Filtration, Intermittent, Less than 6 Hours Per Day (ICD-10-PCS; 2022-02-28)
PROC: 5A1D70Z Performance of Urinary Filtration, Intermittent, Less than 6 Hours Per Day (ICD-10-PCS; 2022-03-03)
PROC: 5A1D70Z Performance of Urinary Filtration, Intermittent, Less than 6 Hours Per Day (ICD-10-PCS; 2022-03-07)
PROC: 5A1D70Z Performance of Urinary Filtration, Intermittent, Less than 6 Hours Per Day (ICD-10-PCS; 2022-03-10)
PROC: 0BBL3ZX Excision of Left Lung, Percutaneous Approach, Diagnostic (ICD-10-PCS; principal; 2022-03-12)
PROC: 0W9B30Z Drainage of Left Pleural Cavity with Drainage Device, Percutaneous Approach (ICD-10-PCS; 2022-03-12)
PROC: 5A1D70Z Performance of Urinary Filtration, Intermittent, Less than 6 Hours Per Day (ICD-10-PCS; 2022-03-12)
PROC: 5A1D70Z Performance of Urinary Filtration, Intermittent, Less than 6 Hours Per Day (ICD-10-PCS; 2022-03-14)
PROC: 5A1D70Z Performance of Urinary Filtration, Intermittent, Less than 6 Hours Per Day (ICD-10-PCS; 2022-03-17)
PROC: 5A1D70Z Performance of Urinary Filtration, Intermittent, Less than 6 Hours Per Day (ICD-10-PCS; 2022-03-19)
PROC: 5A1D70Z Performance of Urinary Filtration, Intermittent, Less than 6 Hours Per Day (ICD-10-PCS; 2022-03-21)
DX: A41.9 Sepsis, unspecified organism (principal); I50.33 Acute on chronic diastolic (congestive) heart failure; J96.21 Acute and chronic respiratory failure with hypoxia; N18.6 End stage renal disease; J18.9 Pneumonia, unspecified organism; I13.2 Hypertensive heart and chronic kidney disease with heart failure and with stage 5 chronic kidney disease, or end stage renal disease; J93.9 Pneumothorax, unspecified; T82.590A Other mechanical complication of surgically created arteriovenous fistula, initial encounter; N13.30 Unspecified hydronephrosis; D63.8 Anemia in other chronic diseases classified elsewhere; D75.839 Thrombocytosis, unspecified; E03.9 Hypothyroidism, unspecified; E66.01 Morbid (severe) obesity due to excess calories; J44.9 Chronic obstructive pulmonary disease, unspecified; E11.22 Type 2 diabetes mellitus with diabetic chronic kidney disease; R80.9 Proteinuria, unspecified; E11.40 Type 2 diabetes mellitus with diabetic neuropathy, unspecified; E78.5 Hyperlipidemia, unspecified; Z20.822 Contact with and (suspected) exposure to COVID-19; E87.5 Hyperkalemia; I27.20 Pulmonary hypertension, unspecified; I95.9 Hypotension, unspecified; Z79.01 Long term (current) use of anticoagulants; Y84.1 Kidney dialysis as the cause of abnormal reaction of the patient, or of later complication, without mention of misadventure at the time of the procedure; Z79.4 Long term (current) use of insulin; Z79.899 Other long term (current) drug therapy; Z86.61 Personal history of infections of the central nervous system; Z86.711 Personal history of pulmonary embolism; Z87.441 Personal history of nephrotic syndrome; Z87.891 Personal history of nicotine dependence; Z99.2 Dependence on renal dialysis; Z28.310 Unvaccinated for COVID-19; Z68.30 Body mass index [BMI] 30.0-30.9, adult; Z99.81 Dependence on supplemental oxygen; Y92.89 Other specified places as the place of occurrence of the external cause
CPT/HCPCS: 32408; 36415; 36600; 71045; 71275; 76700; 77012; 80048; 80053; 82803; 82948; 83605; 83735; 83880; 84100; 84145; 84484; 85007; 85018; 85025; 86038; 86256; 86430; 86480; 87040; 87070; 87081; 87811; 88305; 88312; 93005; 94640; 94760; 96365; 96367; 96375; 99152; 99153; 99291; A4349; A4421; A4615; A4620; A6212; A6258; A6402; A6449; C1729; C1769; G0257; G0378; J0456; J0696; J1644; J1815; J1940; J2060; J2250; J2405; J2930; J3010; J3490; J7030; J7040; J8597; Q4081; Q9967

== ENCOUNTER 2022-05-07 14:29 | Inpatient (IN) | payer MEDICARE, MEDICAID ==
[~2022-05-07] VITALS: Ht 182.9 cm; Wt 103.0 kg
[~2022-05-07 14:29] MED LIST changes: +ALBU2.5V7 NEB; +FERR210T PO; +GABA-530 PO; +LANTUS SQ; +LEVO250T74 PO; +MACI10TA2 PO; +MIDO10TA PO; +NOVLG SQ; +SILD20TA2 PO
--- NOTE | 2022-05-08 01:30 | NUR ---
Received report from EMS/[facility]/Natasha regarding direct patient admission from [facility] S/P transfer with recent Pulmonary Thromboendarterectomy. Patient arrived via ems from [facility] with s/p pulmonary thromboendarterecterectomy-midline incision, chest tube site on abdomen covered with dressing; Midline incision has healing , pink sternal site attop that has detail in wound pics in chart. 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 no draws left for arm, no bp's left arm. patient is diabetic 2, bilateral feet has severe diabetic neuropathy with scaling skin, erosion of toes bilaterally, wound pics taken. Patient has diffuse etienne to skin globally. No issues with skin breakdown on sacrum/coccyx. Patient recieved 8 mg zofran during transport, arrived on heparin gtt running at 22.5 ml/hr or 2250 units/hr. Patients blood glucose on arrival was 124, and 117 respectively. patient c/o pain, oxycontin 5 mg ordered, heparin gtt restarted at 1900 units per hr. PTT results pending. Katty MACKAY Addendum: 05/08/22 at 0543 by Katharine Luna RN First PTT result is 49, therapeutic-will reorder next PTT at 1000.
[2022-05-08] MEDS ORDERED: acetaminophen 325mg tablet PO PRN ×2 (01:40→03:50)
[2022-05-08] MEDS ORDERED: HYDROcodone/acetaminophen 10/325mg tab PO PRN (01:40)
[2022-05-08] MEDS ORDERED: magnesium hydroxide 30ml (MOM) UD suspension PO PRN (01:40)
[2022-05-08] MEDS ORDERED: mag hydrox/Alum hydrox/simeth 30ml oral suspension PO PRN (01:40)
[2022-05-08] MEDS ORDERED: dextrose 50%-water 50ml dispensing syringe IV PRN ×2 (01:45)
[2022-05-08] MEDS ORDERED: heparin 10,000 units/1 ML INJ IV PRN (01:45)
[2022-05-08] MEDS ORDERED: heparin 10,000 units/1 ML INJ IV ONE (01:45)
[2022-05-08] MEDS ORDERED: DEXTROSE 15 GM of carb/4 tabs (each vial/BOTTLE has 4 tablets) PO PRN ×2 (01:45)
[2022-05-08] MEDS ORDERED: glucagon, human recombinant 1mg kit SUBCUT PRN (01:45)
[2022-05-08] MEDS ORDERED: MESSAGE TO PHARMACY PO ONE (01:45)
[2022-05-08] MEDS ORDERED: insulin Lispro (HumaLOG) vial - multi-dose SQ SCH (01:45)
[2022-05-08] MEDS ORDERED: oxyCODONE IR 5mg (immed. release) tablet PO PRN ×3 (02:40→14:00)
[2022-05-08] MEDS ORDERED: CAPS60CR6 TP (02:53)
[2022-05-08] MEDS ORDERED: hydralazine PO (02:53)
[2022-05-08] MEDS ORDERED: WARF3TAB56 PO (02:53)
[2022-05-08] MEDS ORDERED: LANTUS SQ (02:53)
[2022-05-08] MEDS ORDERED: DOCU50CA13 PO (02:53)
[2022-05-08] MEDS ORDERED: ATOR20TA66 PO (02:53)
[2022-05-08] MEDS ORDERED: NOVLG SQ (02:53)
[2022-05-08] MEDS ORDERED: FOLI0.8T19 PO (02:53)
[2022-05-08] MEDS ORDERED: SEVE800T8 PO (03:16)
[2022-05-08] MEDS ORDERED: LISI10TA27 PO (03:16)
[2022-05-08] MEDS ORDERED: SENN-263 PO (03:16)
[2022-05-08] MEDS ORDERED: HYDRALAZINE 10 MG PO (03:16)
[2022-05-08] MEDS ORDERED: MELA3TAB39 PO (03:16)
[2022-05-08] MEDS ORDERED: VENL75TA90 PO (03:16)
[2022-05-08] MEDS ORDERED: FAMO-128 PO (03:20)
[2022-05-08] MEDS ORDERED: CALC500T11 PO (03:40)
[2022-05-08] MEDS ORDERED: OXYC-481 PO (03:40)
[2022-05-08] MEDS ORDERED: GUAI100L97 PO (03:40)
[2022-05-08] MEDS ORDERED: ACET-1013 PO (03:40)
[2022-05-08] MEDS ORDERED: LEVO100T9 PO (03:42)
[2022-05-08] MEDS ORDERED: venlafaxine XR 75mg capsule (Q24H) PO SCH (03:50)
[2022-05-08] MEDS ORDERED: guaiFENesin 200 MG/10 ML oral syrup UD cup PO PRN (03:50)
[2022-05-08] MEDS ORDERED: calcium carbonate 500mg chew tablet PO PRN (03:50)
[2022-05-08 06:00] VITALS: BP 147/80
--- NOTE | 2022-05-08 07:09 | NUR ---
Problems reprioritized. Patient report given, questions answered & plan of care reviewed with Carine MACKAY.
[2022-05-08] MEDS: CAPSAICIN 0.025% TP SCH ×2 (08:00→19:14)
[2022-05-08] MEDS ORDERED: DOCUSATE SODIUM 50 MG PO SCH (08:00)
[2022-05-08] MEDS: K and/or MAG REPLACEMENT MC SCH ×2 (08:00→19:14)
[2022-05-08] MEDS: levoTHYROXINE 100mcg tablet PO SCH (09:38)
[2022-05-08] MEDS: docusate sod 100mg capsule PO SCH ×2 (09:38→20:28)
[2022-05-08] MEDS: sildenafil citrate 20mg tablet PO SCH ×3 (09:38→20:29)
[2022-05-08] MEDS: sevelamer carbonate 800mg tablet PO SCH ×3 (09:39→17:50)
[2022-05-08] MEDS: famotidine 20mg tablet PO SCH (09:39)
[2022-05-08] MEDS: folic acid/vitamin B complex w/vitamin C 0.8mg tablet PO SCH (09:39)
[2022-05-08] MEDS: hyDRALAzine 10mg tablet PO SCH ×3 (09:40→23:30)
[2022-05-08] MEDS ORDERED: oxyCODONE IR 5mg (immed. release) tablet PO ONE (09:50)
[2022-05-08] MEDS: sennosides 8.6mg tablet PO SCH (10:07)
[2022-05-08 10:23] LABS: BASOPHILS # (AUTO) 0.1 X10'3 (0-0.2); EOSINOPHILS # (AUTO) 0.5 X10'3 (0-0.9); EOSINOPHILS % (AUTO) 5.1 % (0-6); HEMATOCRIT 23.8 % (42.0-52.0); HEMOGLOBIN 7.5 g/dl (14.0-17.9); LYMPHOCYTES # (AUTO) 1.8 X10'3 (1.1-4.8); LYMPHOCYTES % (AUTO) 17.2 % (21-51); MEAN CORPUSCULAR HEMOGLOBIN 27.3 PG (27.0-31.0); MEAN CORPUSCULAR HGB CONC 31.6 g/dL (33.0-36.5); MEAN CORPUSCULAR VOLUME 86.4 FL (78-98); MEAN PLATELET VOLUME 7.4 FL (7.4-10.4); MONOCYTES % (AUTO) 9.8 % (2-12); NEUTROPHILS # (AUTO) 7.1 X10'3 (1.8-7.7); NEUTROPHILS % (AUTO) 66.9 % (42-75); PLATELET COUNT 485 X10'3 (140-440); RED BLOOD COUNT 2.75 X10'6 (4.70-6.10); RED CELL DISTRIBUTION WIDTH 19.6 % (11.5-14.5); WHITE BLOOD COUNT 10.6 X10'3 (4.5-11.0)
[2022-05-08 10:30] VITALS: BP 138/80
[2022-05-08 10:30] LABS: ALANINE AMINOTRANSFERASE 20 U/L (12-78); ALBUMIN 2.5 G/DL (3.4-5.0); ALBUMIN/GLOBULIN RATIO 0.6 (1.1-1.5); ALKALINE PHOSPHATASE 148 IU/L (46-116); ANION GAP 10 (8-16); ASPARTATE AMINO TRANSFERASE 14 U/L (10-37); BILIRUBIN,TOTAL 0.3 MG/DL (0.1-1.0); BLOOD UREA NITROGEN 21 MG/DL (7-18); BUN/CREATININE RATIO 4.1 (5.4-32.0); CALCIUM 9.1 MG/DL (8.5-10.1); CHLORIDE 99 MMOL/L (99-107); GLUCOSE 107 MG/DL (70-104); POTASSIUM 4.1 MMOL/L (3.5-5.1); SODIUM 136 MMOL/L (135-145); eGFR 13 ML/MIN
--- NOTE | 2022-05-08 11:40 | NUR ---
PAGER ID: [phone] MESSAGE: [id number]. Tse, stopped hep gtt for PTT 116. Will restart in hours per protocol. Carine Soto [phone]
--- NOTE | 2022-05-08 12:38 | NUR ---
Pt refused 1200 blood sugar check. Education provided - pt verbalized understanding
[2022-05-08] MEDS: oxyCODONE IR 5mg (immed. release) tablet PO PRN ×2 (14:02→17:51)
[2022-05-08 14:04] VITALS: BP 134/80
--- NOTE | 2022-05-08 14:04 | NUR ---
PRESSURE ULCER EDUCATION: DEFINITION: A pressure ulcer is an area of skin that breaks down when you stay in one position too long. The constant pressure against the skin reduces the blood flow to that area and the affected tissue dies. CAUSES: "Being bedridden or in a wheelchair "Fragile skin "Having a chronic condition, such as diabetes or vascular disease "Inability to move certain parts of your body without assistance "Older age "Incontinence of urine or stool SYMPTOMS: "A reddened area that DOES NOT turn white when pressed on - this can be the beginning of a pressure ulcer "A blister, deep sore or a crater - these can be advanced pressure ulcers FIRST AID: "Relieve the pressure on this area "Keep the area clean and dry "Call your primary doctor if you see any of the above symptoms "DO NOT massage the area "DO NOT use a donut shaped or ring shaped pillow- these actually interfere with the blood flow and cause complications PREVENTION: "Check for pressure ulcers everyday "Change position at least every two hours to relieve pressure "Use items that help relieve pressure- pillows, sheepskin, foam padding, and powders. "Keep skin clean and dry "Eat healthy well balanced meals "Exercise daily IF YOU SEE ANY OF THESE SYMPTOMS WHILE IN THE HOSPITAL - TELL YOUR NURSE IMMEDIATELY. IF YOU SEE ANY OF THESE SYMPTOMS WHILE AT HOME OR HAVE ANY QUESTIONS OR CONCERNS ABOUT PRESSURE ULCERS - CALL YOUR PRIMARY DOCTOR IMMEDIATELY. Addendum: 05/08/22 at 1405 by Kristel Guzmán LVN Amended: Links added.
--- NOTE | 2022-05-08 14:15 | NUR ---
Anton Consult: Pt Anton 11 w/ healing midline incision well approximated following PFO closure and thrombectomy at [facility] no other skin issues per WOC note. Pt hx ESRD on HD receiving renal diet and Phos binders eating 75% first meal and hx eating well recent prior admit March this year. Also hx T2DM last A1C 9.4% 01/31/22 w/ no more recent A1C hx though pt hospitalized past month so DM ed would be deferred at this time. Given pt stature, on HD would benefit from Nepro BIDBD to assist meeting baseline nutrition needs; MD notified. Will monitor for further nutrition intervention needs this admit. Rec: 1. continue renal diet; monitor PO trends for additional protein needs 2. Nepro ONS BIDBD; pending physician verification in EMR 3. Nephrovite per MD 4. routine bowel care 5. scaled wt this admit; subsequent wts w/ HD Addendum: 05/08/22 at [address] Amended: Links added.
--- NOTE | 2022-05-08 16:01 | NUR ---
DM Consult: Addressed; see prior RD note. Addendum: 05/08/22 at [address] Amended: Links added.
[2022-05-08 16:27] LABS: HEMOGLOBIN A1C 6.3 % (4.5-6.2)
[2022-05-08] MEDS: NUT.TX.IMP.RENAL FXN,LAC-REDUC (Nepro) 237 ML VANILLA PO SCH (17:30)
--- NOTE | 2022-05-08 18:27 | NUR ---
Problems reprioritized. Patient report given, questions answered & plan of care reviewed with THOMPSON Mullen.
[2022-05-08 19:00] VITALS: BP 123/73
[2022-05-08] MEDS: Melatonin 3mg tablet PO SCH (20:28)
[2022-05-08] MEDS: atorvastatin 20mg tablet PO SCH (20:29)
[2022-05-08] MEDS: gabapentin 100mg capsule PO SCH (20:29)
[2022-05-08] MEDS: lisinopril 20mg tablet PO SCH (20:29)
[2022-05-08] MEDS: insulin glargine (Lantus) pen - multi-dose SQ SCH (20:35)
[2022-05-08] MEDS ORDERED: warfarin 3mg tablet PO ONE (21:00)
[2022-05-08] MEDS ORDERED: gabapentin 300mg capsule PO SCH (21:00)
[2022-05-08] MEDS ORDERED: lisinopril 10 MG tablet PO SCH (21:00)
[2022-05-09 03:30] VITALS: BP 150/70
[2022-05-09] MEDS: oxyCODONE IR 5mg (immed. release) tablet PO PRN ×2 (04:36→20:09)
[2022-05-09 07:00] VITALS: BP 149/85
[2022-05-09] MEDS: ondansetron/PF 4mg/2ml inj IV PRN (07:10)
[2022-05-09] MEDS: docusate sod 100mg capsule PO SCH ×2 (07:14→20:09)
[2022-05-09] MEDS: sildenafil citrate 20mg tablet PO SCH ×3 (07:15→20:05)
[2022-05-09] MEDS: sevelamer carbonate 800mg tablet PO SCH ×3 (07:15→18:26)
[2022-05-09] MEDS: levoTHYROXINE 100mcg tablet PO SCH (07:15)
[2022-05-09] MEDS: sennosides 8.6mg tablet PO SCH (07:15)
[2022-05-09] MEDS: famotidine 20mg tablet PO SCH (07:15)
[2022-05-09] MEDS: folic acid/vitamin B complex w/vitamin C 0.8mg tablet PO SCH (07:15)
[2022-05-09] MEDS: K and/or MAG REPLACEMENT MC SCH ×2 (07:16→19:50)
[2022-05-09 07:30] LABS: BASOPHILS # (AUTO) 0.1 X10'3 (0-0.2); BASOPHILS % (AUTO) 0.6 % (0-1); EOSINOPHILS # (AUTO) 0.5 X10'3 (0-0.9); EOSINOPHILS % (AUTO) 4.1 % (0-6); HEMATOCRIT 25.7 % (42.0-52.0); HEMOGLOBIN 7.8 g/dl (14.0-17.9); LYMPHOCYTES # (AUTO) 1.5 X10'3 (1.1-4.8); MEAN CORPUSCULAR HEMOGLOBIN 26.7 PG (27.0-31.0); MEAN CORPUSCULAR HGB CONC 30.4 g/dL (33.0-36.5); MEAN CORPUSCULAR VOLUME 87.7 FL (78-98); MEAN PLATELET VOLUME 7.4 FL (7.4-10.4); MONOCYTES # (AUTO) 1.2 X10'3 (0-0.9); MONOCYTES % (AUTO) 9.5 % (2-12); NEUTROPHILS # (AUTO) 9.1 X10'3 (1.8-7.7); NEUTROPHILS % (AUTO) 73.8 % (42-75); PLATELET COUNT 486 X10'3 (140-440); RED BLOOD COUNT 2.93 X10'6 (4.70-6.10); WHITE BLOOD COUNT 12.3 X10'3 (4.5-11.0)
[2022-05-09 07:48] LABS: ANISOCYTOSIS 2+; PLATELET ESTIMATE NORMAL; POLYCHROMASIA 1+
[2022-05-09 07:49] LABS: POIKILOCYTOSIS FEW
[2022-05-09] MEDS ORDERED: heparin 1,000 units/ml 10ml inj HE ONE ×2 (07:50)
[2022-05-09 07:52] LABS: ALANINE AMINOTRANSFERASE 11 U/L (12-78); ALBUMIN 2.6 G/DL (3.4-5.0); ALBUMIN/GLOBULIN RATIO 0.6 (1.1-1.5); ALKALINE PHOSPHATASE 146 IU/L (46-116); ANION GAP 10 (8-16); ASPARTATE AMINO TRANSFERASE 13 U/L (10-37); BILIRUBIN,TOTAL 0.4 MG/DL (0.1-1.0); BLOOD UREA NITROGEN 29 MG/DL (7-18); CALCIUM 9.5 MG/DL (8.5-10.1); CHLORIDE 96 MMOL/L (99-107); GLUCOSE 138 MG/DL (70-104); POTASSIUM 4.4 MMOL/L (3.5-5.1); SODIUM 135 MMOL/L (135-145); TOTAL CARBON DIOXIDE 28.8 MMOL/L (24-32); TOTAL PROTEIN 7.1 G/DL (6.4-8.2); eGFR 9 ML/MIN
[2022-05-09] MEDS: CAPSAICIN 0.025% TP SCH ×2 (08:00→19:49)
[2022-05-09] MEDS ORDERED: albumin (human) 25% 100ml IV 100 ML IV PRN (08:00)
[2022-05-09] MEDS ORDERED: EPOETIN ALFA-EPBX 20,000 UNIT/ML 1 ML MDV IV ONE (08:00)
[2022-05-09 08:08] LABS: BUN/CREATININE RATIO 4.2 (5.4-32.0)
[2022-05-09] MEDS: hyDRALAzine 10mg tablet PO SCH ×2 (08:30→16:22)
[2022-05-09 11:00] VITALS: BP 144/72
[2022-05-09] MEDS ORDERED: proCHLORperazine 10 MG/2 ml inj IV ONE (11:30)
[2022-05-09 15:00] VITALS: BP 159/87
[2022-05-09 16:22] VITALS: BP 145/78
[2022-05-09] MEDS: NUT.TX.IMP.RENAL FXN,LAC-REDUC (Nepro) 237 ML VANILLA PO SCH ×2 (18:30→19:00)
[2022-05-09] MEDS: lisinopril 20mg tablet PO SCH (20:08)
[2022-05-09] MEDS: gabapentin 100mg capsule PO SCH (20:09)
[2022-05-09] MEDS: atorvastatin 20mg tablet PO SCH (20:09)
[2022-05-09] MEDS: Melatonin 3mg tablet PO SCH (20:10)
[2022-05-09 21:00] VITALS: BP 130/65
[2022-05-09] MEDS ORDERED: warfarin 7.5mg tablet PO ONE (21:00)
[2022-05-09] MEDS: insulin glargine (Lantus) pen - multi-dose SQ SCH (21:00)
[2022-05-10 06:06] LABS: BASOPHILS # (AUTO) 0.1 X10'3 (0-0.2); BASOPHILS % (AUTO) 0.8 % (0-1); EOSINOPHILS # (AUTO) 0.5 X10'3 (0-0.9); EOSINOPHILS % (AUTO) 4.2 % (0-6); HEMATOCRIT 23.2 % (42.0-52.0); HEMOGLOBIN 7.3 g/dl (14.0-17.9); LYMPHOCYTES # (AUTO) 1.4 X10'3 (1.1-4.8); LYMPHOCYTES % (AUTO) 12.8 % (21-51); MEAN CORPUSCULAR HEMOGLOBIN 27.6 PG (27.0-31.0); MEAN CORPUSCULAR HGB CONC 31.6 g/dL (33.0-36.5); MEAN CORPUSCULAR VOLUME 87.4 FL (78-98); MEAN PLATELET VOLUME 7.2 FL (7.4-10.4); MONOCYTES # (AUTO) 1.2 X10'3 (0-0.9); MONOCYTES % (AUTO) 11.2 % (2-12); NEUTROPHILS # (AUTO) 7.7 X10'3 (1.8-7.7); PLATELET COUNT 461 X10'3 (140-440); RED BLOOD COUNT 2.65 X10'6 (4.70-6.10); RED CELL DISTRIBUTION WIDTH 20.2 % (11.5-14.5); WHITE BLOOD COUNT 10.8 X10'3 (4.5-11.0)
[2022-05-10] MEDS: oxyCODONE IR 5mg (immed. release) tablet PO PRN ×3 (06:45→19:36)
[2022-05-10 06:49] LABS: BILIRUBIN,TOTAL 0.2 MG/DL (0.1-1.0); CALCIUM 8.9 MG/DL (8.5-10.1); CHLORIDE 98 MMOL/L (99-107); eGFR 11 ML/MIN
[2022-05-10 07:00] VITALS: BP 137/74
[2022-05-10 07:16] LABS: ALANINE AMINOTRANSFERASE 15 U/L (12-78); ALBUMIN 2.3 G/DL (3.4-5.0); ALBUMIN/GLOBULIN RATIO 0.5 (1.1-1.5); ALKALINE PHOSPHATASE 129 IU/L (46-116); ANION GAP 10 (8-16); ASPARTATE AMINO TRANSFERASE 12 U/L (10-37); BLOOD UREA NITROGEN 19 MG/DL (7-18); BUN/CREATININE RATIO 3.4 (5.4-32.0); GLUCOSE 164 MG/DL (70-104); POTASSIUM 3.9 MMOL/L (3.5-5.1); SODIUM 136 MMOL/L (135-145); TOTAL CARBON DIOXIDE 28.1 MMOL/L (24-32); TOTAL PROTEIN 6.5 G/DL (6.4-8.2)
[2022-05-10 07:22] LABS: CREATININE 5.61 MG/DL (0.60-1.10)
[2022-05-10] MEDS: K and/or MAG REPLACEMENT MC SCH ×2 (08:00→20:00)
[2022-05-10] MEDS: CAPSAICIN 0.025% TP SCH ×2 (08:00→20:00)
[2022-05-10 08:17] LABS: TOTAL CELLS COUNTED 100
[2022-05-10 08:18] LABS: ANISOCYTOSIS 3+; HYPOCHROMASIA 1+; PLATELET ESTIMATE INCREASED; POLYCHROMASIA 1+
[2022-05-10] MEDS: sildenafil citrate 20mg tablet PO SCH ×3 (08:31→21:56)
[2022-05-10] MEDS: venlafaxine XR 75mg capsule (Q24H) PO SCH (08:32)
[2022-05-10] MEDS: sevelamer carbonate 800mg tablet PO SCH ×4 (08:33→21:53)
[2022-05-10] MEDS: hyDRALAzine 10mg tablet PO SCH ×4 (08:33→23:21)
[2022-05-10] MEDS: docusate sod 100mg capsule PO SCH ×2 (08:33→20:00)
[2022-05-10] MEDS: sennosides 8.6mg tablet PO SCH (08:34)
[2022-05-10] MEDS: levoTHYROXINE 100mcg tablet PO SCH (08:35)
[2022-05-10] MEDS: folic acid/vitamin B complex w/vitamin C 0.8mg tablet PO SCH (08:35)
[2022-05-10 11:40] VITALS: BP 127/71
[2022-05-10] MEDS: heparin 25,000 UNIT/250ml bag 250 ML IV PRN (13:38)
--- NOTE | 2022-05-10 14:54 | NUR ---
Fanny RM [id number]. Pt is refusing vasc US; would like to speak with you 1st. I told PT to hold off working with him until the scan was complete. If he refuses are you ok with PT? Please advise. Kady [phone] Addendum: 05/11/22 at 0845 by Kady Minor RN 05/10/2022 1338 erroneous charting on IV spreadsheet. Heparin gtts running at 14ml/h 1400U/hr. No change in rate.
--- NOTE | 2022-05-10 16:07 | NUR ---
Encouraged pt to titrate O2, pt declining
[2022-05-10 16:09] VITALS: BP 138/66
[2022-05-10 19:59] LABS: APTT 64 SECONDS (22-32)
[2022-05-10] MEDS ORDERED: warfarin 7.5mg tablet PO ONE (21:00)
[2022-05-10] MEDS: insulin glargine (Lantus) pen - multi-dose SQ SCH (21:00)
[2022-05-10] MEDS: gabapentin 100mg capsule PO SCH (21:53)
[2022-05-10] MEDS: atorvastatin 20mg tablet PO SCH (21:53)
[2022-05-10] MEDS: Melatonin 3mg tablet PO SCH (21:56)
[2022-05-10] MEDS: lisinopril 20mg tablet PO SCH (21:56)
[2022-05-10 22:00] VITALS: BP 144/80
[2022-05-11 02:32] VITALS: BP 138/70
[2022-05-11] MEDS: heparin 25,000 UNIT/250ml bag 250 ML IV PRN (06:16)
[2022-05-11 07:00] VITALS: BP 127/67
[2022-05-11 08:00] LABS: BASOPHILS # (AUTO) 0.1 X10'3 (0-0.2); BASOPHILS % (AUTO) 1.3 % (0-1); EOSINOPHILS # (AUTO) 0.7 X10'3 (0-0.9); EOSINOPHILS % (AUTO) 5.9 % (0-6); HEMATOCRIT 24.3 % (42.0-52.0); HEMOGLOBIN 7.4 g/dl (14.0-17.9); LYMPHOCYTES # (AUTO) 1.6 X10'3 (1.1-4.8); LYMPHOCYTES % (AUTO) 14.2 % (21-51); MEAN CORPUSCULAR HGB CONC 30.4 g/dL (33.0-36.5); MEAN CORPUSCULAR VOLUME 88.9 FL (78-98); MEAN PLATELET VOLUME 7.3 FL (7.4-10.4); MONOCYTES # (AUTO) 1.1 X10'3 (0-0.9); MONOCYTES % (AUTO) 9.6 % (2-12); NEUTROPHILS # (AUTO) 7.9 X10'3 (1.8-7.7); PLATELET COUNT 464 X10'3 (140-440); RED BLOOD COUNT 2.74 X10'6 (4.70-6.10); RED CELL DISTRIBUTION WIDTH 20.3 % (11.5-14.5); WHITE BLOOD COUNT 11.4 X10'3 (4.5-11.0)
[2022-05-11] MEDS: K and/or MAG REPLACEMENT MC SCH ×2 (08:00→20:00)
[2022-05-11] MEDS: CAPSAICIN 0.025% TP SCH ×2 (08:00→20:00)
[2022-05-11] MEDS: ondansetron/PF 4mg/2ml inj IV PRN (08:28)
[2022-05-11 08:29] LABS: ALANINE AMINOTRANSFERASE 12 U/L (12-78); ALBUMIN 2.6 G/DL (3.4-5.0); ALBUMIN/GLOBULIN RATIO 0.6 (1.1-1.5); ALKALINE PHOSPHATASE 137 IU/L (46-116); ANION GAP 10 (8-16); ASPARTATE AMINO TRANSFERASE 16 U/L (10-37); BILIRUBIN,TOTAL 0.4 MG/DL (0.1-1.0); BLOOD UREA NITROGEN 33 MG/DL (7-18); BUN/CREATININE RATIO 4.2 (5.4-32.0); CALCIUM 9.4 MG/DL (8.5-10.1); CHLORIDE 94 MMOL/L (99-107); CREATININE 7.79 MG/DL (0.60-1.10); GLUCOSE 136 MG/DL (70-104); POTASSIUM 4.4 MMOL/L (3.5-5.1); SODIUM 131 MMOL/L (135-145); TOTAL CARBON DIOXIDE 27.1 MMOL/L (24-32); TOTAL PROTEIN 6.9 G/DL (6.4-8.2); eGFR 8 ML/MIN
[2022-05-11] MEDS: docusate sod 100mg capsule PO SCH ×2 (08:31→21:07)
[2022-05-11] MEDS: folic acid/vitamin B complex w/vitamin C 0.8mg tablet PO SCH (08:32)
[2022-05-11] MEDS: sennosides 8.6mg tablet PO SCH (08:32)
[2022-05-11] MEDS: sildenafil citrate 20mg tablet PO SCH ×3 (08:32→21:07)
[2022-05-11] MEDS: sevelamer carbonate 800mg tablet PO SCH ×3 (08:33→17:16)
[2022-05-11] MEDS: famotidine 20mg tablet PO SCH (08:34)
[2022-05-11] MEDS: levoTHYROXINE 100mcg tablet PO SCH (08:34)
[2022-05-11] MEDS: hyDRALAzine 10mg tablet PO SCH ×2 (08:34→16:06)
--- NOTE | 2022-05-11 08:45 | NUR ---
Ptt 53, therapeutic level. No change in rate: 1400 u/hr and 14ml/hr
[2022-05-11] MEDS: oxyCODONE IR 5mg (immed. release) tablet PO PRN ×3 (08:47→22:39)
--- NOTE | 2022-05-11 10:25 | NUR ---
Paged Dr Valles x2 (yesterday and today): Fanny RM [id number]. Pt is refusing vasc US; would like to speak with you 1st. I told PT to hold off working with him until the scan was complete. If he refuses are you ok with PT? Please advise. Kady [phone] Pt also refusing to titrate O2 below 3L Addendum: 05/11/22 at 1547 by Kady Minor RN Reviewed PTT, 64, no rate change. Reordered PTT for 2144.
[2022-05-11 11:40] VITALS: BP 135/75
[2022-05-11 18:25] LABS: % IRON SATURATION 10 % (11-46); IRON 24 UG/DL (53-167); TOTAL IRON BINDING CAPACITY 231 UG/DL (259-388)
[2022-05-11] MEDS: NUT.TX.IMP.RENAL FXN,LAC-REDUC (Nepro) 237 ML VANILLA PO SCH (18:30)
[2022-05-11 20:25] VITALS: BP 130/76
--- NOTE | 2022-05-11 20:25 | NUR ---
PER DIRECTOR ELECTRICAL ENGINEERING KAILYN NOTED ST CHANGES SIGNIFICANT.BP CHECKED AND RECORDED. DENIES CP.EKG DONE.PAGED DR. WALKER WILL COME AND SEE PT.
[2022-05-11] MEDS ORDERED: warfarin 4mg tablet PO ONE (21:00)
[2022-05-11] MEDS: insulin glargine (Lantus) pen - multi-dose SQ SCH (21:00)
[2022-05-11] MEDS: lisinopril 20mg tablet PO SCH (21:07)
[2022-05-11] MEDS: Melatonin 3mg tablet PO SCH (21:07)
[2022-05-11] MEDS: atorvastatin 20mg tablet PO SCH (21:07)
[2022-05-11] MEDS: gabapentin 100mg capsule PO SCH (21:07)
--- NOTE | 2022-05-11 21:30 | NUR ---
per Dr. Je Guevara consulted no [facility].
[2022-05-12] MEDS: heparin 25,000 UNIT/250ml bag 250 ML IV PRN ×2 (02:18→23:24)
[2022-05-12] MEDS: ondansetron/PF 4mg/2ml inj IV PRN ×3 (04:51→20:08)
[2022-05-12 06:41] LABS: BASOPHILS # (AUTO) 0.1 X10'3 (0-0.2); BASOPHILS % (AUTO) 0.5 % (0-1); EOSINOPHILS # (AUTO) 0.6 X10'3 (0-0.9); EOSINOPHILS % (AUTO) 5.2 % (0-6); HEMATOCRIT 26.8 % (42.0-52.0); HEMOGLOBIN 8.1 g/dl (14.0-17.9); LYMPHOCYTES # (AUTO) 1.1 X10'3 (1.1-4.8); LYMPHOCYTES % (AUTO) 9.9 % (21-51); MEAN CORPUSCULAR HEMOGLOBIN 26.5 PG (27.0-31.0); MEAN CORPUSCULAR HGB CONC 30.3 g/dL (33.0-36.5); MEAN CORPUSCULAR VOLUME 87.3 FL (78-98); MEAN PLATELET VOLUME 7.4 FL (7.4-10.4); MONOCYTES # (AUTO) 1.1 X10'3 (0-0.9); MONOCYTES % (AUTO) 9.6 % (2-12); NEUTROPHILS # (AUTO) 8.6 X10'3 (1.8-7.7); NEUTROPHILS % (AUTO) 74.8 % (42-75); PLATELET COUNT 511 X10'3 (140-440); RED BLOOD COUNT 3.07 X10'6 (4.70-6.10); RED CELL DISTRIBUTION WIDTH 20.6 % (11.5-14.5); WHITE BLOOD COUNT 11.5 X10'3 (4.5-11.0)
[2022-05-12 06:48] LABS: ALBUMIN 2.9 G/DL (3.4-5.0); ALBUMIN/GLOBULIN RATIO 0.6 (1.1-1.5); ALKALINE PHOSPHATASE 147 IU/L (46-116); ANION GAP 8 (8-16); ASPARTATE AMINO TRANSFERASE 17 U/L (10-37); BILIRUBIN,TOTAL 0.4 MG/DL (0.1-1.0); BLOOD UREA NITROGEN 43 MG/DL (7-18); BUN/CREATININE RATIO 4.7 (5.4-32.0); CALCIUM 9.5 MG/DL (8.5-10.1); CHLORIDE 91 MMOL/L (99-107); CREATININE 9.17 MG/DL (0.60-1.10); GLUCOSE 123 MG/DL (70-104); POTASSIUM 4.7 MMOL/L (3.5-5.1); SODIUM 128 MMOL/L (135-145); TOTAL CARBON DIOXIDE 29.3 MMOL/L (24-32); TOTAL PROTEIN 7.6 G/DL (6.4-8.2); eGFR 6 ML/MIN
[2022-05-12 06:57] LABS: ALANINE AMINOTRANSFERASE 13 U/L (12-78)
--- NOTE | 2022-05-12 07:01 | NUR ---
PTT reviewed 55, therapeutic range. No change in heparin gtts rate. RN to follow at 1300; next PTT draw results. No callback from hospitalist x2 days regarding pt refusal of vasc US & PT therapy despite education & discussion. Noc RN August reenforced this RN's education for past 2 days and pt is amenable to US ~1000 s/p oxy administration. RN communicated with vasc & will continue to follow/monitor.
[2022-05-12] MEDS: NUT.TX.IMP.RENAL FXN,LAC-REDUC (Nepro) 237 ML VANILLA PO SCH ×2 (07:30→18:30)
[2022-05-12] MEDS: K and/or MAG REPLACEMENT MC SCH ×2 (08:00→20:00)
[2022-05-12] MEDS ORDERED: heparin 1,000 units/ml 10ml inj HE ONE ×2 (08:00)
[2022-05-12] MEDS ORDERED: normal saline 1000ml 250 ML IV PRN (08:00)
[2022-05-12] MEDS ORDERED: heparin 1,000unit/ml 10ml vial 10 ML IV ONE (08:00)
[2022-05-12] MEDS: CAPSAICIN 0.025% TP SCH ×2 (08:00→20:00)
[2022-05-12] MEDS ORDERED: EPOETIN ALFA-EPBX 20,000 UNIT/ML 1 ML MDV IV ONE (08:00)
[2022-05-12] MEDS: sildenafil citrate 20mg tablet PO SCH ×3 (09:14→21:10)
[2022-05-12] MEDS: hyDRALAzine 10mg tablet PO SCH ×3 (09:15→16:00)
[2022-05-12] MEDS: gabapentin 100mg capsule PO SCH (09:15)
[2022-05-12] MEDS: venlafaxine XR 75mg capsule (Q24H) PO SCH (09:16)
[2022-05-12] MEDS: sevelamer carbonate 800mg tablet PO SCH ×3 (09:16→18:30)
[2022-05-12] MEDS: sennosides 8.6mg tablet PO SCH (09:17)
[2022-05-12] MEDS: folic acid/vitamin B complex w/vitamin C 0.8mg tablet PO SCH (09:17)
[2022-05-12] MEDS: docusate sod 100mg capsule PO SCH ×2 (09:17→21:21)
[2022-05-12] MEDS: oxyCODONE IR 5mg (immed. release) tablet PO PRN ×2 (09:18→21:13)
[2022-05-12] MEDS: famotidine 20mg tablet PO SCH (09:18)
[2022-05-12] MEDS: levoTHYROXINE 100mcg tablet PO SCH (09:18)
[2022-05-12 10:42] VITALS: BP 149/79
--- NOTE | 2022-05-12 12:14 | NUR ---
Vascular called and stated "this is the pt's 11th refusal". Conferred with Dr Zazueta and he stated "just cancel it". PT stated pt refusing until US. PT & this RN conferred with pt and clarified vascular came in to perform US and he "requested they come back when his pain meds kick in". PT will follow later today. Called US and requested if pt refuses to come get this RN and we will clarify with pt together. Notified Dr Zazueta: Tse [id number]. SARI: there was a miscommunication with vascular. I reentered the US order under your name. Vascular has been notified. Kady [phone] THOMPSON to follow and close the communication loop. Addendum: 05/12/22 at 1251 by Kady Minor RN Did not give 1300 dose of sevelamer per pt ate 10% lunch & pt refused med. Pt in HD. Addendum: 05/12/22 at 1354 by Kady Minor RN Pt undergoing HD, afternoon VS documented by HD RN.
[2022-05-12] MEDS ORDERED: warfarin 4mg tablet PO ONE (21:00)
[2022-05-12] MEDS: insulin glargine (Lantus) pen - multi-dose SQ SCH (21:00)
[2022-05-12] MEDS: Melatonin 3mg tablet PO SCH (21:10)
[2022-05-12] MEDS: atorvastatin 20mg tablet PO SCH (21:11)
[2022-05-12] MEDS: lisinopril 20mg tablet PO SCH (21:11)
[2022-05-12 21:30] VITALS: BP 137/70
[2022-05-13 06:28] LABS: BASOPHILS # (AUTO) 0.1 X10'3 (0-0.2); BASOPHILS % (AUTO) 0.9 % (0-1); EOSINOPHILS # (AUTO) 0.7 X10'3 (0-0.9); EOSINOPHILS % (AUTO) 6.2 % (0-6); HEMATOCRIT 24.8 % (42.0-52.0); HEMOGLOBIN 7.9 g/dl (14.0-17.9); LYMPHOCYTES # (AUTO) 1.4 X10'3 (1.1-4.8); LYMPHOCYTES % (AUTO) 12.8 % (21-51); MEAN CORPUSCULAR HEMOGLOBIN 27.8 PG (27.0-31.0); MEAN CORPUSCULAR HGB CONC 31.9 g/dL (33.0-36.5); MEAN CORPUSCULAR VOLUME 87.2 FL (78-98); MEAN PLATELET VOLUME 7.3 FL (7.4-10.4); MONOCYTES % (AUTO) 9.5 % (2-12); NEUTROPHILS # (AUTO) 7.7 X10'3 (1.8-7.7); NEUTROPHILS % (AUTO) 70.6 % (42-75); PLATELET COUNT 462 X10'3 (140-440); RED BLOOD COUNT 2.84 X10'6 (4.70-6.10); RED CELL DISTRIBUTION WIDTH 21.3 % (11.5-14.5); WHITE BLOOD COUNT 10.8 X10'3 (4.5-11.0)
--- NOTE | 2022-05-13 06:35 | NUR ---
Patient in room PCU 3024. I have received report from SHARON MACKAY and had the opportunity to ask questions and assume patient care.
[2022-05-13 07:00] VITALS: BP 135/75
[2022-05-13 07:12] LABS: ALANINE AMINOTRANSFERASE 11 U/L (12-78); ALBUMIN 2.6 G/DL (3.4-5.0); ALBUMIN/GLOBULIN RATIO 0.6 (1.1-1.5); ALKALINE PHOSPHATASE 140 IU/L (46-116); ANION GAP 9 (8-16); ASPARTATE AMINO TRANSFERASE 11 U/L (10-37); BILIRUBIN,TOTAL 0.4 MG/DL (0.1-1.0); BLOOD UREA NITROGEN 25 MG/DL (7-18); CALCIUM 8.7 MG/DL (8.5-10.1); CHLORIDE 93 MMOL/L (99-107); CREATININE 6.24 MG/DL (0.60-1.10); GLUCOSE 107 MG/DL (70-104); POTASSIUM 4.4 MMOL/L (3.5-5.1); SODIUM 131 MMOL/L (135-145); TOTAL CARBON DIOXIDE 29.2 MMOL/L (24-32); eGFR 10 ML/MIN
[2022-05-13] MEDS: NUT.TX.IMP.RENAL FXN,LAC-REDUC (Nepro) 237 ML VANILLA PO SCH ×2 (07:30→13:08)
--- NOTE | 2022-05-13 07:54 | NUR ---
HEPARIN PROTOCOL REVIEWED WITH THOMPSON MORALES, PT HAD A PT OF 68 AND WILL REMAIN AT CURRENT RATE OF 13 MLS/HR
[2022-05-13] MEDS: CAPSAICIN 0.025% TP SCH (08:00)
[2022-05-13] MEDS: K and/or MAG REPLACEMENT MC SCH (08:00)
[2022-05-13 08:14] LABS: HBSAG SCREEN Negative (Negative)
[2022-05-13] MEDS: oxyCODONE IR 5mg (immed. release) tablet PO PRN ×2 (08:54→15:36)
[2022-05-13] MEDS: hyDRALAzine 10mg tablet PO SCH ×3 (08:55→15:37)
[2022-05-13] MEDS: sildenafil citrate 20mg tablet PO SCH ×2 (08:56→12:28)
[2022-05-13] MEDS: folic acid/vitamin B complex w/vitamin C 0.8mg tablet PO SCH (09:05)
[2022-05-13] MEDS: docusate sod 100mg capsule PO SCH (09:05)
[2022-05-13] MEDS: sevelamer carbonate 800mg tablet PO SCH ×2 (09:05→13:00)
[2022-05-13] MEDS: sennosides 8.6mg tablet PO SCH (09:08)
[2022-05-13] MEDS: levoTHYROXINE 100mcg tablet PO SCH (09:13)
--- NOTE | 2022-05-13 09:20 | NUR ---
attempted to do AM blood sugar, patient refused. will notify doctor
[2022-05-13] MEDS ORDERED: bisacodyl 10mg suppository rectal RC PRN (10:55)
[2022-05-13] MEDS ORDERED: lactulose 20gm/30ml cup PO ONE (10:55)
[2022-05-13 11:00] VITALS: BP 137/83
--- NOTE | 2022-05-13 12:40 | NUR ---
Page Sent PAGER ID: [phone] MESSAGE: [id number] B FERMIN, PT REFUSED TO TAKE ALL 90 ML OF LACTULOSE AT A TIME. HE STSTED HE WOULD TRY 30 ML FOR NOW. CAN I PUT IN ANOTHER ONE TIME DOSE OF 30 IF HE DOESNT HAVE A BOWEL MOVEMENT IN AN HOUR OR SO? NEELAM U
--- NOTE | 2022-05-13 13:09 | NUR ---
PT REFUSED NOON BS, IS NOTIFIED
[2022-05-13] MEDS: lactulose 20gm/30ml cup PO PRN ×2 (14:00→15:23)
[2022-05-13 15:24] VITALS: BP 151/76
[2022-05-13 15:37] VITALS: BP_SYST 151
--- NOTE | 2022-05-13 15:50 | NUR ---
RN ORIENT documentation: I have reviewed and agree with all interventions, assessments performed and documented by SOURAV MACKAY
--- NOTE | 2022-05-13 17:23 | NUR ---
Page Sent PAGER ID: [phone] MESSAGE: [id number] B CHRISTENSEN, PT HAD A BOWEL, MOVEMENT BUT WE WERE UNABLE TO GET STOOL SAMPLE BECAUSE HE FLUSHED IT, JUST TO LET YOU KNOW. NEELAM SALAZAR
--- NOTE | 2022-05-13 17:28 | NUR ---
PER DR JAIME HE WANTED THE HEPARIN DRIP TO BE DC, PT IS GETTING DISCHARGED TO [facility]
--- NOTE | 2022-05-13 17:45 | NUR ---
Patient stable for discharge. PIV's removed cannulas intact. All belongings taken with patient. escorted down on [address] by selvin kirk. left in [facility] to lito. Report was called to [facility]o. All wound pictures were taken on D/C.
[2022-05-13] MEDS ORDERED: warfarin 3mg tablet PO ONE (21:00)
[2022-05-14 05:14] LABS: HBSAG SCREEN Negative (Negative)
== END 2022-05-13 17:35 | DRG 682 ==
LOC: UNDOADMIN 05-08 01:04 → PCU 3S 05-08 01:04
PROVIDERS: ADMIT Internal Medicine; ATTEND Internal Medicine
PROC: 5A1D70Z Performance of Urinary Filtration, Intermittent, Less than 6 Hours Per Day (ICD-10-PCS; principal; 2022-05-09)
PROC: 5A1D70Z Performance of Urinary Filtration, Intermittent, Less than 6 Hours Per Day (ICD-10-PCS; 2022-05-12)
DX: I12.0 Hypertensive chronic kidney disease with stage 5 chronic kidney disease or end stage renal disease (principal); N18.6 End stage renal disease; I27.82 Chronic pulmonary embolism; Z20.822 Contact with and (suspected) exposure to COVID-19; E11.22 Type 2 diabetes mellitus with diabetic chronic kidney disease; M25.562 Pain in left knee; I27.20 Pulmonary hypertension, unspecified; R91.1 Solitary pulmonary nodule; D63.8 Anemia in other chronic diseases classified elsewhere; E11.40 Type 2 diabetes mellitus with diabetic neuropathy, unspecified; Z79.4 Long term (current) use of insulin; Z87.74 Personal history of (corrected) congenital malformations of heart and circulatory system; Z99.2 Dependence on renal dialysis; Z79.899 Other long term (current) drug therapy; Z79.01 Long term (current) use of anticoagulants
CPT/HCPCS: 36415; 80053; 82728; 82948; 83036; 83540; 83550; 85007; 85008; 85025; 85610; 85730; 86706; 87081; 87340; 87811; 90935; 93005; 93970; 97161; 97530; A4615; G0257; G0378; J0780; J1644; J1815; J2405; J7030; Q4081

== ENCOUNTER 2022-06-19 10:10 | Day surgery (SDC) | payer OTHER ==
[~2022-06-19] VITALS: Ht 182.9 cm; Wt 98.0 kg
[2022-06-19] VITALS (7 sets, daily range): BP systolic 108–137; BP diastolic 59–73
[~2022-06-19 10:10] MED LIST changes: +ACET-1013 PO; -ALBU2.5V7 NEB; -APIX5TAB3 PO; -APIX5TAB5 PO; +ATOR20TA66 PO; +CALC500T11 PO; +CAPS60CR6 TP; -DILT-36 PO; +DOCU50CA13 PO; +FAMO-128 PO; -FERR210T PO; +FOLI0.8T19 PO; +GUAI100L97 PO; -HYDR100T27 PO; +HYDRALAZINE 10 MG PO; -LEVO250T74 PO; -LISI20TA28 PO; -LOSA25TA96 PO; -MACI10TA2 PO; +MELA3TAB39 PO; -METO100T14 PO; -METO5TAB98 PO; -MIDO10TA PO; +OXYC-481 PO; -ROSU10TA28 PO; -ROSU5TAB PO; +SENN-263 PO; -SEVE800T7 PO; -SODI10PO PO; +VENL75TA90 PO
[2022-06-19] MEDS ORDERED: cefazolin/dext.iso 2gm/100ml 100 ML IV ONE (10:35)
[2022-06-19] MEDS ORDERED: normal saline 1000ml 1,000 ML IV PRN (10:35)
[2022-06-19] MEDS ORDERED: LACT10SO7 PO (11:01)
[2022-06-19] MEDS ORDERED: ONDA-103 PO (11:01)
[2022-06-19] MEDS ORDERED: WARF4TAB69 PO (11:01)
[2022-06-19] MEDS ORDERED: HYDRALAZINE PO (11:01)
[2022-06-19] MEDS ORDERED: OXYC10TA47 PO (11:01)
[2022-06-19] MEDS ORDERED: midazolam 1 mg/ML 2ml injection ONE (13:16)
[2022-06-19] MEDS ORDERED: heparin 1,000unit/ml 10ml vial 10 ML ONE (13:16)
[2022-06-19] MEDS ORDERED: LIDOcaine 1% 30ml preserv. free vial ONE (13:17)
[2022-06-19] MEDS ORDERED: fentaNYL/PF 50MCG/1 ML 2ML syringe ONE ×2 (13:17→14:02)
== END 2022-06-19 16:30 ==
LOC: SSTAY O 10:10
PROVIDERS: ATTEND Radiology Diagnostic Radiology
DX: T82.598A Other mechanical complication of other cardiac and vascular devices and implants, initial encounter (principal); E11.22 Type 2 diabetes mellitus with diabetic chronic kidney disease; I12.0 Hypertensive chronic kidney disease with stage 5 chronic kidney disease or end stage renal disease; N18.6 End stage renal disease; I27.24 Chronic thromboembolic pulmonary hypertension; Z79.01 Long term (current) use of anticoagulants; Z79.899 Other long term (current) drug therapy; Z98.890 Other specified postprocedural states; Z86.711 Personal history of pulmonary embolism; Y83.8 Other surgical procedures as the cause of abnormal reaction of the patient, or of later complication, without mention of misadventure at the time of the procedure; Y92.89 Other specified places as the place of occurrence of the external cause
CPT/HCPCS: 36415; 36581; 77001; 82948; 85610; 99152; C1750; C1769; C1894; J1644; J3010; J3490; J7030; J7040; A4620; A9270; J2250

== ENCOUNTER 2023-08-18 22:05 | Emergency (ER) | payer MEDICARE, OTHER ==
[~2023-08-18] VITALS: Ht 182.9 cm; Wt 102.5 kg
[~2023-08-18 22:05] MED LIST changes: -ACET-1013 PO; -CAPS60CR6 TP; -HYDRALAZINE 10 MG PO; +HYDRALAZINE PO; +LACT10SO7 PO; -LANTUS SQ; -NOVLG SQ; +ONDA-103 PO; -OXYC-481 PO; +OXYC10TA47 PO; +WARF4TAB69 PO
[2023-08-19 00:40] LABS: BASOPHILS # (AUTO) 0.1 X10'3 (0-0.2); BASOPHILS % (AUTO) 0.8 % (0-1); EOSINOPHILS # (AUTO) 0.1 X10'3 (0-0.9); EOSINOPHILS % (AUTO) 0.8 % (0-6); HEMATOCRIT 32.5 % (42.0-52.0); HEMOGLOBIN 10.7 g/dl (14.0-17.9); LYMPHOCYTES # (AUTO) 2.1 X10'3 (1.1-4.8); LYMPHOCYTES % (AUTO) 15.6 % (21-51); MEAN CORPUSCULAR HEMOGLOBIN 27.8 PG (27.0-31.0); MEAN CORPUSCULAR HGB CONC 32.8 g/dL (33.0-36.5); MEAN CORPUSCULAR VOLUME 84.8 FL (78-98); MEAN PLATELET VOLUME 8.5 FL (7.4-10.4); MONOCYTES # (AUTO) 1.4 X10'3 (0-0.9); MONOCYTES % (AUTO) 10.6 % (2-12); NEUTROPHILS # (AUTO) 9.8 X10'3 (1.8-7.7); NEUTROPHILS % (AUTO) 72.2 % (42-75); PLATELET COUNT 323 X10'3 (140-440); RED BLOOD COUNT 3.84 X10'6 (4.70-6.10); RED CELL DISTRIBUTION WIDTH 16.2 % (11.5-14.5); WHITE BLOOD COUNT 13.5 X10'3 (4.5-11.0)
[2023-08-19 00:54] LABS: ALANINE AMINOTRANSFERASE 19 U/L (12-78); ALBUMIN 3.4 G/DL (3.4-5.0); ALBUMIN/GLOBULIN RATIO 0.6 (1.1-1.5); ALKALINE PHOSPHATASE 208 IU/L (46-116); ANION GAP 13 (8-16); ASPARTATE AMINO TRANSFERASE 12 U/L (10-37); BILIRUBIN,TOTAL 0.5 MG/DL (0.1-1.0); BLOOD UREA NITROGEN 70 MG/DL (7-18); BUN/CREATININE RATIO 5.8 (10.0-20.0); CALCIUM 8.5 MG/DL (8.5-10.1); CHLORIDE 96 MMOL/L (99-107); CREATININE 11.97 MG/DL (0.60-1.10); GLUCOSE 105 MG/DL (70-104); LIPASE 117 U/L (16-77); POTASSIUM 5.7 MMOL/L (3.5-5.1); SODIUM 135 MMOL/L (135-145); TOTAL CARBON DIOXIDE 26.2 MMOL/L (24-32); TOTAL PROTEIN 8.7 G/DL (6.4-8.2); eCRCL 9 ML/MIN; eGFR 5 ML/MIN
[2023-08-19] MEDS: normal saline 1000ml 1,000 ML IV ONE (04:19)
[2023-08-19] MEDS: acetaminophen 325mg tablet PO ONE (04:23)
[2023-08-19] MEDS: ondansetron/PF 4mg/2ml inj IV ONE (04:23)
[2023-08-19 05:34] VITALS: BP 160/99; PULSE 95; RESP 16; TEMP 98.9; O2SAT 97
== END 2023-08-19 05:39 | disposition home or self-care (01) ==
LOC: ER 22:06
DX: I12.0 Hypertensive chronic kidney disease with stage 5 chronic kidney disease or end stage renal disease (principal); Z20.822 Contact with and (suspected) exposure to COVID-19; N18.6 End stage renal disease; E11.22 Type 2 diabetes mellitus with diabetic chronic kidney disease; J45.909 Unspecified asthma, uncomplicated; F12.90 Cannabis use, unspecified, uncomplicated; R50.9 Fever, unspecified; R19.7 Diarrhea, unspecified; Z79.899 Other long term (current) drug therapy; Z98.890 Other specified postprocedural states
CPT/HCPCS: 36415; 80053; 83690; 85025; 87502; 87503; 87811; 96374; 99285; J2405; J7030